=== PATIENT | female | born 1975 | race American Indian/Alaskan Native ===

== ENCOUNTER 2016-09-11 16:13 | Emergency (ER) | payer MEDICAID ==
[2016-09-11 16:51] VITALS: BP 115/88
[2016-09-11 17:46] LABS: Hematocrit 35.7 % (30.3-42.9); Hemoglobin 11.8 gm/dl (10.1-14.3); Mean Corpuscular HGB Conc 33 % (30-34); Mean Corpuscular Hemoglobin 33 pg (28-32); Mean Corpuscular Volume 100 fl (79-97); Platelet Count 115 K/mm3 (140-440); Red Blood Count 3.57 M/mm3 (3.65-5.03); Red Cell Distribution Width 14.9 % (13.2-15.2); White Blood Count 15.2 K/mm3 (4.5-11.0)
[2016-09-11 18:14] LABS: Basophils % (Manual) 0 % (0.0-1.8); Blastocytes % (Manual) 0 %; Eosinophils % (Manual) 0 % (0.0-4.3)
[2016-09-11 18:15] LABS: Platelet Estimate Appears Decreased
[2016-09-11 18:16] LABS: Anisocytosis 1+; Diff Status Complete
[2016-09-11 18:17] LABS: Anion Gap 17 mmol/L; Blood Urea Nitrogen 4 mg/dL (7-17); Calcium 8.7 mg/dL (8.4-10.2); Carbon Dioxide 27 mmol/L (22-30); Chloride 99.5 mmol/L (98-107); Glucose 130 mg/dL (65-100); Potassium 3.9 mmol/L (3.6-5.0); Sodium 140 mmol/L (137-145)
== END 2016-09-11 17:45 | disposition left against medical advice (07) ==
LOC: ED 16:13
DX: I10 Essential (primary) hypertension (principal); R00.2 Palpitations; Z53.21 Procedure and treatment not carried out due to patient leaving prior to being seen by health care provider
CPT/HCPCS: 36415; 80048; 84484; 85007; 85025; 93005; 93010

== ENCOUNTER 2016-09-11 23:47 | Emergency (ER) | payer MEDICAID ==
[2016-09-12 00:25] VITALS: BP 119/81
--- NOTE | 2016-09-12 02:23 | Emergency Department Report ---
ED General Adult HPI - General Chief complaint: Chest Pain Stated complaint: CHEST PAIN Time Seen by Provider: 09/12/16 01:48 Source: patient Mode of arrival: Ambulatory Limitations: No Limitations - History of Present Illness Initial comments: This is a pleasant 40-year-old who complains of palpitations on and off over the last couple of days. She states that she's taken her pulse at home and has had it as high as 103. She states this is never persistent. It will last up to 5-10 minutes and then resolved. She states that she does feel somewhat lightheaded when she has the fast heartbeat. She is currently under chemotherapy for lung cancer. She is currently on her sixth dose of carboplatin I believe. She denies any specific chest pain she just has a sensation of some fluttering in her chest from time to time. She denies any shortness of breath at this time no fever no trauma reported. States that she is frequently nauseous and is not a new condition she does report still taking oral intake. She denies any specific trauma. Onset/Timin -: days(s) Location: chest Radiation: non-radiation Severity scale (0 -10): 2 Quality: dull Consistency: intermittent Improves with: none Worsens with: none Associated Symptoms: weakness. denies: shortness of breath Treatments Prior to Arrival: none - Related Data Previous Rx's Medication Instructions Recorded Last Taken Type Ondansetron [Zofran ODT TAB] 4 mg PO Q6H #14 tab.rapdis 11/10/14 Unknown Rx HYDROcodone/APAP 5-325 [[place] 1 each PO Q6HR PRN #15 tablet 09/23/15 Unknown Rx 5-325 mg TAB] Ibuprofen [Motrin 600 MG tab] 600 mg PO Q8H PRN #15 tablet 09/23/15 Unknown Rx Sulfamethoxazole/Trimethoprim 1 each PO BID #14 tablet 09/23/15 Unknown Rx [Bactrim DS TAB] Ferrous Sulfate [Feosol 325 MG tab] 325 mg PO TID #90 tablet 01/01/16 Unknown Rx oxyCODONE /ACETAMINOPHEN [Percocet 1 tab PO Q8H PRN #35 tablet 01/01/16 Unknown Rx 5/325 mg] ALBUTEROL Inhaler [ProAir HFA 2 puff IH QID PRN #1 inhalation 04/23/16 Unknown Rx Inhaler] Albuterol Sulfate [Albuterol 0.63% 0.63 mg IH Q6H PRN #1 box 04/23/16 Unknown Rx NEBS] Pregabalin [Lyrica] 100 mg PO DAILY #30 capsule 04/23/16 Unknown Rx Amoxicillin/K Clav Tab [Augmentin 1 tab PO Q12HR #14 tab 06/01/16 Unknown Rx 875 mg] Famotidine [Pepcid] 20 mg PO BID #60 tablet 06/01/16 Unknown Rx guaiFENesin ER [Mucinex ER] 600 mg PO BID #30 tablet 06/01/16 Unknown Rx Fluconazole [Diflucan TAB] 200 mg PO BID #14 tablet 07/10/16 Unknown Rx Allergies Allergy/AdvReac Type Severity Reaction Status Date / Time ketorolac tromethamine Allergy Itching Verified 07/10/16 10:11 [From Toradol] latex Allergy Itching Verified 07/10/16 10:11 tramadol Allergy Itching Verified 07/10/16 10:11 ED Review of Systems ROS: Stated complaint: CHEST PAIN Other details as noted in HPI Constitutional: weakness. denies: chills, fever Eyes: denies: eye pain, eye discharge, vision change ENT: denies: ear pain, throat pain Respiratory: denies: cough, shortness of breath, wheezing Cardiovascular: palpitations. denies: chest pain Endocrine: no symptoms reported Gastrointestinal: denies: abdominal pain, nausea, diarrhea Genitourinary: denies: urgency, dysuria, discharge Musculoskeletal: denies: back pain, joint swelling, arthralgia Skin: denies: rash, lesions Neurological: denies: headache, weakness, paresthesias Psychiatric: denies: anxiety, depression Hematological/Lymphatic: denies: easy bleeding, easy bruising ED Past Medical Hx - Past Medical History Previous Medical History?: Yes Hx Hypertension: Yes Hx Congestive Heart Failure: No Hx Diabetes: No Hx of Cancer: Yes (LUNG) Hx Asthma: Yes Hx COPD: No Hx HIV: No Additional medical history: Lung ca - Surgical History Past Surgical History?: Yes Additional Surgical History: right ectopic with tube removed. port to left chest. lobectomy on right side - Social History Smoking Status: Current Every Day Smoker Substance Use Type: None - Medications Home Medications: Home Medications Medication Instructions Recorded Confirmed Last Taken Type Ondansetron [Zofran ODT TAB] 4 mg PO Q6H #14 tab.rapdis 11/10/14 Unknown Rx HYDROcodone/APAP 5-325 [[place] 1 each PO Q6HR PRN #15 tablet 09/23/15 Unknown Rx 5-325 mg TAB] Ibuprofen [Motrin 600 MG tab] 600 mg PO Q8H PRN #15 tablet 09/23/15 Unknown Rx Sulfamethoxazole/Trimethoprim 1 each PO BID #14 tablet 09/23/15 Unknown Rx [Bactrim DS TAB] Ferrous Sulfate [Feosol 325 MG tab] 325 mg PO TID #90 tablet 01/01/16 Unknown Rx oxyCODONE /ACETAMINOPHEN [Percocet 1 tab PO Q8H PRN #35 tablet 01/01/16 Unknown Rx 5/325 mg] ALBUTEROL Inhaler [ProAir HFA 2 puff IH QID PRN #1 inhalation 04/23/16 Unknown Rx Inhaler] Albuterol Sulfate [Albuterol 0.63% 0.63 mg IH Q6H PRN #1 box 04/23/16 Unknown Rx NEBS] Pregabalin [Lyrica] 100 mg PO DAILY #30 capsule 04/23/16 Unknown Rx Amoxicillin/K Clav Tab [Augmentin 1 tab PO Q12HR #14 tab 06/01/16 Unknown Rx 875 mg] Famotidine [Pepcid] 20 mg PO BID #60 tablet 06/01/16 Unknown Rx guaiFENesin ER [Mucinex ER] 600 mg PO BID #30 tablet 06/01/16 Unknown Rx Fluconazole [Diflucan TAB] 200 mg PO BID #14 tablet 07/10/16 Unknown Rx ED Physical Exam - General Limitations: No Limitations General appearance: alert, in no apparent distress - Head Head exam: Present: atraumatic, normocephalic - Eye Eye exam: Present: normal appearance, PERRL, EOMI. Absent: scleral icterus - ENT ENT exam: Present: normal orophraynx, mucous membranes moist - Neck Neck exam: Present: normal inspection - Respiratory Respiratory exam: Present: decreased breath sounds (L lung with rales. R nml). Absent: respiratory distress, wheezes, rhonchi - Cardiovascular Cardiovascular Exam: Present: regular rate, normal rhythm. Absent: systolic murmur, diastolic murmur, rubs, gallop - GI/Abdominal GI/Abdominal exam: Present: soft, normal bowel sounds - Extremities Exam Extremities exam: Present: normal inspection. Absent: tenderness, pedal edema, calf tenderness - Back Exam Back exam: Present: normal inspection - Neurological Exam Neurological exam: Present: alert, oriented X3 - Psychiatric Psychiatric exam: Present: normal affect, normal mood - Skin Skin exam: Present: warm, dry, intact, normal color. Absent: rash ED Course Vital Signs 09/12/16 09/12/16 00:19 02:31 Temperature 98.3 F Pulse Rate 87 Respiratory 20 18 Rate Blood Pressure 119/81 O2 Sat by Pulse 99 97 Oximetry - Reevaluation(s) Reevaluation #1: 09/12/16 05:17 Patient kept on telemetry for approximately 2 hours here. No arrhythmias or significant ectopy noted on the monitor. I did have a discussion with the patient regarding my findings and her condition. She subjectively reports having a couple of episodes where she felt some fluttering but no sustained palpitations. I did encourage her to follow up with her physician to be considered for Holter monitor or event monitor feels she is otherwise safe for home at this time. ED Medical Decision Making - Lab Data Labs done at 1700 on initial presentation demonstrated normal CBC CMP and troponin T - EKG Data -: EKG Interpreted by Me EKG shows normal: sinus rhythm, axis, intervals, QRS complexes, ST-T waves Rate: normal - EKG Data When compared to previous EKG there are: previous EKG unavailable Interpretation: normal EKG Critical care attestation.: If time is entered above; I have spent that time in minutes in the direct care of this critically ill patient, excluding procedure time. ED Disposition Clinical Impression: Heart palpitations Disposition: DISCHARGED TO HOME OR SELFCARE Is pt being admited?: No Does the pt Need Aspirin: No Condition: Stable Instructions: Palpitations (ED) Additional Instructions: Follow-up with your doctor for consideration for event monitor. Referrals: ESTELA WILSON DO [Primary Care Provider] - 3-5 Days Time of Disposition: 04:06
== END 2016-09-12 04:16 | disposition home or self-care (01) ==
LOC: ED 23:47
DX: R00.2 Palpitations (principal); R07.9 Chest pain, unspecified; R53.1 Weakness; I10 Essential (primary) hypertension; J45.909 Unspecified asthma, uncomplicated; F17.200 Nicotine dependence, unspecified, uncomplicated; Z85.118 Personal history of other malignant neoplasm of bronchus and lung; Z88.6 Allergy status to analgesic agent; Z91.040 Latex allergy status
CPT/HCPCS: 99283

== ENCOUNTER 2016-10-19 14:08 | Outpatient (CLI) | payer MEDICAID ==
--- NOTE | 2016-10-19 14:49 | XRay Report ---
CHEST 2 VIEWS INDICATION: Persistent cough. COMPARISON: 07/10/2016. FINDINGS: PA and lateral chest radiographs demonstrate normal cardiomediastinal silhouette. Clear lungs. Intact bones. Stable left chest port tip about the cavoatrial junction. CONCLUSION: No acute disease in the chest. Thank you for the opportunity to participate in this patient's care.
== END 2016-10-19 14:09 | disposition home or self-care (01) ==
LOC: XRAY 14:08
PROVIDERS: ATTEND Internal Medicine Hematology & Oncology
DX: R05 Cough (principal)
CPT/HCPCS: 71020

== ENCOUNTER 2016-11-18 08:15 | Day surgery (SDC) | payer MEDICAID ==
[~2016-11-18 08:15] MED LIST: ANCEF/STERILE WATER 2 GM/20 ML IV ONE
[2016-11-18] MEDS ORDERED: XYLOCAINE 1% 20 mL ONE ×2 (08:55→12:37)
--- NOTE | 2016-11-18 08:57 | Anesthesia Day of Surgery ---
Anesthesia Day of Surgery - Day of Surgery Patient Examined: Yes Patient H&P Reviewed: Yes Patient is NPO: Yes
--- NOTE | 2016-11-18 08:57 | Anesthesia Consultation ---
Anesthesia Consult and Med Hx Date of service: 11/18/16 - Airway Anesthetic Teeth Evaluation: Good ROM Head & Neck: Adequate Mental/Hyoid Distance: Adequate Mallampati Class: Class II Intubation Access Assessment: Probably Good - Pulmonary Exam CTA: Yes - Cardiac Exam Cardiac Exam: RRR - Pre-Operative Health Status ASA Pre-Surgery Classification: ASA3 Proposed Anesthetic Plan: MAC - Pulmonary Hx Smoking: Yes ( 3 PER DAY-3/4PPD X 24 YRS) Hx Asthma: Yes (INHALERS PRN) COPD: No Hx Pneumonia: Yes Hx Sleep Apnea: No (ZHANNA PRE SCREEN LOW RISK) - Cardiovascular System Hx Hypertension: Yes (X 5 MONTHS) - Central Nervous System Hx Psychiatric Problems: No - Hematic Hx Anemia: Yes - Other Systems Hx Cancer: Yes (lung CA)
[2016-11-18] MEDS ORDERED: PEPCID PO NR (09:00)
[2016-11-18] MEDS ORDERED: VERSED IV NR (09:00)
[2016-11-18] MEDS ORDERED: NACL 0.9% 1000 ML 1,000 ML IV SCH (09:00)
[2016-11-18] MEDS ORDERED: DIPRIVAN 10 MG/ML IV ONE (10:37)
[2016-11-18] MEDS ORDERED: DILAUDID ONE (10:38)
[2016-11-18] MEDS ORDERED: NACL BACTERIOSTATIC INFILTRATI ONE (11:08)
--- NOTE | 2016-11-18 11:57 | Mammography Report ---
Breast needle localization procedure. History: 2 groupings of indeterminate microcalcifications in the right breast. Procedure: The patient's skin surface was prepped and draped using sterile technique. Using mammographic guidance, a 5 cm Woodard needle was advanced into 2 separate areas of faint microcalcifications. Satisfactory placement of the needles was confirmed. The patient tolerated the procedure well and was sent to surgery in satisfactory condition.
[2016-11-18] MEDS ORDERED: ANCEF/STERILE WATER 2 GM/20 ML 2 GM/20 ML SYRINGE IV ONE (11:59)
[2016-11-18] MEDS ORDERED: ANCEF/STERILE WATER 2 GM/20 ML IV NR (12:00)
[2016-11-18] MEDS ORDERED: XYLOCAINE MPF 2% ONE (12:14)
[2016-11-18] MEDS ORDERED: ZOFRAN ONE (12:14)
[2016-11-18] MEDS ORDERED: MARCAINE 0.25% INFILTRATI ONE ×2 (12:36→12:41)
[2016-11-18] MEDS ORDERED: WATER FOR IRRIG STERILE IR ONE (12:41)
[2016-11-18] MEDS ORDERED: XYLOCAINE 1% 20 mL INFILTRATI ONE (12:41)
[2016-11-18] MEDS ORDERED: NEO SYNEPHRINE/NS Syringe(OR USE) IV ONE (12:54)
[2016-11-18] MEDS ORDERED: NACL 0.9% 1000 ML 1,000 ML ONE (13:36)
--- NOTE | 2016-11-18 13:57 | Mammography Report ---
Specimen radiograph. Findings: 3 specimen radiographs were submitted. The first specimen radiograph confirms the presence of microcalcifications with the hook wire. The second specimen containing a hookwire does not confirm microcalcifications. The third specimen radiograph without a hookwire confirms the presence of the microcalcifications which were localized.
--- NOTE | 2016-11-18 14:27 | Short Stay Summary ---
Short Stay Documentation Date of service: 11/18/16 - History H&P: obtained from office - Allergies and Medications Current Medications: Allergies ketorolac tromethamine [From Toradol] Allergy (Verified 07/10/16 10:11) Itching latex Allergy (Verified 07/10/16 10:11) Itching tramadol Allergy (Verified 07/10/16 10:11) Itching Home Medications Medication Instructions Recorded Confirmed Last Taken Type RX: Ondansetron [Zofran ODT TAB] 4 mg PO Q6H #14 tab.rapdis 11/10/14 11/18/16 1 Week Ago Rx RX: ALBUTEROL Inhaler [ProAir HFA 2 puff IH QID PRN #1 inhalation 04/23/1611/1811/16/16 Rx Inhaler] RX: Albuterol Sulfate [Albuterol 0.63 mg IH Q6H PRN #1 box 04/23/16 11/18/1604/25 Rx 0.63% NEBS] Dronabinol [Marinol] 5 mg PO BID 11/13/16 11/13/16 11/17/16 History Gabapentin [Neurontin] 600 mg PO TID 11/13/16 11/13/16 11/17/16 History Morphine ER [Ms Contin ER] 60 mg PO TID 11/13/16 11/13/16 11/17/16 History Morphine Sulfate [Morphine Sulfate 30 mg PO DAILY 11/13/16 11/13/16 11/17/16 History ER] Oxycodone HCl/Acetaminophen 1 each PO Q6HR PRN 11/13/16 11/18/16 1 Week Ago History [Percocet 10/325 mg] RX: Famotidine [Pepcid] 20 mg PO PRN PRN 11/13/16 11/18/16 2 Weeks Ago History RX: Ferrous Sulfate [Feosol 325 MG 325 mg PO DAILY 11/13/16 11/18/16 11/16/16 History tab] RX: predniSONE [Deltasone] 20 mg PO QDAY 11/13/16 11/13/16 11/17/16 History cloNIDine [Catapres] 0.1 mg PO DAILY 11/13/16 11/13/16 11/17/16 History HYDROcodone/APAP 5-325 [[place] 1 each PO Q6HR PRN #30 tablet 11/18/16 Unknown Rx 5/325] Active Medications Cefazolin Sodium (Ancef/Sterile Water 2 Gm/20 Ml) 2 gm IV PREOP NR Stop: 11/18/16 23:59 Famotidine (Pepcid) 20 mg PO PREOP NR Stop: 11/18/16 23:59 Last Admin: 11/18/16 11:30 Dose: 20 mg Hydrocortisone Sodium Succinate (Solu-Cortef) 100 mg IV ONCE NR Stop: 11/18/16 23:59 Last Admin: 11/18/16 11:45 Dose: 100 mg Sodium Chloride (Nacl 0.9% 1000 Ml) 1,000 mls @ 100 mls/hr IV DIRECT NATHALY Last Admin: 11/18/16 11:35 Dose: 100 mls/hr Midazolam HCl (Versed) 2 mg IV PREOP NR Stop: 11/18/16 23:59 Last Admin: 11/18/16 11:52 Dose: 2 mg - Brief post op/procedure progress note Date of procedure: 11/18/16 Pre-op diagnosis: Abnormal right mammogram with suspicious microcalcifications Post-op diagnosis: same Procedure: Right needle localization excisional biopsy of two groups of suspicious microcalcifications Anesthesia: GETA Findings: Radiograph specimen of both specimens with suspicious microcalcifications present Surgeon: ISATU JACKSON Estimated blood loss: minimal Pathology: list (Two breast specimens-excisional biopsy) Specimen disposition: to lab Condition: stable - Disposition Condition at discharge: Good Disposition: DISCHARGED TO HOME OR SELFCARE Short Stay Discharge Plan Activity: other (no heavy lifting) Diet: regular Wound: other (keep incision clean and dry; may shower in 24 hours; no baths, pools or lakes; do not rub or scrub incision) Follow up with: ESTELA WILSON DO [Primary Care Provider] - 7 Days ISATU JACKSON MD [Staff Physician] - 7 Days Prescriptions: HYDROcodone/APAP 5-325 [[place] 5/325] 1 each PO Q6HR PRN #30 tablet PRN Reason: Pain
--- NOTE | 2016-11-18 14:41 | Operative Report ---
Operative Report Operative Report: Operative note Date of procedure: 11/18/2016 Pre-operative diagnosis: Right breast suspicious microcalcifications of the lower outer and lower upper quadrants Post-operative diagnosis: Same Procedure name(s): Right complex needle localization excisional biopsy of suspicious microcalcifications Surgeon: Heaven Ybarra M.D. Anesthesia: Gen. Findings: Radiograph specimen of both suspicious microcalcifications present Complications: None Disposition: PACU in good condition Indications for operative procedure: This is a 41-year-old -[place] lady with recent abnormal bilateral screening and diagnostic mammogram. Left mammogram with probable benign microcalcifications and radiology recommendations for repeat 6 months mammogram and right mammogram with suspicious microcalcifications of the lower outer and lower upper quadrants with recommendation for excisional biopsy. Right stereotactic breast biopsy was initially attempted but unsuccessful given patient's breast size. Patient wished to proceed with the above procedure. Patient also recently completed chemotherapy treatment for right lung cancer. Procedure in detail: Radiology placed a wire to localize the area of suspicious microcalcifications-two groups. The patient was taken to the operating room. She was laid supine and general anesthesia was administered without any complications. Both needles were identified. A skin incision was made laterally with a 15 blade knife with dissection taken down to the subcutaneous tissues. The procedure first began with removal of the calcifications from the right upper outer quadrant,the wire was removed from the skin laterally and began with raising of flaps superiorly, medially, inferiorly and laterally and the area of concern was appropriately removed with the aid of the Bovie cautery. The wire was not encountered. The right lower outer microcalcifications were then removed in a similar like fashion with the wire removed from the skin laterally and flaps raised superiorly, medially, inferiorly and laterally with removal of the suspicious areas. Radiograph specimen with wire present with calcifications present from the upper outer quadrant specimen. Second specimen with wire present and micro-calcifications not present from the lower outer quadrant. Then proceeded with additional tissue more medial to obtain more tissue for the lower-outer suspicious calcifications and radiograph specimen with suspicious calcifications present. Hemostasis was obtained. The breast cavity was irrigated and suctioned. The subcutaneous tissues were then mobilized and approximated and closed using interrupted 3-0 Vicryl and skin brought together and closed using a running 4-0 Monocryl and skin affix. The patient tolerated surgery very well and she was awakened from anesthesia without any complications and transported to PACU in good condition.
--- NOTE | 2016-11-18 14:49 | Post Anesthesia Evaluation ---
- Post Anesthesia Evaluation Patient Participated: Yes Airway Patent: Yes Stable Respiratory Function: Yes Temp > 96.8F: Yes Pain Manageable: Yes Adequeate Hydration: Yes Anesthesia Complications: No Block Receding Appropriately: Not Applicable
[2016-11-18] MEDS ORDERED: NORCO 5/325 PO PRN (15:42)
[2016-11-18 18:05] VITALS: BP 112/77
== END 2016-11-18 16:00 | disposition home or self-care (01) ==
LOC: OR 08:15
PROVIDERS: ATTEND Surgery
DX: N60.11 Diffuse cystic mastopathy of right breast (principal); J45.909 Unspecified asthma, uncomplicated; D64.9 Anemia, unspecified; I10 Essential (primary) hypertension; Z85.118 Personal history of other malignant neoplasm of bronchus and lung; Z87.01 Personal history of pneumonia (recurrent); Z87.891 Personal history of nicotine dependence; Z80.3 Family history of malignant neoplasm of breast
CPT/HCPCS: 19125; 19281; 19282; 76098; 88307; J0690; J1170; J1720; J2250; J2370; J2405; J2704; J7030; 88305

== ENCOUNTER 2016-12-11 07:18 | Outpatient (CLI) | payer MEDICAID ==
--- NOTE | 2016-12-11 09:30 | Ultrasound Report ---
Pelvic ultrasound: Uterine fibroids. Endovaginal and transabdominal imaging demonstrates an anteverted uterus measuring 4 x 4 by 7.8 cm. 2 relatively isoechoic masses were identified in the uterine fundus measuring one and 1.3 cm. The larger mass contains a small calcification. The endometrium is unremarkable with the width of 2.9 mm. A small amount of free fluid noted. The right ovary measures 2.9 cm containing a 13 mm inhomogeneous solid mass. The right ovary measures 2.7 cm and contains a cyst as well as a solid mass measuring 11 mm. Impressions: 1. 2 uterine fibroids. 2. Benign-appearing uterine masses.
== END 2016-12-11 07:19 | disposition home or self-care (01) ==
LOC: US 07:18
PROVIDERS: ATTEND Internal Medicine Hematology & Oncology
DX: D25.9 Leiomyoma of uterus, unspecified (principal); N83.201 Unspecified ovarian cyst, right side; N85.8 Other specified noninflammatory disorders of uterus; N85.4 Malposition of uterus
CPT/HCPCS: 76830; 76856

== ENCOUNTER 2016-12-17 23:35 | Emergency (ER) | payer MEDICAID ==
[2016-12-18 01:12] LABS: Red Cell Distribution Width 15.3 % (13.2-15.2); White Blood Count 5.3 K/mm3 (4.5-11.0)
[2016-12-18 01:40] LABS: Basophils % (Auto) 1.1 % (0.0-1.8); Eosinophils % (Auto) 3.5 % (0.0-4.3); Hematocrit 38.6 % (30.3-42.9); Hemoglobin 12.8 gm/dl (10.1-14.3); Mean Corpuscular HGB Conc 33 % (30-34); Mean Corpuscular Hemoglobin 33 pg (28-32); Mean Corpuscular Volume 100 fl (79-97); Platelet Count 228 K/mm3 (140-440); Red Blood Count 3.87 M/mm3 (3.65-5.03)
[2016-12-18 01:57] LABS: Anion Gap 22 mmol/L; Blood Urea Nitrogen 8 mg/dL (7-17); Calcium 8.9 mg/dL (8.4-10.2); Carbon Dioxide 23 mmol/L (22-30); Glucose 91 mg/dL (65-100); Potassium 4.3 mmol/L (3.6-5.0); Sodium 147 mmol/L (137-145)
[2016-12-18 12:11] LABS: Urine Drugs of Abuse Note Disclamer
[2016-12-18 12:24] LABS: Bacteria,Urine 1+ /HPF (Negative); Bilirubin,Urine NEG (Negative); Blood,Urine SM (Negative); Ketones,Urine NEG (Negative); Leukocyte Esterase,Urine NEG (Negative); Mucus,Urine 3+ /HPF; Nitrite,Urine NEG (Negative); Urobilinogen,Urine < 2.0 mg/dL (<2.0)
--- NOTE | 2016-12-18 12:58 | Cat Scan Report ---
CT HEAD WITHOUT CONTRAST: HISTORY: Mental status changes, lung cancer. Serial contiguous axial images were obtained through the cranium. Intravenous contrast material was not administered. The ventricles are normal in size and appearance. There is no mass effect or midline shift. No areas of abnormally increased or decreased attenuation are seen. No mass lesion is seen. The mastoid air cells and visualized portions of the sinuses are normal. IMPRESSION: Cranial CT scan within normal limits.
--- NOTE | 2016-12-18 13:28 | Emergency Department Report ---
ED Psych HPI - General Chief Complaint: Psych Stated Complaint: MH EVAL/HOSTILE BEHAVIOR Time Seen by Provider: 12/18/16 11:38 Source: patient, RN notes reviewed Mode of arrival: Ambulatory Limitations: No Limitations - History of Present Illness Initial Comments: 41-year-old female presents to the emergency department complaining of depression. Patient states for the past 6 weeks she has been having increasing depression. She states she recently locked herself in her room and did not want to see anybody. She denies suicidal or homicidal ideations. She denies auditory or visual hallucinations. She has no other complaints. Review of the triage note shows that the family reportedly the patient was having some hostile behavior at home. Patient's primary nurse states that the patient told her that she was sent to the emergency department by her oncologist because she has not been sleeping. Patient denies either of these complaints to me. MD Complaint: feels depressed -: Gradual, week(s) (6) Associated Psychiatric Symptoms: depression History of same: Yes Quality: constant Improves With: none Worsens With: none Associated Symptoms: denies other symptoms Treatments Prior to Arrival: none - Related Data Home Medications Medication Instructions Recorded Confirmed Last Taken Dronabinol [Marinol] 5 mg PO BID 11/13/16 11/13/16 11/17/16 Famotidine [Pepcid] 20 mg PO PRN PRN 11/13/16 11/18/16 2 Weeks Ago Ferrous Sulfate [Feosol 325 MG tab] 325 mg PO DAILY 11/13/16 11/18/16 11/16/16 Gabapentin [Neurontin] 600 mg PO TID 11/13/16 11/13/16 11/17/16 Morphine ER [Ms Contin ER] 60 mg PO TID 11/13/16 11/13/16 11/17/16 Morphine Sulfate [Morphine Sulfate 30 mg PO DAILY 11/13/16 11/13/16 11/17/16 ER] Oxycodone HCl/Acetaminophen 1 each PO Q6HR PRN 11/13/16 11/18/16 1 Week Ago [Percocet 10/325 mg] cloNIDine [Catapres] 0.1 mg PO DAILY 11/13/16 11/13/16 11/17/16 predniSONE [Deltasone] 20 mg PO QDAY 11/13/16 11/13/16 11/17/16 Previous Rx's Medication Instructions Recorded Last Taken Type Ondansetron [Zofran ODT TAB] 4 mg PO Q6H #14 tab.rapdis 11/10/14 1 Week Ago Rx ALBUTEROL Inhaler [ProAir HFA 2 puff IH QID PRN #1 inhalation 04/23/16 11/16/16 Rx Inhaler] Albuterol Sulfate [Albuterol 0.63% 0.63 mg IH Q6H PRN #1 box 04/23/16 11/15/16 Rx NEBS] HYDROcodone/APAP 5-325 [[place] 1 each PO Q6HR PRN #30 tablet 11/18/16 Unknown Rx 5/325] Allergies Allergy/AdvReac Type Severity Reaction Status Date / Time dexamethasone [From Decadron] Allergy Itching Verified 12/18/16 00:49 dexamethasone sod phosphate Allergy Itching Verified 12/18/16 00:49 [From Decadron] ketorolac tromethamine Allergy Itching Verified 07/10/16 10:11 [From Toradol] latex Allergy Itching Verified 07/10/16 10:11 tramadol Allergy Itching Verified 07/10/16 10:11 ED Review of Systems ROS: Stated complaint: MH EVAL/HOSTEL BEHAVIOR Other details as noted in HPI Comment: All other systems reviewed and negative Psychiatric: depression. denies: homicidal thoughts, suicidal thoughts ED Past Medical Hx - Past Medical History Previous Medical History?: Yes Hx Hypertension: Yes (X 5 MONTHS) Hx Congestive Heart Failure: No Hx Diabetes: No Hx of Cancer: Yes (LUNG) Hx Asthma: Yes (INHALERS PRN) Hx COPD: No Hx Tuberculosis: No (POSITIVE SKIN TEST,NEGATIVE CXR) Hx HIV: No Additional medical history: Lung ca - Surgical History Past Surgical History?: Yes Additional Surgical History: right ectopic with tube removed. port to left chest. lobectomy on right side - Family History Family history: no significant - Social History Smoking Status: Current Every Day Smoker Substance Use Type: None - Medications Home Medications: Home Medications Medication Instructions Recorded Confirmed Last Taken Type Ondansetron [Zofran ODT TAB] 4 mg PO Q6H #14 tab.rapdis 11/10/14 11/18/16 1 Week Ago Rx ALBUTEROL Inhaler [ProAir HFA 2 puff IH QID PRN #1 inhalation 04/23/16 11/18/16 11/16/16 Rx Inhaler] Albuterol Sulfate [Albuterol 0.63% 0.63 mg IH Q6H PRN #1 box 04/23/16 11/18/16 11/15/16 Rx NEBS] Dronabinol [Marinol] 5 mg PO BID 11/13/16 11/13/16 11/17/16 History Famotidine [Pepcid] 20 mg PO PRN PRN 11/13/16 11/18/16 2 Weeks Ago History Ferrous Sulfate [Feosol 325 MG tab] 325 mg PO DAILY 11/13/16 11/18/16 11/16/16 History Gabapentin [Neurontin] 600 mg PO TID 11/13/16 11/13/16 11/17/16 History Morphine ER [Ms Contin ER] 60 mg PO TID 11/13/16 11/13/16 11/17/16 History Morphine Sulfate [Morphine Sulfate 30 mg PO DAILY 11/13/16 11/13/16 11/17/16 History ER] Oxycodone HCl/Acetaminophen 1 each PO Q6HR PRN 11/13/16 11/18/16 1 Week Ago History [Percocet 10/325 mg] cloNIDine [Catapres] 0.1 mg PO DAILY 11/13/16 11/13/16 11/17/16 History predniSONE [Deltasone] 20 mg PO QDAY 11/13/16 11/13/16 11/17/16 History HYDROcodone/APAP 5-325 [[place] 1 each PO Q6HR PRN #30 tablet 11/18/16 Unknown Rx 5/325] ED Physical Exam - General Limitations: No Limitations General appearance: alert, in no apparent distress - Head Head exam: Present: atraumatic, normocephalic - Eye Eye exam: Present: normal appearance, PERRL, EOMI - ENT ENT exam: Present: normal exam, normal orophraynx, mucous membranes moist - Neck Neck exam: Present: normal inspection, full ROM. Absent: tenderness - Respiratory Respiratory exam: Present: normal lung sounds bilaterally. Absent: respiratory distress - Cardiovascular Cardiovascular Exam: Present: regular rate, normal rhythm, normal heart sounds - GI/Abdominal GI/Abdominal exam: Present: soft, normal bowel sounds. Absent: distended, tenderness - Extremities Exam Extremities exam: Present: normal inspection, full ROM. Absent: tenderness - Back Exam Back exam: Present: normal inspection, full ROM. Absent: tenderness - Neurological Exam Neurological exam: Present: alert, oriented X3. Absent: motor sensory deficit - Skin Skin exam: Present: warm, dry, intact ED Course Vital Signs 12/18/16 12/18/16 12/18/16 00:49 06:08 10:09 Temperature 98.3 F Pulse Rate 97 H 82 Respiratory 20 14 Rate Blood Pressure 148/113 155/103 O2 Sat by Pulse 98 100 100 Oximetry 12/18/16 12/18/16 12/18/16 10:20 10:29 10:40 Temperature Pulse Rate Respiratory 16 Rate Blood Pressure 110/69 107/68 O2 Sat by Pulse 100 97 100 Oximetry 12/18/16 12/18/16 12/18/16 11:00 11:20 11:40 Temperature Pulse Rate Respiratory Rate Blood Pressure 109/66 119/74 116/73 O2 Sat by Pulse 100 100 100 Oximetry ED Medical Decision Making - Lab Data Result diagrams: 12/18/16 00:59 12/18/16 00:59 - Radiology Data Radiology results: report reviewed, image reviewed CT of the head shows no acute intracranial abnormality. - Medical Decision Making Lab and imaging results reviewed and discussed with the patient. At this time, patient does not meet involuntary commitment criteria. Patient is medically cleared and is awaiting evaluation by mental health. Patient has been evaluated by mental health and has agreed to voluntary inpatient admission. Patient has been accepted at [facility]. Patient is awaiting transport. - Differential Diagnosis depression Critical care attestation.: If time is entered above; I have spent that time in minutes in the direct care of this critically ill patient, excluding procedure time. ED Disposition Clinical Impression: Major depression Qualifiers: Major depression recurrence: recurrent Active/Remission status: currently active Major depression episode severity: moderate Qualified Code(s): F33.1 - Major depressive disorder, recurrent, moderate Disposition: DC/TX PSY HOSP/PSY UNIT Is pt being admited?: No Condition: Stable Referrals: ESTELA WILSON DO [Primary Care Provider] - 3-5 Days Time of Disposition: 15:25
[2016-12-18 18:28] VITALS: BP 129/90
== END 2016-12-18 21:00 ==
LOC: EEVIPCON 23:35 → ED 23:35
DX: F33.1 Major depressive disorder, recurrent, moderate (principal); I10 Essential (primary) hypertension; J45.909 Unspecified asthma, uncomplicated; F17.200 Nicotine dependence, unspecified, uncomplicated; Z88.8 Allergy status to other drugs, medicaments and biological substances; Z91.040 Latex allergy status; Z85.118 Personal history of other malignant neoplasm of bronchus and lung
CPT/HCPCS: 36415; 70450; 80048; 80307; 81001; 81025; 85025; 99285; G0480; 80320

== ENCOUNTER 2016-12-31 12:59 | Outpatient (CLI) | payer MEDICAID ==
[2016-12-31 15:47] LABS: Blood Urea Nitrogen 11 mg/dL (7-17)
--- NOTE | 2017-01-01 12:12 | Magnetic Resonance Report ---
MRI BRAIN WITH AND WITHOUT CONTRAST INDICATION: Invasive lung cancer. COMPARISON: 12/30/2015 MRI. FINDINGS: Multiplanar and multisequence MRI of the brain performed before and after 15 mL Multihance intravenously demonstrates normal ventricles and sulci without acute infarct, hemorrhage, mass effect or midline shift. No abnormal extra-axial masses or fluid collections. Normal major intracranial vascular flow voids. No suspicious abnormal enhancement. Normal posterior fossa structures with symmetric seventh and eighth nerve complexes. Symmetric, grossly unremarkable eye globes. Mild right maxillary sinus mucosal thickening noted. Rightward nasal septal deviation again seen with possible middle turbinate gail bullosa on the left. Left frontal sinus may also be hypoplastic/aplastic. Grossly clear remainder imaged paranasal sinuses and mastoid air cells. Normal midline structures without evidence of Chiari malformation. CONCLUSION: No acute intracranial MRI abnormality with few incidental findings, including mild right maxillary sinusitis and rightward nasal septal deviation, as described. Please correlate. Thank you for the opportunity to participate in this patient's care.
== END 2016-12-31 13:00 | disposition home or self-care (01) ==
LOC: OPU 12:59 → MRI 12:59 → EDSTATUS 13:15
PROVIDERS: ATTEND Internal Medicine Hematology & Oncology
DX: D02.21 Carcinoma in situ of right bronchus and lung (principal); C34.91 Malignant neoplasm of unspecified part of right bronchus or lung; I10 Essential (primary) hypertension; J32.0 Chronic maxillary sinusitis; J34.2 Deviated nasal septum; R04.2 Hemoptysis; R04.0 Epistaxis; R51 Headache; Z72.0 Tobacco use
CPT/HCPCS: 36415; 70553; 82565; 84520; A9577

== ENCOUNTER 2017-01-15 09:19 | Outpatient (CLI) | payer MEDICAID ==
[2017-01-15] MEDS ORDERED: NACL ONE (09:57)
--- NOTE | 2017-01-15 11:34 | Cat Scan Report ---
CT SCAN OF THE ABDOMEN WITH CONTRAST: HISTORY: Lung cancer. TECHNIQUE: Helical CT in 1.25mm intervals following IV contrast. Sagittal and coronal reconstructions. FINDINGS: The liver is normal in size and is without focal defect. No gallstones or biliary dilatation are noted. The spleen and pancreas demonstrate a normal size and attenuation with no evidence of abnormal mass. The kidneys are normal size and position. 2 cysts in the mid left kidney measure 2 cm. There is also 2 calyceal stones in the mid left kidney measuring up to 5 mm. The right kidney is unremarkable. The proximal ureters are within normal limits. Normal adrenal glands. The visualized bowel loops are unremarkable given no oral contrast was administered. No obstruction or inflammatory changes. The aorta is normal caliber. No evidence for ascites, adenopathy or bone lesion. The lung bases are clear. Normal heart size. IMPRESSION: Left renal cysts and nonobstructing left renal stones. Otherwise unremarkable exam of the abdomen. No evidence for metastatic disease.
== END 2017-01-15 09:20 | disposition home or self-care (01) ==
LOC: CT 09:19
PROVIDERS: ATTEND Internal Medicine Hematology & Oncology
DX: D02.21 Carcinoma in situ of right bronchus and lung (principal); N28.1 Cyst of kidney, acquired; N20.0 Calculus of kidney
CPT/HCPCS: 74160; Q9967

== ENCOUNTER 2017-02-15 13:21 | Inpatient (IN) | payer MEDICAID ==
[2017-02-15] MEDS ORDERED: TYLENOL PO ONE (15:22)
[2017-02-15] MEDS ORDERED: TYLENOL ONE (15:23)
[2017-02-15 15:38] LABS: Urine Drugs of Abuse Note Disclamer
[2017-02-15 15:50] LABS: Basophils % (Auto) 0.5 % (0.0-1.8); Eosinophils % (Auto) 0.2 % (0.0-4.3); Hematocrit 36.4 % (30.3-42.9); Hemoglobin 11.9 gm/dl (10.1-14.3); Mean Corpuscular HGB Conc 33 % (30-34); Mean Corpuscular Hemoglobin 32 pg (28-32); Mean Corpuscular Volume 96 fl (79-97); Platelet Count 158 K/mm3 (140-440); Red Blood Count 3.78 M/mm3 (3.65-5.03); Red Cell Distribution Width 14.5 % (13.2-15.2); White Blood Count 12.4 K/mm3 (4.5-11.0)
[2017-02-15 15:51] LABS: Bacteria,Urine 1+ /HPF (Negative); Bilirubin,Urine NEG (Negative); Blood,Urine NEG (Negative); Ketones,Urine NEG (Negative); Leukocyte Esterase,Urine NEG (Negative); Mucus,Urine FEW /HPF; Nitrite,Urine NEG (Negative); Protein,Urine <15 mg/dL mg/dL (Negative); Urobilinogen,Urine < 2.0 mg/dL (<2.0); WBC,Urine < 1.0 /HPF (0.0-6.0)
[2017-02-15 15:52] LABS: Alanine Aminotransferase 9 units/L (7-56); Albumin 3.9 g/dL (3.9-5); Albumin/Globulin Ratio 1.2 %; Alkaline Phosphatase 48 units/L (35-129); Anion Gap 17 mmol/L; BUN/Creatinine Ratio 8.33; Blood Urea Nitrogen 5 mg/dL (7-17); Calcium 8.6 mg/dL (8.4-10.2); Carbon Dioxide 26 mmol/L (22-30); Chloride 92.2 mmol/L (98-107); Glucose 143 mg/dL (65-100); Lipase 23 units/L (13-60); Potassium 4.4 mmol/L (3.6-5.0); Sodium 131 mmol/L (137-145); Total Protein 7.1 g/dL (6.3-8.2)
--- NOTE | 2017-02-15 16:08 | Emergency Department Report ---
Entered by DAVID PIMENTEL, acting as scribe for VINITA ARIAS PA. Chief Complaint: Abdominal Pain Stated Complaint: BACK PAIN/LUMP LOWER LF ABDOMEN Time Seen by Provider: 02/15/17 15:15 - HPI History of Present Illness: Patient states she has a lump on LLQ with associated pain that began a few days ago. PMHx of lung cancer and HTN Reports nausea and vomiting. Reports back pain. Reports cough. Reports fever. Reports constipation. Reports weakness to legs and edema to feet. Notes oncologist told her she have kidney stones 2 weeks ago. 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 - ROS Review of Systems: All systems are negative unless stated in the HPI above. - Exam Vital Signs: Vital Signs 02/15/17 15:04 Temperature 103.1 F H Pulse Rate 120 H Respiratory 18 Rate Blood Pressure 113/73 O2 Sat by Pulse 100 Oximetry Physical Exam: General: Awake and alert, oriented x 3 Eye: Bilateral pin point pupils not reactive to light Abdomen: Hardened mass to left of the umbilical area that is mildly tender Back: Left CVA tenderness present. No spinal tenderness present MSE screening note: Focused history and physical exam performed. Due to findings the following was ordered: ED Medical Decision Making - Lab Data Result diagrams: 02/15/17 15:23 02/15/17 15:23 - Medical Decision Making She received Tylenol 1 g in triage Patient screened by provider in triage area. Urinalysis, UDS, ordered Lab work and abdominal US was ordered and sent in for patient. Patient sent to be seen by MD on main ED side. ED Disposition for MSE Condition: Stable Instructions: Abdominal Pain (ED) This documentation as recorded by the scribe,DAVID PIMENTEL,accurately reflects the service I personally performed and the decisions made by JUANA stone OYINLOLA A, PA.
--- NOTE | 2017-02-15 17:43 | Ultrasound Report ---
FINAL REPORT EXAM: US ABDOMEN LIMITED HISTORY: abd pain/mass TECHNIQUE: Ultrasound of the abdomen soft tissue area palpable lesion abdominal PRIORS: None. FINDINGS: Ultrasound performed in area palpable lesion anterior abdominal. In the area of abnormality there some mixed echogenicity measuring 3.7 x 0.8 x 1.3 centimeters. There is some fluid seen centrally. Borders are slightly well-defined. No evidence for hyperemia. IMPRESSION: 3.7 centimeter focus in area palpable abnormality abdominal wall. Fluid density seen centrally may reflect abscess. A focal abdominal wall hernia with inflammatory change is a differential consideration.
--- NOTE | 2017-02-15 17:57 | Emergency Department Report ---
ED Abdominal Pain HPI - General Chief Complaint: Abdominal Pain Stated Complaint: BACK PAIN/LUMP LOWER LF ABDOMEN Time Seen by Provider: 02/15/17 17:11 Source: patient Mode of arrival: Ambulatory Limitations: No Limitations - History of Present Illness Initial Comments: 41-year-old female presents to the emergency department complaining of abdominal pain, back pain, and fever. She states that she noticed a lump on the left side of her abdomen that was painful 3 days ago. She describes a dull pain that has been intermittent. This pain does not radiate. Earlier today, she began having low back pain and fever. There has been no vomiting or diarrhea. Patient reports a history of lung cancer, but has completed her treatment. She spoke with her oncologist, Dr. Holden, and was told to come to the emergency department. There are no other complaints. MD Complaint: abdominal pain -: Gradual, days(s) (3) Location: LLQ Radiation: none Migration to: no migration Severity: severe Severity scale (0 -10): 8 Quality: dull Consistency: intermittent Improves With: nothing Worsens With: nothing Associated Symptoms: fever, other (back pain) - Related Data Home Medications Medication Instructions Recorded Confirmed Last Taken Dronabinol [Marinol] 5 mg PO BID 11/13/16 11/13/16 11/17/16 Famotidine [Pepcid] 20 mg PO PRN PRN 11/13/16 11/18/16 2 Weeks Ago Ferrous Sulfate [Feosol 325 MG tab] 325 mg PO DAILY 11/13/16 11/18/16 11/16/16 Gabapentin [Neurontin] 600 mg PO TID 11/13/16 11/13/16 11/17/16 Morphine ER [Ms Contin ER] 60 mg PO TID 11/13/16 11/13/16 11/17/16 Morphine Sulfate [Morphine Sulfate 30 mg PO DAILY 11/13/16 11/13/16 11/17/16 ER] Oxycodone HCl/Acetaminophen 1 each PO Q6HR PRN 11/13/16 11/18/16 1 Week Ago [Percocet 10/325 mg] cloNIDine [Catapres] 0.1 mg PO DAILY 11/13/16 11/13/16 11/17/16 predniSONE [Deltasone] 20 mg PO QDAY 11/13/16 11/13/1611/17/17 Previous Rx's Medication Instructions Recorded Last Taken Type Ondansetron [Zofran ODT TAB] 4 mg PO Q6H #14 tab.rapdis 11/10/14 1 Week Ago Rx ALBUTEROL Inhaler [ProAir HFA 2 puff IH QID PRN #1 inhalation 04/23/16 11/16/16 Rx Inhaler] Albuterol Sulfate [Albuterol 0.63% 0.63 mg IH Q6H PRN #1 box 04/23/16 11/15/16 Rx NEBS] HYDROcodone/APAP 5-325 [[place] 1 each PO Q6HR PRN #30 tablet 11/18/16 Unknown Rx 5/325] Allergies Allergy/AdvReac Type Severity Reaction Status Date / Time dexamethasone [From Decadron] Allergy Itching Verified 12/18/16 00:49 dexamethasone sod phosphate Allergy Itching Verified 12/18/16 00:49 [From Decadron] ketorolac tromethamine Allergy Itching Verified 07/10/16 10:11 [From Toradol] latex Allergy Itching Verified 07/10/16 10:11 tramadol Allergy Itching Verified 07/10/16 10:11 ED Review of Systems ROS: Stated complaint: BACK PAIN/LUMP LOWER LF ABDOMEN Other details as noted in HPI Comment: All other systems reviewed and negative Constitutional: fever Gastrointestinal: abdominal pain Musculoskeletal: back pain ED Past Medical Hx - Past Medical History Previous Medical History?: Yes Hx Hypertension: Yes (X 5 MONTHS) Hx Congestive Heart Failure: No Hx Diabetes: No Hx Asthma: Yes (INHALERS PRN) Hx COPD: No Hx Tuberculosis: No (POSITIVE SKIN TEST,NEGATIVE CXR) Hx HIV: No Additional medical history: Lung ca December 2015 - Surgical History Past Surgical History?: Yes Additional Surgical History: right ectopic with tube removed. port to left chest. lobectomy on right side - Family History Family history: no significant - Social History Smoking Status: Current Every Day Smoker Substance Use Type: Alcohol - Medications Home Medications: Home Medications Medication Instructions Recorded Confirmed Last Taken Type Ondansetron [Zofran ODT TAB] 4 mg PO Q6H #14 tab.rapdis 11/10/14 11/18/16 1 Week Ago Rx ALBUTEROL Inhaler [ProAir HFA 2 puff IH QID PRN #1 inhalation 04/23/16 11/18/16 11/16/16 Rx Inhaler] Albuterol Sulfate [Albuterol 0.63% 0.63 mg IH Q6H PRN #1 box 04/23/16 11/18/16 11/15/16 Rx NEBS] Dronabinol [Marinol] 5 mg PO BID 11/13/16 11/13/16 11/17/16 History Famotidine [Pepcid] 20 mg PO PRN PRN 11/13/16 11/18/16 2 Weeks Ago History Ferrous Sulfate [Feosol 325 MG tab] 325 mg PO DAILY 11/13/16 11/18/16 11/16/16 History Gabapentin [Neurontin] 600 mg PO TID 11/13/16 11/13/16 11/17/16 History Morphine ER [Ms Contin ER] 60 mg PO TID 11/13/16 11/13/16 11/17/16 History Morphine Sulfate [Morphine Sulfate 30 mg PO DAILY 11/13/16 11/13/16 11/17/16 History ER] Oxycodone HCl/Acetaminophen 1 each PO Q6HR PRN 11/13/16 11/18/16 1 Week Ago History [Percocet 10/325 mg] cloNIDine [Catapres] 0.1 mg PO DAILY 11/13/16 11/13/16 11/17/16 History predniSONE [Deltasone] 20 mg PO QDAY 11/13/16 11/13/16 11/17/16 History HYDROcodone/APAP 5-325 [[place] 1 each PO Q6HR PRN #30 tablet 11/18/16 Unknown Rx 5/325] ED Physical Exam - General Limitations: No Limitations General appearance: alert, in no apparent distress - Head Head exam: Present: atraumatic, normocephalic - Eye Eye exam: Present: normal appearance, PERRL, EOMI - ENT ENT exam: Present: normal exam, normal orophraynx, mucous membranes moist - Neck Neck exam: Present: normal inspection, full ROM. Absent: tenderness - Respiratory Respiratory exam: Present: normal lung sounds bilaterally. Absent: respiratory distress - Cardiovascular Cardiovascular Exam: Present: normal rhythm, tachycardia, normal heart sounds - GI/Abdominal GI/Abdominal exam: Present: soft, tenderness, normal bowel sounds, mass ( palpable mass noted to the left of the umbilicus. This area is tender to palpation. There is no overlying erythema.). Absent: distended, guarding, rebound, pulsatile mass - Extremities Exam Extremities exam: Present: normal inspection, full ROM. Absent: tenderness - Back Exam Back exam: Present: normal inspection, full ROM. Absent: tenderness - Neurological Exam Neurological exam: Present: alert, oriented X3. Absent: motor sensory deficit - Skin Skin exam: Present: warm, dry, intact ED Course Vital Signs 02/15/17 15:04 Temperature 103.1 F H Pulse Rate 120 H Respiratory 18 Rate Blood Pressure 113/73 O2 Sat by Pulse 100 Oximetry ED Medical Decision Making - Lab Data Result diagrams: 02/15/17 15:23 02/15/17 15:23 - Radiology Data Radiology results: report reviewed, image reviewed Abdominal ultrasound reveals a left-sided abdominal wall mass with central fluid. Possible diagnoses include abdominal abscess and hernia. - Medical Decision Making Lab and imaging results reviewed with the patient and family. Due to the abnormality on ultrasound, a CT of the abdomen and pelvis has been ordered. I have spoken with Dr. Holden, who is requesting hospitalist admission. - Differential Diagnosis abdominal wall mass, UTI, hernia Critical care attestation.: If time is entered above; I have spent that time in minutes in the direct care of this critically ill patient, excluding procedure time. ED Disposition Clinical Impression: Abdominal wall mass of left lower quadrant Fever Qualifiers: Fever type: unspecified Qualified Code(s): R50.9 - Fever, unspecified Disposition: 09 OP ADMIT IP TO THIS HOSP Is pt being admited?: Yes Condition: Stable Instructions: Abdominal Pain (ED) Time of Disposition: 17:58
[2017-02-15] MEDS ORDERED: NACL ONE (17:59)
--- NOTE | 2017-02-15 18:22 | Admit Criteria Form ---
Admission Criteria Documentation: ABDOMINAL PAIN Clinical Indications for Admission to Inpatient Care (Place 'X' for any and all applicable criteria): Admission is indicated for ANY ONE of the following(1)(2)(3)(4)(5): [X ]I. Inpatient admission required rather than observation care (Also use Abdominal Pain: Observation Care, as appropriate) because of ANY ONE of the following: [ ]a) Severe pain requiring acute inpatient management [X ]b) Identification of etiology/finding that requires inpatient care (eg, aortic dissection, free air) [ ]c) Absent bowel sounds with complete ileus(6) [ ]d) Suspected toxic megacolon [ ]e) Severe electrolyte abnormalities requiring inpatient care [ ]f) High fever or infection requiring inpatient admission as indicated by ANY ONE of following(7)(8): [ ] i) Appropriate outpatient or observational care antimicrobial treatment unavailable, not effective, or not feasible [ ] ii) Documented bacteremia [ ] iii) Temperature > 104.9 degrees F (oral) [ ] iv) T >103.1 F (oral) or < 96.8 F(rectal) that does not respond to all emergency treatment measures [ ]g) Signs of intestinal obstruction [B] [ ]h) Hemodynamic instability [ ]i) IV fluid to replace significant ongoing losses (greater than 3 L/m2 per day) (12)(13) [ ]j) Percutaneous or open drainage (eg, abscess, biliary tract ) procedures [ ]k) Parenteral nutrition regimen that must be implemented on inpatient basis [ ]l) Other condition,treatment or monitoring requiring inpatient admission. [ ]II. Peritoneal signs present [ ]III. Surgery needed that cannot be performed on an ambulatory basis. [ ]IV. Evaluation requires patient to not eat or drink for extended period ( eg, more than 24 hours). [ ]V. Contraindications and/or Inappropriate clinical situations for Observational Care in patients with abdominal pain, when ANY ONE of the following is required: [ ]a) Thorough evaluation is required to prevent catastrophic events due to delays in diagnosing (e.g.Mesenteric ischemia) 1,3 [ ]b) Patient with severe pathology or with chronic symptoms unlikely to improve in the ED stay (3) [ ]. General contraindications and/or Inappropriate clinical situations for Observational Care in patients with abdominal pain, when ANY ONE of the following is required: [ ]a) Prediction of prolongation of LOS based on ANY ONE of the following may be considered as a contraindication for observational care 2, 3, 4, 5, 6, 7, 8, 9, 10, 11 [ ]i) Age > 65 yrs. [ ]ii) Patient arriving by ambulance [ ]iii) Patient with high acuity [ ]iv) Patient requiring vital sign monitoring [ ]v) Patient on IV medication [ ]b) Systolic blood pressures 180mmHg 3,12 [ ]c) Patient with altered mental status including delirium and other alteration of consciousness, (3) [ ]d) Patient whose discharge disposition will be to a nursing home home or rehabilitation home should not be managed in Emergency Department Observation Unit. CMS rule requires 3 days hospital stay before such placement.3,13 [ ]e) Patient with failure to thrive due to broad array of etiologies 3,16,17 [ ]f) Inability to ambulate 3,14 Extended stay beyond goal length of stay may be needed for(2)(3): [ ]a) Persistent abdominal pain with suspected intra-abdominal process [ ]b) Diagnosed condition requiring continued stay (e.g., pancreatitis, complicated diverticulitis) [ ]c) Surgery (e.g., colectomy) The original [facility] content created by [employer] has been revised. The portions of the content which have been revised are identified through the use of italic text or in bold, and [facility] has neither reviewed nor approved the modified material.All other unmodified content is copyright [facility]. Please see references footnoted in the original [facility] edition 2016 Admission Criteria Met: Yes
--- NOTE | 2017-02-15 18:41 | History and Physical Report ---
History of Present Illness Chief complaint: I stomach hurts, and I feel sick History of present illness: 41 YO Female with HTN, Asthma, Lung Cancer, Nicotine Dependence presents to ED for evaluation. Pt states that she has been experiencing abdominal pain for the past 3 days with worsening symptoms over the past 12 hours. Pt acknowledges fever. Pt states that abdominal pain is 7/10, constant, nonradiating. Pt discussed her symptoms with her oncologist who instructed her to present to ED for evaluation. Past History Past Medical History: cancer, hypertension Past Surgical History: Other (Left Chest port, Right Lobectomy) Social history: , smoking. denies: alcohol abuse, prescription drug abuse Family history: hypertension Medications and Allergies Allergies Allergy/AdvReac Type Severity Reaction Status Date / Time dexamethasone [From Decadron] Allergy Itching Verified 12/18/16 00:49 dexamethasone sod phosphate Allergy Itching Verified 12/18/16 00:49 [From Decadron] ketorolac tromethamine Allergy Itching Verified 07/10/16 10:11 [From Toradol] latex Allergy Itching Verified 07/10/16 10:11 tramadol Allergy Itching Verified 07/10/16 10:11 Home Medications Medication Instructions Recorded Confirmed Last Taken Type Ondansetron [Zofran ODT TAB] 4 mg PO Q6H #14 tab.rapdis 11/10/14 02/15/17 1 Week Ago Rx ALBUTEROL Inhaler [ProAir HFA 2 puff IH QID PRN #1 inhalation 04/23/16 02/15/17 11/16/16 Rx Inhaler] Albuterol Sulfate [Albuterol 0.63% 0.63 mg IH Q6H PRN #1 box 04/23/16 02/15/17 11/15/16 Rx NEBS] Dronabinol [Marinol] 5 mg PO BID 11/13/16 02/15/17 11/17/16 History Famotidine [Pepcid] 20 mg PO PRN PRN 11/13/16 02/15/17 2 Weeks Ago History Ferrous Sulfate [Feosol 325 MG tab] 325 mg PO DAILY 11/13/16 02/15/17 11/16/16 History Gabapentin [Neurontin] 600 mg PO TID 11/13/16 02/15/17 11/17/16 History Morphine ER [Ms Contin ER] 60 mg PO TID 11/13/16 02/15/17 11/17/16 History Morphine Sulfate [Morphine Sulfate 30 mg PO DAILY 11/13/16 02/15/17 11/17/16 History ER] Oxycodone HCl/Acetaminophen 1 each PO Q6HR PRN 11/13/16 02/15/17 1 Week Ago History [Percocet 10/325 mg] cloNIDine [Catapres] 0.1 mg PO DAILY 11/13/16 02/15/17 11/17/16 History Ergocalciferol [Vitamin D2] 1 cap PO QWEEK 02/15/17 02/15/17 Unknown History Review of Systems All systems: negative Constitutional: fever, fatigue Exam - Constitutional Vitals: Temp Pulse Resp BP Pulse Ox 103.1 F H 120 H 18 113/73 100 02/15/17 15:04 02/15/17 15:04 02/15/17 15:04 02/15/17 15:04 02/15/17 15:04 General appearance: Present: mild distress - EENT Eyes: Present: PERRL ENT: hearing intact, clear oral mucosa - Respiratory Respiratory effort: labored Respiratory: bilateral: diminished - Cardiovascular Heart Sounds: Present: S1 & S2. Absent: rub, click - Extremities Extremities: pulses symmetrical, No edema Peripheral Pulses: within normal limits - Abdominal General gastrointestinal: Present: soft, non-tender, non-distended, normal bowel sounds Female genitourinary: Present: normal - Integumentary Integumentary: Present: clear, dry, clammy, pale, decreased turgor - Musculoskeletal Musculoskeletal: generalized weakness - Psychiatric Psychiatric: appropriate mood/affect, intact judgment & insight - Neurologic Neurologic: CNII-XII intact, moves all extremities, no gait normal Results - Labs CBC & Chem 7: 02/15/17 15:23 02/15/17 15:23 Labs: Abnormal lab results 02/15/17 02/15/17 Range/Units 15:23 15:23 WBC 12.4 H (4.5-11.0) K/mm3 Lymph % (Auto) 6.9 L (13.4-35.0) % Lymph # 0.8 L (1.2-5.4) K/mm3 Seg Neutrophils % 88.9 H (40.0-70.0) % Seg Neutrophils # 11.0 H (1.8-7.7) K/mm3 Sodium 131 L (137-145) mmol/L Chloride 92.2 L (98-107) mmol/L BUN 5 L (7-17) mg/dL Creatinine 0.6 L (0.7-1.2) mg/dL Glucose 143 H (65-100) mg/dL Assessment and Plan - Patient Problems (1) Sepsis Current Visit: Yes Status: Acute Qualifiers: Sepsis type: S Plan to address problem: Sepsis protocol: IVF, supportive care, IV abx, monitor uop q shift, blood cultures, serial lactic acid levels (2) Abdominal wall mass of left lower quadrant Current Visit: Yes Status: Acute Plan to address problem: CT scan abdomen/pelvis (3) Non-small cell lung cancer (NSCLC) Current Visit: No Status: Acute Qualifiers: Laterality: L Plan to address problem: Oncology consulted, supplemental oxygen, nebs, aspiration precautions. supportive care. (4) Hyponatremia syndrome Current Visit: Yes Status: Acute Plan to address problem: IVF, supportive care, (5) DVT prophylaxis Current Visit: Yes Status: Acute
[2017-02-15] MEDS ORDERED: NACL 0.9% 1000 ML IV ONE (18:46)
[2017-02-15] MEDS ORDERED: ZOFRAN IV PRN (18:46)
[2017-02-15] MEDS ORDERED: DULCOLAX PR PRN (18:46)
[2017-02-15] MEDS ORDERED: DUONEB *Not for PRN Use IH (18:46)
[2017-02-15] MEDS ORDERED: VANCOMYCIN VIAL IV ONE (18:46)
[2017-02-15] MEDS ORDERED: MILK OF MAGNESIA PO PRN (18:46)
[2017-02-15] MEDS ORDERED: VANCOMYCIN PHARMACY TO DOSE IV SCH (19:00)
[2017-02-15] MEDS ORDERED: VANCOMYCIN/NS 1 GM/250 ML 1 GM/250 ML BAG IV ONE (19:00)
[2017-02-15] MEDS ORDERED: PROVENTIL IH PRN (19:03)
--- NOTE | 2017-02-15 19:25 | Cat Scan Report ---
FINAL REPORT EXAM: CT ABDOMEN PELVIS W CON HISTORY: left sided abdominal wall mass TECHNIQUE: CT abdomen and pelvis with intravenous contrast PRIORS: None. FINDINGS: No acute abnormality identified in the lung bases. No focal abnormality identified within the liver parenchyma. The spleen demonstrates normal size and attenuation. No pancreatic abnormalities seen. The kidneys demonstrate symmetric contrast enhancement. No evidence of hydronephrosis. The adrenal glands are unremarkable Abdominal aorta is normal in caliber. No pathologically enlarged lymph nodes are identified. No signs of free fluid or free air No evidence of small bowel dilatation. There is an increased amount fecal material throughout the colon. The left anterior mid abdominal wall superior to the umbilicus there is mild subcutaneous inflammatory change without discrete mass or abscess collection. No abdominal wall hernia is identified. Urinary bladder is unremarkable. IMPRESSION: Subcutaneous strandy inflammatory appearing change left anterior abdominal wall without discrete abscess collection. No hernia identified Increased amount of stool throughout the colon
--- NOTE | 2017-02-15 21:17 | Consultation ---
History of Present Illness - Reason for Consult Consult date: 02/15/17 Abdomial like mass. Requesting physician: ROCÍO JOSE - History of Present Illness Thank you for this consult, Patient seen, in the ER, examined, record reviewed, case d/w patient and her mom at the bed side. kindly asked to see for the reasons above. patient is well known to me in the office.She presented with focused abd pain, and US suggested mass like lesion, ?hernia, ? abcess. Ct of the abd refutes that.Patient had fever Tm of 104, the down to 99+ in the ER after hydration. 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 Past History Past Medical History: cancer Social history: single, lives with family Family history: no significant family history Medications and Allergies Allergies Allergy/AdvReac Type Severity Reaction Status Date / Time dexamethasone [From Decadron] Allergy Itching Verified 12/18/16 00:49 dexamethasone sod phosphate Allergy Itching Verified 12/18/16 00:49 [From Decadron] ketorolac tromethamine Allergy Itching Verified 07/10/16 10:11 [From Toradol] latex Allergy Itching Verified 07/10/16 10:11 tramadol Allergy Itching Verified 07/10/16 10:11 Home Medications Medication Instructions Recorded Confirmed Last Taken Type Ondansetron [Zofran ODT TAB] 4 mg PO Q6H #14 tab.rapdis 11/10/14 02/15/17 1 Week Ago Rx ALBUTEROL Inhaler [ProAir HFA 2 puff IH QID PRN #1 inhalation 04/23/16 02/15/17 11/16/16 Rx Inhaler] Albuterol Sulfate [Albuterol 0.63% 0.63 mg IH Q6H PRN #1 box 04/23/16 02/15/17 11/15/16 Rx NEBS] Dronabinol [Marinol] 5 mg PO BID 11/13/16 02/15/17 11/17/16 History Famotidine [Pepcid] 20 mg PO PRN PRN 11/13/16 02/15/17 2 Weeks Ago History Ferrous Sulfate [Feosol 325 MG tab] 325 mg PO DAILY 11/13/16 02/15/17 11/16/16 History Gabapentin [Neurontin] 600 mg PO TID 11/13/16 02/15/17 11/17/16 History Morphine ER [Ms Contin ER] 60 mg PO TID 11/13/16 02/15/17 11/17/16 History Morphine Sulfate [Morphine Sulfate 30 mg PO DAILY 11/13/16 02/15/17 11/17/16 History ER] Oxycodone HCl/Acetaminophen 1 each PO Q6HR PRN 11/13/16 02/15/17 1 Week Ago History [Percocet 10/325 mg] cloNIDine [Catapres] 0.1 mg PO DAILY 11/13/16 02/15/17 11/17/16 History Ergocalciferol [Vitamin D2] 1 cap PO QWEEK 02/15/17 02/15/17 Unknown History Active Meds: Active Medications Acetaminophen (Tylenol) 650 mg PO Q4H PRN PRN Reason: Pain MILD(1-3)/Fever >100.5/TRIVEDI Albuterol (Proventil) 2.5 mg IH Q4HRT PRN PRN Reason: Shortness Of Breath Bisacodyl (Dulcolax) 10 mg OR QDAY PRN PRN Reason: Constipation unrelieved by MOM Piperacillin Sod/Tazobactam Sod (Zosyn/Ns 4.5gm/100ml) 4.5 gm in 100 mls @ 200 mls/hr IV Q8HR NATHALY PRN Reason: Protocol Vancomycin HCl 750 mg/ Sodium (Chloride) 265 mls @ 166.667 mls/hr IV Q12H NATHALY Magnesium Hydroxide (Milk Of Magnesia) 30 ml PO Q4H PRN PRN Reason: Constipation Ondansetron HCl (Zofran) 4 mg IV Q8H PRN PRN Reason: N/V unrelieved by Reglan Vancomycin HCl (Vancomycin Pharmacy To Dose) 1 each IV PKCONSULT NATHALY PRN Reason: Protocol Review of Systems Constitutional: weight loss, chronic pain Breasts: deferred Gastrointestinal: abdominal pain Musculoskeletal: low back pain Exam - Constitutional Vitals: Temp Pulse Resp BP Pulse Ox 99.1 F 100 H 10 L 97/63 98 02/15/17 19:08 02/15/17 19:08 02/15/17 19:08 02/15/17 19:08 02/15/17 19:08 General appearance: Present: mild distress, well-nourished - EENT Eyes: Present: PERRL ENT: hearing intact, clear oral mucosa - Neck Neck: Present: supple, normal ROM - Respiratory Respiratory effort: normal Respiratory: bilateral: CTA - Cardiovascular Heart Sounds: Present: S1 & S2. Absent: rub, click - Extremities Extremities: pulses symmetrical, No edema Peripheral Pulses: within normal limits - Abdominal General gastrointestinal: Present: soft, tender, non-distended, normal bowel sounds, mass Localized gastrointestinal: tender: RLQ Female genitourinary: Present: deferred - Rectal Rectal Exam: deferred - Integumentary Integumentary: Present: clear, warm, dry - Musculoskeletal Musculoskeletal: gait normal, strength equal bilaterally - Psychiatric Psychiatric: appropriate mood/affect, intact judgment & insight - Neurologic Neurologic: CNII-XII intact, moves all extremities Results - Labs CBC & Chem 7: 02/15/17 15:23 02/15/17 15:23 Assessment and Plan - Patient Problems (1) Abdominal wall mass of left lower quadrant Current Visit: Yes Status: Acute Plan to address problem: Will do MRI. (2) Fever Current Visit: Yes Status: Acute Qualifiers: Fever type: unspecified Encounter type: E Qualified Code(s): R50.9 - Fever, unspecified Plan to address problem: continue w/up, IV ABX. (3) Dehydration, severe Current Visit: No Status: Acute Plan to address problem: continue hydration.
[2017-02-16] MEDS: ZOSYN/NS 4.5GM/100ML 4.5 GM/100 ML VIAL IV SCH ×4 (01:46→21:21)
[2017-02-16] MEDS ORDERED: VANCOMYCIN 750 MG in NACL 0.9% 250ML 250 ML IV SCH (07:00)
[2017-02-16] MEDS ORDERED: VANCOMYCIN/NS 1 GM/250 ML 1 GM/250 ML BAG IV SCH (10:00)
--- NOTE | 2017-02-16 13:57 | Progress Note ---
Assessment and Plan Total Time Spent with Patient (Minutes): 32 - Patient Problems (1) Abdominal wall abscess Current Visit: Yes Status: Acute Plan to address problem: Patient with possible abdominal wall abscess. Patient is currently afebrile white blood cell count is 12 does not appear to be acutely ill cultures and progress now. Plan after evaluation by oncology was for patient to obtain an MRI of abdomen to evaluate abscess. (2) DVT prophylaxis Current Visit: Yes Status: Acute (3) Fever Current Visit: Yes Status: Acute Qualifiers: Fever type: unspecified Encounter type: E Qualified Code(s): R50.9 - Fever, unspecified Plan to address problem: She has fever curve is downtrending with current antibiotic coverage. (4) Hyponatremia syndrome Current Visit: Yes Status: Acute (5) Non-small cell lung cancer (NSCLC) Current Visit: No Status: Acute Qualifiers: Laterality: L Plan to address problem: [place] non-small cell CA has metastasis and pain pain secondary to malignancy will resume morphine sulfate old long-acting and short-acting. (6) Tobacco abuse Current Visit: No Status: Chronic Plan to address problem: Nicotine patch has already been initiated smoking cessation. History Interval history: She complains of pain today lower abdomen. Also bone pain. Consistent with her pain for malignancy. Non-small cell lung cancer. Hospitalist Physical - Constitutional Vitals: Temp Pulse Resp BP Pulse Ox 99.6 F 78 20 125/79 97 02/16/17 08:00 02/16/17 08:00 02/16/17 08:00 02/16/17 08:00 02/16/17 08:00 General appearance: Present: mild distress, other - EENT Eyes: Present: PERRL (moderate distress), EOM intact ENT: hearing intact, clear oral mucosa, dentition normal, other (mucosa is somewhat dry) - Neck Neck: Present: supple, normal ROM - Respiratory Respiratory effort: normal Respiratory: bilateral: diminished - Cardiovascular Rhythm: regular Heart Sounds: Present: S1 & S2 - Extremities Extremities: no ischemia, pulses intact, pulses symmetrical, No edema Extremity abnormal: other (family and deconditioned scaphoid) Peripheral Pulses: within normal limits - Abdominal General gastrointestinal: soft, tender, normal bowel sounds, other (tenderness to mid epigastric with deep palpation.) - Psychiatric Psychiatric: appropriate mood/affect, intact judgment & insight, cooperative, depressed - Neurologic Neurologic: CNII-XII intact Results - Labs CBC & Chem 7: 02/15/17 15:23 02/15/17 15: Labs: Laboratory Last Values WBC 12.4 K/mm3 (4.5-11.0) H 02/15/17 15: RBC 3.78 M/mm3 (3.65-5.03) 02/15/17 15: Hgb 11.9 gm/dl (10.1-14.3) 02/15/17 15: Hct 36.4 % (30.3-42.9) 02/15/17 15: MCV 96 fl (79-97) 02/15/17 15: MCH 32 pg (28-32) 02/15/17: MCHC 33 % (30-34) 02/15/17 15: RDW 14.5 % (13.2-15.2) 02/15/17 15: Plt Count 158 K/mm3 (140-440) 02/15/17 15: Lymph % (Auto) 6.9 % (13.4-35.0) L 02/15/17 15: [place] % (Auto) 3.5 % (0.0-7.3) 02/15/17: Eos % (Auto) 0.2 % (0.0-4.3) 02/15/17 15: Baso % (Auto) 0.5 % (0.0-1.8) 02/15/17 15: Lymph # 0.8 K/mm3 (1.2-5.4) L 02/15/17: [place] # 0.4 K/mm3 (0.0-0.8) 02/15/17: Eos # 0.0 K/mm3 (0.0-0.4) 02/15/17: Baso # 0.1 K/mm3 (0.0-0.1) 02/15/17: Seg Neutrophils % 88.9 % (40.0-70.0) H 02/15/17 15: Seg Neutrophils # 11.0 K/mm3 (1.8-7.7) H 02/15/17 15: Sodium 131 mmol/L (137-145) L 02/15/17 15:23 Potassium 4.4 mmol/L (3.6-5.0) 02/15/17 15:23 Chloride 92.2 mmol/L (98-107) L 02/15/17 15: Carbon Dioxide 26 mmol/L (22-30) 02/15/17 15:23 Anion Gap 17 mmol/L 02/15/17 15:23 BUN 5 mg/dL (7-17) L 02/15/17 15: Creatinine 0.6 mg/dL (0.7-1.2) L 02/15/17 15:23 Estimated GFR > 60 ml/min 02/15/17 15: BUN/Creatinine Ratio 8.33 % 02/15/17 15: Glucose 143 mg/dL (65-100) H 02/15/17 15: Calcium 8.6 mg/dL (8.4-10.2) 02/15/17: Total Bilirubin 0.30 mg/dL (0.1-1.2) 02/15/17 15: AST 21 units/L (5-40) 02/15/17 15: ALT 9 units/L (7-56) 02/15/17 15:23 Alkaline Phosphatase 48 units/L (35-129) 02/15/17 15:23 Total Protein 7.1 g/dL (6.3-8.2) 02/15/17 15: Albumin 3.9 g/dL (3.9-5) 02/15/17 15: Albumin/Globulin Ratio 1.2 % 02/15/17 15:23 Lipase 23 units/L (13-60) 02/15/17 15:23 HCG, Qual Negative (Negative) 02/15/17 15:23 Urine Color Yellow (Yellow) 02/15/17 15:00 Urine Turbidity Clear (Clear) 02/15/17 15:00 Urine pH 5.0 (5.0-7.0) 02/15/17 15:00 Ur Specific [place] 1.014 (1.003-1.030) 02/15/17 15:00 Urine Protein <15 mg/dl mg/dL (Negative) 02/15/17 15:00 Urine Glucose (UA) 50 mg/dL (Negative) 02/15/17 15:00 Urine Ketones Neg mg/dL (Negative) 02/15/17 15:00 Urine Blood Neg (Negative) 02/15/17 15:00 Urine Nitrite Neg (Negative) 02/15/17 15:00 Urine Bilirubin Neg (Negative) 02/15/17 15:00 Urine Urobilinogen < 2.0 mg/dL (<2.0) 02/15/17 15:00 Ur Leukocyte Esterase Neg (Negative) 02/15/17 15:00 Urine WBC (Auto) < 1.0 /HPF (0.0-6.0) 02/15/17 15:00 Urine RBC (Auto) 3.0 /HPF (0.0-6.0) 02/15/17 15:00 U Epithel Cells (Auto) 3.0 /HPF (0-13.0) 02/15/17 15:00 Urine Bacteria (Auto) 1+ /HPF (Negative) 02/15/17 15:00 Urine Mucus Few /HPF 02/15/17 15:00 Urine Opiates Screen Presumptive positive 02/15/17 15:00 Urine Methadone Screen Presumptive negative 02/15/17 15:00 Ur Barbiturates Screen Presumptive positive 02/15/17 15:00 Ur Phencyclidine Scrn Presumptive negative 02/15/17 15:00 Ur Amphetamines Screen Presumptive negative 02/15/17 15:00 U Benzodiazepines Scrn Presumptive negative 02/15/17 15:00 Urine Cocaine Screen Presumptive negative 02/15/17 15:00 U Marijuana (THC) Screen Presumptive negative 02/15/17 15:00 Drugs of Abuse Note Disclamer 02/15/17 15:00 Blood Type A POSITIVE 02/15/17 19:43 Antibody Screen TNR 02/15/17 19:43 QUYNH Antibody Screen Negative 02/15/17 19:43 - Imaging and Cardiology CT scan - abdomen: image reviewed US - abdomen: image reviewed
[2017-02-16] MEDS ORDERED: PROAIR IH PRN (13:58)
[2017-02-16] MEDS ORDERED: NON-FORMULARY (Oxycodone Hcl/Acetaminophen [Percocet 10/325 Mg] 1 EACH) PO PRN (13:58)
[2017-02-16] MEDS ORDERED: PEPCID PO PRN ×2 (13:58→14:33)
[2017-02-16] MEDS ORDERED: NON-FORMULARY (Gabapentin [Neurontin] 600 MG) PO SCH (14:00)
[2017-02-16] MEDS ORDERED: PERCOCET 5/325 PO PRN (14:27)
[2017-02-16] MEDS ORDERED: ROXICODONE PO PRN (14:28)
[2017-02-16] MEDS ORDERED: MORPHINE PO PRN (15:21)
[2017-02-16] MEDS: NEURONTIN PO SCH ×2 (15:46→21:19)
[2017-02-16] MEDS: MS CONTIN ER PO SCH ×2 (15:46→21:20)
[2017-02-16] MEDS: FEOSOL PO SCH (15:46)
[2017-02-16] MEDS: VANCOMYCIN/NS 1 GM/250 ML 1 GM/250 ML BAG IV SCH (18:04)
[2017-02-16] MEDS: ZOFRAN ODT PO SCH (21:19)
[2017-02-16 21:25] LABS: ISTAT Base Excess 0; ISTAT DEVICE 0; ISTAT HCO3 25.7; ISTAT PCO2 44.3 (35-45); ISTAT PH 7.372 (7.35-7.45); ISTAT PO2 54 (80-105); ISTAT SO2 87; ISTAT TCO2 27
--- NOTE | 2017-02-16 23:39 | Consultation ---
History of Present Illness - Reason for Consult Consult date: 02/16/17 - History of Present Illness Patient seen/examined, labs/records reviewed, and case d/w her and the family at the bed side. Of concern to me is the ABG indicates severe hypoxia Pa02 at 53 %, while H/H is stable, she is put on oxygen by the respiratory. will do w/up begging with cxy, and if nl, will proceed with lung scans to r/o PE, if cxr does not show PNA, will start on PE treatment until PE r/o. i have d/w patient all these.she is currently on prophylactic sq heparin.also her hyponaremia, may be either due to dehydration, or as a paraneoplastic syndrome. will do a w/up for this also. Past History Past Medical History: cancer, hypertension Past Surgical History: Other (Left Chest port, Right Lobectomy) Social history: , smoking. denies: alcohol abuse, prescription drug abuse Family history: hypertension Medications and Allergies Allergies Allergy/AdvReac Type Severity Reaction Status Date / Time dexamethasone [From Decadron] Allergy Itching Verified 12/18/16 00:49 dexamethasone sod phosphate Allergy Itching Verified 12/18/16 00:49 [From Decadron] ketorolac tromethamine Allergy Itching Verified 07/10/16 10:11 [From Toradol] latex Allergy Itching Verified 07/10/16 10:11 tramadol Allergy Itching Verified 07/10/16 10:11 Home Medications Medication Instructions Recorded Confirmed Last Taken Type Ondansetron [Zofran ODT TAB] 4 mg PO Q6H #14 tab.rapdis 11/10/14 02/15/17 1 Week Ago Rx ALBUTEROL Inhaler [ProAir HFA 2 puff IH QID PRN #1 inhalation 04/23/16 02/15/17 11/16/16 Rx Inhaler] Albuterol Sulfate [Albuterol 0.63% 0.63 mg IH Q6H PRN #1 box 04/23/16 02/15/17 11/15/16 Rx NEBS] Dronabinol [Marinol] 5 mg PO BID 11/13/16 02/15/17 11/17/16 History Famotidine [Pepcid] 20 mg PO PRN PRN 11/13/16 02/15/17 2 Weeks Ago History Ferrous Sulfate [Feosol 325 MG tab] 325 mg PO DAILY 11/13/16 02/15/17 11/16/16 History Gabapentin [Neurontin] 600 mg PO TID 11/13/16 02/15/17 11/17/16 History Morphine ER [Ms Contin ER] 60 mg PO TID 11/13/16 02/15/17 11/17/16 History Morphine Sulfate [Morphine Sulfate 30 mg PO DAILY 11/13/16 02/15/17 11/17/16 History ER] Oxycodone HCl/Acetaminophen 1 each PO Q6HR PRN 11/13/16 02/15/17 1 Week Ago History [Percocet 10/325 mg] cloNIDine [Catapres] 0.1 mg PO DAILY 11/13/16 02/15/17 11/17/16 History Ergocalciferol [Vitamin D2] 1 cap PO QWEEK 02/15/17 02/15/17 Unknown History Active Meds: Active Medications Acetaminophen (Tylenol) 650 mg PO Q4H PRN PRN Reason: Pain MILD(1-3)/Fever >100.5/TRIVEDI Albuterol (Proventil) 2.5 mg IH Q4HRT PRN PRN Reason: Shortness Of Breath Bisacodyl (Dulcolax) 10 mg UT QDAY PRN PRN Reason: Constipation unrelieved by MOM Famotidine (Pepcid) 20 mg PO BID PRN PRN Reason: Indigestion Ferrous Sulfate (Feosol) 325 mg PO DAILY [facility] Last Admin: 02/16/17 15:46 Dose: 325 mg Gabapentin (Neurontin) 600 mg PO Q8HR [facility] Last Admin: 02/16/17 21:19 Dose: 600 mg Piperacillin Sod/Tazobactam Sod (Zosyn/Ns 4.5gm/100ml) 4.5 gm in 100 mls @ 200 mls/hr IV Q8HR NATHALY PRN Reason: Protocol Last Admin: 02/16/17 21:21 Dose: 200 mls/hr Vancomycin HCl (Vancomycin/Ns 1 Gm/250 Ml) 1 gm in 250 mls @ 166.667 mls/hr IV Q12H [facility] Last Admin: 02/16/17 18:04 Dose: 167 mls/hr Dextrose/Sodium Chloride (D5ns 0.2%) 1,000 mls @ 75 mls/hr IV DIRECT NATHALY Magnesium Hydroxide (Milk Of Magnesia) 30 ml PO Q4H PRN PRN Reason: Constipation Morphine Sulfate (Ms Contin Er) 60 mg PO Q8HR [facility] Last Admin: 02/16/17 21:20 Dose: 60 mg Morphine Sulfate (Morphine) 30 mg PO Q4H PRN PRN Reason: Pain , Severe (7-10) Ondansetron HCl (Zofran) 4 mg IV Q8H PRN PRN Reason: N/V unrelieved by Reglan Ondansetron HCl (Zofran Odt) 4 mg PO Q6HR [facility] Last Admin: 02/16/17 21:19 Dose: 4 mg Oxycodone HCl (Roxicodone) 5 mg PO Q6H PRN PRN Reason: BREAKTHRU PAIN Oxycodone/Acetaminophen (Percocet 5/325) 1 tab PO Q6H PRN PRN Reason: BREAKTHRU PAIN Vancomycin HCl (Vancomycin Pharmacy To Dose) 1 each IV PKCONSULT [facility] PRN Reason: Protocol Review of Systems Constitutional: chills, fatigue, chronic pain Breasts: deferred Respiratory: cough Exam - Constitutional Vitals: Temp Pulse Resp BP Pulse Ox 99.6 F 78 18 125/79 100 02/16/17 08:00 02/16/17 08:00 02/16/17 09:30 02/16/17 08:00 02/16/17 21:33 General appearance: Present: mild distress, well-nourished - EENT Eyes: Present: PERRL ENT: hearing intact, clear oral mucosa - Neck Neck: Present: supple, normal ROM - Respiratory Respiratory: bilateral: rhonchi - Cardiovascular Heart Sounds: Present: S1 & S2. Absent: rub, click - Extremities Extremities: pulses symmetrical, No edema Peripheral Pulses: within normal limits - Abdominal General gastrointestinal: Present: soft, non-tender, non-distended, normal bowel sounds Female genitourinary: Present: deferred - Rectal Rectal Exam: deferred - Integumentary Integumentary: Present: clear, warm, dry - Musculoskeletal Musculoskeletal: gait normal, strength equal bilaterally - Psychiatric Psychiatric: appropriate mood/affect, intact judgment & insight - Neurologic Neurologic: CNII-XII intact, moves all extremities Results - Labs CBC & Chem 7: 02/15/17 15:23 02/15/17 15:23 Labs: Abnormal lab results 02/16/17 Range/Units 21:12 POC ABG pO2 54 L (80-105) Assessment and Plan - Patient Problems (1) Abdominal wall mass of left lower quadrant Current Visit: Yes Status: Acute Plan to address problem: Will do MRI. completed, awaiting results. (2) Fever Current Visit: Yes Status: Acute Qualifiers: Fever type: unspecified Encounter type: E Qualified Code(s): R50.9 - Fever, unspecified Plan to address problem: continue w/up, IV ABX. cultures result pending . (3) Dehydration, severe Current Visit: No Status: Acute Plan to address problem: continue hydration. restart fluids.
--- NOTE | 2017-02-17 00:09 | XRay Report ---
FINAL REPORT EXAM: XR CHEST 1V AP HISTORY: cough, hypoxia. TECHNIQUE: Single-view chest PRIORS: Correlated with prior chest CT of December 27, 2015 FINDINGS: There is patchy interstitial prominence within the right upper lobe.. Left chest port noted. Pulmonary vasculature is unremarkable. No pleural effusion seen. Cardiac and mediastinal contours are within normal limits. IMPRESSION: Right upper lobe infiltrate. There was mass reported previously in the right upper lobe not clearly identifiable on the chest radiograph. A followup chest CT is recommended for further evaluation
[2017-02-17] MEDS: ZOFRAN ODT PO SCH ×4 (00:56→17:42)
[2017-02-17] MEDS: D5NS 0.2% 1,000 ML IV SCH ×2 (02:53→22:16)
[2017-02-17] MEDS: ZOSYN/NS 4.5GM/100ML 4.5 GM/100 ML VIAL IV SCH ×3 (06:25→21:00)
[2017-02-17] MEDS: NEURONTIN PO SCH ×3 (06:26→21:02)
[2017-02-17] MEDS: MS CONTIN ER PO SCH ×3 (06:27→21:02)
--- NOTE | 2017-02-17 07:52 | Magnetic Resonance Report ---
MR ABDOMEN WITH AND WITHOUT CONTRAST HISTORY: Abdominal pain, left sided abdominal wall mass. TECHNIQUE: Multiple T1 and T2-weighted images with and without fat suppression. Post contrast dynamic imaging. FINDINGS: Correlation is made with the CT abdomen pelvis with contrast dated 02/15/[address] abdomen with contrast dated 01/15/17. Ultrasound dated 02/15/17 was also reviewed. There is a tiny subcentimeter focus of nonspecific inflammation in the left anterior abdominal wall just lateral and superior to the umbilicus. This was also noted on recent CT and ultrasound. This has the appearance of a vascular structure or nonspecific inflammation. It is decreased in size since the previous ultrasound. No suspicious enhancing mass is detected. The liver is normal size and signal. No advanced parenchymal disease or focal mass. The portal venous system and hepatic veins are patent. The biliary system, pancreas and spleen are within normal limits. Both kidneys are normal size and contour. A 2.2 cm lobulated cyst is noted in the mid left kidney. A 1 cm cyst is noted in the mid right kidney. No obstructive uropathy. The adrenal glands are normal size and contour. The aorta is normal caliber. No abdominal adenopathy is appreciated. Moderate constipation is suspected. Heart size is borderline. There is subtle patchy infiltration in the right lower lobe which may represent edema, radiation changes or infiltrate. Trace pleural effusions are also detected. The visualized bony structures are unremarkable. IMPRESSION: No suspicious abdominal wall mass is identified. This ill-defined area noted on previous ultrasound and CT has essentially resolved. There is no evidence for metastatic disease to the abdomen. Borderline heart size, trace pleural effusions and nonspecific infiltration in the right lower lobe. This probably represents focal edema or possibly radiation changes. Simple renal cysts. Constipation.
[2017-02-17] MEDS: VANCOMYCIN/NS 1 GM/250 ML 1 GM/250 ML BAG IV SCH (07:58)
--- NOTE | 2017-02-17 08:41 | Progress Note ---
Assessment and Plan Assessment and plan: 41 YO Female with HTN, Asthma, Lung Cancer, Nicotine Dependence presents to ED for evaluation. who presents with fever and abdominal pain Sepsis due to pneumonia * Continue antibiotics, clinically improving Abdominal wall mass of left lower quadrant was ruled out There was concern for mass on CT abdomen, but however MRI was performed shortly after which confirmed that there is no mass or abscess in the abdominal wall. Abdominal pain is most likely due to constipation/fecal impaction Non-small cell lung cancer (NSCLC) Oncology consulted, supplemental oxygen, nebs, aspiration precautions. supportive care. * oncology ordered a VQ scan which was low probability for PE Hyponatremia syndrome IVF, supportive care, likely due to chronic lung condition with lung cancer and pneumonia No further workup is indicated Fecal impaction Abdominal pain is most likely due to fecal impaction, will order stool softeners and enema for heart, if it does not resolve. Ordered therapeutic enema through the radiology department. DVT prophylaxis Current Visit: Yes Status: Acute History Interval history: She denies sputum production, has dry cough, still having abdominal pain and constipation, yet have a bowel movement. Hospitalist Physical - Physical exam Narrative exam: General: Patient appears well in no distress HEENT: MMM, EOMI cardiac: S1-S2 heard lungs: clear to auscultation, abdomen: soft, nontender, nondistended bowel sounds positive extremities: no edema clubbing or cyanosis Skin: no rash or lesion Neuro: no focal deficit Psych: appropriate behavior and mood, cognition intact - Constitutional Vitals: Temp Pulse Resp BP Pulse Ox 97.9 F 113 H 20 124/80 97 02/16/17 23:45 02/16/17 23:45 02/16/17 23:45 02/16/17 23:45 02/16/17 23:45 General appearance: Present: mild distress, well-nourished Results - Labs CBC & Chem 7: 02/17/17 09:28 02/17/17 09:28 Labs: Laboratory Last Values WBC 12.4 K/mm3 (4.5-11.0) H 02/15/17 15:23 RBC 3.78 M/mm3 (3.65-5.03) 02/15/17 15:23 Hgb 11.9 gm/dl (10.1-14.3) 02/15/17 15:23 Hct 36.4 % (30.3-42.9) 02/15/17 15:23 MCV 96 fl (79-97) 02/15/17 15: MCH 32 pg (28-32) 02/15/17 15: MCHC 33 % (30-34) 02/15/17 15:23 RDW 14.5 % (13.2-15.2) 02/15/17 15: Plt Count 158 K/mm3 (140-440) 02/15/17 15: Lymph % (Auto) 6.9 % (13.4-35.0) L 02/15/17 15:23 [place] % (Auto) 3.5 % (0.0-7.3) 02/15/17 15: Eos % (Auto) 0.2 % (0.0-4.3) 02/15/17 15: Baso % (Auto) 0.5 % (0.0-1.8) 02/15/17 15: Lymph # 0.8 K/mm3 (1.2-5.4) L 02/15/17 15: [place]ford # 0.4 K/mm3 (0.0-0.8) 02/15/17 15: Eos # 0.0 K/mm3 (0.0-0.4) 02/15/17 15: Baso # 0.1 K/mm3 (0.0-0.1) 02/15/17 15: Seg Neutrophils % 88.9 % (40.0-70.0) H 02/15/17 15: Seg Neutrophils # 11.0 K/mm3 (1.8-7.7) H 02/15/17 15:23 POC ABG pH 7.372 (7.35-7.45) 02/16/17 21:12 POC ABG pCO2 44.3 (35-45) 02/16/17 21:12 POC ABG pO2 54 (80-105) L 02/16/17 21:12 POC ABG HCO3 25.7 02/16/17 21:12 POC ABG Total CO2 27 02/16/17 21:12 POC ABG O2 Sat 87 02/16/17 21:12 POC ABG Base Excess 0 02/16/17 21: FiO2 21 % 02/16/17 21:12 Sodium 131 mmol/L (137-145) L 02/15/17 15:23 Potassium 4.4 mmol/L (3.6-5.0) 02/15/17 15: Chloride 92.2 mmol/L (98-107) L 02/15/17 15: Carbon Dioxide 26 mmol/L (22-30) 02/15/17 15: Anion Gap 17 mmol/L 02/15/17 15: BUN 5 mg/dL (7-17) L 02/15/17 15: Creatinine 0.6 mg/dL (0.7-1.2) L 02/15/17 15: Estimated GFR > 60 ml/min 02/15/17: BUN/Creatinine Ratio 8.33 % 02/15/17: Glucose 143 mg/dL (65-100) H 02/15/17 15: Osmolality 281 Mosm/kg 02/17/17 00:46 Uric Acid 1.6 mg/dL (3.5-7.6) L 02/17/17 00:46 Calcium 8.6 mg/dL (8.4-10.2) 02/15/17: Total Bilirubin 0.30 mg/dL (0.1-1.2) 02/15/17 15: AST 21 units/L (5-40) 02/15/17: ALT 9 units/L (7-56) 02/15/17 15: Alkaline Phosphatase 48 units/L (35-129) 02/15/17 15: Total Protein 7.1 g/dL (6.3-8.2) 02/15/17: Albumin 3.9 g/dL (3.9-5) 02/15/17 15: Albumin/Globulin Ratio 1.2 % 02/15/17 15: Lipase 23 units/L (13-60) 02/15/17 15: HCG, Qual Negative (Negative) 02/15/17: Urine Color Yellow (Yellow) 02/15/17 15:00 Urine Turbidity Clear (Clear) 02/15/17 15: Urine pH 5.0 (5.0-7.0) 02/15/17 15:00 Ur Specific Minetto 1.014 (1.003-1.030) 02/15/17 15:00 Urine Protein <15 mg/dl mg/dL (Negative) 02/15/17 15:00 Urine Glucose (UA) 50 mg/dL (Negative) 02/15/17 15:00 Urine Ketones Neg mg/dL (Negative) 02/15/17 15:00 Urine Blood Neg (Negative) 02/15/17 15:00 Urine Nitrite Neg (Negative) 02/15/17 15:00 Urine Bilirubin Neg (Negative) 02/15/17 15:00 Urine Urobilinogen < 2.0 mg/dL (<2.0) 02/15/17 15:00 Ur Leukocyte Esterase Neg (Negative) 02/15/17 15:00 Urine WBC (Auto) < 1.0 /HPF (0.0-6.0) 02/15/17 15:00 Urine RBC (Auto) 3.0 /HPF (0.0-6.0) 02/15/17 15:00 U Epithel Cells (Auto) 3.0 /HPF (0-13.0) 02/15/17 15:00 Urine Bacteria (Auto) 1+ /HPF (Negative) 02/15/17 15:00 Urine Mucus Few /HPF 02/15/17 15:00 Urine Opiates Screen Presumptive positive 02/15/17 15:00 Urine Methadone Screen Presumptive negative 02/15/17 15:00 Ur Barbiturates Screen Presumptive positive 02/15/17 15:00 Ur Phencyclidine Scrn Presumptive negative 02/15/17 15:00 Ur Amphetamines Screen Presumptive negative 02/15/17 15:00 U Benzodiazepines Scrn Presumptive negative 02/15/17 15:00 Urine Cocaine Screen Presumptive negative 02/15/17 15:00 U Marijuana (THC) Screen Presumptive negative 02/15/17 15:00 Drugs of Abuse Note Disclamer 02/15/17 15:00 Blood Type A POSITIVE 02/15/17 19:43 Antibody Screen TNR 02/15/17 19:43 QUYNH Antibody Screen Negative 02/15/17 19:43
[2017-02-17] MEDS: FEOSOL PO SCH (09:51)
[2017-02-17] MEDS: CEPHULAC PO SCH ×2 (09:51→21:02)
[2017-02-17 09:54] LABS: Hematocrit 32.2 % (30.3-42.9); Hemoglobin 10.7 gm/dl (10.1-14.3); Mean Corpuscular HGB Conc 33 % (30-34); Mean Corpuscular Hemoglobin 31 pg (28-32); Mean Corpuscular Volume 94 fl (79-97); Platelet Count 175 K/mm3 (140-440); Red Blood Count 3.41 M/mm3 (3.65-5.03); Red Cell Distribution Width 14.3 % (13.2-15.2); White Blood Count 9.8 K/mm3 (4.5-11.0)
[2017-02-17] MEDS ORDERED: NON-FORMULARY (Morphine Sulfate [Morphine Sulfate Er] 30 MG) PO SCH (10:00)
[2017-02-17] MEDS ORDERED: FLEET PR ONE (10:00)
[2017-02-17 10:11] LABS: Blood Urea Nitrogen 4 mg/dL (7-17); Calcium 8.3 mg/dL (8.4-10.2); Carbon Dioxide 25 mmol/L (22-30); Glucose 136 mg/dL (65-100)
[2017-02-17 10:12] LABS: Anion Gap 16 mmol/L; Chloride 96.5 mmol/L (98-107); Potassium 3.9 mmol/L (3.6-5.0); Sodium 134 mmol/L (137-145)
--- NOTE | 2017-02-17 13:40 | Nuclear Medicine Report ---
Or medicine ventilation/perfusion lung scan. History: Hypoxia, chest pain. Findings: The ventilation study is normal. The perfusion scan demonstrates a subtle area of diminished activity in the anterior right upper lobe best seen on the anterior and right lateral projections. No additional perfusion abnormalities are seen. Impression: Vague nonsegmental area of decreased perfusion activity in the right upper lobe without ventilation match. This is consistent with a low probability of embolic disease.
[2017-02-17] MEDS: TYLENOL PO PRN (17:40)
[2017-02-17 21:25] LABS: ISTAT Base Excess -2; ISTAT DEVICE 0; ISTAT HCO3 23.6; ISTAT PH 7.368 (7.35-7.45); ISTAT PO2 29 (80-105); ISTAT SO2 52; ISTAT TCO2 25
--- NOTE | 2017-02-17 22:13 | Consultation ---
History of Present Illness - Reason for Consult Consult date: 02/17/17 - History of Present Illness patient seen/examined, scans/labs reviewed, case d/w patient/family.ABG again abn, V/Q low probability.. pulm consulted, patient placed on high flow oxygen. Ct of the chest ordered. Past History Past Medical History: cancer, hypertension Past Surgical History: Other (Left Chest port, Right Lobectomy) Social history: , smoking. denies: alcohol abuse, prescription drug abuse Family history: hypertension Medications and Allergies Allergies Allergy/AdvReac Type Severity Reaction Status Date / Time dexamethasone [From Decadron] Allergy Itching Verified 12/18/16 00:49 dexamethasone sod phosphate Allergy Itching Verified 12/18/16 00:49 [From Decadron] ketorolac tromethamine Allergy Itching Verified 07/10/16 10:11 [From Toradol] latex Allergy Itching Verified 07/10/16 10:11 tramadol Allergy Itching Verified 07/10/16 10:11 Home Medications Medication Instructions Recorded Confirmed Last Taken Type Ondansetron [Zofran ODT TAB] 4 mg PO Q6H #14 tab.rapdis 11/10/14 02/15/17 1 Week Ago Rx ALBUTEROL Inhaler [ProAir HFA 2 puff IH QID PRN #1 inhalation 04/23/16 02/15/17 11/16/16 Rx Inhaler] Albuterol Sulfate [Albuterol 0.63% 0.63 mg IH Q6H PRN #1 box 04/23/16 02/15/17 11/15/16 Rx NEBS] Dronabinol [Marinol] 5 mg PO BID 11/13/16 02/15/17 11/17/16 History Famotidine [Pepcid] 20 mg PO PRN PRN 11/13/16 02/15/17 2 Weeks Ago History Ferrous Sulfate [Feosol 325 MG tab] 325 mg PO DAILY 11/13/16 02/15/17 11/16/16 History Gabapentin [Neurontin] 600 mg PO TID 11/13/16 02/15/17 11/17/16 History Morphine ER [Ms Contin ER] 60 mg PO TID 11/13/16 02/15/17 11/17/16 History Morphine Sulfate [Morphine Sulfate 30 mg PO DAILY 11/13/16 02/15/17 11/17/16 History ER] Oxycodone HCl/Acetaminophen 1 each PO Q6HR PRN 11/13/16 02/15/17 1 Week Ago History [Percocet 10/325 mg] cloNIDine [Catapres] 0.1 mg PO DAILY 11/13/16 02/15/17 11/17/16 History Ergocalciferol [Vitamin D2] 1 cap PO QWEEK 02/15/17 02/15/17 Unknown History Active Meds: Active Medications Acetaminophen (Tylenol) 650 mg PO Q4H PRN PRN Reason: Pain MILD(1-3)/Fever >100.5/TRIVEDI Last Admin: 02/17/17 17:40 Dose: 650 mg Albuterol (Proventil) 2.5 mg IH Q4HRT PRN PRN Reason: Shortness Of Breath Bisacodyl (Dulcolax) 10 mg [place] QDAY PRN PRN Reason: Constipation unrelieved by MOM Famotidine (Pepcid) 20 mg PO BID PRN PRN Reason: Indigestion Ferrous Sulfate (Feosol) 325 mg PO DAILY [facility] Last Admin: 02/17/17 09:51 Dose: 325 mg Gabapentin (Neurontin) 600 mg PO Q8HR NATHALY Last Admin: 02/17/17 21:02 Dose: 600 mg Piperacillin Sod/Tazobactam Sod (Zosyn/Ns 4.5gm/100ml) 4.5 gm in 100 mls @ 200 mls/hr IV Q8HR NATHALY PRN Reason: Protocol Last Admin: 02/17/17 21:00 Dose: 200 mls/hr Dextrose/Sodium Chloride (D5ns 0.2%) 1,000 mls @ 75 mls/hr IV DIRECT NATHALY Last Admin: 02/17/17 02:53 Dose: 75 mls/hr Lactulose (Cephulac) 20 gm PO Q12HR NTAHALY Last Admin: 02/17/17 21:02 Dose: 20 gm Magnesium Hydroxide (Milk Of Magnesia) 30 ml PO Q4H PRN PRN Reason: Constipation Miscellaneous Medication (Paliperidone Er) 3 mg PO QAM NATHALY Morphine Sulfate (Ms Contin Er) 60 mg PO Q8HR NATHALY Last Admin: 02/17/17 21:02 Dose: 60 mg Morphine Sulfate (Morphine) 30 mg PO Q4H PRN PRN Reason: Pain , Severe (7-10) Ondansetron HCl (Zofran) 4 mg IV Q8H PRN PRN Reason: N/V unrelieved by Regbelkis Ondansetron HCl (Zofran Odt) 4 mg PO Q6HR NATHALY Last Admin: 02/17/17 17:42 Dose: 4 mg Oxycodone HCl (Roxicodone) 5 mg PO Q6H PRN PRN Reason: BREAKTHRU PAIN Oxycodone/Acetaminophen (Percocet 5/325) 1 tab PO Q6H PRN PRN Reason: BREAKTHRU PAIN Review of Systems Constitutional: chronic pain Breasts: deferred Respiratory: cough, shortness of breath Exam - Constitutional Vitals: Temp Pulse Resp BP Pulse Ox 102.7 F H 124 H 20 131/71 97 02/17/17 17:00 02/17/17 17:00 02/17/17 17:00 02/17/17 17:00 02/17/17 10:00 General appearance: Present: mild distress, well-nourished - EENT Eyes: Present: PERRL ENT: hearing intact, clear oral mucosa - Neck Neck: Present: supple, normal ROM - Respiratory Respiratory: bilateral: diminished, rhonchi - Cardiovascular Heart Sounds: Present: S1 & S2. Absent: rub, click - Extremities Extremities: pulses symmetrical, No edema Peripheral Pulses: within normal limits - Abdominal General gastrointestinal: Present: soft, non-tender, non-distended, normal bowel sounds Female genitourinary: Present: deferred - Rectal Rectal Exam: deferred - Integumentary Integumentary: Present: clear, warm, dry - Musculoskeletal Musculoskeletal: gait normal, strength equal bilaterally - Psychiatric Psychiatric: appropriate mood/affect, intact judgment & insight - Neurologic Neurologic: CNII-XII intact, moves all extremities Results - Labs CBC & Chem 7: 02/17/17 09:28 02/17/17 09:28 Labs: Abnormal lab results 02/17/17 02/17/17 02/17/17 Range/Units 00:46 09:28 09:28 RBC 3.41 L (3.65-5.03) M/mm3 POC ABG pO2 (80-105) Sodium 134 L (137-145) mmol/L Chloride 96.5 L (98-107) mmol/L BUN 4 L (7-17) mg/dL Creatinine 0.5 L (0.7-1.2) mg/dL Glucose 136 H (65-100) mg/dL Uric Acid 1.6 L (3.5-7.6) mg/dL Calcium 8.3 L (8.4-10.2) mg/dL 02/17/17 Range/Units 21:08 RBC (3.65-5.03) M/mm3 POC ABG pO2 29 L (80-105) Sodium (137-145) mmol/L Chloride (98-107) mmol/L BUN (7-17) mg/dL Creatinine (0.7-1.2) mg/dL Glucose (65-100) mg/dL Uric Acid (3.5-7.6) mg/dL Calcium (8.4-10.2) mg/dL Assessment and Plan - Patient Problems (1) Abdominal wall mass of left lower quadrant Current Visit: Yes Status: Acute Plan to address problem: Will do MRI. completed, awaiting results. reviewed, and ok. (2) Fever Current Visit: Yes Status: Acute Qualifiers: Fever type: unspecified Encounter type: E Qualified Code(s): R50.9 - Fever, unspecified Plan to address problem: continue w/up, IV ABX. cultures result pending . (3) Dehydration, severe Current Visit: No Status: Acute Plan to address problem: continue hydration. restart fluids.
[2017-02-18] MEDS: ZOFRAN ODT PO SCH ×5 (00:23→23:25)
[2017-02-18 00:30] LABS: ISTAT Base Excess 2; ISTAT HCO3 26.9; ISTAT PCO2 44.1 (35-45); ISTAT PH 7.393 (7.35-7.45); ISTAT PO2 184 (80-105); ISTAT SO2 100; ISTAT TCO2 28
[2017-02-18] MEDS: NEURONTIN PO SCH ×3 (06:35→23:24)
[2017-02-18] MEDS: ZOSYN/NS 4.5GM/100ML 4.5 GM/100 ML VIAL IV SCH ×3 (06:36→23:26)
[2017-02-18] MEDS: MS CONTIN ER PO SCH ×3 (06:38→22:15)
[2017-02-18] MEDS ORDERED: NACL ONE (07:45)
--- NOTE | 2017-02-18 08:30 | Discharge Summary ---
Providers - Providers Date of Admission: 02/15/17 18:46 Attending physician: NORMA HAMILTON MD 02/15/17 20:54 Consult to Physician [CONS] Routine Consulting Provider: ESTELA WILSON Reason For Exam: LUNG CANCER Place consult to:: DR. WILSON Notified:: YES 02/17/17 21:59 Consult to Physician [CONS] Routine Consulting Provider: MANUEL BROCK Reason For Exam: hypoxia/pneumonia. Place consult to:: pulm service. Primary care physician: ESTELA WILSON Hospitalization Condition: Stable Hospital course: 41 YO Female with HTN, Asthma, Lung Cancer, Nicotine Dependence presents to ED for evaluation. who presents with fever and abdominal pain Sepsis due to pneumonia * Continue antibiotics, clinically improving Abdominal wall mass of left lower quadrant was ruled out There was concern for mass on CT abdomen, but however MRI was performed shortly after which confirmed that there is no mass or abscess in the abdominal wall. Abdominal pain is most likely due to constipation/fecal impaction Non-small cell lung cancer (NSCLC) Oncology consulted, supplemental oxygen, nebs, aspiration precautions. supportive care. * oncology ordered a VQ scan which was low probability for PE Hyponatremia syndrome IVF, supportive care, likely due to chronic lung condition with lung cancer and pneumonia No further workup is indicated Fecal impaction Abdominal pain is most likely due to fecal impaction, will order stool softeners and enema for heart, if it does not resolve. Ordered therapeutic enema through the radiology department. DVT prophylaxis Current Visit: Yes Status: Acute Disposition: DC- TO HOME OR SELFCARE Time spent for discharge: 33 minutes Core Measure Documentation - Palliative Care Palliative Care/ Comfort Measures: Not Applicable - Core Measures Any of the following diagnoses?: none Exam - Physical Exam Narrative exam: General: Patient appears well in no distress HEENT: MMM, EOMI cardiac: S1-S2 heard lungs: clear to auscultation, abdomen: soft, nontender, nondistended bowel sounds positive extremities: no edema clubbing or cyanosis Skin: no rash or lesion Neuro: no focal deficit Psych: appropriate behavior and mood, cognition intact - Constitutional Vitals: Temp Pulse Resp BP Pulse Ox 98.7 F 150 H 20 96/50 85 02/17/17 23:50 02/17/17 23:50 02/17/17 23:50 02/17/17 23:50 02/17/17 23:50 Plan Follow up with: PRIMARY CARE, [Referring] - 7 Days Prescriptions: Morphine [Morphine TAB] 30 mg PO Q4H PRN #14 tablet PRN Reason: Pain , Severe (7-10) Morphine ER [Ms Contin ER] 60 mg PO TID #20 tablet Paliperidone Er 3 mg PO QAM #30
--- NOTE | 2017-02-18 09:52 | XRay Report ---
Chest 2 views: History: Shortness of breath and hypoxia. Findings: Normal cardiomediastinal silhouette. Trachea is midline. Diffuse airspace opacities bilaterally in the perihilar area and lower lobes. Normal CP angles. Stable Port-A-Cath. Impression: Probable bilateral pneumonia. Less likely pulmonary edema.
[2017-02-18] MEDS: FEOSOL PO SCH (10:22)
[2017-02-18] MEDS: PALIPERIDONE 3 MG PO SCH (10:22)
[2017-02-18] MEDS: CEPHULAC PO SCH ×2 (10:23→23:25)
--- NOTE | 2017-02-18 10:26 | Cat Scan Report ---
CT CHEST WITH AND WITHOUT CONTRAST History: Followup lung cancer, lung mass. Technique: Helical CT before and after IV contrast. Sagittal and coronal reformatted images. Findings: Compared to 12/27/15. The 4.7 cm rounded mass in the right upper lobe has resolved since the previous exam. There are groundglass interstitial infiltrates throughout both lungs which may represent post therapy changes. No recurrent lung mass. No pleural effusion or pneumothorax. 2 or 3 right hilar lymph nodes are identified which measure up to 1.7 cm. These appear stable since the comparison exam. No new thoracic mass or adenopathy. The thyroid gland, tracheobronchial tree, esophagus, heart mediastinal vessels are unremarkable. No bony lesion. Impression: Right upper lobe mass has resolved or has been resected since the previous exam. No recurrent lung mass is appreciated. Mildly enlarged right hilar lymph nodes are again identified and unchanged. No new mass or adenopathy in the chest. Bilateral ground glass interstitial infiltrates which probably represent post therapy changes. Edema could also be considered.
[2017-02-18] MEDS ORDERED: LASIX IV ONE (10:30)
--- NOTE | 2017-02-18 10:38 | Consultation ---
History of Present Illness Consult date: 02/18/17 Requesting physician: ESTELA WILSON Reason for consult: pneumonia History of present illness: PULMONARY/CCM CONSULT NOTE (Full dictation # [id number]) Please see dictated notes for full details Past History Past Medical History: cancer, hypertension Past Surgical History: Other (Left Chest port, Right Lobectomy) Social history: , smoking. denies: alcohol abuse, prescription drug abuse Family history: hypertension Medications and Allergies Allergies Allergy/AdvReac Type Severity Reaction Status Date / Time dexamethasone [From Decadron] Allergy Itching Verified 12/18/16 00:49 dexamethasone sod phosphate Allergy Itching Verified 12/18/16 00:49 [From Decadron] ketorolac tromethamine Allergy Itching Verified 07/10/16 10:11 [From Toradol] latex Allergy Itching Verified 07/10/16 10:11 tramadol Allergy Itching Verified 07/10/16 10:11 Home Medications Medication Instructions Recorded Confirmed Last Taken Type Ondansetron [Zofran ODT TAB] 4 mg PO Q6H #14 tab.rapdis 11/10/14 02/15/17 1 Week Ago Rx ALBUTEROL Inhaler [ProAir HFA 2 puff IH QID PRN #1 inhalation 04/23/16 02/15/17 11/16/16 Rx Inhaler] Albuterol Sulfate [Albuterol 0.63% 0.63 mg IH Q6H PRN #1 box 04/23/16 02/15/17 11/15/16 Rx NEBS] Dronabinol [Marinol] 5 mg PO BID 11/13/16 02/15/17 11/17/16 History Famotidine [Pepcid] 20 mg PO PRN PRN 11/13/16 02/15/17 2 Weeks Ago History Ferrous Sulfate [Feosol 325 MG tab] 325 mg PO DAILY 11/13/16 02/15/17 11/16/16 History Gabapentin [Neurontin] 600 mg PO TID 11/13/16 02/15/17 11/17/16 History cloNIDine [Catapres] 0.1 mg PO DAILY 11/13/16 02/15/17 11/17/16 History Ergocalciferol [Vitamin D2] 1 cap PO QWEEK 02/15/17 02/15/17 Unknown History Amoxicillin/K Clav Tab [Augmentin 1 tab PO Q12HR #28 tab 02/18/17 Unknown Rx 875 mg] Levofloxacin [Levaquin] 750 mg PO QDAY #7 tablet 02/18/17 Unknown Rx Morphine ER [Ms Contin ER] 60 mg PO TID #20 tablet 02/18/17 Unknown Rx Morphine [Morphine TAB] 30 mg PO Q4H PRN #14 tablet 02/18/17 Unknown Rx Paliperidone Er 3 mg PO QAM #30 02/18/17 Unknown Rx Active Meds: Active Medications Acetaminophen (Tylenol) 650 mg PO Q4H PRN PRN Reason: Pain MILD(1-3)/Fever >100.5/TRIVEDI Last Admin: 02/17/17 17:40 Dose: 650 mg Albuterol (Proventil) 2.5 mg IH Q4HRT PRN PRN Reason: Shortness Of Breath Bisacodyl (Dulcolax) 10 mg [place] QDAY PRN PRN Reason: Constipation unrelieved by MOM Famotidine (Pepcid) 20 mg PO BID PRN PRN Reason: Indigestion Ferrous Sulfate (Feosol) 325 mg PO DAILY [facility] Last Admin: 02/18/17 10:22 Dose: 325 mg Furosemide (Lasix) 40 mg IV Q12H NATHALY Gabapentin (Neurontin) 600 mg PO Q8HR [facility] Last Admin: 02/18/17 06:35 Dose: 600 mg Piperacillin Sod/Tazobactam Sod (Zosyn/Ns 4.5gm/100ml) 4.5 gm in 100 mls @ 200 mls/hr IV Q8HR NATHALY PRN Reason: Protocol Last Admin: 02/18/17 06:36 Dose: 200 mls/hr Dextrose/Sodium Chloride (D5ns 0.2%) 1,000 mls @ 75 mls/hr IV DIRECT [facility] Last Admin: 02/17/17 22:16 Dose: 75 mls/hr Lactulose (Cephulac) 20 gm PO Q12HR [facility] Last Admin: 02/18/17 10:23 Dose: 20 gm Magnesium Hydroxide (Milk Of Magnesia) 30 ml PO Q4H PRN PRN Reason: Constipation Miscellaneous Medication (Paliperidone Er) 3 mg PO QAM [facility] Last Admin: 02/18/17 10:22 Dose: 3 mg Morphine Sulfate (Ms Contin Er) 60 mg PO Q8HR [facility] Last Admin: 02/18/17 06:38 Dose: 60 mg Morphine Sulfate (Morphine) 30 mg PO Q4H PRN PRN Reason: Pain , Severe (7-10) Ondansetron HCl (Zofran) 4 mg IV Q8H PRN PRN Reason: N/V unrelieved by Reglan Ondansetron HCl (Zofran Odt) 4 mg PO Q6HR [facility] Last Admin: 02/18/17 06:38 Dose: 4 mg Oxycodone HCl (Roxicodone) 5 mg PO Q6H PRN PRN Reason: BREAKTHRU PAIN Oxycodone/Acetaminophen (Percocet 5/325) 1 tab PO Q6H PRN PRN Reason: BREAKTHRU PAIN Physical Examination Vital signs: Vital Signs Temp Pulse Resp BP Pulse Ox 103.1 F H 120 H 18 113/73 100 02/15/17 15:04 02/15/17 15:04 02/15/17 15:04 02/15/17 15:04 02/15/17 15:04 Results - Laboratory Findings CBC and BMP: 02/17/17 09:28 02/17/17 09:28 ABG POC ABG pH 7.393 (7.35-7.45) 02/18/17 00:22 POC ABG pCO2 44.1 (35-45) 02/18/17 00:22 POC ABG pO2 184 (80-105) H 02/18/17 00:22 POC ABG HCO3 26.9 02/18/17 00:22 POC ABG Total CO2 28 02/18/17 00:22 POC ABG O2 Sat 100 02/18/17 00:22 Abnormal lab findings: Abnormal Labs 02/16/17 02/17/17 02/17/17 21:12 00:46 09:28 RBC 3.41 L POC ABG pO2 54 L Sodium Chloride BUN Creatinine Glucose Uric Acid 1.6 L Calcium 02/17/17 02/17/17 02/18/17 09:28 21:08 00:22 RBC POC ABG pO2 29 L 184 H Sodium 134 L Chloride 96.5 L BUN 4 L Creatinine 0.5 L Glucose 136 H Uric Acid Calcium 8.3 L
--- NOTE | 2017-02-18 14:09 | Progress Note ---
Assessment and Plan Assessment and plan: 41 YO Female with HTN, Asthma, Lung Cancer, Nicotine Dependence presents to ED for evaluation. who presents with fever and abdominal pain Sepsis due to pneumonia * Continue antibiotics, clinically improving Suspected CHF/ pulmonary venous congestion * Start IV Lasix, obtain echo, obtain cardiology consult Acute hypoxic respiratory failure Patient is non-flow oxygen by nasal cannula, VQ scan was negative for PE, CT chest only shows ground ground opacities consistent with pulmonary venous congestion rx PNA and suspected CHF Obtain pulmonology consult Abdominal wall mass of left lower quadrant was ruled out There was concern for mass on CT abdomen, but however MRI was performed shortly after which confirmed that there is no mass or abscess in the abdominal wall. Abdominal pain is most likely due to constipation/fecal impaction Non-small cell lung cancer (NSCLC) Oncology consulted, supplemental oxygen, nebs, aspiration precautions. supportive care. * oncology ordered a VQ scan which was low probability for PE Hyponatremia syndrome IVF, supportive care, likely due to chronic lung condition with lung cancer and pneumonia Stable Fecal impaction Abdominal pain is most likely due to fecal impaction, will order stool softeners and enema for heart, if it does not resolve. We'll recheck a KUB today, she is not sure when her last BM was. Ordered therapeutic enema through the radiology department. DVT prophylaxis Current Visit: Yes Status: Acute History Interval history: She had increased shortness of breath overnight, and increased oxygen demand. Hospitalist Physical - Physical exam Narrative exam: General: Patient appears well in no distress HEENT: MMM, EOMI cardiac: S1-S2 heard lungs: Decreased air entry in the bases abdomen: soft, nontender, nondistended bowel sounds positive extremities: no edema clubbing or cyanosis Skin: no rash or lesion Neuro: no focal deficit Psych: appropriate behavior and mood, cognition intact - Constitutional Vitals: Temp Pulse Resp BP Pulse Ox 99.1 F 112 H 18 100/58 100 02/18/17 08:00 02/18/17 08:00 02/18/17 08:00 02/18/17 08:00 02/18/17 10:00 General appearance: Present: mild distress, well-nourished Results - Labs CBC & Chem 7: 02/17/17 09:28 02/17/17 09:28 Labs: Laboratory Last Values WBC 9.8 K/mm3 (4.5-11.0) 02/17/17 09:28 RBC 3.41 M/mm3 (3.65-5.03) L 02/17/17 09:28 Hgb 10.7 gm/dl (10.1-14.3) 02/17/17 09:28 Hct 32.2 % (30.3-42.9) 02/17/17 09:28 MCV 94 fl (79-97) 02/17/17 09: MCH 31 pg (28-32) 02/17/17 09:28 MCHC 33 % (30-34) 02/17/17 09:28 RDW 14.3 % (13.2-15.2) 02/17/17 09:28 Plt Count 175 K/mm3 (140-440) 02/17/17 09:28 Lymph % (Auto) 6.9 % (13.4-35.0) L 02/15/17 15:23 [place] % (Auto) 3.5 % (0.0-7.3) 02/15/17 15:23 Eos % (Auto) 0.2 % (0.0-4.3) 02/15/17 15:23 Baso % (Auto) 0.5 % (0.0-1.8) 02/15/17 15:23 Lymph # 0.8 K/mm3 (1.2-5.4) L 02/15/17 15:23 [place] # 0.4 K/mm3 (0.0-0.8) 02/15/17 15:23 Eos # 0.0 K/mm3 (0.0-0.4) 02/15/17 15:23 Baso # 0.1 K/mm3 (0.0-0.1) 02/15/17 15:23 Seg Neutrophils % 88.9 % (40.0-70.0) H 02/15/17 15: Seg Neutrophils # 11.0 K/mm3 (1.8-7.7) H 02/15/17 15:23 POC ABG pH 7.393 (7.35-7.45) 02/18/17 00:22 POC ABG pCO2 44.1 (35-45) 02/18/17 00:22 POC ABG pO2 184 (80-105) H 02/18/17 00:22 POC ABG HCO3 26.9 02/18/17 00:22 POC ABG Total CO2 28 02/18/17 00:22 POC ABG O2 Sat 100 02/18/17 00:22 POC ABG Base Excess 2 02/18/17 00:22 FiO2 100 % 02/18/17 00:22 Sodium 134 mmol/L (137-145) L 02/17/17 09:28 Potassium 3.9 mmol/L (3.6-5.0) 02/17/17 09:28 Chloride 96.5 mmol/L (98-107) L 02/17/17 09:28 Carbon Dioxide 25 mmol/L (22-30) 02/17/17 09:28 Anion Gap 16 mmol/L 02/17/17 09:28 BUN 4 mg/dL (7-17) L 02/17/17 09:28 Creatinine 0.5 mg/dL (0.7-1.2) L 02/17/17 09:28 Estimated GFR > 60 ml/min 02/17/17 09:28 BUN/Creatinine Ratio 8.00 % 02/17/17 09:28 Glucose 136 mg/dL (65-100) H 02/17/17 09:28 Osmolality 281 Mosm/kg 02/17/17 00:46 Uric Acid 1.6 mg/dL (3.5-7.6) L 02/17/17 00:46 Calcium 8.3 mg/dL (8.4-10.2) L 02/17/17 09:28 Total Bilirubin 0.30 mg/dL (0.1-1.2) 02/15/17 15:23 AST 21 units/L (5-40) 02/15/17 15:23 ALT 9 units/L (7-56) 02/15/17 15:23 Alkaline Phosphatase 48 units/L (35-129) 02/15/17 15:23 Total Protein 7.1 g/dL (6.3-8.2) 02/15/17 15:23 Albumin 3.9 g/dL (3.9-5) 02/15/17 15:23 Albumin/Globulin Ratio 1.2 % 02/15/17 15:23 Lipase 23 units/L (13-60) 02/15/17 15:23 HCG, Qual Negative (Negative) 02/15/17 15:23 Urine Color Yellow (Yellow) 02/15/17 15:00 Urine Turbidity Clear (Clear) 02/15/17 15:00 Urine pH 5.0 (5.0-7.0) 02/15/17 15:00 Ur Specific [place] 1.014 (1.003-1.030) 02/15/17 15:00 Urine Protein <15 mg/dl mg/dL (Negative) 02/15/17 15:00 Urine Glucose (UA) 50 mg/dL (Negative) 02/15/17 15:00 Urine Ketones Neg mg/dL (Negative) 02/15/17 15:00 Urine Blood Neg (Negative) 02/15/17 15:00 Urine Nitrite Neg (Negative) 02/15/17 15:00 Urine Bilirubin Neg (Negative) 02/15/17 15:00 Urine Urobilinogen < 2.0 mg/dL (<2.0) 02/15/17 15:00 Ur Leukocyte Esterase Neg (Negative) 02/15/17 15:00 Urine WBC (Auto) < 1.0 /HPF (0.0-6.0) 02/15/17 15:00 Urine RBC (Auto) 3.0 /HPF (0.0-6.0) 02/15/17 15:00 U Epithel Cells (Auto) 3.0 /HPF (0-13.0) 02/15/17 15:00 Urine Bacteria (Auto) 1+ /HPF (Negative) 02/15/17 15:00 Urine Mucus Few /HPF 02/15/17 15:00 Urine Osmolality 442 Mosm/kg 02/17/17 17:35 Urine Opiates Screen Presumptive positive 02/15/17 15:00 Urine Methadone Screen Presumptive negative 02/15/17 15:00 Ur Barbiturates Screen Presumptive positive 02/15/17 15:00 Ur Phencyclidine Scrn Presumptive negative 02/15/17 15:00 Ur Amphetamines Screen Presumptive negative 02/15/17 15:00 U Benzodiazepines Scrn Presumptive negative 02/15/17 15:00 Urine Cocaine Screen Presumptive negative 02/15/17 15:00 U Marijuana (THC) Screen Presumptive negative 02/15/17 15:00 Drugs of Abuse Note Disclamer 02/15/17 15:00 Blood Type A POSITIVE 02/15/17 19:43 Antibody Screen TNR 02/15/17 19:43 QUYNH Antibody Screen Negative 02/15/17 19:43
--- NOTE | 2017-02-18 15:37 | XRay Report ---
Single view abdomen: History abdominal pain. Findings: Moderate amount of small bowel. Moderate amount of air in large bowel. No wall thickening. There is 2.4 cm radiopaque density overlying the left kidney probably containing contrast from previous CT study - renal cyst or a calyceal cyst since contrast is also noted in the bladder. Impression: Findings as detailed above. If clinically indicated CT scan recommended.
[2017-02-18] MEDS: PEPCID PO SCH (17:34)
[2017-02-18] MEDS: LEVAQUIN PO SCH (17:34)
--- NOTE | 2017-02-18 17:58 | Consultation ---
History of Present Illness - Reason for Consult Consult date: 02/18/17 - History of Present Illness Patient seen/examined, labs/scans reviewed, case d/w both parents, patient asleep.Ct of the chest ,previous mass resected or resolved, stable 1.7 cm hilar LNs, and b/a PNA, even on cxr.Patient continues to smoke despite all dialogue / warnings. Past History Past Medical History: cancer, hypertension Past Surgical History: Other (Left Chest port, Right Lobectomy) Social history: , smoking. denies: alcohol abuse, prescription drug abuse Family history: hypertension Medications and Allergies Allergies Allergy/AdvReac Type Severity Reaction Status Date / Time dexamethasone [From Decadron] Allergy Itching Verified 12/18/16 00:49 dexamethasone sod phosphate Allergy Itching Verified 12/18/16 00:49 [From Decadron] ketorolac tromethamine Allergy Itching Verified 07/10/16 10:11 [From Toradol] latex Allergy Itching Verified 07/10/16 10:11 tramadol Allergy Itching Verified 07/10/16 10:11 Home Medications Medication Instructions Recorded Confirmed Last Taken Type Ondansetron [Zofran ODT TAB] 4 mg PO Q6H #14 tab.rapdis 11/10/14 02/15/17 1 Week Ago Rx ALBUTEROL Inhaler [ProAir HFA 2 puff IH QID PRN #1 inhalation 04/23/16 02/15/17 11/16/16 Rx Inhaler] Albuterol Sulfate [Albuterol 0.63% 0.63 mg IH Q6H PRN #1 box 04/23/16 02/15/17 11/15/16 Rx NEBS] Dronabinol [Marinol] 5 mg PO BID 11/13/16 02/15/17 11/17/16 History Famotidine [Pepcid] 20 mg PO PRN PRN 11/13/16 02/15/17 2 Weeks Ago History Ferrous Sulfate [Feosol 325 MG tab] 325 mg PO DAILY 11/13/16 02/15/17 11/16/16 History Gabapentin [Neurontin] 600 mg PO TID 11/13/16 02/15/17 11/17/16 History cloNIDine [Catapres] 0.1 mg PO DAILY 11/13/16 02/15/17 11/17/16 History Ergocalciferol [Vitamin D2] 1 cap PO QWEEK 02/15/17 02/15/17 Unknown History Amoxicillin/K Clav Tab [Augmentin 1 tab PO Q12HR #28 tab 02/18/17 Unknown Rx 875 mg] Levofloxacin [Levaquin] 750 mg PO QDAY #7 tablet 02/18/17 Unknown Rx Morphine ER [Ms Contin ER] 60 mg PO TID #20 tablet 02/18/17 Unknown Rx Morphine [Morphine TAB] 30 mg PO Q4H PRN #14 tablet 02/18/17 Unknown Rx Paliperidone Er 3 mg PO QAM #30 02/18/17 Unknown Rx Active Meds: Active Medications Acetaminophen (Tylenol) 650 mg PO Q4H PRN PRN Reason: Pain MILD(1-3)/Fever >100.5/TRIVEDI Last Admin: 02/17/17 17:40 Dose: 650 mg Albuterol (Proventil) 2.5 mg IH Q4HRT PRN PRN Reason: Shortness Of Breath Bisacodyl (Dulcolax) 10 mg [place] QDAY PRN PRN Reason: Constipation unrelieved by MOM Enoxaparin Sodium (Lovenox) 40 mg SUB-Q QDAY@2200 NATHALY Famotidine (Pepcid) 20 mg PO DAILY [facility] Last Admin: 02/18/17 17:34 Dose: 20 mg Ferrous Sulfate (Feosol) 325 mg PO DAILY [facility] Last Admin: 02/18/17 10:22 Dose: 325 mg Furosemide (Lasix) 40 mg IV Q12H NATHALY Gabapentin (Neurontin) 600 mg PO Q8HR NATHAL[facility] Last Admin: 02/18/17 14:49 Dose: 600 mg Piperacillin Sod/Tazobactam Sod (Zosyn/Ns 4.5gm/100ml) 4.5 gm in 100 mls @ 200 mls/hr IV Q8HR NATHALY PRN Reason: Protocol Last Admin: 02/18/17 14:49 Dose: 200 mls/hr Dextrose/Sodium Chloride (D5ns 0.2%) 1,000 mls @ 75 mls/hr IV DIRECT NATHALY Last Admin: 02/17/17 22:16 Dose: 75 mls/hr Lactulose (Cephulac) 20 gm PO Q12HR NATHALY Last Admin: 02/18/17 10:23 Dose: 20 gm Levofloxacin (Levaquin) 750 mg PO Q24HR [facility] Stop: 02/22/17 10:01 Last Admin: 02/18/17 17:34 Dose: 750 mg Magnesium Hydroxide (Milk Of Magnesia) 30 ml PO Q4H PRN PRN Reason: Constipation Miscellaneous Medication (Paliperidone Er) [facility] [place] Last Admin: 02/18/17 10:22 Dose: 3 mg Morphine Sulfate (Ms Contin Er) 60 mg PO Q8HR [facility] Last Admin: 02/18/17 14:50 Dose: Not Given Morphine Sulfate (Morphine) 30 mg PO Q4H PRN PRN Reason: Pain , Severe (7-10) Ondansetron HCl (Zofran) 4 mg IV Q8H PRN PRN Reason: N/V unrelieved by Regbelkis Ondansetron HCl (Zofran Odt) 4 mg PO Q6HR [facility] Last Admin: 02/18/17 14:36 Dose: 4 mg Oxycodone HCl (Roxicodone) 5 mg PO Q6H PRN PRN Reason: BREAKTHRU PAIN Oxycodone/Acetaminophen (Percocet 5/325) 1 tab PO Q6H PRN PRN Reason: BREAKTHRU PAIN Review of Systems Constitutional: fatigue, no weight gain Breasts: deferred Exam - Constitutional Vitals: Temp Pulse Resp BP Pulse Ox 99.4 F 116 H 14 106/66 98 02/18/17 16:26 02/18/17 16:26 02/18/17 16:26 02/18/17 16:26 02/18/17 16:26 General appearance: Present: mild distress - EENT Eyes: Present: PERRL ENT: hearing intact, clear oral mucosa - Neck Neck: Present: supple, normal ROM - Respiratory Respiratory: bilateral: diminished, rhonchi - Cardiovascular Heart Sounds: Present: S1 & S2. Absent: rub, click - Extremities Extremities: pulses symmetrical, No edema Peripheral Pulses: within normal limits - Abdominal General gastrointestinal: Present: soft, non-tender, non-distended, normal bowel sounds Female genitourinary: Present: deferred - Rectal Rectal Exam: deferred - Integumentary Integumentary: Present: clear, warm, dry - Musculoskeletal Musculoskeletal: gait normal, strength equal bilaterally - Psychiatric Psychiatric: appropriate mood/affect, intact judgment & insight - Neurologic Neurologic: CNII-XII intact, moves all extremities Results - Labs CBC & Chem 7: 02/17/17 09:28 02/17/17 09:28 Labs: Abnormal lab results 02/17/17 02/18/17 Range/Units 21:08 00:22 POC ABG pO2 29 L 184 H (80-105) Assessment and Plan - Patient Problems (1) Abdominal wall mass of left lower quadrant Current Visit: Yes Status: Acute Plan to address problem: Will do MRI. completed, awaiting results. reviewed, and ok. (2) Fever Current Visit: Yes Status: Acute Qualifiers: Fever type: unspecified Encounter type: E Qualified Code(s): R50.9 - Fever, unspecified Plan to address problem: continue w/up, IV ABX. cultures result pending . (3) Dehydration, severe Current Visit: No Status: Acute Plan to address problem: continue hydration. restart fluids. (4) Pneumonia Current Visit: Yes Status: Acute Qualifiers: Pneumonia type: P Aspiration pneumonia type: A Laterality: L Lung location: L Plan to address problem: Continue with IV ABX, high flow oxygen, follow pulm service. Continue discursion with patient /family.
[2017-02-18] MEDS: D5NS 0.2% 1,000 ML IV SCH (19:17)
[2017-02-18] MEDS: TYLENOL PO PRN (20:54)
[2017-02-18] MEDS: LASIX IV SCH (21:05)
[2017-02-18] MEDS: LOVENOX SUB-Q SCH (23:27)
[2017-02-19] MEDS: NEURONTIN PO SCH ×3 (06:48→22:13)
[2017-02-19] MEDS: ZOSYN/NS 4.5GM/100ML 4.5 GM/100 ML VIAL IV SCH ×3 (06:51→22:11)
[2017-02-19] MEDS: ZOFRAN ODT PO SCH ×3 (06:51→19:33)
[2017-02-19] MEDS: MS CONTIN ER PO SCH ×3 (06:52→22:13)
[2017-02-19] MEDS: PALIPERIDONE 3 MG PO SCH (10:26)
[2017-02-19] MEDS: PEPCID PO SCH (10:27)
[2017-02-19] MEDS: CEPHULAC PO SCH ×2 (10:27→22:12)
[2017-02-19] MEDS: LEVAQUIN PO SCH (10:27)
[2017-02-19] MEDS: FEOSOL PO SCH (10:27)
--- NOTE | 2017-02-19 11:10 | Progress Note ---
Assessment and Plan - Patient Problems (1) Acute hypoxemic respiratory failure Current Visit: Yes Status: Acute Plan to address problem: - CRP level suggests infectious agent contribution - differential diagnosis includes drug induced pneumonitis, atypical pneumonia, Hypersensitivity reaction - will begin systemic steroids - continue broad spectrum AB's - wean oxygen for sats >/= 94% acutely - i will argus against diuresis re: possible pulmonary edema - send sputum C&S - bronchoscopy if no clinical improvement in short term to r/o other infectious etiology re: DAH, lymphangitic spread, eosinophillic pneumonia etc (2) Pneumonia Current Visit: Yes Status: Acute Qualifiers: Pneumonia type: P Aspiration pneumonia type: A Laterality: L Lung location: L Plan to address problem: - on zosyn and levaquin empirically - as above otherwise - consider qhs BIPAP (3) Abdominal wall abscess Current Visit: Yes Status: Acute Plan to address problem: - resolved clinically and radiographically (4) Hyponatremia syndrome Current Visit: Yes Status: Acute Plan to address problem: - trend - could be related to SIADH re: pneumonia (5) Non-small cell lung cancer (NSCLC) Current Visit: No Status: Acute Qualifiers: Laterality: L Plan to address problem: - s/p chemotherapy - per oncology (6) Discharge planning issues Current Visit: Yes Status: Acute Plan to address problem: - continue inpatient treatment as at risk for acute deterioration ..care plan discussed with patient an parents at bedside Subjective Date of service: 02/19/17 Principal diagnosis: Acute Hypoxemic Respiratory Failure Interval history: Seen and examined at bedside; 24 hour events reviewed; nursing and respiratory care staff consulted; no adverse overnight events reported to me; resting in bed ; parents in room; states that hypoxemia is acute this admission; denies any significant adverse reactions with chemotherapy and stopped in august; no acute chest pain and slowly weaning on FiO2 Objective Vital Signs - 12hr 02/19/17 02/19/17 08:00 09:15 Temperature 99 F Pulse Rate [ 102 H Radial] Respiratory 16 Rate Blood Pressure 110/62 [Left Arm] O2 Sat by Pulse 98 93 Oximetry Constitutional: lethargic Eyes: non-icteric ENT: oropharynx moist Neck: supple Effort: mildly labored Ascultation: Bilateral: diminished breath sounds, rhonchi Cardiovascular: regular rate and rhythm Gastrointestinal: normoactive bowel sounds, soft, non-tender, non-distended Integumentary: normal Extremities: no cyanosis, no edema, pulses normal, no ischemia or petechiae Neurologic: non-focal exam (grossly), pupils equal and round, motor strength normal and, unable to assess Psychiatric: other (unable to assess) CBC and BMP: 02/17/17 09:28 02/17/17 09:28 ABG, PT/INR, D-dimer: ABG POC ABG pH 7.393 (7.35-7.45) 02/18/17 00:22 POC ABG pCO2 44.1 (35-45) 02/18/17 00:22 POC ABG pO2 184 (80-105) H 02/18/17 00:22 POC ABG HCO3 26.9 02/18/17 00:22 POC ABG Total CO2 28 02/18/17 00:22 POC ABG O2 Sat 100 02/18/17 00:22 Abnormal lab findings: Abnormal Labs 02/16/17 02/17/17 02/17/17 21:12 00:46 09:28 RBC 3.41 L POC ABG pO2 54 L Sodium Chloride BUN Creatinine Glucose Uric Acid 1.6 L Calcium C-Reactive Protein 02/17/17 02/17/17 02/18/17 09:28 21:08 00:22 RBC POC ABG pO2 29 L 184 H Sodium 134 L Chloride 96.5 L BUN 4 L Creatinine 0.5 L Glucose 136 H Uric Acid Calcium 8.3 L C-Reactive Protein 02/18/17 20:07 RBC POC ABG pO2 Sodium Chloride BUN Creatinine Glucose Uric Acid Calcium C-Reactive Protein 33.[address] scan - chest: image reviewed
--- NOTE | 2017-02-19 12:12 | Consultation ---
History of Present Illness Consult date: 02/19/17 Requesting physician: NORMA HAMILTON Consult reason: congestive heart failure (suspected) History of present illness: The pt is a 41 YO female with a past medical history significant for HTN, asthma , non small-cell lung CA, tobacco use. She is previously unknown to our practice. She presented on 02/15/2017 with c/o fever and abdominal pain x 3 days [employer] with worsening symptoms over the past 12 hours [employer]. There was originally concern abdominal mass visualized on abdomen/pelvis CT, but MRI performed shortly after showed no mass or abscess in the abdominal wall. Pt was found to have fecal impaction and abdominal pain is believed to be due to constipation/ fecal impaction. Pt also developed acute hypoxic respiratory failure and is currently being treated for possible PNA and sepsis. Cardiology has been consulted to r/o HF. On evaluation, she is sleeping and groggy. She denies any complaints. She is lying flat comfortably. Past History Past Medical History: cancer, hypertension Past Surgical History: Other (Left Chest port, Right Lobectomy) Social history: , smoking. denies: alcohol abuse, prescription drug abuse Family history: hypertension Medications and Allergies Allergies Allergy/AdvReac Type Severity Reaction Status Date / Time dexamethasone [From Decadron] Allergy Itching Verified 12/18/16 00:49 dexamethasone sod phosphate Allergy Itching Verified 12/18/16 00:49 [From Decadron] ketorolac tromethamine Allergy Itching Verified 07/10/16 10:11 [From Toradol] latex Allergy Itching Verified 07/10/16 10:11 tramadol Allergy Itching Verified 07/10/16 10:11 Home Medications Medication Instructions Recorded Confirmed Last Taken Type Ondansetron [Zofran ODT TAB] 4 mg PO Q6H #14 tab.rapdis 11/10/14 02/15/17 1 Week Ago Rx ALBUTEROL Inhaler [ProAir HFA 2 puff IH QID PRN #1 inhalation 04/23/16 02/15/17 11/16/16 Rx Inhaler] Albuterol Sulfate [Albuterol 0.63% 0.63 mg IH Q6H PRN #1 box 04/23/16 02/15/17 11/15/16 Rx NEBS] Dronabinol [Marinol] 5 mg PO BID 11/13/16 02/15/17 11/17/16 History Famotidine [Pepcid] 20 mg PO PRN PRN 11/13/16 02/15/17 2 Weeks Ago History Ferrous Sulfate [Feosol 325 MG tab] 325 mg PO DAILY 11/13/16 02/15/17 11/16/16 History Gabapentin [Neurontin] 600 mg PO TID 11/13/16 02/15/17 11/17/16 History cloNIDine [Catapres] 0.1 mg PO DAILY 11/13/16 02/15/17 11/17/16 History Ergocalciferol [Vitamin D2] 1 cap PO QWEEK 02/15/17 02/15/17 Unknown History Amoxicillin/K Clav Tab [Augmentin 1 tab PO Q12HR #28 tab 02/18/17 Unknown Rx 875 mg] Levofloxacin [Levaquin] 750 mg PO QDAY #7 tablet 02/18/17 Unknown Rx Morphine ER [Ms Contin ER] 60 mg PO TID #20 tablet 02/18/17 Unknown Rx Morphine [Morphine TAB] 30 mg PO Q4H PRN #14 tablet 02/18/17 Unknown Rx Paliperidone Er 3 mg PO QAM #30 02/18/17 Unknown Rx Active Meds: Active Medications Acetaminophen (Tylenol) 650 mg PO Q4H PRN PRN Reason: Pain MILD(1-3)/Fever >100.5/TRIVEDI Last Admin: 02/18/17 20:54 Dose: 650 mg Albuterol (Proventil) 2.5 mg IH Q4HRT PRN PRN Reason: Shortness Of Breath Bisacodyl (Dulcolax) 10 mg [place] QDAY PRN PRN Reason: Constipation unrelieved by MOM Enoxaparin Sodium (Lovenox) 40 mg SUB-Q QDAY@2200 [facility] Last Admin: 02/18/17 23:27 Dose: 40 mg Famotidine (Pepcid) 20 mg PO DAILY [facility] Last Admin: 02/19/17 10:27 Dose: 20 mg Ferrous Sulfate (Feosol) 325 mg PO DAILY [facility] Last Admin: 02/19/17 10:27 Dose: 325 mg Furosemide (Lasix) 40 mg IV Q12H [facility] Last Admin: 02/18/17 21:05 Dose: 40 mg Gabapentin (Neurontin) 600 mg PO Q8HR [facility] Last Admin: 02/19/17 06:48 Dose: 600 mg Piperacillin Sod/Tazobactam Sod (Zosyn/Ns 4.5gm/100ml) 4.5 gm in 100 mls @ 200 mls/hr IV Q8HR [facility] PRN Reason: Protocol Last Admin: 02/19/17 06:51 Dose: 200 mls/hr Dextrose/Sodium Chloride (D5ns 0.2%) 1,000 mls @ 75 mls/hr IV DIRECT [facility] Last Admin: 02/18/17 19:17 Dose: 75 mls/hr Lactulose (Cephulac) 20 gm PO Q12HR [facility] Last Admin: 02/19/17 10:27 Dose: 20 gm Levofloxacin (Levaquin) 750 mg PO Q24HR [facility] Stop: 02/22/17 10:01 Last Admin: 02/19/17 10:27 Dose: 750 mg Magnesium Hydroxide (Milk Of Magnesia) 30 ml PO Q4H PRN PRN Reason: Constipation Miscellaneous Medication (Paliperidone Er) [facility] [place] Last Admin: 02/19/17 10:26 Dose: 3 mg Morphine Sulfate (Ms Contin Er) 60 mg PO Q8HR [facility] Last Admin: 02/19/17 06:52 Dose: Not Given Morphine Sulfate (Morphine) 30 mg PO Q4H PRN PRN Reason: Pain , Severe (7-10) Ondansetron HCl (Zofran) 4 mg IV Q8H PRN PRN Reason: N/V unrelieved by Reglan Ondansetron HCl (Zofran Odt) 4 mg PO Q6HR [facility] Last Admin: 02/19/17 06:51 Dose: 4 mg Oxycodone HCl (Roxicodone) 5 mg PO Q6H PRN PRN Reason: BREAKTHRU PAIN Oxycodone/Acetaminophen (Percocet 5/325) 1 tab PO Q6H PRN PRN Reason: BREAKTHRU PAIN Review of Systems All systems: negative (denies any complaints) Physical Examination Vital Signs Temp Pulse Resp BP Pulse Ox 103.1 F H 120 H 18 113/73 100 02/15/17 15:04 02/15/17 15:04 02/15/17 15:04 02/15/17 15:04 02/15/17 15:04 General appearance: no acute distress HEENT: Positive: PERRL, Normocephaly, Mucus Membranes Moist Neck: Positive: neck supple, trachea midline Cardiac: Positive: Reg Rate and Rhythm, S1/S2 Lungs: Positive: clear to auscultation Neuro: Positive: Grossly Intact, Cranial Nerve 2-12 Intact Abdomen: Positive: Unremarkable, Soft, Active Bowel Sounds Skin: Positive: Clear. Negative: Rash Musculoskeletal: No Fluid Collection, No Pain, Normal Range of Motion Extremities: Absent: edema Results 02/17/17 09:28 02/17/17 09:28 - Imaging and Cardiology Echo: report reviewed EKG: report reviewed, image reviewed EKG interpretations - Telemetry EKG Rhythm: Sinus Rhythm - EKG Sinus rhythms and dysrhythmias: sinus rhythm Assessment and Plan Assessment: ? PNA / ? sepsis Acute hypoxic respiratory failure Sinus tachycardia Lung CA HTN Asthma Tobacco use Plan: Echo reviewed - EF 50 - 55%, abnormal diastolic function, RV slightly dilated, RA mildly dilated, trace TR. No current clinical evidence of acute heart failure. D/c diuretics. No indication for any further cardiac testing or evaluation at this time. Will see PRN. The patient has been seen in conjunction with Dr. Foote who agrees with the assessment and plan of care.
[2017-02-19] MEDS: TYLENOL PO PRN (13:49)
--- NOTE | 2017-02-19 14:44 | Progress Note ---
Assessment and Plan Assessment and plan: 41 YO Female with HTN, Asthma, Lung Cancer, Nicotine Dependence presents to ED for evaluation. who presents with fever and abdominal pain, last chemo was 8 months and lung tumor and hilar LAD had shrunk Sepsis due to pneumonia * Continue antibiotics * Fevers have now resolved CHF systolic dysfunction was ruled out * echo showed preserved EF, mild diastolic dysfunction. No evidence of CHF, Lasix was discontinued * Cardiology input appreciated Acute hypoxic respiratory failure Acute on chronic Bronchitis -Patient is high-flow oxygen by nasal cannula, VQ scan was negative for PE, CT chest only shows ground ground opacities consistent with pulmonary venous congestion -rx PNA and suspected CHF -pulmonary consult appreciated, -etiology includes Atypical pneumonia, pulmonary edema, diffuse parenchymal lungs disease, post chemotherapy pneumonitis -We'll start some IV steroids, continue nebulizer treatments, continue antibiotics, if patient does not improve she may benefit from bronchoscopy Abdominal wall mass of left lower quadrant was ruled out There was concern for mass on CT abdomen, but however MRI was performed shortly after which confirmed that there is no mass or abscess in the abdominal wall. Abdominal pain is most likely due to constipation/fecal impaction, which is now resolved Non-small cell lung cancer (NSCLC) * Oncology consult appreciated, supplemental oxygen, nebs, aspiration precautions. supportive care. * oncology ordered a VQ scan which was low probability for PE Hyponatremia syndrome IVF, supportive care, likely due to chronic lung condition with lung cancer and pneumonia Stable Fecal impaction resolved with stool softeners and enema DVT prophylaxis Current Visit: Yes Status: Acute Case discussed with the patient, her mother and Dr Holden (her oncologist) History Interval history: She had increased shortness of breath overnight, and increased oxygen demand., she is c/o cough, non productive, no fever overnight Hospitalist Physical - Physical exam Narrative exam: General: appears ill HEENT: MMM, EOMI cardiac: S1-S2 heard lungs: Decreased air entry in the bases, rhonchous breath sounds, no wheeze abdomen: soft, nontender, nondistended bowel sounds positive extremities: 1 plus bipedal edema, RUE edema (IV had infiltrated earlier today) Skin: no rash or lesion Neuro: no focal deficit Psych: appropriate behavior and mood, cognition intact - Constitutional Vitals: Temp Pulse Resp BP Pulse Ox 99 F 102 H 16 110/62 93 02/19/17 08:00 02/19/17 08:00 02/19/17 08:00 02/19/17 08:00 02/19/17 09:15 General appearance: Present: no acute distress Results - Labs CBC & Chem 7: 02/17/17 09:28 02/17/17 09:28 Labs: Laboratory Last Values WBC 9.8 K/mm3 (4.5-11.0) 02/17/17 09:28 RBC 3.41 M/mm3 (3.65-5.03) L 02/17/17 09:28 Hgb 10.7 gm/dl (10.1-14.3) 02/17/17 09:28 Hct 32.2 % (30.3-42.9) 02/17/17 09:28 MCV 94 fl (79-97) 02/17/17 09:28 MCH 31 pg (28-32) 02/17/17 09:28 MCHC 33 % (30-34) 02/17/17 09:28 RDW 14.3 % (13.2-15.2) 02/17/17 09:28 Plt Count 175 K/mm3 (140-440) 02/17/17 09:28 Lymph % (Auto) 6.9 % (13.4-35.0) L 02/15/17 15:23 [place] % (Auto) 3.5 % (0.0-7.3) 02/15/17 15:23 Eos % (Auto) 0.2 % (0.0-4.3) 02/15/17 15:23 Baso % (Auto) 0.5 % (0.0-1.8) 02/15/17 15:23 Lymph # 0.8 K/mm3 (1.2-5.4) L 02/15/17 15:23 [place] # 0.4 K/mm3 (0.0-0.8) 02/15/17 15:23 Eos # 0.0 K/mm3 (0.0-0.4) 02/15/17 15:23 Baso # 0.1 K/mm3 (0.0-0.1) 02/15/17 15:23 Seg Neutrophils % 88.9 % (40.0-70.0) H 02/15/17 15:23 Seg Neutrophils # 11.0 K/mm3 (1.8-7.7) H 02/15/17 15:23 POC ABG pH 7.393 (7.35-7.45) 02/18/17 00:22 POC ABG pCO2 44.1 (35-45) 02/18/17 00:22 POC ABG pO2 184 (80-105) H 02/18/17 00:22 POC ABG HCO3 26.9 02/18/17 00:22 POC ABG Total CO2 28 02/18/17 00:22 POC ABG O2 Sat 100 02/18/17 00:22 POC ABG Base Excess 2 02/18/17 00:22 FiO2 100 % 02/18/17 00:22 Sodium 134 mmol/L (137-145) L 02/17/17 09:28 Potassium 3.9 mmol/L (3.6-5.0) 02/17/17 09:28 Chloride 96.5 mmol/L (98-107) L 02/17/17 09:28 Carbon Dioxide 25 mmol/L (22-30) 02/17/17 09:28 Anion Gap 16 mmol/L 02/17/17 09:28 BUN 4 mg/dL (7-17) L 02/17/17 09:28 Creatinine 0.5 mg/dL (0.7-1.2) L 02/17/17 09:28 Estimated GFR > 60 ml/min 02/17/17 09:28 BUN/Creatinine Ratio 8.00 % 02/17/17 09:28 Glucose 136 mg/dL (65-100) H 02/17/17 09:28 Osmolality 281 Mosm/kg 02/17/17 00:46 Lactic Acid 1.30 mmol/L (0.7-2.0) 02/18/17 20:07 Uric Acid 1.6 mg/dL (3.5-7.6) L 02/17/17 00:46 Calcium 8.3 mg/dL (8.4-10.2) L 02/17/17 09:28 Total Bilirubin 0.30 mg/dL (0.1-1.2) 02/15/17 15:23 AST 21 units/L (5-40) 02/15/17 15:23 ALT 9 units/L (7-56) 02/15/17 15:23 Alkaline Phosphatase 48 units/L (35-129) 02/15/17 15:23 Troponin T < 0.010 ng/mL (0.00-0.029) 02/19/17 11:31 C-Reactive Protein 33.90 mg/dL (0.00-1.30) H 02/18/17 20:07 Total Protein 7.1 g/dL (6.3-8.2) 02/15/17 15: Albumin 3.9 g/dL (3.9-5) 02/15/17 15: Albumin/Globulin Ratio 1.2 % 02/15/17 15: Lipase 23 units/L (13-60) 02/15/17 15: HCG, Qual Negative (Negative) 02/15/17: Total Cortisol 12.3 mcg/dL () 02/17/17 00:46 Urine Color Yellow (Yellow) 02/15/17 15:00 Urine Turbidity Clear (Clear) 02/15/17 15: Urine pH 5.0 (5.0-7.0) 02/15/17 15:00 Ur Specific [place] 1.014 (1.003-1.030) 02/15/17 15:00 Urine Protein <15 mg/dl mg/dL (Negative) 02/15/17 15:00 Urine Glucose (UA) 50 mg/dL (Negative) 02/15/17 15:00 Urine Ketones Neg mg/dL (Negative) 02/15/17 15:00 Urine Blood Neg (Negative) 02/15/17 15:00 Urine Nitrite Neg (Negative) 02/15/17 15:00 Urine Bilirubin Neg (Negative) 02/15/17 15:00 Urine Urobilinogen < 2.0 mg/dL (<2.0) 02/15/17 15:00 Ur Leukocyte Esterase Neg (Negative) 02/15/17 15:00 Urine WBC (Auto) < 1.0 /HPF (0.0-6.0) 02/15/17 15:00 Urine RBC (Auto) 3.0 /HPF (0.0-6.0) 02/15/17 15:00 U Epithel Cells (Auto) 3.0 /HPF (0-13.0) 02/15/17 15:00 Urine Bacteria (Auto) 1+ /HPF (Negative) 02/15/17 15:00 Urine Mucus Few /HPF 02/15/17 15:00 Urine Osmolality 442 Mosm/kg 02/17/17 17:35 Urine Opiates Screen Presumptive positive 02/15/17 15:00 Urine Methadone Screen Presumptive negative 02/15/17 15:00 Ur Barbiturates Screen Presumptive positive 02/15/17 15:00 Ur Phencyclidine Scrn Presumptive negative 02/15/17 15:00 Ur Amphetamines Screen Presumptive negative 02/15/17 15:00 U Benzodiazepines Scrn Presumptive negative 02/15/17 15:00 Urine Cocaine Screen Presumptive negative 02/15/17 15:00 U Marijuana (THC) Screen Presumptive negative 02/15/17 15:00 Drugs of Abuse Note Disclamer 02/15/17 15:00 Blood Type A POSITIVE 02/15/17 19:43 Antibody Screen TNR 02/15/17 19:43 QUYNH Antibody Screen Negative 02/15/17 19:43 - Imaging and Cardiology EKG: image reviewed (NSR at 98BPM)
[2017-02-19] MEDS: LASIX IV SCH (15:45)
[2017-02-19] MEDS: DUONEB *Not for PRN Use IH SCH ×3 (17:30→22:56)
[2017-02-19] MEDS: D5NS 0.2% 1,000 ML IV SCH (17:35)
[2017-02-19] MEDS ORDERED: DILAUDID IV PRN (19:58)
[2017-02-19] MEDS ORDERED: WATER FOR INJ (PF) 10 ML ONE (21:20)
[2017-02-19] MEDS: LOVENOX SUB-Q SCH (22:12)
--- NOTE | 2017-02-19 23:21 | Consultation ---
History of Present Illness - Reason for Consult Consult date: 02/19/17 - History of Present Illness Patient seen/examined, labs resolved, case d/w patient, and with the primary team earlier. may need bronch. Chemo was a while ago. If patient had XRT, it would have made sense that this is Radiation pneumonitis as i explained to the primary team. this is most likely Atypical PNA.will continue to follow you. Once all resolved, disposition will be as per you. Past History Past Medical History: cancer, hypertension Past Surgical History: Other (Left Chest port, Right Lobectomy) Social history: , smoking. denies: alcohol abuse, prescription drug abuse Family history: hypertension Medications and Allergies Allergies Allergy/AdvReac Type Severity Reaction Status Date / Time dexamethasone [From Decadron] Allergy Itching Verified 12/18/16 00:49 dexamethasone sod phosphate Allergy Itching Verified 12/18/16 00:49 [From Decadron] ketorolac tromethamine Allergy Itching Verified 07/10/16 10:11 [From Toradol] latex Allergy Itching Verified 07/10/16 10:11 tramadol Allergy Itching Verified 07/10/16 10:11 Home Medications Medication Instructions Recorded Confirmed Last Taken Type Ondansetron [Zofran ODT TAB] 4 mg PO Q6H #14 tab.rapdis 11/10/14 02/15/17 1 Week Ago Rx ALBUTEROL Inhaler [ProAir HFA 2 puff IH QID PRN #1 inhalation 04/23/16 02/15/17 11/16/16 Rx Inhaler] Albuterol Sulfate [Albuterol 0.63% 0.63 mg IH Q6H PRN #1 box 04/23/16 02/15/17 11/15/16 Rx NEBS] Dronabinol [Marinol] 5 mg PO BID 11/13/16 02/15/17 11/17/16 History Famotidine [Pepcid] 20 mg PO PRN PRN 11/13/16 02/15/17 2 Weeks Ago History Ferrous Sulfate [Feosol 325 MG tab] 325 mg PO DAILY 11/13/16 02/15/17 11/16/16 History Gabapentin [Neurontin] 600 mg PO TID 11/13/16 02/15/17 11/17/16 History cloNIDine [Catapres] 0.1 mg PO DAILY 11/13/16 02/15/17 11/17/16 History Ergocalciferol [Vitamin D2] 1 cap PO QWEEK 02/15/17 02/15/17 Unknown History Amoxicillin/K Clav Tab [Augmentin 1 tab PO Q12HR #28 tab 02/18/17 Unknown Rx 875 mg] Levofloxacin [Levaquin] 750 mg PO QDAY #7 tablet 02/18/17 Unknown Rx Morphine ER [Ms Contin ER] 60 mg PO TID #20 tablet 02/18/17 Unknown Rx Morphine [Morphine TAB] 30 mg PO Q4H PRN #14 tablet 02/18/17 Unknown Rx Paliperidone Er 3 mg PO QAM #30 02/18/17 Unknown Rx Active Meds: Active Medications Acetaminophen (Tylenol) 650 mg PO Q4H PRN PRN Reason: Pain MILD(1-3)/Fever >100.5/TRIVEDI Last Admin: 02/19/17 13:49 Dose: 650 mg Albuterol (Proventil) 2.5 mg IH Q4HRT PRN PRN Reason: Shortness Of Breath Albuterol/Ipratropium (Duoneb *Not For Prn Use*) 1 ampul IH QIDRT [facility] Last Admin: 02/19/17 22:56 Dose: 1 ampul Bisacodyl (Dulcolax) 10 mg VT QDAY PRN PRN Reason: Constipation unrelieved by MOM Enoxaparin Sodium (Lovenox) 40 mg SUB-Q QDAY@2200 [facility] Last Admin: 02/19/17 22:12 Dose: 40 mg Famotidine (Pepcid) 20 mg PO DAILY [facility] Last Admin: 02/19/17 10:27 Dose: 20 mg Ferrous Sulfate (Feosol) 325 mg PO DAILY [facility] Last Admin: 02/19/17 10:27 Dose: 325 mg Gabapentin (Neurontin) 600 mg PO Q8HR [facility] Last Admin: 02/19/17 22:13 Dose: 600 mg Hydromorphone HCl (Dilaudid) 1 mg IV Q4H PRN PRN Reason: Pain , Severe (7-10) Piperacillin Sod/Tazobactam Sod (Zosyn/Ns 4.5gm/100ml) 4.5 gm in 100 mls @ 200 mls/hr IV Q8HR [facility] PRN Reason: Protocol Last Admin: 02/19/17 22:11 Dose: 200 mls/hr Dextrose/Sodium Chloride (D5ns 0.2%) 1,000 mls @ 75 mls/hr IV DIRECT [facility] Last Admin: 02/19/17 17:35 Dose: 75 mls/hr Lactulose (Cephulac) 20 gm PO Q12HR [facility] Last Admin: 02/19/17 22:12 Dose: 20 gm Levofloxacin (Levaquin) 750 mg PO Q24HR [facility] Stop: 02/22/17 10:01 Last Admin: 02/19/17 10:27 Dose: 750 mg Magnesium Hydroxide (Milk Of Magnesia) 30 ml PO Q4H PRN PRN Reason: Constipation Methylprednisolone Sodium Succinate (Solu-Medrol) 60 mg IV Q8HR [facility] Last Admin: 02/19/17 22:14 Dose: 60 mg Miscellaneous Medication (Paliperidone Er) 3 mg PO QAM [facility] Last Admin: 02/19/17 10:26 Dose: 3 mg Morphine Sulfate (Ms Contin Er) 60 mg PO Q8HR [facility] Last Admin: 02/19/17 22:13 Dose: 60 mg Morphine Sulfate (Morphine) 30 mg PO Q4H PRN PRN Reason: Pain , Severe (7-10) Ondansetron HCl (Zofran) 4 mg IV Q8H PRN PRN Reason: N/V unrelieved by Reglan Ondansetron HCl (Zofran Odt) 4 mg PO Q6HR [facility] Last Admin: 02/19/17 19:33 Dose: Not Given Oxycodone/Acetaminophen (Percocet 5/325) 1 tab PO Q6H PRN PRN Reason: BREAKTHRU PAIN Review of Systems Constitutional: fatigue, weakness, chronic pain Breasts: deferred Respiratory: cough, shortness of breath Exam - Constitutional Vitals: Temp Pulse Resp BP Pulse Ox 98.3 F 84 18 108/60 98 02/19/17 16:00 02/19/17 22:56 02/19/17 22:56 02/19/17 16:00 02/19/17 19:30 General appearance: Present: mild distress - EENT Eyes: Present: PERRL ENT: hearing intact, clear oral mucosa - Neck Neck: Present: supple, normal ROM - Respiratory Respiratory: bilateral: rhonchi - Cardiovascular Heart Sounds: Present: S1 & S2. Absent: rub, click - Extremities Extremities: pulses symmetrical, No edema Peripheral Pulses: within normal limits - Abdominal General gastrointestinal: Present: soft, non-tender, non-distended, normal bowel sounds Female genitourinary: Present: deferred - Rectal Rectal Exam: deferred - Integumentary Integumentary: Present: clear, warm, dry - Musculoskeletal Musculoskeletal: gait normal, strength equal bilaterally - Psychiatric Psychiatric: appropriate mood/affect, intact judgment & insight - Neurologic Neurologic: CNII-XII intact, moves all extremities Results - Labs CBC & Chem 7: 02/17/17 09:28 02/17/17 09:28 Assessment and Plan - Patient Problems (1) Abdominal wall mass of left lower quadrant Current Visit: Yes Status: Acute Plan to address problem: Will do MRI. completed, awaiting results. reviewed, and ok. (2) Fever Current Visit: Yes Status: Acute Qualifiers: Fever type: unspecified Encounter type: E Qualified Code(s): R50.9 - Fever, unspecified Plan to address problem: continue w/up, IV ABX. cultures result pending . resolving. (3) Dehydration, severe Current Visit: No Status: Acute Plan to address problem: continue hydration. restart fluids. continue. (4) Pneumonia Current Visit: Yes Status: Acute Qualifiers: Pneumonia type: P Aspiration pneumonia type: A Laterality: L Lung location: L Plan to address problem: Continue with IV ABX, high flow oxygen, follow pulm service. Continue discursion with patient /family. See notes.
[2017-02-20] MEDS: ZOFRAN ODT PO SCH ×4 (01:51→18:16)
[2017-02-20] MEDS: ZOSYN/NS 4.5GM/100ML 4.5 GM/100 ML VIAL IV SCH ×3 (05:32→22:26)
[2017-02-20] MEDS: NEURONTIN PO SCH ×3 (05:33→22:27)
[2017-02-20] MEDS: MS CONTIN ER PO SCH (05:34)
[2017-02-20] MEDS: DUONEB *Not for PRN Use IH SCH ×4 (07:29→19:38)
[2017-02-20] MEDS: LEVAQUIN PO SCH (09:11)
[2017-02-20] MEDS: FEOSOL PO SCH (09:12)
[2017-02-20] MEDS: PEPCID PO SCH (09:12)
[2017-02-20] MEDS: CEPHULAC PO SCH ×2 (09:12→22:27)
[2017-02-20] MEDS: PALIPERIDONE 3 MG PO SCH (09:13)
[2017-02-20] MEDS: D5NS 0.2% 1,000 ML IV SCH ×2 (09:26→22:29)
--- NOTE | 2017-02-20 10:37 | Progress Note ---
Subjective Date of service: 02/20/17 Principal diagnosis: Acute Hypoxemic Respiratory Failure Interval history: Assessment and plan: 41 YO Female with HTN, Asthma, Lung Cancer, Nicotine Dependence presents to ED for evaluation. who presents with fever and abdominal pain, last chemo was 8 months and lung tumor and hilar LAD had shrunk Sepsis due to pneumonia * Continue antibiotics * Fevers have now resolved CHF systolic dysfunction was ruled out * echo showed preserved EF, mild diastolic dysfunction. No evidence of CHF, off lasix Acute on chronic Bronchitis/ hypoxia -Patient is high-flow oxygen by nasal cannula, VQ scan was negative for PE, CT chest only shows ground ground opacities consistent with pulmonary venous congestion - likely PNA -pulmonary consult note reviewed -wean off steroids . change to PO steroids continue nebulizer treatments, continue antibiotics, if patient does not improve she may benefit from bronchoscopy Non-small cell lung cancer (NSCLC) * Oncology consult note reviewed, supplemental oxygen, nebs, aspiration precautions. supportive care. Hyponatremia: improved . recheck labs in AM DVT prophylaxis Subjective: Patient is awake alert and oriented. Complains of dry cough and decreased appetite. Complaints of shortness of breath on mild exertion. Denies exertional chest pain palpitations or syncope Objective - Constitutional Vitals: Vital Signs - 12hr 02/19/17 02/19/17 02/20/17 22:56 23:00 01:48 Temperature 99.1 F Pulse Rate [ 84 Anterior Bilateral Throughout] Pulse Rate [ 91 H Radial] Respiratory 20 Rate Respiratory 18 Rate [Anterior Bilateral Throughout] Blood Pressure 110/59 [Left Arm] Blood Pressure [Right Arm] O2 Sat by Pulse 92 97 Oximetry 02/20/17 02/20/17 02/20/17 07:29 07:40 09:00 Temperature 98.6 F Pulse Rate [ 82 Anterior Bilateral Throughout] Pulse Rate [ 89 Radial] Respiratory 24 Rate Respiratory 20 Rate [Anterior Bilateral Throughout] Blood Pressure 0/0 [Left Arm] Blood Pressure 106/76 [Right Arm] O2 Sat by Pulse 97 97 97 Oximetry General appearance: Present: no acute distress - EENT Eyes: PERRL, EOM intact ENT: hearing intact, clear oral mucosa, no thrush - Neck Neck: supple, normal ROM, no masses or JVD - Respiratory Respiratory effort: normal Respiratory: bilateral: CTA, negative: rales, rhonchi - Cardiovascular Rhythm: regular Heart Sounds: Present: S1 & S2 Extremities: No edema - Gastrointestinal General gastrointestinal: Present: soft, non-tender. Absent: hepatomegaly, splenomegaly Rectal Exam: deferred - Genitourinary Female genitourinary: deferred - Integumentary Integumentary: clear - Musculoskeletal Musculoskeletal: strength equal bilaterally - Neurologic Neurologic: no focal deficits - Labs CBC & Chem 7: 02/17/17 09:28 02/17/17 09:28
--- NOTE | 2017-02-20 15:34 | Progress Note ---
Subjective Date of service: 02/20/17 Principal diagnosis: Acute Hypoxemic Respiratory Failure Interval history: Seen and examined at bedside; 24 hour events reviewed; nursing and respiratory care staff consulted; no adverse overnight events reported to me; Objective Vital Signs - 12hr 02/20/17 02/20/17 02/20/17 07:04 07:15 07:29 Temperature Pulse Rate [ 74 73 Anterior Bilateral Throughout] Pulse Rate [ Radial] Respiratory Rate Respiratory 20 20 Rate [Anterior Bilateral Throughout] Blood Pressure [Left Arm] Blood Pressure [Right Arm] O2 Sat by Pulse 97 Oximetry 02/20/17 02/20/17 02/20/17 07:40 09:00 10:00 Temperature 98.6 F Pulse Rate [ Anterior Bilateral Throughout] Pulse Rate [ 89 Radial] Respiratory 24 Rate Respiratory Rate [Anterior Bilateral Throughout] Blood Pressure 0/0 [Left Arm] Blood Pressure 106/76 [Right Arm] O2 Sat by Pulse 97 97 97 Oximetry 02/20/17 02/20/17 02/20/17 11:45 11:55 15:08 Temperature Pulse Rate [ 85 115 H 96 H Anterior Bilateral Throughout] Pulse Rate [ Radial] Respiratory Rate Respiratory 18 18 20 Rate [Anterior Bilateral Throughout] Blood Pressure [Left Arm] Blood Pressure [Right Arm] O2 Sat by Pulse Oximetry CBC and BMP: 02/17/17 09:28 02/17/17 09:28 ABG, PT/INR, D-dimer: ABG POC ABG pH 7.393 (7.35-7.45) 02/18/17 00:22 POC ABG pCO2 44.1 (35-45) 02/18/17 00:22 POC ABG pO2 184 (80-105) H 02/18/17 00:22 POC ABG HCO3 26.9 02/18/17 00:22 POC ABG Total CO2 28 02/18/17 00:22 POC ABG O2 Sat 100 02/18/17 00:22 Abnormal lab findings: Abnormal Labs 02/16/17 02/17/17 02/17/17 21:12 00:46 09:28 RBC 3.41 L POC ABG pO2 54 L Sodium Chloride BUN Creatinine Glucose Uric Acid 1.6 L Calcium C-Reactive Protein 02/17/17 02/17/17 02/18/17 09:28 21:08 00:22 RBC POC ABG pO2 29 L 184 H Sodium 134 L Chloride 96.5 L BUN 4 L Creatinine 0.5 L Glucose 136 H Uric Acid Calcium 8.3 L C-Reactive Protein 02/18/17 20:07 RBC POC ABG pO2 Sodium Chloride BUN Creatinine Glucose Uric Acid Calcium C-Reactive Protein 33.90 H
--- NOTE | 2017-02-20 15:47 | Progress Note ---
Assessment and Plan - Patient Problems (1) Acute hypoxemic respiratory failure Current Visit: Yes Status: Acute Plan to address problem: - CRP level suggests infectious agent contribution - differential diagnosis includes drug induced pneumonitis, atypical pneumonia, Hypersensitivity reaction - continue systemic steroids - continue broad spectrum AB's - continue to wean oxygen for sats >/= 94% acutely - i will argue against diuresis re: possible pulmonary edema (also clinically improving) - follow sputum C&S - bronchoscopy if no clinical improvement in short term to r/o other infectious etiology re: DAH, lymphangitic spread, eosinophillic pneumonia etc (2) Pneumonia Current Visit: Yes Status: Acute Qualifiers: Pneumonia type: P Aspiration pneumonia type: A Laterality: L Lung location: L Plan to address problem: - on zosyn and levaquin empirically - as above otherwise - consider qhs BIPAP (3) Abdominal wall abscess Current Visit: Yes Status: Acute Plan to address problem: - resolved clinically and radiographically (4) Hyponatremia syndrome Current Visit: Yes Status: Acute Plan to address problem: - continue to trend - could be related to SIADH re: pneumonia (5) Non-small cell lung cancer (NSCLC) Current Visit: No Status: Acute Qualifiers: Laterality: L Plan to address problem: - s/p chemotherapy - per oncology (6) Discharge planning issues Current Visit: Yes Status: Acute Plan to address problem: - continue inpatient treatment as at risk for acute deterioration ..care plan discussed with patient an parents at bedside Subjective Date of service: 02/20/17 Principal diagnosis: Acute Hypoxemic Respiratory Failure Interval history: Seen and examined at bedside; 24 hour events reviewed; nursing and respiratory care staff consulted; no adverse overnight events reported to me; resting peacefully in bed; feels better; still on supplemental oxygen but improved; has not sent sputum for studies ordered yet; No N/V/F/C Objective Vital Signs - 12hr 02/20/17 02/20/17 02/20/17 07:04 07:15 07:29 Temperature Pulse Rate [ 74 73 Anterior Bilateral Throughout] Pulse Rate [ Radial] Respiratory Rate Respiratory 20 20 Rate [Anterior Bilateral Throughout] Blood Pressure [Left Arm] Blood Pressure [Right Arm] O2 Sat by Pulse 97 Oximetry 02/20/17 02/20/17 02/20/17 07:40 09:00 10:00 Temperature 98.6 F Pulse Rate [ Anterior Bilateral Throughout] Pulse Rate [ 89 Radial] Respiratory 24 Rate Respiratory Rate [Anterior Bilateral Throughout] Blood Pressure 0/0 [Left Arm] Blood Pressure 106/76 [Right Arm] O2 Sat by Pulse 97 97 97 Oximetry 02/20/17 02/20/17 02/20/17 11:45 11:55 15:00 Temperature Pulse Rate [ 85 115 H Anterior Bilateral Throughout] Pulse Rate [ Radial] Respiratory Rate Respiratory 18 18 Rate [Anterior Bilateral Throughout] Blood Pressure [Left Arm] Blood Pressure [Right Arm] O2 Sat by Pulse 95 Oximetry 02/20/17 02/20/17 15:08 15:18 Temperature Pulse Rate [ 96 H 118 H Anterior Bilateral Throughout] Pulse Rate [ Radial] Respiratory Rate Respiratory 20 20 Rate [Anterior Bilateral Throughout] Blood Pressure [Left Arm] Blood Pressure [Right Arm] O2 Sat by Pulse Oximetry Constitutional: no acute distress, appears uncomfortable Eyes: non-icteric ENT: oropharynx moist Neck: supple Effort: mildly labored Ascultation: Bilateral: clear, diminished breath sounds Cardiovascular: regular rate and rhythm Gastrointestinal: normoactive bowel sounds, soft, non-tender, non-distended Integumentary: normal Extremities: no cyanosis, no edema, pulses normal, no ischemia or petechiae Neurologic: non-focal exam, pupils equal and round, motor strength normal and Psychiatric: depressed CBC and BMP: 02/17/17 09:28 02/17/17 09:28 ABG, PT/INR, D-dimer: ABG POC ABG pH 7.393 (7.35-7.45) 02/18/17 00:22 POC ABG pCO2 44.1 (35-45) 02/18/17 00:22 POC ABG pO2 184 (80-105) H 02/18/17 00:22 POC ABG HCO3 26.9 02/18/17 00:22 POC ABG Total CO2 28 02/18/17 00:22 POC ABG O2 Sat 100 02/18/17 00:22 Abnormal lab findings: Abnormal Labs 02/16/17 02/17/17 02/17/17 21:12 00:46 09:28 RBC 3.41 L POC ABG pO2 54 L Sodium Chloride BUN Creatinine Glucose Uric Acid 1.6 L Calcium C-Reactive Protein 02/17/17 02/17/17 02/18/17 09:28 21:08 00:22 RBC POC ABG pO2 29 L 184 H Sodium 134 L Chloride 96.5 L BUN 4 L Creatinine 0.5 L Glucose 136 H Uric Acid Calcium 8.3 L C-Reactive Protein 02/18/17 20:07 RBC POC ABG pO2 Sodium Chloride BUN Creatinine Glucose Uric Acid Calcium C-Reactive Protein 33.90 H
--- NOTE | 2017-02-20 19:01 | Consultation ---
History of Present Illness - Reason for Consult Consult date: 02/20/17 - History of Present Illness Patient seen/examined, labs reviewed, case d/w patient.C/o feeling better/ stronger today, less coughing.REC remains the same. Past History Past Medical History: cancer, hypertension Past Surgical History: Other (Left Chest port, Right Lobectomy) Social history: , smoking. denies: alcohol abuse, prescription drug abuse Family history: hypertension Medications and Allergies Allergies Allergy/AdvReac Type Severity Reaction Status Date / Time dexamethasone [From Decadron] Allergy Itching Verified 12/18/16 00:49 dexamethasone sod phosphate Allergy Itching Verified 12/18/16 00:49 [From Decadron] ketorolac tromethamine Allergy Itching Verified 07/10/16 10:11 [From Toradol] latex Allergy Itching Verified 07/10/16 10:11 tramadol Allergy Itching Verified 07/10/16 10:11 Home Medications Medication Instructions Recorded Confirmed Last Taken Type Ondansetron [Zofran ODT TAB] 4 mg PO Q6H #14 tab.rapdis 11/10/14 02/15/17 1 Week Ago Rx ALBUTEROL Inhaler [ProAir HFA 2 puff IH QID PRN #1 inhalation 04/23/16 02/15/17 11/16/16 Rx Inhaler] Albuterol Sulfate [Albuterol 0.63% 0.63 mg IH Q6H PRN #1 box 04/23/16 02/15/17 11/15/16 Rx NEBS] Dronabinol [Marinol] 5 mg PO BID 11/13/16 02/15/17 11/17/16 History Famotidine [Pepcid] 20 mg PO PRN PRN 11/13/16 02/15/17 2 Weeks Ago History Ferrous Sulfate [Feosol 325 MG tab] 325 mg PO DAILY 11/13/16 02/15/17 11/16/16 History Gabapentin [Neurontin] 600 mg PO TID 11/13/16 02/15/17 11/17/16 History cloNIDine [Catapres] 0.1 mg PO DAILY 11/13/16 02/15/17 11/17/16 History Ergocalciferol [Vitamin D2] 1 cap PO QWEEK 02/15/17 02/15/17 Unknown History Amoxicillin/K Clav Tab [Augmentin 1 tab PO Q12HR #28 tab 02/18/17 Unknown Rx 875 mg] Levofloxacin [Levaquin] 750 mg PO QDAY #7 tablet 02/18/17 Unknown Rx Morphine ER [Ms Contin ER] 60 mg PO TID #20 tablet 02/18/17 Unknown Rx Morphine [Morphine TAB] 30 mg PO Q4H PRN #14 tablet 02/18/17 Unknown Rx Paliperidone Er 3 mg PO QAM #30 02/18/17 Unknown Rx Active Meds: Active Medications Acetaminophen (Tylenol) 650 mg PO Q4H PRN PRN Reason: Pain MILD(1-3)/Fever >100.5/TRIVEDI Last Admin: 02/19/17 13:49 Dose: 650 mg Albuterol (Proventil) 2.5 mg IH Q4HRT PRN PRN Reason: Shortness Of Breath Albuterol/Ipratropium (Duoneb *Not For Prn Use*) 1 ampul IH QIDRT [facility] Last Admin: 02/20/17 15:08 Dose: 1 ampul Bisacodyl (Dulcolax) 10 mg UT QDAY PRN PRN Reason: Constipation unrelieved by MOM Enoxaparin Sodium (Lovenox) 40 mg SUB-Q QDAY@2200 [facility] Last Admin: 02/19/17 22:12 Dose: 40 mg Famotidine (Pepcid) 20 mg PO DAILY [facility] Last Admin: 02/20/17 09:12 Dose: 20 mg Ferrous Sulfate (Feosol) 325 mg PO DAILY [facility] Last Admin: 02/20/17 09:12 Dose: 325 mg Gabapentin (Neurontin) 600 mg PO Q8HR [facility] Last Admin: 02/20/17 14:15 Dose: 600 mg Hydromorphone HCl (Dilaudid) 1 mg IV Q4H PRN PRN Reason: Pain , Severe (7-10) Piperacillin Sod/Tazobactam Sod (Zosyn/Ns 4.5gm/100ml) 4.5 gm in 100 mls @ 200 mls/hr IV Q8HR [facility] PRN Reason: Protocol Last Admin: 02/20/17 14:16 Dose: 200 mls/hr Dextrose/Sodium Chloride (D5ns 0.2%) 1,000 mls @ 75 mls/hr IV DIRECT [facility] Last Admin: 02/20/17 09:26 Dose: 75 mls/hr Lactulose (Cephulac) 20 gm PO Q12HR [facility] Last Admin: 02/20/17 09:12 Dose: 20 gm Levofloxacin (Levaquin) 750 mg PO Q24HR [facility] Stop: 02/22/17 10:01 Last Admin: 02/20/17 09:11 Dose: 750 mg Magnesium Hydroxide (Milk Of Magnesia) 30 ml PO Q4H PRN PRN Reason: Constipation Methylprednisolone Sodium Succinate (Solu-Medrol) 60 mg IV Q8HR [facility] Stop: 02/20/17 23:59 Last Admin: 02/20/17 14:15 Dose: 60 mg Miscellaneous Medication (Paliperidone Er) 3 mg PO QAM [facility] Last Admin: 02/20/17 09:13 Dose: 3 mg Morphine Sulfate (Morphine) 30 mg PO Q4H PRN PRN Reason: Pain , Severe (7-10) Ondansetron HCl (Zofran) 4 mg IV Q8H PRN PRN Reason: N/V unrelieved by Zahida Ondansetron HCl (Zofran Odt) 4 mg PO Q6HR [facility] Last Admin: 02/20/17 18:16 Dose: 4 mg Oxycodone/Acetaminophen (Percocet 5/325) 1 tab PO Q6H PRN PRN Reason: BREAKTHRU PAIN Prednisone (Deltasone) 30 mg PO QDAY [facility] Review of Systems Constitutional: chronic pain Cardiovascular: chest pain Respiratory: cough Exam - Constitutional Vitals: Temp Pulse Resp BP Pulse Ox 98.6 F 118 H 20 0/0 96 02/20/17 14:35 02/20/17 15:18 02/20/17 15:18 02/20/17 14:35 02/20/17 18:00 General appearance: Present: mild distress, well-nourished - EENT Eyes: Present: PERRL ENT: hearing intact, clear oral mucosa - Neck Neck: Present: supple, normal ROM - Respiratory Respiratory: bilateral: rhonchi - Cardiovascular Heart Sounds: Present: S1 & S2. Absent: rub, click - Extremities Extremities: pulses symmetrical, No edema Peripheral Pulses: within normal limits - Abdominal General gastrointestinal: Present: soft, non-tender, non-distended, normal bowel sounds Female genitourinary: Present: deferred - Rectal Rectal Exam: deferred - Integumentary Integumentary: Present: clear, warm, dry - Musculoskeletal Musculoskeletal: gait normal, strength equal bilaterally - Psychiatric Psychiatric: appropriate mood/affect, intact judgment & insight - Neurologic Neurologic: CNII-XII intact, moves all extremities Results - Labs CBC & Chem 7: 02/17/17 09:28 07 09:28 Assessment and Plan - Patient Problems (1) Abdominal wall mass of left lower quadrant Current Visit: Yes Status: Acute Plan to address problem: Will do MRI. completed, awaiting results. reviewed, and ok. cystic. (2) Fever Current Visit: Yes Status: Acute Qualifiers: Fever type: unspecified Encounter type: E Qualified Code(s): R50.9 - Fever, unspecified Plan to address problem: continue w/up, IV ABX. cultures result pending . resolving. (3) Dehydration, severe Current Visit: No Status: Acute Plan to address problem: continue hydration. restart fluids. continue. (4) Pneumonia Current Visit: Yes Status: Acute Qualifiers: Pneumonia type: P Aspiration pneumonia type: A Laterality: L Lung location: L Plan to address problem: Continue with IV ABX, high flow oxygen, follow pulm service. Continue discursion with patient /family. See notes. perhaps improving.
[2017-02-20] MEDS: LOVENOX SUB-Q SCH (22:25)
[2017-02-21] MEDS: ZOFRAN ODT PO SCH ×4 (00:03→17:56)
[2017-02-21] MEDS: ZOSYN/NS 4.5GM/100ML 4.5 GM/100 ML VIAL IV SCH ×3 (05:58→22:57)
[2017-02-21] MEDS: NEURONTIN PO SCH ×3 (05:58→22:56)
[2017-02-21] MEDS: DUONEB *Not for PRN Use IH SCH ×4 (08:18→19:40)
[2017-02-21] MEDS: CEPHULAC PO SCH ×2 (09:29→22:55)
[2017-02-21] MEDS: PEPCID PO SCH (09:29)
[2017-02-21] MEDS: FEOSOL PO SCH (09:29)
[2017-02-21] MEDS: DELTASONE PO SCH (09:29)
[2017-02-21] MEDS: LEVAQUIN PO SCH (09:29)
[2017-02-21] MEDS: PALIPERIDONE 3 MG PO SCH (09:31)
[2017-02-21] MEDS ORDERED: FLEET PR ONE (09:59)
--- NOTE | 2017-02-21 10:39 | Progress Note ---
Assessment and Plan Assessment and plan: Sepsis due to pneumonia Continue antibiotics Fevers have now resolved CHF systolic dysfunction was ruled out Echo showed preserved EF, mild diastolic dysfunction. No evidence of CHF, off lasix Acute hypoxic respiratory failure. Patient is high-flow oxygen by nasal cannula, VQ scan was negative for PE, CT chest only shows ground ground opacities consistent with pulmonary venous congestion Etiology likely PNA pulmonary follow Continue to wean off steroids. Patient changed to PO steroids Continue nebulizer treatments, continue antibiotics, if patient does not improve she may benefit from bronchoscopy Bilateral pneumonia. Continue IV antibiotics and treatment as noted above. Non-small cell lung cancer (NSCLC) Oncology consult note reviewed, supplemental oxygen, nebs, aspiration precautions. supportive care. Hyponatremia: improved . Recheck labs in am DVT prophylaxis History Interval history: No issues overnight. Hospitalist Physical - Constitutional Vitals: Temp Pulse Resp BP Pulse Ox 98.4 F 84 16 143/77 100 02/20/17 23:55 02/21/17 08:27 02/21/17 08:27 02/20/17 23:55 02/21/17 08:25 General appearance: Present: no acute distress, well-nourished - EENT Eyes: Present: PERRL, EOM intact ENT: hearing intact, clear oral mucosa, dentition normal - Neck Neck: Present: supple, normal ROM - Respiratory Respiratory effort: normal Respiratory: bilateral: diminished, rhonchi - Cardiovascular Rhythm: regular Heart Sounds: Present: S1 & S2. Absent: gallop, rub - Extremities Extremities: no ischemia, No edema, Full ROM - Abdominal General gastrointestinal: soft, non-tender, non-distended, normal bowel sounds - Integumentary Integumentary: Present: clear, warm, dry - Neurologic Neurologic: CNII-XII intact, moves all extremities Results - Labs CBC & Chem 7: 02/17/17 09:28 02/17/17 09:28 Labs: Laboratory Last Values WBC 9.8 K/mm3 (4.5-11.0) 02/17/17 09:28 RBC 3.41 M/mm3 (3.65-5.03) L 02/17/17 09:28 Hgb 10.7 gm/dl (10.1-14.3) 02/17/17 09:28 Hct 32.2 % (30.3-42.9) 02/17/17 09:28 MCV 94 fl (79-97) 02/17/17 09:28 MCH 31 pg (28-32) 02/17/17 09:28 MCHC 33 % (30-34) 02/17/17 09:28 RDW 14.3 % (13.2-15.2) 02/17/17 09:28 Plt Count 175 K/mm3 (140-440) 02/17/17 09:28 Lymph % (Auto) 6.9 % (13.4-35.0) L 02/15/17 15:23 Amelia % (Auto) 3.5 % (0.0-7.3) 02/15/17 15:23 Eos % (Auto) 0.2 % (0.0-4.3) 02/15/17 15: Baso % (Auto) 0.5 % (0.0-1.8) 02/15/17 15:23 Lymph # 0.8 K/mm3 (1.2-5.4) L 02/15/17 15:23 Amelia # 0.4 K/mm3 (0.0-0.8) 02/15/17 15:23 Eos # 0.0 K/mm3 (0.0-0.4) 02/15/17 15:23 Baso # 0.1 K/mm3 (0.0-0.1) 02/15/17 15:23 Seg Neutrophils % 88.9 % (40.0-70.0) H 02/15/17 15:23 Seg Neutrophils # 11.0 K/mm3 (1.8-7.7) H 02/15/17 15:23 POC ABG pH 7.393 (7.35-7.45) 02/18/17 00:22 POC ABG pCO2 44.1 (35-45) 02/18/17 00:22 POC ABG pO2 184 (80-105) H 02/18/17 00:22 POC ABG HCO3 26.9 02/18/17 00:22 POC ABG Total CO2 28 02/18/17 00:22 POC ABG O2 Sat 100 02/18/17 00:22 POC ABG Base Excess 2 02/18/17 00:22 FiO2 100 % 02/18/17 00:22 Sodium 134 mmol/L (137-145) L 02/17/17 09:28 Potassium 3.9 mmol/L (3.6-5.0) 02/17/17 09:28 Chloride 96.5 mmol/L (98-107) L 02/17/17 09:28 Carbon Dioxide 25 mmol/L (22-30) 02/17/17 09:28 Anion Gap 16 mmol/L 02/17/17 09:28 BUN 4 mg/dL (7-17) L 02/17/17 09:28 Creatinine 0.5 mg/dL (0.7-1.2) L 02/17/17 09:28 Estimated GFR > 60 ml/min 02/17/17 09:28 BUN/Creatinine Ratio 8.00 % 02/17/17 09:28 Glucose 136 mg/dL (65-100) H 02/17/17 09:28 Osmolality 281 Mosm/kg 02/17/17 00:46 Lactic Acid 1.30 mmol/L (0.7-2.0) 02/18/17 20:07 Uric Acid 1.6 mg/dL (3.5-7.6) L 02/17/17 00:46 Calcium 8.3 mg/dL (8.4-10.2) L 02/17/17 09:28 Total Bilirubin 0.30 mg/dL (0.1-1.2) 02/15/17 15:23 AST 21 units/L (5-40) 02/15/17 15:23 ALT 9 units/L (7-56) 02/15/17 15:23 Alkaline Phosphatase 48 units/L (35-129) 02/15/17 15:23 Troponin T < 0.010 ng/mL (0.00-0.029) 02/19/17 11:31 C-Reactive Protein 33.90 mg/dL (0.00-1.30) H 02/18/17 20:07 Total Protein 7.1 g/dL (6.3-8.2) 02/15/17 15:23 Albumin 3.9 g/dL (3.9-5) 02/15/17 15:23 Albumin/Globulin Ratio 1.2 % 02/15/17 15:23 Lipase 23 units/L (13-60) 02/15/17 15:23 HCG, Qual Negative (Negative) 02/15/17 15:23 Total Cortisol 12.3 mcg/dL () 02/17/17 00:46 Urine Color Yellow (Yellow) 02/15/17 15:00 Urine Turbidity Clear (Clear) 02/15/17 15:00 Urine pH 5.0 (5.0-7.0) 02/15/17 15:00 Ur Specific [place] 1.014 (1.003-1.030) 02/15/17 15:00 Urine Protein <15 mg/dl mg/dL (Negative) 02/15/17 15:00 Urine Glucose (UA) 50 mg/dL (Negative) 02/15/17 15:00 Urine Ketones Neg mg/dL (Negative) 02/15/17 15:00 Urine Blood Neg (Negative) 02/15/17 15:00 Urine Nitrite Neg (Negative) 02/15/17 15:00 Urine Bilirubin Neg (Negative) 02/15/17 15:00 Urine Urobilinogen < 2.0 mg/dL (<2.0) 02/15/17 15:00 Ur Leukocyte Esterase Neg (Negative) 02/15/17 15:00 Urine WBC (Auto) < 1.0 /HPF (0.0-6.0) 02/15/17 15:00 Urine RBC (Auto) 3.0 /HPF (0.0-6.0) 02/15/17 15:00 U Epithel Cells (Auto) 3.0 /HPF (0-13.0) 02/15/17 15:00 Urine Bacteria (Auto) 1+ /HPF (Negative) 02/15/17 15:00 Urine Mucus Few /HPF 02/15/17 15:00 Urine Osmolality 442 Mosm/kg 02/17/17 17:35 Urine Opiates Screen Presumptive positive 02/15/17 15:00 Urine Methadone Screen Presumptive negative 02/15/17 15:00 Ur Barbiturates Screen Presumptive positive 02/15/17 15:00 Ur Phencyclidine Scrn Presumptive negative 02/15/17 15:00 Ur Amphetamines Screen Presumptive negative 02/15/17 15:00 U Benzodiazepines Scrn Presumptive negative 02/15/17 15:00 Urine Cocaine Screen Presumptive negative 02/15/17 15:00 U Marijuana (THC) Screen Presumptive negative 02/15/17 15:00 Drugs of Abuse Note Disclamer 02/15/17 15:00 Blood Type A POSITIVE 02/15/17 19:43 Antibody Screen TNR 02/15/17 19:43 QUYNH Antibody Screen Negative 02/15/17 19:43
[2017-02-21] MEDS: D5NS 0.2% 1,000 ML IV SCH (13:30)
--- NOTE | 2017-02-21 15:16 | Progress Note ---
Assessment and Plan - Patient Problems (1) Acute hypoxemic respiratory failure Current Visit: Yes Status: Acute (2) Pneumonia Current Visit: Yes Status: Acute Qualifiers: Pneumonia type: P Aspiration pneumonia type: A Laterality: L Lung location: L (3) Abdominal wall abscess Current Visit: Yes Status: Acute (4) Hyponatremia syndrome Current Visit: Yes Status: Acute (5) Non-small cell lung cancer (NSCLC) Current Visit: No Status: Acute Qualifiers: Laterality: L (6) Discharge planning issues Current Visit: Yes Status: Acute Subjective Date of service: 02/21/17 Principal diagnosis: Acute Hypoxemic Respiratory Failure Interval history: Seen and examined at bedside; 24 hour events reviewed; nursing and respiratory care staff consulted; no adverse overnight events reported to me; Objective Vital Signs - 12hr 02/21/17 02/21/17 02/21/17 06:30 07:05 07:14 Temperature 98.3 F Pulse Rate [ Anterior Bilateral Throughout] Pulse Rate [ 97 H Radial] Respiratory 18 15 18 Rate Respiratory Rate [Anterior Bilateral Throughout] Blood Pressure 139/88 [Right Arm] O2 Sat by Pulse 95 Oximetry 02/21/17 02/21/17 02/21/17 08:14 08:25 08:27 Temperature Pulse Rate [ 86 84 Anterior Bilateral Throughout] Pulse Rate [ Radial] Respiratory Rate Respiratory 18 16 Rate [Anterior Bilateral Throughout] Blood Pressure [Right Arm] O2 Sat by Pulse 100 Oximetry 02/21/17 02/21/17 11:55 12:09 Temperature Pulse Rate [ 112 H 107 H Anterior Bilateral Throughout] Pulse Rate [ Radial] Respiratory Rate Respiratory 16 20 Rate [Anterior Bilateral Throughout] Blood Pressure [Right Arm] O2 Sat by Pulse Oximetry Constitutional: lethargic Eyes: non-icteric ENT: oropharynx moist Neck: supple Effort: mildly labored Ascultation: Bilateral: diminished breath sounds, rhonchi Cardiovascular: regular rate and rhythm Gastrointestinal: normoactive bowel sounds, soft, non-tender, non-distended Integumentary: normal Extremities: no cyanosis, no edema, pulses normal, no ischemia or petechiae Neurologic: non-focal exam (grossly), pupils equal and round, motor strength normal and, unable to assess Psychiatric: other (unable to assess) CBC and BMP: 02/17/17 09:28 02/17/17 09:28 ABG, PT/INR, D-dimer: ABG POC ABG pH 7.393 (7.35-7.45) 02/18/17 00:22 POC ABG pCO2 44.1 (35-45) 02/18/17 00:22 POC ABG pO2 184 (80-105) H 02/18/17 00:22 POC ABG HCO3 26.9 02/18/17 00:22 POC ABG Total CO2 28 02/18/17 00:22 POC ABG O2 Sat 100 02/18/17 00:22 Abnormal lab findings: Abnormal Labs 02/16/17 02/17/17 02/17/17 21:12 00:46 09:28 RBC 3.41 L POC ABG pO2 54 L Sodium Chloride BUN Creatinine Glucose Uric Acid 1.6 L Calcium C-Reactive Protein 02/17/17 02/17/17 02/18/17 09:28 21:08 00:22 RBC POC ABG pO2 29 L 184 H Sodium 134 L Chloride 96.5 L BUN 4 L Creatinine 0.5 L Glucose 136 H Uric Acid Calcium 8.3 L C-Reactive Protein 02/18/17 20:07 RBC POC ABG pO2 Sodium Chloride BUN Creatinine Glucose Uric Acid Calcium C-Reactive Protein 33.90 H
--- NOTE | 2017-02-21 17:03 | Consultation ---
History of Present Illness - Reason for Consult Consult date: 02/21/17 - History of Present Illness Patient seen/examined, record reviewed, case d/w the patient. As per her conversation with pulm, steroid to be tried. Past History Past Medical History: cancer, hypertension Past Surgical History: Other (Left Chest port, Right Lobectomy) Social history: , smoking. denies: alcohol abuse, prescription drug abuse Family history: hypertension Medications and Allergies Allergies Allergy/AdvReac Type Severity Reaction Status Date / Time dexamethasone [From Decadron] Allergy Itching Verified 12/18/16 00:49 dexamethasone sod phosphate Allergy Itching Verified 12/18/16 00:49 [From Decadron] ketorolac tromethamine Allergy Itching Verified 07/10/16 10:11 [From Toradol] latex Allergy Itching Verified 07/10/16 10:11 tramadol Allergy Itching Verified 07/10/16 10:11 Home Medications Medication Instructions Recorded Confirmed Last Taken Type Ondansetron [Zofran ODT TAB] 4 mg PO Q6H #14 tab.rapdis 11/10/14 02/15/17 1 Week Ago Rx ALBUTEROL Inhaler [ProAir HFA 2 puff IH QID PRN #1 inhalation 04/23/16 02/15/17 11/16/16 Rx Inhaler] Albuterol Sulfate [Albuterol 0.63% 0.63 mg IH Q6H PRN #1 box 04/23/16 02/15/17 11/15/16 Rx NEBS] Dronabinol [Marinol] 5 mg PO BID 11/13/16 02/15/17 11/17/16 History Famotidine [Pepcid] 20 mg PO PRN PRN 11/13/16 02/15/17 2 Weeks Ago History Ferrous Sulfate [Feosol 325 MG tab] 325 mg PO DAILY 11/13/16 02/15/17 11/16/16 History Gabapentin [Neurontin] 600 mg PO TID 11/13/16 02/15/17 11/17/16 History cloNIDine [Catapres] 0.1 mg PO DAILY 11/13/16 02/15/17 11/17/16 History Ergocalciferol [Vitamin D2] 1 cap PO QWEEK 02/15/17 02/15/17 Unknown History Amoxicillin/K Clav Tab [Augmentin 1 tab PO Q12HR #28 tab 02/18/17 Unknown Rx 875 mg] Levofloxacin [Levaquin] 750 mg PO QDAY #7 tablet 02/18/17 Unknown Rx Morphine ER [Ms Contin ER] 60 mg PO TID #20 tablet 02/18/17 Unknown Rx Morphine [Morphine TAB] 30 mg PO Q4H PRN #14 tablet 02/18/17 Unknown Rx Paliperidone Er 3 mg PO QAM #30 02/18/17 Unknown Rx Active Meds: Active Medications Acetaminophen (Tylenol) 650 mg PO Q4H PRN PRN Reason: Pain MILD(1-3)/Fever >100.5/TRIVEDI Last Admin: 02/19/17 13:49 Dose: 650 mg Albuterol (Proventil) 2.5 mg IH Q4HRT PRN PRN Reason: Shortness Of Breath Albuterol/Ipratropium (Duoneb *Not For Prn Use*) 1 ampul IH QIDRT [facility] Last Admin: 02/21/17 16:41 Dose: 1 ampul Bisacodyl (Dulcolax) 10 mg LA QDAY PRN PRN Reason: Constipation unrelieved by MOM Enoxaparin Sodium (Lovenox) 40 mg SUB-Q QDAY@2200 [facility] Last Admin: 02/20/17 22:25 Dose: 40 mg Famotidine (Pepcid) 20 mg PO DAILY [facility] Last Admin: 02/21/17 09:29 Dose: 20 mg Ferrous Sulfate (Feosol) 325 mg PO DAILY [facility] Last Admin: 02/21/17 09:29 Dose: 325 mg Gabapentin (Neurontin) 600 mg PO Q8HR [facility] Last Admin: 02/21/17 15:55 Dose: 600 mg Hydromorphone HCl (Dilaudid) 1 mg IV Q4H PRN PRN Reason: Pain , Severe (7-10) Piperacillin Sod/Tazobactam Sod (Zosyn/Ns 4.5gm/100ml) 4.5 gm in 100 mls @ 200 mls/hr IV Q8HR [facility] PRN Reason: Protocol Last Admin: 02/21/17 13:28 Dose: 200 mls/hr Dextrose/Sodium Chloride (D5ns 0.2%) 1,000 mls @ 75 mls/hr IV DIRECT [facility] Last Admin: 02/21/17 13:30 Dose: 75 mls/hr Lactulose (Cephulac) 20 gm PO Q12HR [facility] Last Admin: 02/21/17 09:29 Dose: 20 gm Levofloxacin (Levaquin) 750 mg PO Q24HR [facility] Stop: 02/22/17 10:01 Last Admin: 02/21/17 09:29 Dose: 750 mg Magnesium Hydroxide (Milk Of Magnesia) 30 ml PO Q4H PRN PRN Reason: Constipation Miscellaneous Medication (Paliperidone Er) 3 mg PO QAM [facility] Last Admin: 02/21/17 09:31 Dose: 3 mg Morphine Sulfate (Morphine) 30 mg PO Q4H PRN PRN Reason: Pain , Severe (7-10) Last Admin: 02/21/17 06:30 Dose: 30 mg Ondansetron HCl (Zofran) 4 mg IV Q8H PRN PRN Reason: N/V unrelieved by Reglan Ondansetron HCl (Zofran Odt) 4 mg PO Q6HR [facility] Last Admin: 02/21/17 13:28 Dose: 4 mg Oxycodone/Acetaminophen (Percocet 5/325) 1 tab PO Q6H PRN PRN Reason: BREAKTHRU PAIN Prednisone (Deltasone) 30 mg PO QDAY [facility] Last Admin: 02/21/17 09:29 Dose: 30 mg Review of Systems Constitutional: fatigue Breasts: deferred Respiratory: cough Exam - Constitutional Vitals: Temp Pulse Resp BP Pulse Ox 98.3 F 78 18 139/88 100 02/21/17 07:05 02/21/17 16:53 02/21/17 16:53 02/21/17 07:05 02/21/17 08:25 General appearance: Present: mild distress, well-nourished - EENT Eyes: Present: PERRL ENT: hearing intact, clear oral mucosa - Neck Neck: Present: supple, normal ROM - Respiratory Respiratory: bilateral: rhonchi - Cardiovascular Heart Sounds: Present: S1 & S2. Absent: rub, click - Extremities Extremities: pulses symmetrical, No edema Peripheral Pulses: within normal limits - Abdominal General gastrointestinal: Present: soft, non-tender, non-distended, normal bowel sounds Female genitourinary: Present: deferred - Rectal Rectal Exam: deferred - Integumentary Integumentary: Present: clear, warm, dry - Musculoskeletal Musculoskeletal: gait normal, strength equal bilaterally - Psychiatric Psychiatric: appropriate mood/affect, intact judgment & insight - Neurologic Neurologic: CNII-XII intact, moves all extremities Results - Labs CBC & Chem 7: 02/17/17 09:28 07 09:28 Assessment and Plan - Patient Problems (1) Abdominal wall mass of left lower quadrant Current Visit: Yes Status: Acute Plan to address problem: Will do MRI. completed, awaiting results. reviewed, and ok. cystic. (2) Fever Current Visit: Yes Status: Acute Qualifiers: Fever type: unspecified Encounter type: E Qualified Code(s): R50.9 - Fever, unspecified Plan to address problem: continue w/up, IV ABX. cultures result pending . resolving. (3) Dehydration, severe Current Visit: No Status: Acute Plan to address problem: continue hydration. restart fluids. continue. (4) Pneumonia Current Visit: Yes Status: Acute Qualifiers: Pneumonia type: P Aspiration pneumonia type: A Laterality: L Lung location: L Plan to address problem: Continue with IV ABX, high flow oxygen, follow pulm service. Continue discursion with patient /family. See notes. perhaps improving.
[2017-02-21] MEDS: LOVENOX SUB-Q SCH (22:56)
[2017-02-22] MEDS: ZOFRAN ODT PO SCH ×5 (00:44→23:00)
[2017-02-22] MEDS: ZOSYN/NS 4.5GM/100ML 4.5 GM/100 ML VIAL IV SCH ×3 (05:53→22:37)
[2017-02-22] MEDS: NEURONTIN PO SCH ×3 (05:54→22:38)
[2017-02-22] MEDS: D5NS 0.2% 1,000 ML IV SCH (05:56)
[2017-02-22 08:21] LABS: Basophils % (Auto) 0.4 % (0.0-1.8); Eosinophils % (Auto) 0.1 % (0.0-4.3); Hematocrit 28.4 % (30.3-42.9); Hemoglobin 9.7 gm/dl (10.1-14.3); Mean Corpuscular HGB Conc 34 % (30-34); Mean Corpuscular Hemoglobin 32 pg (28-32); Mean Corpuscular Volume 94 fl (79-97); Platelet Count 243 K/mm3 (140-440); Red Blood Count 3.02 M/mm3 (3.65-5.03); Red Cell Distribution Width 14.5 % (13.2-15.2); White Blood Count 7.5 K/mm3 (4.5-11.0)
[2017-02-22 08:33] LABS: Anion Gap 14 mmol/L; Blood Urea Nitrogen 4 mg/dL (7-17); Calcium 7.9 mg/dL (8.4-10.2); Carbon Dioxide 30 mmol/L (22-30); Chloride 101.6 mmol/L (98-107); Glucose 95 mg/dL (65-100); Potassium 3.1 mmol/L (3.6-5.0); Sodium 142 mmol/L (137-145)
--- NOTE | 2017-02-22 09:34 | Progress Note ---
Assessment and Plan Assessment and plan: Sepsis due to pneumonia Continue antibiotics Fevers have now resolved CHF systolic dysfunction was ruled out Echo showed preserved EF, mild diastolic dysfunction. No evidence of CHF, off lasix Acute hypoxic respiratory failure. VQ scan was negative for PE, CT chest only shows ground ground opacities consistent with pulmonary venous congestion Etiology most likely PNA pulmonary following Continue to wean off steroids. Patient changed to PO steroids Continue nebulizer treatments, continue antibiotics, if patient does not improve she may benefit from bronchoscopy. However patient appears to be improving. Bilateral pneumonia. Continue IV antibiotics and treatment as noted above. Non-small cell lung cancer (NSCLC) Oncology consult note reviewed, supplemental oxygen, nebs, aspiration precautions. supportive care. Hyponatremia. Improved. Recheck labs in am Hypokalemia Replete potassium. DVT prophylaxis Continue Lovenox. Disposition. Anticipate discharge in a.m. History Interval history: No issues overnight. Hospitalist Physical - Constitutional Vitals: Temp Pulse Resp BP Pulse Ox 97.7 F 84 20 133/78 100 02/21/17 23:00 02/21/17 23:00 02/21/17 23:00 02/21/17 23:00 02/21/17 19:40 General appearance: Present: no acute distress, well-nourished - EENT Eyes: Present: PERRL, EOM intact ENT: hearing intact, clear oral mucosa, dentition normal - Neck Neck: Present: supple, normal ROM - Respiratory Respiratory effort: normal Respiratory: bilateral: diminished, rhonchi - Cardiovascular Rhythm: regular Heart Sounds: Present: S1 & S2. Absent: gallop, rub - Extremities Extremities: no ischemia, No edema, Full ROM - Abdominal General gastrointestinal: soft, non-tender, non-distended, normal bowel sounds - Integumentary Integumentary: Present: clear, warm, dry - Neurologic Neurologic: CNII-XII intact, moves all extremities Results - Labs CBC & Chem 7: 02/22/17 07:55 02/22/17 07:55 Labs: Laboratory Last Values WBC 7.5 K/mm3 (4.5-11.0) 02/22/17 07:55 RBC 3.02 M/mm3 (3.65-5.03) L 02/22/17 07:55 Hgb 9.7 gm/dl (10.1-14.3) L 02/22/17 07:55 Hct 28.4 % (30.3-42.9) L 02/22/17 07:55 MCV 94 fl (79-97) 02/22/17 07:55 MCH 32 pg (28-32) 02/22/17 07:55 MCHC 34 % (30-34) 02/22/17 07:55 RDW 14.5 % (13.2-15.2) 02/22/17 07:55 Plt Count 243 K/mm3 (140-440) 02/22/17 07:55 Lymph % (Auto) 18.4 % (13.4-35.0) 02/22/17 07:55 [place] % (Auto) 9.6 % (0.0-7.3) H 02/22/17 07:55 Eos % (Auto) 0.1 % (0.0-4.3) 02/22/17 07:55 Baso % (Auto) 0.4 % (0.0-1.8) 02/22/17 07:55 Lymph # 1.4 K/mm3 (1.2-5.4) 02/22/17 07:55 [place] # 0.7 K/mm3 (0.0-0.8) 02/22/17 07:55 Eos # 0.0 K/mm3 (0.0-0.4) 02/22/17 07:55 Baso # 0.0 K/mm3 (0.0-0.1) 02/22/17 07:55 Seg Neutrophils % 71.5 % (40.0-70.0) H 02/22/17 07:55 Seg Neutrophils # 5.4 K/mm3 (1.8-7.7) 02/22/17 07:55 POC ABG pH 7.393 (7.35-7.45) 02/18/17 00:22 POC ABG pCO2 44.1 (35-45) 02/18/17 00:22 POC ABG pO2 184 (80-105) H 02/18/17 00:22 POC ABG HCO3 26.9 02/18/17 00:22 POC ABG Total CO2 28 02/18/17 00:22 POC ABG O2 Sat 100 02/18/17 00:22 POC ABG Base Excess 2 02/18/17 00:22 FiO2 100 % 02/18/17 00:22 Sodium 142 mmol/L (137-145) D 02/22/17 07:55 Potassium 3.1 mmol/L (3.6-5.0) L D 02/22/17 07:55 Chloride 101.6 mmol/L (98-107) 02/22/17 07:55 Carbon Dioxide 30 mmol/L (22-30) 02/22/17 07:55 Anion Gap 14 mmol/L 02/22/17 07:55 BUN 4 mg/dL (7-17) L 02/22/17 07:55 Creatinine 0.5 mg/dL (0.7-1.2) L 02/22/17 07:55 Estimated GFR > 60 ml/min 02/22/17 07:55 BUN/Creatinine Ratio 8.00 % 02/22/17 07:55 Glucose 95 mg/dL (65-100) 02/22/17 07:55 Osmolality 281 Mosm/kg 02/17/17 00:46 Lactic Acid 1.30 mmol/L (0.7-2.0) 02/18/17 20:07 Uric Acid 1.6 mg/dL (3.5-7.6) L 02/17/17 00:46 Calcium 7.9 mg/dL (8.4-10.2) L 02/22/17 07:55 Total Bilirubin 0.30 mg/dL (0.1-1.2) 02/15/17 15:23 AST 21 units/L (5-40) 02/15/17 15:23 ALT 9 units/L (7-56) 02/15/17 15:23 Alkaline Phosphatase 48 units/L (35-129) 02/15/17 15:23 Troponin T < 0.010 ng/mL (0.00-0.029) 02/19/17 11:31 C-Reactive Protein 33.90 mg/dL (0.00-1.30) H 02/18/17 20:07 Total Protein 7.1 g/dL (6.3-8.2) 02/15/17 15:23 Albumin 3.9 g/dL (3.9-5) 02/15/17 15:23 Albumin/Globulin Ratio 1.2 % 02/15/17 15:23 Lipase 23 units/L (13-60) 02/15/17 15:23 HCG, Qual Negative (Negative) 02/15/17 15:23 Total Cortisol 12.3 mcg/dL () 02/17/17 00:46 Urine Color Yellow (Yellow) 02/15/17 15:00 Urine Turbidity Clear (Clear) 02/15/17 15:00 Urine pH 5.0 (5.0-7.0) 02/15/17 15:00 Ur Specific [place] 1.014 (1.003-1.030) 02/15/17 15:00 Urine Protein <15 mg/dl mg/dL (Negative) 02/15/17 15:00 Urine Glucose (UA) 50 mg/dL (Negative) 02/15/17 15:00 Urine Ketones Neg mg/dL (Negative) 02/15/17 15:00 Urine Blood Neg (Negative) 02/15/17 15:00 Urine Nitrite Neg (Negative) 02/15/17 15:00 Urine Bilirubin Neg (Negative) 02/15/17 15:00 Urine Urobilinogen < 2.0 mg/dL (<2.0) 02/15/17 15:00 Ur Leukocyte Esterase Neg (Negative) 02/15/17 15:00 Urine WBC (Auto) < 1.0 /HPF (0.0-6.0) 02/15/17 15:00 Urine RBC (Auto) 3.0 /HPF (0.0-6.0) 02/15/17 15:00 U Epithel Cells (Auto) 3.0 /HPF (0-13.0) 02/15/17 15:00 Urine Bacteria (Auto) 1+ /HPF (Negative) 02/15/17 15:00 Urine Mucus Few /HPF 02/15/17 15:00 Urine Osmolality 442 Mosm/kg 02/17/17 17:35 Urine Opiates Screen Presumptive positive 02/15/17 15:00 Urine Methadone Screen Presumptive negative 02/15/17 15:00 Ur Barbiturates Screen Presumptive positive 02/15/17 15:00 Ur Phencyclidine Scrn Presumptive negative 02/15/17 15:00 Ur Amphetamines Screen Presumptive negative 02/15/17 15:00 U Benzodiazepines Scrn Presumptive negative 02/15/17 15:00 Urine Cocaine Screen Presumptive negative 02/15/17 15:00 U Marijuana (THC) Screen Presumptive negative 02/15/17 15:00 Drugs of Abuse Note Disclamer 07/10/17 15:00 Blood Type A POSITIVE 02/15/17 19:43 Antibody Screen TNR 02/15/17 19:43 QUYNH Antibody Screen Negative 02/15/17 19:43
[2017-02-22] MEDS: DUONEB *Not for PRN Use IH SCH ×3 (09:42→19:47)
[2017-02-22] MEDS ORDERED: PROVENTIL IH PRN (09:48)
[2017-02-22] MEDS: DELTASONE PO SCH (11:23)
[2017-02-22] MEDS: FEOSOL PO SCH (11:23)
[2017-02-22] MEDS: PEPCID PO SCH (11:23)
[2017-02-22] MEDS: LEVAQUIN PO SCH (11:23)
[2017-02-22] MEDS: CEPHULAC PO SCH ×2 (11:24→22:47)
[2017-02-22] MEDS: PALIPERIDONE 3 MG PO SCH (11:26)
--- NOTE | 2017-02-22 21:36 | Progress Note ---
Assessment and Plan Patient alert, awake. Resting on room air. No acute respiratory distress.O2 saturation 98%. - Patient Problems (1) Pneumonia Current Visit: Yes Status: Acute Qualifiers: Pneumonia type: P Aspiration pneumonia type: A Laterality: L Lung location: L Plan to address problem: Patient is on Zosyn. (2) Non-small cell lung cancer (NSCLC) Current Visit: No Status: Acute Qualifiers: Laterality: L Plan to address problem: S/P resection and chemotherapy. (3) Tobacco abuse Current Visit: No Status: Chronic Plan to address problem: Counselled to stop smoking. Patient may have COPD Albuterol/Atrovent aerosol treatments q 6 hours. Continue S/C Lovenox. Subjective Date of service: 02/22/17 Principal diagnosis: Acute Hypoxemic Respiratory Failure Interval history: Patient alert, awake. Resting on room air. No acute respiratory distress.O2 saturation 98%. Objective Vital Signs - 12hr 02/22/17 02/22/17 02/22/17 09:41 09:42 09:45 Temperature Pulse Rate [ 71 Anterior Bilateral Throughout] Pulse Rate [ Radial] Respiratory Rate Respiratory 16 Rate [Anterior Bilateral Throughout] Blood Pressure [Right Arm] O2 Sat by Pulse 98 98 Oximetry 02/22/17 02/22/17 02/22/17 09:57 16:00 16:13 Temperature 99.2 F Pulse Rate [ 68 93 H Anterior Bilateral Throughout] Pulse Rate [ 107 H Radial] Respiratory 19 Rate Respiratory 16 16 Rate [Anterior Bilateral Throughout] Blood Pressure 123/73 [Right Arm] O2 Sat by Pulse Oximetry 02/22/17 16:21 Temperature Pulse Rate [ 97 H Anterior Bilateral Throughout] Pulse Rate [ Radial] Respiratory Rate Respiratory 16 Rate [Anterior Bilateral Throughout] Blood Pressure [Right Arm] O2 Sat by Pulse Oximetry Constitutional: no acute distress, appears uncomfortable Eyes: non-icteric ENT: oropharynx moist Neck: supple Effort: mildly labored Ascultation: Bilateral: diminished breath sounds, rhonchi Cardiovascular: regular rate and rhythm Gastrointestinal: normoactive bowel sounds, soft, non-tender, non-distended Integumentary: normal Extremities: no cyanosis, no edema, pulses normal, no ischemia or petechiae Neurologic: non-focal exam, pupils equal and round, motor strength normal and Psychiatric: depressed CBC and BMP: 02/22/17 07:55 02/22/17 07:55 ABG, PT/INR, D-dimer: ABG POC ABG pH 7.393 (7.35-7.45) 02/18/17 00:22 POC ABG pCO2 44.1 (35-45) 02/18/17 00:22 POC ABG pO2 184 (80-105) H 02/18/17 00:22 POC ABG HCO3 26.9 02/18/17 00:22 POC ABG Total CO2 28 02/18/17 00:22 POC ABG O2 Sat 100 02/18/17 00:22 Abnormal lab findings: Abnormal Labs 02/16/17 02/17/17 02/17/17 21:12 00:46 09:28 RBC 3.41 L Hgb Hct [place] % (Auto) Seg Neutrophils % POC ABG pO2 54 L Sodium Potassium Chloride BUN Creatinine Glucose Uric Acid 1.6 L Calcium C-Reactive Protein 02/17/17 02/17/17 02/18/17 09:28 21:08 00:22 RBC Hgb Hct [place] % (Auto) Seg Neutrophils % POC ABG pO2 29 L 184 H Sodium 134 L Potassium Chloride 96.5 L BUN 4 L Creatinine 0.5 L Glucose 136 H Uric Acid Calcium 8.3 L C-Reactive Protein 02/18/17 02/22/17 02/22/17 20:07 07:55 07:55 RBC 3.02 L Hgb 9.7 L Hct 28.4 L [place] % (Auto) 9.6 H Seg Neutrophils % 71.5 H POC ABG pO2 Sodium Potassium 3.1 L D Chloride BUN 4 L Creatinine 0.5 L Glucose Uric Acid Calcium 7.9 L C-Reactive Protein 33.90 H
[2017-02-22] MEDS: LOVENOX SUB-Q SCH (22:37)
--- NOTE | 2017-02-22 23:18 | Consultation ---
History of Present Illness - Reason for Consult Consult date: 02/22/17 - History of Present Illness Patient seen/examined, labs reviewed, also reviewed notes. Resting oxygenation, ok, but quite SOB with activity, still coughing, low grade temps. I think that she will benefit from bronch.K+ low at 3.1 no record of replacement. Past History Past Medical History: cancer, hypertension Past Surgical History: Other (Left Chest port, Right Lobectomy) Social history: , smoking. denies: alcohol abuse, prescription drug abuse Family history: hypertension Medications and Allergies Allergies Allergy/AdvReac Type Severity Reaction Status Date / Time dexamethasone [From Decadron] Allergy Itching Verified 12/18/16 00:49 dexamethasone sod phosphate Allergy Itching Verified 12/18/16 00:49 [From Decadron] ketorolac tromethamine Allergy Itching Verified 07/10/16 10:11 [From Toradol] latex Allergy Itching Verified 07/10/16 10:11 tramadol Allergy Itching Verified 07/10/16 10:11 Home Medications Medication Instructions Recorded Confirmed Last Taken Type Ondansetron [Zofran ODT TAB] 4 mg PO Q6H #14 tab.rapdis 11/10/14 02/15/17 1 Week Ago Rx ALBUTEROL Inhaler [ProAir HFA 2 puff IH QID PRN #1 inhalation 04/23/16 02/15/17 11/16/16 Rx Inhaler] Albuterol Sulfate [Albuterol 0.63% 0.63 mg IH Q6H PRN #1 box 04/23/16 02/15/17 11/15/16 Rx NEBS] Dronabinol [Marinol] 5 mg PO BID 11/13/16 02/15/17 11/17/16 History Famotidine [Pepcid] 20 mg PO PRN PRN 11/13/16 02/15/17 2 Weeks Ago History Ferrous Sulfate [Feosol 325 MG tab] 325 mg PO DAILY 11/13/16 02/15/17 11/16/16 History Gabapentin [Neurontin] 600 mg PO TID 11/13/16 02/15/17 11/17/16 History cloNIDine [Catapres] 0.1 mg PO DAILY 11/13/16 02/15/17 11/17/16 History Ergocalciferol [Vitamin D2] 1 cap PO QWEEK 02/15/17 02/15/17 Unknown History Amoxicillin/K Clav Tab [Augmentin 1 tab PO Q12HR #28 tab 02/18/17 Unknown Rx 875 mg] Levofloxacin [Levaquin] 750 mg PO QDAY #7 tablet 02/18/17 Unknown Rx Morphine ER [Ms Contin ER] 60 mg PO TID #20 tablet 02/18/17 Unknown Rx Morphine [Morphine TAB] 30 mg PO Q4H PRN #14 tablet 02/18/17 Unknown Rx Paliperidone Er 3 mg PO QAM #30 02/18/17 Unknown Rx Active Meds: Active Medications Acetaminophen (Tylenol) 650 mg PO Q4H PRN PRN Reason: Pain MILD(1-3)/Fever >100.5/TRIVEDI Last Admin: 02/19/17 13:49 Dose: 650 mg Albuterol (Proventil) 2.5 mg IH Q4HRT PRN PRN Reason: Shortness Of Breath Albuterol/Ipratropium (Duoneb *Not For Prn Use*) 1 ampul IH TIDRT [facility] Last Admin: 02/22/17 19:47 Dose: 1 ampul Bisacodyl (Dulcolax) 10 mg ND QDAY PRN PRN Reason: Constipation unrelieved by MOM Enoxaparin Sodium (Lovenox) 40 mg SUB-Q QDAY@2200 [facility] Last Admin: 02/22/17 22:37 Dose: 40 mg Famotidine (Pepcid) 20 mg PO DAILY [facility] Last Admin: 02/22/17 11:23 Dose: 20 mg Ferrous Sulfate (Feosol) 325 mg PO DAILY [facility] Last Admin: 02/22/17 11:23 Dose: 325 mg Gabapentin (Neurontin) 600 mg PO Q8HR [facility] Last Admin: 02/22/17 22:38 Dose: 600 mg Hydromorphone HCl (Dilaudid) 1 mg IV Q4H PRN PRN Reason: Pain , Severe (7-10) Last Admin: 02/22/17 22:45 Dose: 1 mg Piperacillin Sod/Tazobactam Sod (Zosyn/Ns 4.5gm/100ml) 4.5 gm in 100 mls @ 200 mls/hr IV Q8HR [facility] PRN Reason: Protocol Last Admin: 02/22/17 22:37 Dose: 200 mls/hr Dextrose/Sodium Chloride (D5ns 0.2%) 1,000 mls @ 75 mls/hr IV DIRECT [facility] Last Admin: 02/22/17 05:56 Dose: 75 mls/hr Lactulose (Cephulac) 20 gm PO Q12HR [facility] Last Admin: 02/22/17 22:47 Dose: 20 gm Magnesium Hydroxide (Milk Of Magnesia) 30 ml PO Q4H PRN PRN Reason: Constipation Miscellaneous Medication (Paliperidone Er) 3 mg PO QAM [facility] Last Admin: 02/22/17 11:26 Dose: 3 mg Morphine Sulfate (Morphine) 30 mg PO Q4H PRN PRN Reason: Pain , Severe (7-10) Last Admin: 02/21/17 06:30 Dose: 30 mg Ondansetron HCl (Zofran) 4 mg IV Q8H PRN PRN Reason: N/V unrelieved by Reglan Ondansetron HCl (Zofran Odt) 4 mg PO Q6HR [facility] Last Admin: 02/22/17 23:00 Dose: 4 mg Oxycodone/Acetaminophen (Percocet 5/325) 1 tab PO Q6H PRN PRN Reason: BREAKTHRU PAIN Prednisone (Deltasone) 30 mg PO QDAY [facility] Last Admin: 02/22/17 11:23 Dose: 30 mg Review of Systems Constitutional: fever, chronic pain Breasts: deferred Respiratory: cough Musculoskeletal: low back pain Exam - Constitutional Vitals: Temp Pulse Resp BP Pulse Ox 99.2 F 97 H 20 123/73 98 02/22/17 16:00 02/22/17 16:21 02/22/17 22:45 02/22/17 16:00 02/22/17 09:45 General appearance: Present: mild distress, well-nourished - EENT Eyes: Present: PERRL ENT: hearing intact, clear oral mucosa - Neck Neck: Present: supple, normal ROM - Respiratory Respiratory: bilateral: rhonchi - Cardiovascular Heart Sounds: Present: S1 & S2. Absent: rub, click - Extremities Extremities: pulses symmetrical, No edema Peripheral Pulses: within normal limits - Abdominal General gastrointestinal: Present: soft, non-tender, non-distended, normal bowel sounds Female genitourinary: Present: deferred - Rectal Rectal Exam: deferred - Integumentary Integumentary: Present: clear, warm, dry - Musculoskeletal Musculoskeletal: gait normal, strength equal bilaterally - Psychiatric Psychiatric: appropriate mood/affect, intact judgment & insight - Neurologic Neurologic: CNII-XII intact, moves all extremities Results - Labs CBC & Chem 7: 02/22/17 07:55 02/22/17 07:55 Labs: Abnormal lab results 02/22/17 02/22/17 Range/Units 07:55 07:55 RBC 3.02 L (3.65-5.03) M/mm3 Hgb 9.7 L (10.1-14.3) gm/dl Hct 28.4 L (30.3-42.9) % [place] % (Auto) 9.6 H (0.0-7.3) % Seg Neutrophils % 71.5 H (40.0-70.0) % Potassium 3.1 L D (3.6-5.0) mmol/L BUN 4 L (7-17) mg/dL Creatinine 0.5 L (0.7-1.2) mg/dL Calcium 7.9 L (8.4-10.2) mg/dL Assessment and Plan - Patient Problems (1) Abdominal wall mass of left lower quadrant Current Visit: Yes Status: Acute Plan to address problem: Will do MRI. completed, awaiting results. reviewed, and ok. cystic. (2) Fever Current Visit: Yes Status: Acute Qualifiers: Fever type: unspecified Encounter type: E Qualified Code(s): R50.9 - Fever, unspecified Plan to address problem: continue w/up, IV ABX. cultures result pending . resolving. Now low grade. (3) Dehydration, severe Current Visit: No Status: Acute Plan to address problem: continue hydration. restart fluids. continue. IVF d/c. (4) Pneumonia Current Visit: Yes Status: Acute Qualifiers: Pneumonia type: P Aspiration pneumonia type: A Laterality: L Lung location: L Plan to address problem: Continue with IV ABX, high flow oxygen, follow pulm service. Continue discursion with patient /family. See notes. perhaps improving. Rec Bronch.
[2017-02-23] MEDS: K-DUR PO SCH ×2 (01:26→03:44)
[2017-02-23] MEDS: NEURONTIN PO SCH ×2 (07:20→16:27)
[2017-02-23] MEDS: ZOFRAN ODT PO SCH ×2 (07:21→12:35)
[2017-02-23] MEDS: ZOSYN/NS 4.5GM/100ML 4.5 GM/100 ML VIAL IV SCH (07:58)
[2017-02-23] MEDS ORDERED: K-DUR PO ONE (08:00)
[2017-02-23] MEDS: DUONEB *Not for PRN Use IH SCH ×2 (08:00→16:32)
[2017-02-23 08:11] LABS: Anion Gap 15 mmol/L; Blood Urea Nitrogen 4 mg/dL (7-17); Calcium 8.6 mg/dL (8.4-10.2); Carbon Dioxide 30 mmol/L (22-30); Chloride 100.3 mmol/L (98-107); Glucose 96 mg/dL (65-100); Potassium 3.3 mmol/L (3.6-5.0); Sodium 142 mmol/L (137-145)
[2017-02-23 08:13] LABS: Basophils % (Auto) 0.1 % (0.0-1.8); Eosinophils % (Auto) 0.6 % (0.0-4.3); Hematocrit 30.8 % (30.3-42.9); Hemoglobin 10.2 gm/dl (10.1-14.3); Mean Corpuscular HGB Conc 33 % (30-34); Mean Corpuscular Hemoglobin 32 pg (28-32); Mean Corpuscular Volume 95 fl (79-97); Platelet Count 270 K/mm3 (140-440); Red Blood Count 3.24 M/mm3 (3.65-5.03); Red Cell Distribution Width 14.6 % (13.2-15.2); White Blood Count 9.4 K/mm3 (4.5-11.0)
[2017-02-23] MEDS: FEOSOL PO SCH (09:14)
[2017-02-23] MEDS: PALIPERIDONE 3 MG PO SCH (09:14)
[2017-02-23] MEDS: DELTASONE PO SCH (09:15)
[2017-02-23] MEDS: PEPCID PO SCH (09:15)
[2017-02-23] MEDS: CEPHULAC PO SCH (09:20)
[2017-02-23 11:10] VITALS: BP 164/90
--- NOTE | 2017-02-23 12:05 | Discharge Summary ---
Providers - Providers Date of Admission: 02/15/17 18:46 Attending physician: LUIS F AHN 02/15/17 20:54 Consult to Physician [CONS] Routine Consulting Provider: ESTELA WILSON Reason For Exam: LUNG CANCER Place consult to:: DR. WILSON Notified:: YES 02/17/17 21:59 Consult to Physician [CONS] Routine Consulting Provider: MANUEL BROCK Reason For Exam: hypoxia/pneumonia. Place consult to:: pulm service. Notified:: office Phone number called:: [phone] Was contact made?: Yes Time called:: 10:10 Primary care physician: ESTELA WILSON Hospitalization Condition: Stable Hospital course: Patient is a 41-year-old woman with a history of schizophrenia on Paliperidone 3mg qam per Dr. Rober Mcintyre, left NSCLC, hypertension, asthma and tobacco dependency who presents with abdominal pains. CT abdomen and pelvis with contrast reported as subcutaneous strandy inflammatory appearing changes left anterior abdominal wall without discrete abscess collection, no hernia identified, increased amount of stool throughout the colon. Chest x-ray shows right upper lobe infiltrate, there was mass reported previously in the right upper lobe not clearly identified on the chest radiograph. 02/18/2017 2 D echo read by Dr. Burton reported as study quality is fair, left ventricular chamber size normal, global left ventricle systolic function is lower limits of normal, estimated EF 50-55%, abnormal left ventricular diastolic function is observed, right ventricular global systolic function is normal, right atrium is mildly dilated, trace TR. 02/18/2017 CT chest with and without contrast reported as right upper lobe mass has resolved or has been resected since previous exam compared to 12/27/2015, no recurrent lung masses appreciated. Mildly enlarged right hilar lymph nodes are again identified and unchanged. No new mass or adenopathy in the chest. A lateral groundglass interstitial infiltrate which probably represent post therapy changes, edema and could also be considered. -Bilateral aspiration pneumonitis, present on admission -Acute hypoxic respiratory failure, present on admission -Chronic diastolic heart failure, chronic and stable -Non-small cell lung cancer left lung -Hypokalemia -Hyponatremia -Sepsis due to pneumonia present on admission, patient been afebrile since 02/17 Disposition: DC-01 TO HOME OR SELFCARE Time spent for discharge: 35 minutes Core Measure Documentation - Palliative Care Palliative Care/ Comfort Measures: Not Applicable - Core Measures Any of the following diagnoses?: none - VTE Discharge Requirements Deep Vein Thrombosis/Pulmonary Embolism Present on Admission: No Has pt received <5 days of overlap therapy or INR<2.0: No Anticoagulant overlap therapy prescribed at discharge: No Contraindication No Overlap Therapy order at DC: Not Indicated Exam - Physical Exam Narrative exam: GEN: WDWN, NAD, AWAKE, ALERT, ORIENTATED x 3 CVS: RRR, NORMAL S1S2 LUNGS/CHEST: CTA B, NORMAL CHEST EXPANSION B, GOOD AIR ENTRY B ABD: SOFT, NTND, GBS, NO REBOUND OR GUARDING EXT/SKIN: NO SIGNIFICANT EDEMA OR RASH MSK: FROM X 4 EXTREMITIES NEURO: CN 2-12 GROSSLY INTACT, NO FOCAL DEFICITS PSY: CALM - Constitutional Vitals: Temp Pulse Resp BP Pulse Ox 99.2 F 96 H 20 164/90 100 02/23/17 07:00 02/23/17 07:00 02/23/17 07:00 02/23/17 07:00 02/23/17 07:00 Plan Activity: other (no strenous activites until cleared by PCP. ) Diet: low salt Follow up with: PRIMARY CARE, [Referring] - 7 Days Prescriptions: Amoxicillin/K Clav Tab [Augmentin 875 mg] 1 tab PO Q12HR #28 tab Levofloxacin [Levaquin] 750 mg PO QDAY #7 tablet Morphine [Morphine TAB] 30 mg PO Q4H PRN #14 tablet PRN Reason: Pain , Severe (7-10) Morphine ER [Ms Contin ER] 60 mg PO TID #20 tablet Paliperidone Er 3 mg PO QAM #30
[2017-02-23] MEDS ORDERED: TRIPLE ANTIBIOTIC TP ONE (15:58)
[2017-02-23] MEDS ORDERED: FLUSH HEPARIN IV ONE (16:34)
--- NOTE | 2017-02-23 18:06 | Consultation ---
History of Present Illness - Reason for Consult Consult date: 02/23/17 - History of Present Illness Patient seen/examined earlier, already prepared for d/c. i have d/w her about f/ u in the office. She has enough pain meds at home , and did not need any more upon d/c.Over all, she looks, and feels better than at the beginning. Past History Past Medical History: cancer, hypertension Past Surgical History: Other (Left Chest port, Right Lobectomy) Social history: , smoking. denies: alcohol abuse, prescription drug abuse Family history: hypertension Medications and Allergies Allergies Allergy/AdvReac Type Severity Reaction Status Date / Time dexamethasone [From Decadron] Allergy Itching Verified 12/18/16 00:49 dexamethasone sod phosphate Allergy Itching Verified 12/18/16 00:49 [From Decadron] ketorolac tromethamine Allergy Itching Verified 07/10/16 10:11 [From Toradol] latex Allergy Itching Verified 07/10/16 10:11 tramadol Allergy Itching Verified 07/10/16 10:11 Home Medications Medication Instructions Recorded Confirmed Last Taken Type Ondansetron [Zofran ODT TAB] 4 mg PO Q6H #14 tab.rapdis 11/10/14 02/15/17 1 Week Ago Rx ALBUTEROL Inhaler [ProAir HFA 2 puff IH QID PRN #1 inhalation 04/23/16 02/15/17 11/16/16 Rx Inhaler] Albuterol Sulfate [Albuterol 0.63% 0.63 mg IH Q6H PRN #1 box 04/23/16 02/15/17 11/15/16 Rx NEBS] Dronabinol [Marinol] 5 mg PO BID 11/13/16 02/15/17 11/17/16 History Famotidine [Pepcid] 20 mg PO PRN PRN 11/13/16 02/15/17 2 Weeks Ago History Ferrous Sulfate [Feosol 325 MG tab] 325 mg PO DAILY 11/13/16 02/15/17 11/16/16 History Gabapentin [Neurontin] 600 mg PO TID 11/13/16 02/15/17 11/17/16 History cloNIDine [Catapres] 0.1 mg PO DAILY 11/13/16 02/15/17 11/17/16 History Ergocalciferol [Vitamin D2] 1 cap PO QWEEK 02/15/17 02/15/17 Unknown History Amoxicillin/K Clav Tab [Augmentin 1 tab PO Q12HR #28 tab 02/18/17 Unknown Rx 875 mg] Levofloxacin [Levaquin] 750 mg PO QDAY #7 tablet 02/18/17 Unknown Rx Morphine ER [Ms Contin ER] 60 mg PO TID #20 tablet 02/18/17 Unknown Rx Morphine [Morphine TAB] 30 mg PO Q4H PRN #14 tablet 02/18/17 Unknown Rx Paliperidone Er 3 mg PO QAM #30 02/18/17 Unknown Rx Active Meds: Active Medications Acetaminophen (Tylenol) 650 mg PO Q4H PRN PRN Reason: Pain MILD(1-3)/Fever >100.5/TRIVEDI Last Admin: 02/19/17 13:49 Dose: 650 mg Albuterol (Proventil) 2.5 mg IH Q4HRT PRN PRN Reason: Shortness Of Breath Albuterol/Ipratropium (Duoneb *Not For Prn Use*) 1 ampul IH TIDRT [facility] Last Admin: 02/23/17 16:32 Dose: Not Given Bisacodyl (Dulcolax) 10 mg HI QDAY PRN PRN Reason: Constipation unrelieved by MOM Enoxaparin Sodium (Lovenox) 40 mg SUB-Q QDAY@2200 [facility] Last Admin: 02/22/17 22:37 Dose: 40 mg Famotidine (Pepcid) 20 mg PO DAILY [facility] Last Admin: 02/23/17 09:15 Dose: 20 mg Ferrous Sulfate (Feosol) 325 mg PO DAILY [facility] Last Admin: 02/23/17 09:14 Dose: 325 mg Gabapentin (Neurontin) 600 mg PO Q8HR [facility] Last Admin: 02/23/17 16:27 Dose: 600 mg Hydromorphone HCl (Dilaudid) 1 mg IV Q4H PRN PRN Reason: Pain , Severe (7-10) Last Admin: 02/22/17 22:45 Dose: 1 mg Piperacillin Sod/Tazobactam Sod (Zosyn/Ns 4.5gm/100ml) 4.5 gm in 100 mls @ 200 mls/hr IV Q8HR [facility] PRN Reason: Protocol Last Admin: 02/23/17 07:58 Dose: 200 mls/hr Lactulose (Cephulac) 20 gm PO Q12HR [facility] Last Admin: 02/23/17 09:20 Dose: 20 gm Magnesium Hydroxide (Milk Of Magnesia) 30 ml PO Q4H PRN PRN Reason: Constipation Miscellaneous Medication (Paliperidone Er) 3 mg PO QAM [facility] Last Admin: 02/23/17 09:14 Dose: 3 mg Morphine Sulfate (Morphine) 30 mg PO Q4H PRN PRN Reason: Pain , Severe (7-10) Last Admin: 02/21/17 06:30 Dose: 30 mg Ondansetron HCl (Zofran) 4 mg IV Q8H PRN PRN Reason: N/V unrelieved by Reglan Ondansetron HCl (Zofran Odt) 4 mg PO Q6HR [facility] Last Admin: 02/23/17 12:35 Dose: 4 mg Oxycodone/Acetaminophen (Percocet 5/325) 1 tab PO Q6H PRN PRN Reason: BREAKTHRU PAIN Prednisone (Deltasone) 30 mg PO QDAY [facility] Last Admin: 02/23/17 09:15 Dose: 30 mg Review of Systems Breasts: deferred Exam - Constitutional Vitals: Temp Pulse Resp BP Pulse Ox 99.2 F 96 H 20 164/90 100 02/23/17 07:00 02/23/17 07:00 02/23/17 07:00 02/23/17 07:00 02/23/17 07:00 General appearance: Present: mild distress, well-nourished - EENT Eyes: Present: PERRL ENT: hearing intact, clear oral mucosa - Neck Neck: Present: supple, normal ROM - Respiratory Respiratory: bilateral: rhonchi (better than at the beggining.) - Cardiovascular Heart Sounds: Present: S1 & S2. Absent: rub, click - Extremities Extremities: pulses symmetrical, No edema Peripheral Pulses: within normal limits - Abdominal General gastrointestinal: Present: soft, non-tender, non-distended, normal bowel sounds Female genitourinary: Present: normal - Integumentary Integumentary: Present: clear, warm, dry - Musculoskeletal Musculoskeletal: gait normal, strength equal bilaterally - Psychiatric Psychiatric: appropriate mood/affect, intact judgment & insight - Neurologic Neurologic: CNII-XII intact, moves all extremities Results - Labs CBC & Chem 7: 02/23/17 07:33 02/23/17 07:33 Labs: Abnormal lab results 02/23/17 02/23/17 Range/Units 07:33 07:33 RBC 3.24 L (3.65-5.03) M/mm3 [place] % (Auto) 9.0 H (0.0-7.3) % [place] # 0.9 H (0.0-0.8) K/mm3 Potassium 3.3 L (3.6-5.0) mmol/L BUN 4 L (7-17) mg/dL Creatinine 0.5 L (0.7-1.2) mg/dL Assessment and Plan - Patient Problems (1) Abdominal wall mass of left lower quadrant Current Visit: Yes Status: Acute Plan to address problem: Will do MRI. completed, awaiting results. reviewed, and ok. cystic. (2) Fever Current Visit: Yes Status: Acute Qualifiers: Fever type: unspecified Encounter type: E Qualified Code(s): R50.9 - Fever, unspecified Plan to address problem: continue w/up, IV ABX. cultures result pending . resolving. Now low grade. (3) Dehydration, severe Current Visit: No Status: Acute Plan to address problem: continue hydration. restart fluids. continue. IVF d/c. (4) Pneumonia Current Visit: Yes Status: Acute Qualifiers: Pneumonia type: P Aspiration pneumonia type: A Laterality: L Lung location: L Plan to address problem: Continue with IV ABX, high flow oxygen, follow pulm service. Continue discursion with patient /family. See notes. perhaps improving. Rec Bronch. improved
== END 2017-02-23 16:30 | disposition home or self-care (01) | DRG 871 ==
LOC: ED 13:21 → 3A 18:46
PROVIDERS: ADMIT Internal Medicine; ATTEND Internal Medicine
PROC: 4A033R1 Measurement of Arterial Saturation, Peripheral, Percutaneous Approach (ICD-10-PCS; principal; 2017-02-15)
DX: A41.9 Sepsis, unspecified organism (principal); J96.01 Acute respiratory failure with hypoxia; J69.0 Pneumonitis due to inhalation of food and vomit; J20.9 Acute bronchitis, unspecified; J42 Unspecified chronic bronchitis; K56.41 Fecal impaction; F17.210 Nicotine dependence, cigarettes, uncomplicated; E87.1 Hypo-osmolality and hyponatremia; E86.0 Dehydration; L02.211 Cutaneous abscess of abdominal wall; I11.0 Hypertensive heart disease with heart failure; I50.9 Heart failure, unspecified; E87.6 Hypokalemia; Z88.8 Allergy status to other drugs, medicaments and biological substances; Z85.118 Personal history of other malignant neoplasm of bronchus and lung; Z82.49 Family history of ischemic heart disease and other diseases of the circulatory system; Z91.040 Latex allergy status
CPT/HCPCS: 36415; 36600; 71010; 71020; 71270; 74000; 74177; 74183; 76705; 78582; 80048; 80053; 80307; 81001; 82140; 82164; 82533; 82803; 83690; 83930; 83935; 84484; 84550; 84703; 85025; 85027; 85652; 86038; 86140; 86618; 86850; 86900; 86901; 87040; 93005; 93010; 93306; 94640; 94760; 99285; A6250; A9540; A9558; A9577; J1170; J1642; J1650; J1940; J2405; J2543; J2930; J3370; J7030; J7050; J7512; Q0162; Q9967

== ENCOUNTER 2017-09-02 15:13 | Emergency (ER) | payer MEDICAID, OTHER ==
[2017-09-02] MEDS ORDERED: PROVENTIL IH ONE (23:17)
[2017-09-02 23:48] LABS: Basophils % (Auto) 0.9 % (0.0-1.8); Eosinophils % (Auto) 0.1 % (0.0-4.3); Hematocrit 45.6 % (30.3-42.9); Hemoglobin 15.3 gm/dl (10.1-14.3); Lymphocytes # (Auto) 1.8 K/mm3 (1.2-5.4); Lymphocytes % (Auto) 43.5 % (13.4-35.0); Mean Corpuscular HGB Conc 34 % (30-34); Mean Corpuscular Hemoglobin 31 pg (28-32); Mean Corpuscular Volume 93 fl (79-97); Monocytes # (Auto) 0.6 K/mm3 (0.0-0.8); Monocytes % (Auto) 14.3 % (0.0-7.3); Platelet Count 164 K/mm3 (140-440); Red Blood Count 4.93 M/mm3 (3.65-5.03); Red Cell Distribution Width 14.7 % (13.2-15.2)
--- NOTE | 2017-09-03 00:21 | Emergency Department Report ---
Chief Complaint: Upper Respiratory Infection Stated Complaint: MARIN Time Seen by Provider: 09/02/17 23:16 - HPI History of Present Illness: This is a 41-year-old female that presents with shortness of breathe, chest pain , difficulty breathing, rhinorrhea, nasal congestion and productive cough x2 weeks. Patient stated she was just seen by her pigeon fancier and was diagnosed with URI has been taking antibiotics with no relief and stated his symptoms are shortness of breath and chest pain is worsening. She denies any fever, chills, nausea, vomiting, headache or stiff neck. Patient states past medical history of lung cancer and lobectomy last year. - Exam Vital Signs: Vital Signs 09/02/17 09/02/17 09/02/17 15:41 23:20 23:39 Temperature 98.2 F Pulse Rate 108 H Pulse Rate [ 90 94 H Anterior Bilateral Throughout] Respiratory 98 H Rate Respiratory 22 22 Rate [Anterior Bilateral Throughout] Blood Pressure 108/55 O2 Sat by Pulse 98 Oximetry Physical Exam: GENERAL: The patient is a well-developed, well-nourished in no apparent distress. Patient is alert and acting appropriately for age. Alert and oriented 3, no apparent distress, normal gait, atraumatic. HEENT: Head is normocephalic and atraumatic. PERRL, Extraocular muscles are intact. Pupils are equal, round, and reactive to light and accommodation. Nares appeared normal. Mouth is well hydrated and without lesions. Mucous membranes are moist. Posterior pharynx clear of any exudate or lesions. Mouth is well hydrated and without lesions. Tonsils not erythematous or swollen. Uvula midline. Tongue elevated. Mucous members are moist. Posterior pharynx clear, no exudate or lesions. Patent airways. LUNGS: Clear to auscultation. Non labor breathing. No intercostal retractions. Symmetrical with respiration, no wheezing, no rales, or crackles. HEART: Regular rate and rhythm without murmur, rubs or gallops. No reproducible. S1, S2 present, regular rate and rhythm without murmur, no rubs, no gallops. MSE screening note: Focused history and physical exam performed. Due to findings the following was ordered: 1- This initial assessment/diagnostic orders/clinical plan/ treatment(s) is/are subject to change based on pt's health status, clinical progression and re- assessment by fellow clinical providers in the ED. Further treatment and workup at subsequent clinical provers discretion. Patient/guardians urged not to elope from ED as their condition may be serious if not clinically assessed and managed. 2-CBC, CMP, UA, test, influenza swab, d-dimer 3-chest x-ray, CTA 4-EKG Patient discussed with doctor:: ESTRELLA COELHO ED Medical Decision Making - Lab Data Result diagrams: 09/02/17 23:32 ED Disposition for MSE Condition: Stable Referrals: ESTELA WILSON DO [Primary Care Provider] - 3-5 Days
[2017-09-03 00:26] LABS: Creatine Kinase MB < 1.0 ng/mL (0.0-4.0)
[2017-09-03 00:27] LABS: Alanine Aminotransferase 39 units/L (7-56); Albumin 3.9 g/dL (3.9-5); BUN/Creatinine Ratio 22; Blood Urea Nitrogen 11 mg/dL (7-17); Calcium 8.4 mg/dL (8.4-10.2); Hemolysis Index 9
[2017-09-03 01:34] LABS: Bilirubin,Urine NEG (Negative); Blood,Urine NEG (Negative); Color,Urine Yellow (Yellow); Mucus,Urine FEW /HPF; Nitrite,Urine NEG (Negative); Protein,Urine <15 mg/dL mg/dL (Negative); Urobilinogen,Urine < 2.0 mg/dL (<2.0)
[2017-09-03] MEDS ORDERED: NACL 0.9% 1000 ML 1,000 ML IV ONE (02:58)
--- NOTE | 2017-09-03 03:43 | Cat Scan Report ---
FINAL REPORT PROCEDURE: CT ANGIO CHEST TECHNIQUE: Computerized tomographic angiography of the chest was performed after the IV injection of iodinated nonionic contrast including image processing. The image data was postprocessed using 2-dimensional multiplanar reformatted (MPR) and 3-dimensional (MIP and/or volume rendered) techniques. HISTORY: cp elevated d-dimer hx lung ca. COMPARISON: No prior studies are available for comparison. FINDINGS: Heart and pericardium: Normal. Thoracic aorta: Thoracic aorta is normal in caliber. There is no aneurysm or dissection.. Pulmonary vasculature: Normal. Lymph nodes: There are borderline prominent mediastinal and hilar lymph nodes which are nonspecific.. Lungs: The lungs are well-expanded. There is a thin-walled cyst in the right upper lung measuring 8 millimeters. There are no infiltrates per. Pleural space: No effusion, thickening, or pneumothorax. Musculoskeletal structures: No significant abnormality. Upper abdominal structures: No significant abnormality. IMPRESSION: There is no pulmonary embolism. There is no thoracic aortic aneurysm or dissection. There is no acute lung disease.
--- NOTE | 2017-09-03 04:02 | XRay Report ---
FINAL REPORT EXAM: XR CHEST ROUTINE 2V HISTORY: cp TECHNIQUE: Frontal and lateral chest x-ray. PRIORS: 16 February 2017. FINDINGS: Left-sided cristi-catheter again noted. Cardiac and mediastinal silhouette within normal limits. Lungs are normally expanded, without significant vascular congestion. No focal consolidation, pleural effusion or apparent pneumothorax. Bony thorax grossly unremarkable. IMPRESSION: 1. No acute findings.
[2017-09-03] MEDS ORDERED: K-DUR PO ONE (04:56)
--- NOTE | 2017-09-03 04:57 | Emergency Department Report ---
- General Chief Complaint: Upper Respiratory Infection Stated Complaint: MARIN Time Seen by Provider: 09/02/17 23:16 Source: patient Mode of arrival: Ambulatory Limitations: No Limitations - History of Present Illness Initial Comments: This is a 41-year-old female nontoxic, well nourished in appearance, no acute signs of distress presents to the ED with c/o of shortness of breathe, chest pain, rhinorrhea, nasal congestion and productive cough x2 weeks. Patient stated she was just seen by her oncologist and was diagnosed with URI has been taking amoxicillin with no relief and stated his symptoms is worsening. Patient denies radiation of chest pain. Patient described pain as aching in the midsternum region. PAtient stated chest pain and shortness of breathe is aggravated by cough. Patient describes productive cough as yellow mucus production. Patient denies any sick contact. Patient denies any recent travels , long car rides, or recent hospital stays. Patient denies calf pain or calf tenderness. Patient denies drooling or hoarseness. Denies any hemoptysis. Patient denies fever, chills, nausea, vomiting, headache, stiff neck, numbness, tingling. Patient states past medical history of lung cancer and lobectomy last year. Allergies include Decadron, Toradol, and tramadol. Patient stated prednisone has no allergies. MD Complaint: cough, rhinorrhea, nasal congestion, other (chest pain, shortness of breathe) -: days(s) (2) Severity: mild Severity scale (0 -10): 8 Quality: aching Consistency: constant Improves With: nothing Worsens With: nothing Associated Symptoms: rhinorrhea, nasal congestion, cough, chest pain, shortness of breath. denies: fever, chills, myalgias, diaphoresis, headache, sore throat , stiff neck, abdominal pain, nausea, vomiting, diarrhea, dysuria, rash, confusion, right sweats, weight loss, epistaxis, hoarseness, ear pain - Related Data Home Medications Medication Instructions Recorded Confirmed Last Taken Dronabinol [Marinol] 5 mg PO BID 11/13/16 02/15/17 11/17/16 Famotidine [Pepcid] 20 mg PO PRN PRN 11/13/16 02/15/17 2 Weeks Ago ~11/04/16 Ferrous Sulfate [Feosol 325 MG tab] 325 mg PO DAILY 11/13/16 02/15/17 11/16/16 Gabapentin [Neurontin] 600 mg PO TID 11/13/16 02/15/17 11/17/16 cloNIDine [Catapres] 0.1 mg PO DAILY 11/13/16 02/15/17 11/17/16 Ergocalciferol [Vitamin D2] 1 cap PO QWEEK 02/15/17 02/15/17 Unknown Previous Rx's Medication Instructions Recorded Last Taken Type Ondansetron [Zofran ODT TAB] 4 mg PO Q6H #14 tab.rapdis 11/10/14 1 Week Ago Rx ~11/11/16 ALBUTEROL Inhaler [ProAir HFA 2 puff IH QID PRN #1 inhalation 04/23/16 11/16/16 Rx Inhaler] Albuterol Sulfate [Albuterol 0.63% 0.63 mg IH Q6H PRN #1 box 04/23/16 11/15/16 Rx NEBS] Amoxicillin/K Clav Tab [Augmentin 1 tab PO Q12HR #28 tab 02/18/17 Unknown Rx 875 mg] Levofloxacin [Levaquin] 750 mg PO QDAY #7 tablet 02/18/17 Unknown Rx Morphine ER [Ms Contin ER] 60 mg PO TID #20 tablet 02/18/17 Unknown Rx Morphine [Morphine TAB] 30 mg PO Q4H PRN #14 tablet 02/18/17 Unknown Rx Paliperidone Er 3 mg PO QAM #30 02/18/17 Unknown Rx Azithromycin [Zithromax Z-MARTHA] 250 mg PO DAILY #6 tablet 09/03/17 Unknown Rx Benzonatate [Tessalon Perle] 100 mg PO Q6H PRN #20 capsule 09/03/17 Unknown Rx predniSONE [Deltasone] 40 mg PO QDAY #5 tab 09/03/17 Unknown Rx Allergies Allergy/AdvReac Type Severity Reaction Status Date / Time dexamethasone [From Decadron] Allergy Itching Verified 12/18/16 00:49 dexamethasone sod phosphate Allergy Itching Verified 12/18/16 00:49 [From Decadron] ketorolac tromethamine Allergy Itching Verified 07/10/16 10:11 [From Toradol] latex Allergy Itching Verified 07/10/16 10:11 tramadol Allergy Itching Verified 07/10/16 10:11 ED Review of Systems ROS: Stated complaint: MARIN Other details as noted in HPI Constitutional: denies: chills, fever Eyes: denies: eye pain, eye discharge, vision change ENT: denies: ear pain, throat pain Respiratory: cough, shortness of breath. denies: wheezing Cardiovascular: chest pain. denies: palpitations Endocrine: no symptoms reported Gastrointestinal: denies: abdominal pain, nausea, diarrhea Genitourinary: denies: urgency, dysuria, discharge Musculoskeletal: denies: back pain, joint swelling, arthralgia Skin: denies: rash, lesions Neurological: denies: headache, weakness, paresthesias Psychiatric: denies: anxiety, depression Hematological/Lymphatic: denies: easy bleeding, easy bruising ED Past Medical Hx - Past Medical History Previous Medical History?: Yes Hx Hypertension: Yes Hx Congestive Heart Failure: No Hx Diabetes: No Hx of Cancer: Yes (lung) Hx Asthma: Yes Hx COPD: No Hx Tuberculosis: No (POSITIVE SKIN TEST,NEGATIVE CXR) Hx HIV: No (unknown) Additional medical history: Lung ca December 2015 - Surgical History Past Surgical History?: Yes Additional Surgical History: right ectopic with tube removed. port to left chest. lobectomy on right side - Social History Smoking Status: Former Smoker Substance Use Type: Prescribed - Medications Home Medications: Home Medications Medication Instructions Recorded Confirmed Last Taken Type Ondansetron [Zofran ODT TAB] 4 mg PO Q6H #14 tab.rapdis 11/10/14 02/15/17 1 Week Ago Rx ~11/11/16 ALBUTEROL Inhaler [ProAir HFA 2 puff IH QID PRN #1 inhalation 04/23/16 02/15/17 11/16/16 Rx Inhaler] Albuterol Sulfate [Albuterol 0.63% 0.63 mg IH Q6H PRN #1 box 04/23/16 02/15/17 11/15/16 Rx NEBS] Dronabinol [Marinol] 5 mg PO BID 11/13/16 02/15/17 11/17/16 History Famotidine [Pepcid] 20 mg PO PRN PRN 11/13/16 02/15/17 2 Weeks Ago History ~11/04/16 Ferrous Sulfate [Feosol 325 MG tab] 325 mg PO DAILY 11/13/16 02/15/17 11/16/16 History Gabapentin [Neurontin] 600 mg PO TID 11/13/16 02/15/17 11/17/16 History cloNIDine [Catapres] 0.1 mg PO DAILY 11/13/16 02/15/17 11/17/16 History Ergocalciferol [Vitamin D2] 1 cap PO QWEEK 02/15/17 02/15/17 Unknown History Amoxicillin/K Clav Tab [Augmentin 1 tab PO Q12HR #28 tab 02/18/17 Unknown Rx 875 mg] Levofloxacin [Levaquin] 750 mg PO QDAY #7 tablet 02/18/17 Unknown Rx Morphine ER [Ms Contin ER] 60 mg PO TID #20 tablet 02/18/17 Unknown Rx Morphine [Morphine TAB] 30 mg PO Q4H PRN #14 tablet 02/18/17 Unknown Rx Paliperidone Er 3 mg PO QAM #30 02/18/17 Unknown Rx Azithromycin [Zithromax Z-MARTHA] 250 mg PO DAILY #6 tablet 09/03/17 Unknown Rx Benzonatate [Tessalon Perle] 100 mg PO Q6H PRN #20 capsule 09/03/17 Unknown Rx predniSONE [Deltasone] 40 mg PO QDAY #5 tab 09/03/17 Unknown Rx ED Physical Exam - General Limitations: No Limitations General appearance: alert, in no apparent distress - Head Head exam: Present: atraumatic, normocephalic, normal inspection - Eye Eye exam: Present: normal appearance, PERRL, EOMI. Absent: scleral icterus, conjunctival injection, nystagmus, periorbital swelling, periorbital tenderness Pupils: Present: normal accommodation - ENT ENT exam: Present: normal exam, normal orophraynx, mucous membranes moist, TM's normal bilaterally, normal external ear exam - Neck Neck exam: Present: normal inspection, full ROM. Absent: tenderness, meningismus, lymphadenopathy, thyromegaly - Respiratory Respiratory exam: Present: normal lung sounds bilaterally, chest wall tenderness (midsternum). Absent: respiratory distress, wheezes, rales, rhonchi , stridor, accessory muscle use, decreased breath sounds, prolonged expiratory - Cardiovascular Cardiovascular Exam: Present: regular rate, normal rhythm, normal heart sounds. Absent: irregular rhythm, systolic murmur, diastolic murmur, rubs, gallop - GI/Abdominal GI/Abdominal exam: Present: soft, normal bowel sounds. Absent: distended, tenderness, guarding, rebound, rigid, diminished bowel sounds - Rectal Rectal exam: Present: deferred - Extremities Exam Extremities exam: Present: normal inspection, full ROM, normal capillary refill. Absent: tenderness, pedal edema, joint swelling, calf tenderness - Back Exam Back exam: Present: normal inspection, full ROM. Absent: tenderness, CVA tenderness (R), CVA tenderness (L), muscle spasm, paraspinal tenderness, vertebral tenderness, rash noted - Neurological Exam Neurological exam: Present: alert, oriented X3, CN II-XII intact, normal gait, reflexes normal - Psychiatric Psychiatric exam: Present: normal affect, normal mood - Skin Skin exam: Present: warm, dry, intact, normal color. Absent: rash ED Course Vital Signs 09/02/17 09/02/17 09/02/17 15:41 23:20 23:39 Temperature 98.2 F Pulse Rate 108 H Pulse Rate [ 90 94 H Anterior Bilateral Throughout] Respiratory 98 H Rate Respiratory 22 22 Rate [Anterior Bilateral Throughout] Blood Pressure 108/55 O2 Sat by Pulse 98 Oximetry 09/03/17 09/03/17 01:22 02:05 Temperature Pulse Rate 91 H Pulse Rate [ Anterior Bilateral Throughout] Respiratory 18 18 Rate Respiratory Rate [Anterior Bilateral Throughout] Blood Pressure 100/69 O2 Sat by Pulse 98 99 Oximetry - Reevaluation(s) Reevaluation #1: 09/03/17 05:08 Patient is speaking in full sentences with no signs of distress noted. Reevaluation #2: 09/03/17 05:10 Patient stated after DuoNeb and 1 L normal saline patient's symptoms of shortness of breath and chest pain has resolved and improved. Patient curretnly denies any chest pain or shortness of breathe. Patient does not seem toxic or ill in appearance. - Consultations Consultation #1: 09/03/17 05:09 Dr. Garcia has been consulted about patient history, physical exam, and labs/ imaging findings and examined patient and agrees to the plan of care in the ED and discharge plan of care. ED Medical Decision Making - Lab Data Result diagrams: 09/02/17 23:32 09/02/17 23:32 - Medical Decision Making This is a 41-year-old female that presents with upper respiratory infection and costochondritis. Patient is stable and was examined by me and Dr. Garcia. Chest xray and CTA has been obtained and dictated by radiologist with normal exam. Patient notified of x-ray and CTA results with no question or by the patient. Negative influenza swab. Labs obtained. Patient stated feels much better after medical treatment in the ED. Wells criteria for DVT 0 point. 2 negative tropnins. EKG normal sinus rhythm with no ST abnormality. Vital signs stable prior to discharge. Patient is afebrile. Normal heart rate. I'll treat patient empirically with zpak due to symptoms at discharge. Patient was instructed to stop amoxicillin. Patient was orally rehydrated in the ER and patient tolerated well with no signs of nasuea or vomiting. Patient was instructed Follow-up with a primary care doctor in 3-5 days or if symptoms worsen and continue return to emergency room as soon as possible. At time time of discharge, the patient does not seem toxic or ill in appearance. No acute signs of distress noted. Patient agrees to discharge treatment plan of care. No further questions noted by the patient. This chart is dictated with using [employer] Critical care attestation.: If time is entered above; I have spent that time in minutes in the direct care of this critically ill patient, excluding procedure time. ED Disposition Clinical Impression: Costochondritis Upper respiratory infection Qualifiers: URI type: unspecified URI Qualified Code(s): J06.9 - Acute upper respiratory infection, unspecified Disposition: DC- TO HOME OR SELFCARE Is pt being admited?: No Does the pt Need Aspirin: No Condition: Stable Instructions: Costochondritis (ED), Upper Respiratory Infection (ED), Azithromycin (By mouth), Prednisone (By mouth) Additional Instructions: Follow-up with a primary care doctor in 3-5 days or if symptoms worsen and continue return to emergency room as soon as possible. Stop taking amoxicillin and take azithromycin as prescribed. Prescriptions: Azithromycin [Zithromax Z-MARTHA] 250 mg PO DAILY #6 tablet Benzonatate [Tessalon Perle] 100 mg PO Q6H PRN #20 capsule PRN Reason: Cough predniSONE [Deltasone] 40 mg PO QDAY #5 tab Referrals: ESTELA WILSON DO [Primary Care Provider] - 3-5 Days PRIMARY CAREMD [Referring] - 3-5 Days MATTHEW EVERETT MD [Staff Physician] - 3-5 Days [facility] [Outside] - 3-5 Days [facility] [Outside] - 3-5 Days Forms: Work/School Release Form(ED)
[2017-09-03 08:29] VITALS: BP 108/79
== END 2017-09-03 08:30 | disposition home or self-care (01) ==
LOC: ED 15:13
DX: M94.0 Chondrocostal junction syndrome [Tietze] (principal); J06.9 Acute upper respiratory infection, unspecified; Z91.040 Latex allergy status; Z88.5 Allergy status to narcotic agent; I10 Essential (primary) hypertension; J45.909 Unspecified asthma, uncomplicated; Z87.891 Personal history of nicotine dependence
CPT/HCPCS: 36415; 71046; 71275; 80053; 81001; 82550; 82553; 84484; 84703; 85025; 85379; 87400; 93005; 93010; 94640; 96360; 99285; J7030; Q9967

== ENCOUNTER 2017-09-20 14:17 | Outpatient (CLI) | payer OTHER ==
[2017-09-20] MEDS ORDERED: PROVENTIL IH ONE (15:17)
== END 2017-09-20 14:18 | disposition home or self-care (01) ==
LOC: PF 14:17
PROVIDERS: ATTEND Internal Medicine
DX: C34.91 Malignant neoplasm of unspecified part of right bronchus or lung (principal); I10 Essential (primary) hypertension; J45.909 Unspecified asthma, uncomplicated; F17.210 Nicotine dependence, cigarettes, uncomplicated
CPT/HCPCS: 94060; 94640; 94729

== ENCOUNTER 2017-09-28 16:50 | Outpatient (CLI) | payer MEDICAID ==
--- NOTE | 2017-09-28 19:53 | XRay Report ---
FINAL REPORT PROCEDURE: Bilateral three view wrist series TECHNIQUE: Right and left wrist radiographs, including AP, lateral, and oblique views. CPT 83913 right, CPT 35755 left HISTORY: joint pain COMPARISON: No prior studies are available for comparison. FINDINGS: Fracture (s) and/or Dislocation(s): None . Alignment: Normal . Joint space(s): Normal . Soft tissues: Normal . Bone mineralization: Normal . Foreign bodies: None . IMPRESSION: Negative bilateral wrist exam
--- NOTE | 2017-09-28 19:57 | XRay Report ---
FINAL REPORT PROCEDURE: XR ELBOW BILAT 3+V TECHNIQUE: BILATERAL elbow radiographs, including AP, lateral, and oblique views. HISTORY: Joint pain COMPARISON: No prior studies are available for comparison. FINDINGS: Fracture (s) and/or Dislocation(s): None. Alignment: Normal. Joint space (s): Normal Soft tissues:Normal. Bone mineralization:Normal. Foreign bodies: None. IMPRESSION: Negative bilateral elbow series.
--- NOTE | 2017-09-28 20:08 | XRay Report ---
FINAL REPORT PROCEDURE: XR HAND BILAT 3+V TECHNIQUE: Bilateral hand radiographs, AP, lateral, and oblique views. CPT 08395-NP, CPT 06157-tsvc HISTORY: joint pain COMPARISON: No prior studies are available for comparison. FINDINGS: Fracture (s) and/or Dislocation(s): None . Alignment: Normal . Joint space(s): Normal . Soft tissues: Normal . Bone mineralization: Normal . Foreign bodies: None . IMPRESSION: Negative examination.
--- NOTE | 2017-09-28 20:09 | XRay Report ---
FINAL REPORT PROCEDURE: XR KNEE BILAT 3V TECHNIQUE: Bilateral knee radiographs, AP, lateral and oblique views. CPT 30201-irloc, CPT 42665-tytc HISTORY: joint pain COMPARISON: No prior studies are available for comparison. FINDINGS: Fracture (s) and/or Dislocation(s): None . Alignment: Normal . Joint space(s): Normal . Soft tissues: Normal . Bone mineralization: Normal . Foreign bodies: None . There is nonspecific partial ossification of the quadriceps insertion on the patella bilaterally. IMPRESSION: Negative examination.
== END 2017-09-28 16:51 | disposition home or self-care (01) ==
LOC: CARD 16:50
PROVIDERS: ATTEND Internal Medicine Hematology & Oncology
DX: M25.562 Pain in left knee (principal); M25.561 Pain in right knee; M79.641 Pain in right hand; M79.642 Pain in left hand; M25.531 Pain in right wrist; M25.532 Pain in left wrist; M25.521 Pain in right elbow; M25.522 Pain in left elbow; R07.89 Other chest pain; I10 Essential (primary) hypertension; D64.9 Anemia, unspecified; F41.9 Anxiety disorder, unspecified; Z87.891 Personal history of nicotine dependence
CPT/HCPCS: 93005; 93010

== ENCOUNTER 2018-01-04 13:28 | Outpatient (CLI) | payer MEDICAID ==
--- NOTE | 2018-01-05 12:51 | XRay Report ---
Chest 2 views: History: Cough. Findings: Normal cardiomediastinal silhouette. Trachea is midline. No consolidation, pneumothorax or pleural effusion. Tip of left venous catheter in MID superior vena cava. Impression: No acute cardiopulmonary findings.
== END 2018-01-04 13:29 | disposition home or self-care (01) ==
LOC: XRAY 13:28
PROVIDERS: ATTEND Internal Medicine Hematology & Oncology
DX: R05 Cough (principal); I10 Essential (primary) hypertension; J45.909 Unspecified asthma, uncomplicated; G47.30 Sleep apnea, unspecified; Z87.891 Personal history of nicotine dependence
CPT/HCPCS: 71046

== ENCOUNTER 2018-01-09 17:43 | Emergency (ER) | payer MEDICAID ==
[2018-01-09 18:47] LABS: Basophils # (Auto) 0.1 K/mm3 (0.0-0.1); Basophils % (Auto) 0.9 % (0.0-1.8); Eosinophils # (Auto) 0.1 K/mm3 (0.0-0.4); Eosinophils % (Auto) 1.2 % (0.0-4.3); Hematocrit 41.9 % (30.3-42.9); Hemoglobin 13.8 gm/dl (10.1-14.3); Lymphocytes # (Auto) 2.5 K/mm3 (1.2-5.4); Lymphocytes % (Auto) 36.2 % (13.4-35.0); Mean Corpuscular HGB Conc 33 % (30-34); Mean Corpuscular Hemoglobin 31 pg (28-32); Mean Corpuscular Volume 94 fl (79-97); Monocytes # (Auto) 0.5 K/mm3 (0.0-0.8); Monocytes % (Auto) 7.1 % (0.0-7.3); Platelet Count 195 K/mm3 (140-440); Red Blood Count 4.45 M/mm3 (3.65-5.03); Red Cell Distribution Width 14.3 % (13.2-15.2)
[2018-01-09 18:56] LABS: INR 0.9 (0.87-1.13)
[2018-01-09 19:07] LABS: Alanine Aminotransferase 18 units/L (7-56); Albumin 4.1 g/dL (3.9-5); BUN/Creatinine Ratio 36; Blood Urea Nitrogen 18 mg/dL (7-17); Hemolysis Index 5; Lipase 29 units/L (13-60)
[2018-01-09] MEDS ORDERED: NACL 0.9% 1000 ML 1,000 ML IV ONE (19:42)
[2018-01-09] MEDS ORDERED: MORPHINE IV ONE (19:42)
[2018-01-09] MEDS ORDERED: ZOFRAN IV ONE (19:42)
--- NOTE | 2018-01-09 22:05 | Emergency Department Report ---
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 Pain is intermittent, sharp, worse with deep inspiration and movement. Pain is moderate to severe in intensity. No alleviating factors reported. She also had associated shortness of breath. Positive nausea with 3 episodes of vomiting yesterday. No diarrhea, fever, dysuria, or hematuria. Patient outpatient chest x-ray performed by PMD on January 04 ordered by PMD to rule out pneumonia. Chest x-ray was negative. Patient brings a cough productive of yellow sputum but no complaints of fever. No posterior calf tenderness or leg edema. Severity scale (0 -10): 8 - Related Data Home Medications Medication Instructions Recorded Confirmed Last Taken Dronabinol [Marinol] 5 mg PO BID 11/13/16 02/15/17 11/17/16 Famotidine [Pepcid] 20 mg PO PRN PRN 11/13/16 02/15/17 2 Weeks Ago ~11/04/16 Ferrous Sulfate [Feosol 325 MG tab] 325 mg PO DAILY 11/13/16 02/15/17 11/16/16 Gabapentin [Neurontin] 600 mg PO TID 11/13/16 02/15/17 11/17/16 cloNIDine [Catapres] 0.1 mg PO DAILY 11/13/16 02/15/17 11/17/16 Ergocalciferol [Vitamin D2] 1 cap PO QWEEK 02/15/17 02/15/17 Unknown Previous Rx's Medication Instructions Recorded Last Taken Type Ondansetron [Zofran ODT TAB] 4 mg PO Q6H #14 tab.rapdis 11/10/14 1 Week Ago Rx ~11/11/16 ALBUTEROL Inhaler [ProAir HFA 2 puff IH QID PRN #1 inhalation 04/23/16 11/16/16 Rx Inhaler] Albuterol Sulfate [Albuterol 0.63% 0.63 mg IH Q6H PRN #1 box 04/23/16 11/15/16 Rx NEBS] Amoxicillin/K Clav Tab [Augmentin 1 tab PO Q12HR #28 tab 02/18/17 Unknown Rx 875 mg] Levofloxacin [Levaquin] 750 mg PO QDAY #7 tablet 02/18/17 Unknown Rx Morphine ER [Ms Contin ER] 60 mg PO TID #20 tablet 02/18/17 Unknown Rx Morphine [Morphine TAB] 30 mg PO Q4H PRN #14 tablet 02/18/17 Unknown Rx Paliperidone Er 3 mg PO QAM #30 02/18/17 Unknown Rx Azithromycin [Zithromax Z-MARTHA] 250 mg PO DAILY #6 tablet 09/03/17 Unknown Rx Benzonatate [Tessalon Perle] 100 mg PO Q6H PRN #20 capsule 09/03/17 Unknown Rx predniSONE [Deltasone] 40 mg PO QDAY #5 tab 09/03/17 Unknown Rx Docusate Sodium [Colace] 100 mg PO BID PRN #20 capsule 01/09/18 Unknown Rx HYDROcodone/APAP 5-325 [[place] 1 each PO Q6HR PRN #10 tablet 01/09/18 Unknown Rx 5/325] Ondansetron [Zofran Odt] 4 mg PO Q8HR #20 tab.rapdis 01/09/18 Unknown Rx Allergies Allergy/AdvReac Type Severity Reaction Status Date / Time dexamethasone [From Decadron] Allergy Itching Verified 01/09/18 17:57 dexamethasone sod phosphate Allergy Itching Verified 01/09/18 17:57 [From Decadron] ketorolac tromethamine Allergy Itching Verified 01/09/18 17:57 [From Toradol] latex Allergy Itching Verified 01/09/18 17:57 tramadol Allergy Itching Verified 01/09/18 17:57 Heart Score - HEART Score History: Slightly suspicious EKG: Normal Age: < 45 Risk factors: 1-2 risk factors Troponin: < normal limit (not sent, right sided pain) HEART Score: 1 ED Review of Systems ROS: Stated complaint: SHORTNESS OF BREATH Other details as noted in HPI Comment: All other systems reviewed and negative ED Past Medical Hx - Past Medical History Hx Hypertension: Yes Hx Congestive Heart Failure: No Hx Diabetes: No Hx Psychiatric Treatment: Yes (schizophrenia) Hx Asthma: Yes Hx COPD: No Hx Tuberculosis: No (POSITIVE SKIN TEST,NEGATIVE CXR) Hx HIV: No (unknown) Additional medical history: Lung ca December 2015 - Surgical History Additional Surgical History: right ectopic with tube removed. port to left chest. lobectomy on right side - Social History Smoking Status: Current Every Day Smoker Substance Use Type: None - Medications Home Medications: Home Medications Medication Instructions Recorded Confirmed Last Taken Type Ondansetron [Zofran ODT TAB] 4 mg PO Q6H #14 tab.rapdis 11/10/14 02/15/17 1 Week Ago Rx ~11/11/16 ALBUTEROL Inhaler [ProAir HFA 2 puff IH QID PRN #1 inhalation 04/23/16 02/15/17 11/16/16 Rx Inhaler] Albuterol Sulfate [Albuterol 0.63% 0.63 mg IH Q6H PRN #1 box 04/23/16 02/15/17 11/15/16 Rx NEBS] Dronabinol [Marinol] 5 mg PO BID 11/13/16 02/15/17 11/17/16 History Famotidine [Pepcid] 20 mg PO PRN PRN 11/13/16 02/15/17 2 Weeks Ago History ~11/04/16 Ferrous Sulfate [Feosol 325 MG tab] 325 mg PO DAILY 11/13/16 02/15/17 11/16/16 History Gabapentin [Neurontin] 600 mg PO TID 11/13/16 02/15/17 11/17/16 History cloNIDine [Catapres] 0.1 mg PO DAILY 11/13/16 02/15/17 11/17/16 History Ergocalciferol [Vitamin D2] 1 cap PO QWEEK 02/15/17 02/15/17 Unknown History Amoxicillin/K Clav Tab [Augmentin 1 tab PO Q12HR #28 tab 02/18/17 Unknown Rx 875 mg] Levofloxacin [Levaquin] 750 mg PO QDAY #7 tablet 02/18/17 Unknown Rx Morphine ER [Ms Contin ER] 60 mg PO TID #20 tablet 02/18/17 Unknown Rx Morphine [Morphine TAB] 30 mg PO Q4H PRN #14 tablet 02/18/17 Unknown Rx Paliperidone Er 3 mg PO QAM #30 02/18/17 Unknown Rx Azithromycin [Zithromax Z-MARTHA] 250 mg PO DAILY #6 tablet 09/03/17 Unknown Rx Benzonatate [Tessalon Perle] 100 mg PO Q6H PRN #20 capsule 09/03/17 Unknown Rx predniSONE [Deltasone] 40 mg PO QDAY #5 tab 09/03/17 Unknown Rx Docusate Sodium [Colace] 100 mg PO BID PRN #20 capsule 01/09/18 Unknown Rx HYDROcodone/APAP 5-325 [[place] 1 each PO Q6HR PRN #10 tablet 01/09/18 Unknown Rx 5/325] Ondansetron [Zofran Odt] 4 mg PO Q8HR #20 tab.rapdis 01/09/18 Unknown Rx ED Physical Exam - General Limitations: No Limitations - Other Other exam information: General: No limitations, patient is alert in no acute distress Head exam: Atraumatic, normocephalic Eyes exam: Normal appearance, nonicteric sclera ENT: Moist mucous membrane, normal oropharynx Neck exam: Normal inspection, full range of motion, no meningismus nontender Respiratory exam: Clear to auscultation bilateral, no wheezes, rales, crackles Cardiovascular: Normal rate and rhythm, normal heart sounds. Rib/chest wall nontender on exam reproducible with palpation and movement Abdomen: Soft, nondistended, and nontender including nontender right upper quadrant to palpation, with normal bowel sounds, no rebound, or guarding Extremity: Full range of motion normal inspection no deformity Back: Normal Inspection, full range of motion, no CVA tenderness Neurologic: Alert, oriented x3, cranial nerves intact, no motor or sensory deficit Psychiatric: normal affect, normal mood Skin: Warm, dry, intact ED Course Vital Signs 01/09/18 01/09/18 01/09/18 17:57 18:23 23:40 Temperature 98.4 F 98.3 F Pulse Rate 76 63 Respiratory 18 17 17 Rate Blood Pressure 156/111 Blood Pressure 135/96 [Left] O2 Sat by Pulse 100 100 Oximetry ROMAN score - Roman Score Age > 65: (0) No Aspirin use within the Past 7 Days: (0) No 3 or more CAD Risk Factors: (0) No 2 or more Angina events in past 24 hrs: (0) No Known CAD with more than 50% Stenosis: (0) No Elevated Cardiac Markers: (0) No (not sent) ST Deviation Greater than 0.5mm: (0) No ROMAN Score: 0 ED Medical Decision Making - Lab Data Result diagrams: 01/09/18 18:32 01/09/18 18:32 Lab Results 01/09/18 01/09/18 01/09/18 Range/Units 18:32 18:32 18:32 WBC 6.8 (4.5-11.0) K/mm3 RBC 4.45 (3.65-5.03) M/mm3 Hgb 13.8 (10.1-14.3) gm/dl Hct 41.9 (30.3-42.9) % MCV 94 (79-97) fl MCH 31 (28-32) pg MCHC 33 (30-34) % RDW 14.3 (13.2-15.2) % Plt Count 195 (140-440) K/mm3 Lymph % (Auto) 36.2 H (13.4-35.0) % Dickinson % (Auto) 7.1 (0.0-7.3) % Eos % (Auto) 1.2 (0.0-4.3) % Baso % (Auto) 0.9 (0.0-1.8) % Lymph # 2.5 (1.2-5.4) K/mm3 Dickinson # 0.5 (0.0-0.8) K/mm3 Eos # 0.1 (0.0-0.4) K/mm3 Baso # 0.1 (0.0-0.1) K/mm3 Seg Neutrophils % 54.6 (40.0-70.0) % Seg Neutrophils # 3.7 (1.8-7.7) K/mm3 PT 12.6 (12.2-14.9) Sec. INR 0.90 (0.87-1.13) Sodium 139 (137-145) mmol/L Potassium 3.8 (3.6-5.0) mmol/L Chloride 100.9 (98-107) mmol/L Carbon Dioxide 27 (22-30) mmol/L Anion Gap 15 mmol/L BUN 18 H (7-17) mg/dL Creatinine 0.5 L (0.7-1.2) mg/dL Estimated GFR > 60 ml/min BUN/Creatinine Ratio 36 % Glucose 87 (65-100) mg/dL Calcium 9.0 (8.4-10.2) mg/dL Total Bilirubin 0.30 (0.1-1.2) mg/dL AST 28 (5-40) units/L ALT 18 (7-56) units/L Alkaline Phosphatase 78 (35-129) units/L Total Protein 7.2 (6.3-8.2) g/dL Albumin 4.1 (3.9-5) g/dL Albumin/Globulin Ratio 1.3 % Lipase 29 (13-60) units/L HCG, Qual (Negative) Urine Color (Yellow) Urine Turbidity (Clear) Urine pH (5.0-7.0) Ur Specific [place] (1.003-1.030) Urine Protein (Negative) mg/dL Urine Glucose (UA) (Negative) mg/dL Urine Ketones (Negative) mg/dL Urine Blood (Negative) Urine Nitrite (Negative) Urine Bilirubin (Negative) Urine Urobilinogen (<2.0) mg/dL Ur Leukocyte Esterase (Negative) Urine WBC (Auto) (0.0-6.0) /HPF Urine RBC (Auto) (0.0-6.0) /HPF U Epithel Cells (Auto) (0-13.0) /HPF Urine Mucus /HPF 01/09/18 01/09/18 Range/Units 18:32 22:00 WBC (4.5-11.0) K/mm3 RBC (3.65-5.03) M/mm3 Hgb (10.1-14.3) gm/dl Hct (30.3-42.9) % MCV (79-97) fl MCH (28-32) pg MCHC (30-34) % RDW (13.2-15.2) % Plt Count (140-440) K/mm3 Lymph % (Auto) (13.4-35.0) % Dickinson % (Auto) (0.0-7.3) % Eos % (Auto) (0.0-4.3) % Baso % (Auto) (0.0-1.8) % Lymph # (1.2-5.4) K/mm3 Dickinson # (0.0-0.8) K/mm3 Eos # (0.0-0.4) K/mm3 Baso # (0.0-0.1) K/mm3 Seg Neutrophils % (40.0-70.0) % Seg Neutrophils # (1.8-7.7) K/mm3 PT (12.2-14.9) Sec. INR (0.87-1.13) Sodium (137-145) mmol/L Potassium (3.6-5.0) mmol/L Chloride (98-107) mmol/L Carbon Dioxide (22-30) mmol/L Anion Gap mmol/L BUN (7-17) mg/dL Creatinine (0.7-1.2) mg/dL Estimated GFR ml/min BUN/Creatinine Ratio % Glucose (65-100) mg/dL Calcium (8.4-10.2) mg/dL Total Bilirubin (0.1-1.2) mg/dL AST (5-40) units/L ALT (7-56) units/L Alkaline Phosphatase (35-129) units/L Total Protein (6.3-8.2) g/dL Albumin (3.9-5) g/dL Albumin/Globulin Ratio % Lipase (13-60) units/L HCG, Qual Negative (Negative) Urine Color Yellow (Yellow) Urine Turbidity Clear (Clear) Urine pH 7.0 (5.0-7.0) Ur Specific [place] 1.039 H (1.003-1.030) Urine Protein <15 mg/dl (Negative) mg/dL Urine Glucose (UA) Neg (Negative) mg/dL Urine Ketones Neg (Negative) mg/dL Urine Blood Neg (Negative) Urine Nitrite Neg (Negative) Urine Bilirubin Neg (Negative) Urine Urobilinogen < 2.0 (<2.0) mg/dL Ur Leukocyte Esterase Tr (Negative) Urine WBC (Auto) 4.0 (0.0-6.0) /HPF Urine RBC (Auto) 5.0 (0.0-6.0) /HPF U Epithel Cells (Auto) 34.0 H (0-13.0) /HPF Urine Mucus Few /HPF - EKG Data -: EKG Interpreted by [facility] EKG shows normal: sinus rhythm, axis (qrs -10), QRS complexes (qrsd 95), ST-T waves (no stemi/t inv) Rate: normal - EKG Data When compared to previous EKG there are: no significant change (09/28/17) - Radiology Data Radiology results: report reviewed CT came chest: No pulmonary tablets. No acute infiltrates or effusions. Stable borderline to mild cardiac enlargement CT abdomen and pelvis noncontrast: No focal extremity changes of the abdomen and pelvis. Single nonobstructive left renal calculus. No hydronephrosis bilaterally. Moderate large amount of stool within the colon. No focal fremitus changes in the bowel. Appendix is normal caliber. No calcified gallstones and liver unremarkable. - Medical Decision Making Patient received morphine and Zofran while in the ED for pain. Had a recent outpatient chest x-ray was unremarkable. Imaging today including CT abdomen and pelvis and CT angiogram chest did not show any acute abnormality or source of right-sided pain. Laboratory findings, UA, and vital signs are unremarkable. Patient will be discharged home with pain medication, stool softener for moderate stool load on CT and encouraged to continue follow-up with her primary care doctor for further treatment and evaluation. - Differential Diagnosis PE, hepatitis, biliary colic, renal colic, pneumothorax, pneumonia, msk vidal Critical Care Time: No Critical care attestation.: If time is entered above; I have spent that time in minutes in the direct care of this critically ill patient, excluding procedure time. ED Disposition Clinical Impression: RUQ pain, Cough Disposition: DC-01 TO HOME OR SELFCARE Is pt being admited?: No Does the pt Need Aspirin: No Condition: Stable Instructions: Abdominal Pain (ED), Thoracic Pain (ED) Additional Instructions: Take the medication as prescribed. Follow-up with your doctor for further evaluation. Prescriptions: Docusate Sodium [Colace] 100 mg PO BID PRN #20 capsule PRN Reason: Constipation HYDROcodone/APAP 5-325 [[place] 5/325] 1 each PO Q6HR PRN #10 tablet PRN Reason: Pain Ondansetron [Zofran Odt] 4 mg PO Q8HR #20 tab.rapdis Referrals: ESTELA WILSON DO [Primary Care Provider] - 3-5 Days Time of Disposition: 23:47
[2018-01-09 22:45] LABS: Bilirubin,Urine NEG (Negative); Blood,Urine NEG (Negative); Color,Urine Yellow (Yellow); Mucus,Urine FEW /HPF; Protein,Urine <15 mg/dL mg/dL (Negative); Urobilinogen,Urine < 2.0 mg/dL (<2.0)
[2018-01-09 23:41] VITALS: BP 135/96
--- NOTE | 2018-01-10 14:31 | Cat Scan Report ---
FINAL REPORT EXAM: CT ANGIO CHEST HISTORY: ruq/r lower thorac pleuritic pain COMPARISON: CT chest from August 2017. TECHNIQUE: Contiguous axial images were obtained. Additional sagittal and coronal reformatted images were obtained. Administration of IV contrast given per institution protocol. Images submitted for interpretation. 100 cc Omnipaque [id number]. Max intensity projection images. FINDINGS: Heart borderline to mildly enlarged stable from prior study. Ascending thoracic aorta measures 3.2 centimeters in diameter. No acute dissection or rupture of the thoracic aorta. No pulmonary embolus. No pathologically enlarged intrathoracic or axillary lymph nodes. Tracheobronchial tree is patent. There are few scattered pulmonary cysts. Mild linear and subsegmental atelectasis at the lung bases. No dense airspace consolidation or pleural effusion. Visualized upper abdomen is unremarkable. Bony thorax is grossly intact. Stable compression deformity versus Schmorl's node deformity at the superior T4 endplate. IMPRESSION: No pulmonary embolus. No acute infiltrates or effusions. Stable borderline to mild cardiac enlargement.
--- NOTE | 2018-01-10 14:31 | Cat Scan Report ---
FINAL REPORT EXAM: CT ABDOMEN PELVIS WO CON HISTORY: ruq/r lower thorac pleuritic pain COMPARISON: CT abdomen pelvis February 2017. TECHNIQUE: Contiguous axial images were obtained. Additional sagittal and coronal reformatted images were obtained. FINDINGS: Subsegmental atelectasis at the lung bases. Visualized heart is at least borderline enlarged. No calcified gallstones. Liver, spleen, pancreas and adrenal glands are grossly unremarkable. Nonobstructive left renal calculus measuring 10 x 4 millimeters. No hydronephrosis or perinephric fat stranding. Probable mid left renal cyst measuring 2.4 x 2.1 centimeters. Aorta and IVC normal in caliber. Moderate calcified plaque along the aorta. No distal ureteral urinary bladder calculi. Uterus is surgically absent. Ovaries are not visualized and may also be surgically absent. There are few pelvic phleboliths. No free fluid or lymphadenopathy in the pelvic cavity. The appendix is gas-filled and normal in caliber. Moderate large amount of stool within the colon. The stomach is mildly distended which may relate to recent ingestion of food stuff. No focal inflammatory changes the bowel. Mild degenerative changes of the lumbar spine. Bony pelvis is grossly intact. IMPRESSION: No gross focal inflammatory changes of the abdomen and pelvis. Single nonobstructive left renal calculus. No hydronephrosis bilaterally. Moderate large amount of stool within the colon. No focal inflammatory changes the bowel. The appendix is normal in caliber.
== END 2018-01-10 02:16 | disposition home or self-care (01) ==
LOC: ED 17:43
DX: R10.11 Right upper quadrant pain (principal); R05 Cough; R07.89 Other chest pain; F20.9 Schizophrenia, unspecified; I10 Essential (primary) hypertension; Z91.040 Latex allergy status; Z88.8 Allergy status to other drugs, medicaments and biological substances; F17.200 Nicotine dependence, unspecified, uncomplicated
CPT/HCPCS: 36415; 71275; 74176; 80053; 81001; 83690; 84703; 85025; 85610; 93005; 93010; 96361; 96374; 96375; 99284; J2270; J2405; J7030; Q9967

== ENCOUNTER 2018-04-01 10:33 | Emergency (ER) | payer MEDICAID ==
[2018-04-01 10:48] VITALS: BP 154/114
[2018-04-01] MEDS ORDERED: BACTRIM DS PO ONE (13:22)
--- NOTE | 2018-04-01 13:27 | Emergency Department Report ---
ED Extremity Problem HPI - General Chief complaint: Extremity Injury, Lower Stated complaint: SWOLLEN/BLACK TOE WITH PAIN Time Seen by Provider: 04/01/18 13:06 Source: patient Mode of arrival: Ambulatory Limitations: No Limitations - History of Present Illness Initial comments: 42-year-old female with a past medical history of multiple medical problems including hypertension, diabetes, and diabetic neuropathy presents to the hospital with complaints of worsening of chronic bilateral burning sensation time one month and pain and swelling to medial nailbed of the left third toe. Patient takes Neurontin for peripheral neuropathy but pain has worsened recently. She noticed swelling to her left third toe and stuck a pin in it 2 days ago in attempt to express pus. Patient did not get any purulent drainage after sticking a needle in it. She denies fever or known trauma. PMD: Dr. Quiros - Related Data Home Medications Medication Instructions Recorded Confirmed Last Taken Dronabinol [Marinol] 5 mg PO BID 11/13/16 02/15/17 11/17/16 Famotidine [Pepcid] 20 mg PO PRN PRN 11/13/16 02/15/17 2 Weeks Ago ~11/04/16 Ferrous Sulfate [Feosol 325 MG tab] 325 mg PO DAILY 11/13/16 02/15/17 11/16/16 Gabapentin [Neurontin] 600 mg PO TID 11/13/16 02/15/17 11/17/16 cloNIDine [Catapres] 0.1 mg PO DAILY 11/13/16 02/15/17 11/17/16 Ergocalciferol [Vitamin D2] 1 cap PO QWEEK 02/15/17 02/15/17 Unknown Previous Rx's Medication Instructions Recorded Last Taken Type Ondansetron [Zofran ODT TAB] 4 mg PO Q6H #14 tab.rapdis 11/10/14 1 Week Ago Rx ~11/11/16 ALBUTEROL Inhaler [ProAir HFA 2 puff IH QID PRN #1 inhalation 04/23/16 11/16/16 Rx Inhaler] Albuterol Sulfate [Albuterol 0.63% 0.63 mg IH Q6H PRN #1 box 04/23/16 11/15/16 Rx NEBS] Amoxicillin/K Clav Tab [Augmentin 1 tab PO Q12HR #28 tab 02/18/17 Unknown Rx 875 mg] Morphine ER [Ms Contin ER] 60 mg PO TID #20 tablet 02/18/17 Unknown Rx Morphine [Morphine TAB] 30 mg PO Q4H PRN #14 tablet 02/18/17 Unknown Rx Paliperidone Er 3 mg PO QAM #30 02/18/17 Unknown Rx levoFLOXacin [Levaquin] 750 mg PO QDAY #7 tablet 02/18/17 Unknown Rx Azithromycin [Zithromax Z-MARTHA] 250 mg PO DAILY #6 tablet 09/03/17 Unknown Rx Benzonatate [Tessalon Perle] 100 mg PO Q6H PRN #20 capsule 09/03/17 Unknown Rx predniSONE [Deltasone] 40 mg PO QDAY #5 tab 09/03/17 Unknown Rx Docusate Sodium [Colace] 100 mg PO BID PRN #20 capsule 01/09/18 Unknown Rx HYDROcodone/APAP 5-325 [[place] 1 each PO Q6HR PRN #10 tablet 01/09/18 Unknown Rx 5/325] Ondansetron [Zofran Odt] 4 mg PO Q8HR #20 tab.rapdis 01/09/18 Unknown Rx Sulfamethoxazole/Trimethoprim 1 each PO BID #20 tablet 04/01/18 Unknown Rx [Bactrim DS TAB] Allergies Allergy/AdvReac Type Severity Reaction Status Date / Time dexamethasone [From Decadron] Allergy Itching Verified 04/01/18 10:49 dexamethasone sod phosphate Allergy Itching Verified 04/01/18 10:49 [From Decadron] ketorolac tromethamine Allergy Itching Verified 04/01/18 10:49 [From Toradol] latex Allergy Itching Verified 04/01/18 10:49 tramadol Allergy Itching Verified 04/01/18 10:49 ED Review of Systems ROS: Stated complaint: SWOLLEN/BLACK TOE WITH PAIN Other details as noted in HPI Comment: All other systems reviewed and negative ED Past Medical Hx - Past Medical History Previous Medical History?: Yes Hx Hypertension: Yes Hx Congestive Heart Failure: No Hx Diabetes: Yes Hx of Cancer: Yes (lung CA--remission 10/2016) Hx Psychiatric Treatment: Yes (bipolar, depression) Hx Asthma: Yes Hx COPD: No Hx Tuberculosis: No (POSITIVE SKIN TEST,NEGATIVE CXR) Hx HIV: No (unknown) Additional medical history: Lung ca December 2015 - Surgical History Past Surgical History?: Yes Additional Surgical History: right ectopic with tube removed, hysterectomy. port to left chest. lobectomy on right side - Social History Smoking Status: Current Every Day Smoker Substance Use Type: Alcohol - Medications Home Medications: Home Medications Medication Instructions Recorded Confirmed Last Taken Type Ondansetron [Zofran ODT TAB] 4 mg PO Q6H #14 tab.rapdis 11/10/14 02/15/17 1 Week Ago Rx ~11/11/16 ALBUTEROL Inhaler [ProAir HFA 2 puff IH QID PRN #1 inhalation 04/23/16 02/15/17 11/16/16 Rx Inhaler] Albuterol Sulfate [Albuterol 0.63% 0.63 mg IH Q6H PRN #1 box 04/23/16 02/15/17 11/15/16 Rx NEBS] Dronabinol [Marinol] 5 mg PO BID 11/13/16 02/15/17 11/17/16 History Famotidine [Pepcid] 20 mg PO PRN PRN 11/13/16 02/15/17 2 Weeks Ago History ~11/04/16 Ferrous Sulfate [Feosol 325 MG tab] 325 mg PO DAILY 11/13/16 02/15/17 11/16/16 History Gabapentin [Neurontin] 600 mg PO TID 11/13/16 02/15/17 11/17/16 History cloNIDine [Catapres] 0.1 mg PO DAILY 11/13/16 02/15/17 11/17/16 History Ergocalciferol [Vitamin D2] 1 cap PO QWEEK 02/15/17 02/15/17 Unknown History Amoxicillin/K Clav Tab [Augmentin 1 tab PO Q12HR #28 tab 02/18/17 Unknown Rx 875 mg] Morphine ER [Ms Contin ER] 60 mg PO TID #20 tablet 02/18/17 Unknown Rx Morphine [Morphine TAB] 30 mg PO Q4H PRN #14 tablet 02/18/17 Unknown Rx Paliperidone Er 3 mg PO QAM #30 02/18/17 Unknown Rx levoFLOXacin [Levaquin] 750 mg PO QDAY #7 tablet 02/18/17 Unknown Rx Azithromycin [Zithromax Z-MARTHA] 250 mg PO DAILY #6 tablet 09/03/17 Unknown Rx Benzonatate [Tessalon Perle] 100 mg PO Q6H PRN #20 capsule 09/03/17 Unknown Rx predniSONE [Deltasone] 40 mg PO QDAY #5 tab 09/03/17 Unknown Rx Docusate Sodium [Colace] 100 mg PO BID PRN #20 capsule 01/09/18 Unknown Rx HYDROcodone/APAP 5-325 [[place] 1 each PO Q6HR PRN #10 tablet 01/09/18 Unknown Rx 5/325] Ondansetron [Zofran Odt] 4 mg PO Q8HR #20 tab.rapdis 01/09/18 Unknown Rx Sulfamethoxazole/Trimethoprim 1 each PO BID #20 tablet 04/01/18 Unknown Rx [Bactrim DS TAB] ED Physical Exam - General Limitations: No Limitations - Other Other exam information: General: No limitations, patient is alert in no acute distress Head exam: Atraumatic, normocephalic Eyes exam: Normal appearance ENT: Moist mucous membrane, normal oropharynx Neck exam: Normal inspection, full range of motion, no meningismus nontender Respiratory exam: Clear to auscultation bilateral, no wheezes, rales, crackles Cardiovascular: Normal rate and rhythm, normal heart sounds Abdomen: Soft, nondistended, and nontender, with normal bowel sounds, no rebound, or guarding Extremity: 2+ DP pulses equal and bilateral feet. Patient has some swelling and dark discoloration to the medial side of the nailbed with a healed puncture wound of the left foot. No purulent drainage, redness, or warmth. Positive tenderness at this area. Full range of motion. Back: Normal Inspection, full range of motion, no tenderness Neurologic: Alert, oriented x3, cranial nerves intact, no motor or sensory deficit Psychiatric: normal affect, normal mood Skin: Warm, dry, intact ED Course Vital Signs 04/01/18 10:44 Temperature 98.6 F Pulse Rate 95 H Respiratory 16 Rate Blood Pressure 154/114 O2 Sat by Pulse 97 Oximetry ED Medical Decision Making - Medical Decision Making Toe nailbed swelling and pain Given that she is a diabetic and punctured her own toe fracture will be provided Podiatry and PMD follow-up requested Diabetic neuropathy Chronic and progressively worsening Follow-up with PMD recommended Hypertension Chronic in asymptomatic Patient is overdue for her afternoon blood pressure medication dose Patient instructed to take her BP medication - Differential Diagnosis cellulitis, paronychia,, neuropathy, abscess Critical Care Time: No Critical care attestation.: If time is entered above; I have spent that time in minutes in the direct care of this critically ill patient, excluding procedure time. ED Disposition Clinical Impression: Toe infection, HTN (hypertension), Diabetic neuropathy Disposition: TO HOME OR SELFCARE Is pt being admited?: No Does the pt Need Aspirin: No Condition: Stable Instructions: Hypertension (ED), Diabetes Mellitus Type 2 in Adults (ED), Paronychia (ED) Additional Instructions: Take the medication as prescribed. Follow up with your doctor and a graphite disk assembler. Return if symptoms worsen as indicated by your discharge instructions Prescriptions: Sulfamethoxazole/Trimethoprim [Bactrim DS TAB] 1 each PO BID #20 tablet Referrals: ESTELA WILSON DO [Staff Physician] - 3-5 Days (Primary care doctor) COLE GIL DPM [Staff Physician] - 3-5 Days (Podiatry) JASON UGALDE MD [Referring] - 3-5 Days (Podiatry) Time of Disposition: 13:30
== END 2018-04-01 13:35 | disposition home or self-care (01) ==
LOC: ED 10:33
DX: L08.9 Local infection of the skin and subcutaneous tissue, unspecified (principal); I10 Essential (primary) hypertension; E11.40 Type 2 diabetes mellitus with diabetic neuropathy, unspecified; Z85.118 Personal history of other malignant neoplasm of bronchus and lung; F31.9 Bipolar disorder, unspecified; J45.909 Unspecified asthma, uncomplicated; F17.200 Nicotine dependence, unspecified, uncomplicated; Z88.8 Allergy status to other drugs, medicaments and biological substances; Z88.6 Allergy status to analgesic agent; Z91.040 Latex allergy status
CPT/HCPCS: 99282

== ENCOUNTER 2018-05-12 11:45 | Outpatient (CLI) | payer MEDICAID ==
--- NOTE | 2018-05-12 12:10 | XRay Report ---
ROUTINE CHEST, TWO VIEWS: HISTORY: Cough. The left Aphdly-a-Cins has been removed since 01/04/18. The trachea, heart, mediastinal contour, lung ozuna and bony thorax are unremarkable. IMPRESSION: Unremarkable chest x-ray.
== END 2018-05-12 11:46 | disposition home or self-care (01) ==
LOC: XRAY 11:45
PROVIDERS: ATTEND Internal Medicine Hematology & Oncology
DX: R05 Cough (principal); I10 Essential (primary) hypertension; J45.909 Unspecified asthma, uncomplicated; Z90.710 Acquired absence of both cervix and uterus; Z87.891 Personal history of nicotine dependence
CPT/HCPCS: 71046

== ENCOUNTER 2018-09-12 19:53 | Emergency (ER) | payer MEDICAID ==
[2018-09-12 22:04] LABS: Hematocrit 38.9 % (30.3-42.9); Mean Corpuscular HGB Conc 33 % (30-34); Mean Corpuscular Volume 94 fl (79-97); Platelet Count 199 K/mm3 (140-440); Red Blood Count 4.13 M/mm3 (3.65-5.03); Red Cell Distribution Width 14.2 % (13.2-15.2)
[2018-09-12 22:20] LABS: INR 1.01 (0.87-1.13)
[2018-09-12 22:21] LABS: Partial Thromboplastin Time 24.5 Sec. (24.2-36.6)
[2018-09-12 22:37] LABS: Basophils % (Manual) 0 % (0.0-1.8); Total Cells Counted 100
[2018-09-12 22:38] LABS: Platelet Estimate Consistent w Auto; Poikilocytosis Few
--- NOTE | 2018-09-12 23:08 | XRay Report ---
FINAL REPORT PROCEDURE: Chest. TECHNIQUE: PA and lateral views. HISTORY: shortness of breath with hx of lung ca COMPARISON: Chest 06/16/2018. FINDINGS: The heart and mediastinum appear normal. The lungs are clear and well expanded. There are no pleural effusions. The soft tissues and regional skeleton are unremarkable. IMPRESSION: Normal study.
[2018-09-12 23:11] LABS: BUN/Creatinine Ratio TNR; Blood Urea Nitrogen TNR mg/dL (7-17)
[2018-09-12 23:12] LABS: Alanine Aminotransferase TNR units/L (7-56); Albumin TNR g/dL (3.9-5); Calcium TNR mg/dL (8.4-10.2)
[2018-09-12 23:13] LABS: Hemolysis Index TNR
[2018-09-13 00:36] LABS: Alanine Aminotransferase 23 units/L (7-56); Blood Urea Nitrogen 14 mg/dL (7-17)
[2018-09-13] MEDS ORDERED: BENADRYL IV ONE (00:40)
[2018-09-13] MEDS ORDERED: REGLAN IV ONE (00:40)
[2018-09-13] MEDS ORDERED: DILAUDID IV ONE (00:40)
--- NOTE | 2018-09-13 00:44 | Emergency Department Report ---
ED Headache HPI - General Chief Complaint: Headache Stated Complaint: SOB/HEADACHE/COUGH/CHEST PAIN Time Seen by Provider: 09/13/18 00:27 Source: patient Exam Limitations: no limitations - History of Present Illness Initial Comments: 42-year-old female with a past medical history of diabetic neuropathy, lung cancer currently in remission, asthma, diabetes, alcohol disorder, and previous hysterectomy presents to the Hospital complaining of intermittent headache for the last 3-4 days. Headache is in the front and back of head, described as throbbing, and 7/10 in severity. Patient complains of nausea without vomiting. Positive light sensitivity and blurred vision. No focal weakness, fever, focal numbness, or neck pain/stiffness reported. Patient has had intermittent h eadaches since June. Her last CT head was in the May. Patient takes morphine 60 mg extended release twice a day and Percocet 10 mg when necessary for chronic neuropathy pain and this does not help her headache. He denies being seen by a neurologist for her headaches since onset in June. PMD: Dr. Quiros Allergies/Adverse Reactions: Allergies amoxicillin [From Amoxil] Allergy (Verified 09/12/18 21:22) Unknown dexamethasone [From Decadron] Allergy (Verified 04/01/18 10:49) Itching dexamethasone sod phosphate [From Decadron] Allergy (Verified 04/01/18 10:49) Itching ketorolac tromethamine [From Toradol] Allergy (Verified 04/01/18 10:49) Itching latex Allergy (Verified 04/01/18 10:49) Itching tramadol Allergy (Verified 04/01/18 10:49) Itching Home Medications: Ambulatory Orders Gabapentin [Neurontin] 600 mg PO BID 11/13/16 cloNIDine [Catapres] 0.1 mg PO DAILY 11/13/16 Lisinopril/Hydrochlorothiazide [Zestoretic 20-25 mg] 1 each PO DAILY 06/16/18 Metformin HCl [Glucophage] 500 mg PO TID 06/16/18 Metoprolol Succinate [Toprol Xl] 25 mg PO BID 06/16/18 Morphine ER [Ms Contin ER] 60 mg PO BID 06/16/18 Morphine [Morphine TAB] 30 mg PO QID PRN 06/16/18 amLODIPine [Norvasc] 10 mg PO DAILY 06/16/18 ED Review of Systems ROS: Stated complaint: SOB/HEADACHE/COUGH/CHEST PAIN Other details as noted in HPI Comment: All other systems reviewed and negative ED Past Medical Hx - Past Medical History Previous Medical History?: Yes Hx Hypertension: Yes Hx Congestive Heart Failure: No Hx Diabetes: Yes Hx of Cancer: Yes (Lung ca last chemo was in October.) Hx Psychiatric Treatment: Yes (bipolar, depression) Hx Asthma: Yes Hx COPD: No Hx Tuberculosis: No (POSITIVE SKIN TEST,NEGATIVE CXR) Hx HIV: (unknown) Additional medical history: Lung ca December 2015 - Surgical History Past Surgical History?: Yes Additional Surgical History: right ectopic with tube removed. hysterectomy. port to left chest placed and removed. lobectomy on right side - Social History Smoking Status: Current Every Day Smoker Substance Use Type: Alcohol - Medications Home Medications: Home Medications Medication Instructions Recorded Confirmed Last Taken Type Gabapentin [Neurontin] 600 mg PO BID 11/13/16 06/16/18 11/17/16 History cloNIDine [Catapres] 0.1 mg PO DAILY 11/13/16 06/16/18 11/17/16 History Lisinopril/Hydrochlorothiazide 1 each PO DAILY 06/16/18 06/16/18 Unknown History [Zestoretic 20-25 mg] Metformin HCl [Glucophage] 500 mg PO TID 06/16/18 06/16/18 Unknown History Metoprolol Succinate [Toprol Xl] 25 mg PO BID 06/16/18 06/16/18 Unknown History Morphine ER [Ms Contin ER] 60 mg PO BID 06/16/18 06/16/18 Unknown History Morphine [Morphine TAB] 30 mg PO QID PRN 06/16/18 06/16/18 Unknown History amLODIPine [Norvasc] 10 mg PO DAILY 06/16/18 06/16/18 Unknown History ED Physical Exam - General Limitations: No Limitations - Other Other exam information: General: No limitations, patient is alert in no acute distress Head exam: Atraumatic, normocephalic Eyes exam: Normal appearance, pupils equal reactive to light, extraocular movements intact ENT: Moist mucous membrane Neck exam: Normal inspection, full range of motion, no meningismus nontender Respiratory exam: Clear to auscultation bilateral, no wheezes, rales, crackles Cardiovascular: Normal rate and rhythm, normal heart sounds Abdomen: Soft, nondistended, and nontender, with normal bowel sounds, no rebound, or guarding Extremity: Full range of motion normal inspection no deformity Back: Normal Inspection, full range of motion, no tenderness Neurologic: Alert, oriented x3, cranial nerves intact, no motor or sensory deficit Psychiatric: normal affect, normal mood Skin: Warm, dry, intact ED Course Vital Signs 09/12/18 09/13/18 09/13/18 19:57 00:37 00:55 Temperature 98.3 F 98.8 F Pulse Rate 104 H 89 Respiratory 18 16 16 Rate Blood Pressure 138/93 Blood Pressure 120/81 [Right] O2 Sat by Pulse 99 97 Oximetry 09/13/18 02:58 Temperature 98.5 F Pulse Rate 95 H Respiratory 15 Rate Blood Pressure Blood Pressure 127/80 [Right] O2 Sat by Pulse 96 Oximetry ED Medical Decision Making - Lab Data Result diagrams: 09/12/18 21:52 09/12/18 23:28 Lab Results 09/12/18 09/12/18 09/12/18 Range/Units 21:52 21:52 21:52 WBC 6.3 (4.5-11.0) K/mm3 RBC 4.13 (3.65-5.03) M/mm3 Hgb 13.0 (10.1-14.3) gm/dl Hct 38.9 (30.3-42.9) % MCV 94 (79-97) fl MCH 32 (28-32) pg MCHC 33 (30-34) % RDW 14.2 (13.2-15.2) % Plt Count 199 (140-440) K/mm3 Lymph % (Auto) Asphalt Engineer Add Manual Diff Complete Total Counted 100 Seg Neutrophils % Asphalt Engineer Seg Neuts % (Manual) 33.0 L (40.0-70.0) % Band Neutrophils % 0 % Lymphocytes % (Manual) 60.0 H (13.4-35.0) % Reactive Lymphs % (Man) 0 % Monocytes % (Manual) 6.0 (0.0-7.3) % Eosinophils % (Manual) 1.0 (0.0-4.3) % Basophils % (Manual) 0 (0.0-1.8) % Metamyelocytes % 0 % Myelocytes % 0 % Promyelocytes % 0 % Blast Cells % 0 % Nucleated RBC % Not Reportable Seg Neutrophils # Man 2.1 (1.8-7.7) K/mm3 Band Neutrophils # 0.0 K/mm3 Lymphocytes # (Manual) 3.8 (1.2-5.4) K/mm3 Abs React Lymphs (Man) 0.0 K/mm3 Monocytes # (Manual) 0.4 (0.0-0.8) K/mm3 Eosinophils # (Manual) 0.1 (0.0-0.4) K/mm3 Basophils # (Manual) 0.0 (0.0-0.1) K/mm3 Metamyelocytes # 0.0 K/mm3 Myelocytes # 0.0 K/mm3 Promyelocytes # 0.0 K/mm3 Blast Cells # 0.0 K/mm3 WBC Morphology Not Reportable Hypersegmented Neuts Not Reportable Hyposegmented Neuts Not Reportable Hypogranular Neuts Not Reportable Smudge Cells Not Reportable Toxic Granulation Not Reportable Toxic Vacuolation Not Reportable Dohle Bodies Not Reportable Pelger-Huet Anomaly Not Reportable Walker Rods Not Reportable Platelet Estimate Consistent w auto Clumped Platelets Not Reportable Plt Clumps, EDTA Not Reportable Large Platelets Not Reportable Giant Platelets Not Reportable Platelet Satelliting Not Reportable Plt Morphology Comment Not Reportable RBC Morphology Not Reportable Dimorphic RBCs Not Reportable Polychromasia Not Reportable Hypochromasia Not Reportable Poikilocytosis Few Anisocytosis Not Reportable Microcytosis Not Reportable Macrocytosis Not Reportable Spherocytes Not Reportable Pappenheimer Bodies Not Reportable Sickle Cells Not Reportable Target Cells Not Reportable Tear Drop Cells Not Reportable Ovalocytes Not Reportable Helmet Cells Not Reportable Zavaleta-Mcpherson Bodies Not Reportable [place] Rings Not Reportable [place] Cells Not Reportable Bite Cells Not Reportable Crenated Cell Not Reportable Elliptocytes Not Reportable Acanthocytes (Spur) Not Reportable Rouleaux Not Reportable Hemoglobin C Crystals Not Reportable Schistocytes Not Reportable Malaria parasites Not Reportable Mike Bodies Not Reportable Hem Pathologist Commnt No PT 13.7 (12.2-14.9) Sec. INR 1.01 (0.87-1.13) APTT 24.5 (24.2-36.6) Sec. Sodium TNR Potassium TNR Chloride TNR Carbon Dioxide TNR Anion Gap TNR BUN TNR Creatinine TNR Estimated GFR TNR BUN/Creatinine Ratio TNR Glucose TNR Calcium TNR Total Bilirubin TNR AST TNR ALT TNR Alkaline Phosphatase TNR Total Protein TNR Albumin TNR Albumin/Globulin Ratio TNR Urine Color (Yellow) Urine Turbidity (Clear) Urine pH (5.0-7.0) Ur Specific [place] (1.003-1.030) Urine Protein (Negative) mg/dL Urine Glucose (UA) (Negative) mg/dL Urine Ketones (Negative) mg/dL Urine Blood (Negative) Urine Nitrite (Negative) Urine Bilirubin (Negative) Urine Urobilinogen (<2.0) mg/dL Ur Leukocyte Esterase (Negative) Urine WBC (Auto) (0.0-6.0) /HPF Urine RBC (Auto) (0.0-6.0) /HPF U Epithel Cells (Auto) (0-13.0) /HPF Urine Mucus /HPF 09/12/18 09/13/18 Range/Units 23:28 00:20 WBC (4.5-11.0) K/mm3 RBC (3.65-5.03) M/mm3 Hgb (10.1-14.3) gm/dl Hct (30.3-42.9) % MCV (79-97) fl MCH (28-32) pg MCHC (30-34) % RDW (13.2-15.2) % Plt Count (140-440) K/mm3 Lymph % (Auto) Add Manual Diff Total Counted Seg Neutrophils % Seg Neuts % (Manual) (40.0-70.0) % Band Neutrophils % % Lymphocytes % (Manual) (13.4-35.0) % Reactive Lymphs % (Man) % Monocytes % (Manual) (0.0-7.3) % Eosinophils % (Manual) (0.0-4.3) % Basophils % (Manual) (0.0-1.8) % Metamyelocytes % % Myelocytes % % Promyelocytes % % Blast Cells % % Nucleated RBC % Seg Neutrophils # Man (1.8-7.7) K/mm3 Band Neutrophils # K/mm3 Lymphocytes # (Manual) (1.2-5.4) K/mm3 Abs React Lymphs (Man) K/mm3 Monocytes # (Manual) (0.0-0.8) K/mm3 Eosinophils # (Manual) (0.0-0.4) K/mm3 Basophils # (Manual) (0.0-0.1) K/mm3 Metamyelocytes # K/mm3 Myelocytes # K/mm3 Promyelocytes # K/mm3 Blast Cells # K/mm3 WBC Morphology Hypersegmented Neuts Hyposegmented Neuts Hypogranular Neuts Smudge Cells Toxic Granulation Toxic Vacuolation Dohle Bodies Pelger-Huet Anomaly Walker Rods Platelet Estimate Clumped Platelets Plt Clumps, EDTA Large Platelets Giant Platelets Platelet Satelliting Plt Morphology Comment RBC Morphology Dimorphic RBCs Polychromasia Hypochromasia Poikilocytosis Anisocytosis Microcytosis Macrocytosis Spherocytes Pappenheimer Bodies Sickle Cells Target Cells Tear Drop Cells Ovalocytes Helmet Cells Zavaleta-Mcpherson Bodies [place] Rings Chong Cells Bite Cells Crenated Cell Elliptocytes Acanthocytes (Spur) Rouleaux Hemoglobin C Crystals Schistocytes Malaria parasites Mike Bodies Hem Pathologist Commnt PT (12.2-14.9) Sec. INR (0.87-1.13) APTT (24.2-36.6) Sec. Sodium 139 Potassium 4.3 Chloride 103.8 Carbon Dioxide 25 Anion Gap 15 BUN 14 Creatinine 0.8 Estimated GFR > 60 BUN/Creatinine Ratio 18 Glucose 88 Calcium 8.6 Total Bilirubin 0.20 AST 30 ALT 23 Alkaline Phosphatase 67 Total Protein 6.1 L Albumin 3.8 L Albumin/Globulin Ratio 1.7 Urine Color Yellow (Yellow) Urine Turbidity Clear (Clear) Urine pH 5.0 (5.0-7.0) Ur Specific [place] 1.019 (1.003-1.030) Urine Protein <15 mg/dl (Negative) mg/dL Urine Glucose (UA) Neg (Negative) mg/dL Urine Ketones Neg (Negative) mg/dL Urine Blood Neg (Negative) Urine Nitrite Neg (Negative) Urine Bilirubin Neg (Negative) Urine Urobilinogen < 2.0 (<2.0) mg/dL Ur Leukocyte Esterase Neg (Negative) Urine WBC (Auto) < 1.0 (0.0-6.0) /HPF Urine RBC (Auto) 2.0 (0.0-6.0) /HPF U Epithel Cells (Auto) < 1.0 (0-13.0) /HPF Urine Mucus Few /HPF - Radiology Data Radiology results: report reviewed FINAL REPORT EXAM: CT HEAD/BRAIN WO CON HISTORY: headache, hx of lung ca (remission) COMPARISON: CT of the head from June 2018 and MRI the brain from June 2018. TECHNIQUE: Axial images obtained skull base through vertex. FINDINGS: No acute intracranial hemorrhage, midline shift or pathologic extra axial fluid collection. There is stable symmetric hypodense lesions within the anterior limbs of the internal capsules compatible with benign perivascular spaces as seen on prior MRI. Ventricles and cisterns are normal in size and configuration for the patient's age. Savage-white differentiation preserved. Calvarium grossly intact. Visualized ocular globes are grossly unremarkable. Visualized para-nasal sinuses and mastoid air cells are clear. IMPRESSION: No grossly acute intracranial abnormality. FINAL REPORT PROCEDURE: Chest. TECHNIQUE: PA and lateral views. HISTORY: shortness of breath with hx of lung ca COMPARISON: Chest 06/16/2018. FINDINGS: The heart and mediastinum appear normal. The lungs are clear and well expanded. There are no pleural effusions. The soft tissues and regional skeleton are unremarkable. IMPRESSION: Normal study. - Medical Decision Making Patient had improvement in headache with ED treatment. She was instructed to continue her current pain medications and follow-up with neurology. - Differential Diagnosis migraine, tension, cluster, ICH, headache and nos Critical Care Time: No Critical care attestation.: If time is entered above; I have spent that time in minutes in the direct care of this critically ill patient, excluding procedure time. ED Disposition Clinical Impression: Headache Disposition: [id number] TO HOME OR SELFCARE Is pt being admited?: No Does the pt Need Aspirin: No Condition: Stable Instructions: Acute Headache (ED) Additional Instructions: Continue your current pain medication. Take the medication as prescribed. Follow up with your doctor and a neurologist. Return if symptoms worsen as indicated by your discharge instructions Referrals: PREM BELLO MD [Staff Physician] - 3-5 Days (neurology) CAMI SPENCER MD [Staff Physician] - 3-5 Days (neurolgy ) ESTELA WILSON DO [Staff Physician] - 3-5 Days Time of Disposition: 05:08
[2018-09-13 00:55] LABS: Albumin 3.8 g/dL (3.9-5); BUN/Creatinine Ratio 18; Calcium 8.6 mg/dL (8.4-10.2); Hemolysis Index 7
[2018-09-13 01:11] LABS: Bilirubin,Urine NEG (Negative); Blood,Urine NEG (Negative); Color,Urine Yellow (Yellow); Mucus,Urine FEW /HPF; Protein,Urine <15 mg/dL mg/dL (Negative); Urobilinogen,Urine < 2.0 mg/dL (<2.0); WBC,Urine < 1.0 /HPF (0.0-6.0)
--- NOTE | 2018-09-13 02:55 | Cat Scan Report ---
FINAL REPORT EXAM: CT HEAD/BRAIN WO CON HISTORY: headache, hx of lung ca (remission) COMPARISON: CT of the head from June 2018 and MRI the brain from June 2018. TECHNIQUE: Axial images obtained skull base through vertex. FINDINGS: No acute intracranial hemorrhage, midline shift or pathologic extra axial fluid collection. There is stable symmetric hypodense lesions within the anterior limbs of the internal capsules compatible with benign perivascular spaces as seen on prior MRI. Ventricles and cisterns are normal in size and conf iguration for the patient's age. Savage-white differentiation preserved. Calvarium grossly intact. Visu alized ocular globes are grossly unremarkable. Visualized para-nasal sinuses and mastoid air cells ar e clear. IMPRESSION: No grossly acute intracranial abnormality.
[2018-09-13 02:58] VITALS: BP 127/80
== END 2018-09-13 05:22 | disposition home or self-care (01) ==
LOC: ED 19:53
DX: R51 Headache (principal); R11.0 Nausea; I10 Essential (primary) hypertension; E11.9 Type 2 diabetes mellitus without complications; Z85.118 Personal history of other malignant neoplasm of bronchus and lung; F31.9 Bipolar disorder, unspecified; F20.9 Schizophrenia, unspecified; J45.909 Unspecified asthma, uncomplicated; F17.200 Nicotine dependence, unspecified, uncomplicated
CPT/HCPCS: 36415; 70450; 71046; 80053; 81001; 85007; 85025; 85610; 85730; 96374; 96375; 99284; J1170; J1200; J2765

== ENCOUNTER 2018-09-26 12:47 | Inpatient (IN) | payer MEDICAID ==
--- NOTE | 2018-09-26 13:04 | Emergency Department Report ---
Blank Doc - Documentation Documentation: This is a 43-year-old female that presents with cough, sob, and coughing up bl ood. Stated started yesterday. PMH: lung CA, HTN, DM This initial assessment diagnostic orders/clinical plan/treatment(s) is/are subject to change based on patient's health status, clinical progression and re- assessment by fellow clinical providers in the ED. Further treatment and workup at subsequent clinical providers discretion. Patient/guardians urged not to elope from ED s their condition may be serious if not clinically assessed and managed. Initial orders include: 1-Patient sent to MAIN ED for further evaluation and treatment 2- Labs 3- CXR 4- EKG
[2018-09-26 13:47] LABS: Basophils # (Auto) 0.1 K/mm3 (0.0-0.1); Basophils % (Auto) 0.5 % (0.0-1.8); Eosinophils % (Auto) 0.1 % (0.0-4.3); Hematocrit 40.9 % (30.3-42.9); Hemoglobin 13.9 gm/dl (10.1-14.3); Lymphocytes # (Auto) 1.8 K/mm3 (1.2-5.4); Lymphocytes % (Auto) 14.7 % (13.4-35.0); Mean Corpuscular HGB Conc 34 % (30-34); Mean Corpuscular Volume 92 fl (79-97); Monocytes # (Auto) 0.6 K/mm3 (0.0-0.8); Platelet Count 179 K/mm3 (140-440); Red Blood Count 4.42 M/mm3 (3.65-5.03); Red Cell Distribution Width 14.3 % (13.2-15.2)
[2018-09-26 13:59] LABS: INR 1.03 (0.87-1.13); Partial Thromboplastin Time 20.7 Sec. (24.2-36.6)
[2018-09-26 14:13] LABS: Alanine Aminotransferase 16 units/L (7-56); Albumin 3.6 g/dL (3.9-5); BUN/Creatinine Ratio 18; Blood Urea Nitrogen 11 mg/dL (7-17); Hemolysis Index 10
--- NOTE | 2018-09-26 15:15 | XRay Report ---
ROUTINE CHEST, TWO VIEWS: HISTORY: Chest pain. The trachea, heart, mediastinal contour, lung ozuna and bony thorax are unremarkable. IMPRESSION: Unremarkable chest x-ray.
[2018-09-26] MEDS ORDERED: NACL 0.9% 1000 ML IV ONE (15:17)
[2018-09-26] MEDS ORDERED: NACL 0.9% 1000 ML 1,000 ML ONE (15:20)
--- NOTE | 2018-09-26 16:23 | Emergency Department Report ---
- General Chief Complaint: Upper Respiratory Infection Stated Complaint: COUGHING BLOOD Time Seen by Provider: 09/26/18 13:02 Source: patient Mode of arrival: Ambulatory Limitations: No Limitations - History of Present Illness Initial Comments: 43-year-old female with a past medical history of asthma, diabetes, hypertension, bipolar, depression, and lobectomy for previous lung cancer presents to the hospital complaints of coughing up blood times one day. Patient has had a cough for the past 5 days but it became more severe with dank blood today. Patient one episode of bloody sputum and subsequent episodes today were blood-streaked with phlegm. This complaining of body aches and fevers. Chest pain with coughing episodes. She has a history of a positive PPD but no jelani gnosis of tuberculosis and she has never been treated with tuberculosis medications she did receive a flu shot this year. Patient called her PMD office prior to arrival was advised to come to the ER for evaluation. PMD: Dr. Quiros - Related Data Home Medications Medication Instructions Recorded Confirmed Last Taken Gabapentin [Neurontin] 600 mg PO BID 11/13/16 06/16/18 11/17/16 cloNIDine [Catapres] 0.1 mg PO DAILY 11/13/16 06/16/18 11/17/16 Lisinopril/Hydrochlorothiazide 1 each PO DAILY 06/16/18 06/16/18 Unknown [Zestoretic 20-25 mg] Metformin HCl [Glucophage] 500 mg PO TID 06/16/18 06/16/18 Unknown Metoprolol Succinate [Toprol Xl] 25 mg PO BID 06/16/18 06/16/18 Unknown Morphine ER [Ms Contin ER] 60 mg PO BID 06/16/18 06/16/18 Unknown Morphine [Morphine TAB] 30 mg PO QID PRN 06/16/18 06/16/18 Unknown amLODIPine [Norvasc] 10 mg PO DAILY 06/16/18 06/16/18 Unknown Allergies Allergy/AdvReac Type Severity Reaction Status Date / Time amoxicillin [From Amoxil] Allergy Unknown Verified 09/26/18 15:29 dexamethasone [From Decadron] Allergy Itching Verified 09/26/18 15:29 dexamethasone sod phosphate Allergy Itching Verified 09/26/18 15:29 [From Decadron] ketorolac tromethamine Allergy Itching Verified 09/26/18 15:29 [From Toradol] latex Allergy Itching Verified 09/26/18 15:29 tramadol Allergy Itching Verified 09/26/18 15:29 ED Review of Systems ROS: Stated complaint: COUGHING BLOOD Other details as noted in HPI Comment: All other systems reviewed and negative ED Past Medical Hx - Past Medical History Hx Hypertension: Yes Hx Congestive Heart Failure: No Hx Diabetes: Yes Hx Psychiatric Treatment: Yes (bipolar, depression) Hx Asthma: Yes Hx COPD: No Hx Tuberculosis: No (POSITIVE SKIN TEST,NEGATIVE CXR) Hx HIV: (unknown) Additional medical history: Lung ca December 2015 - Surgical History Additional Surgical History: right ectopic with tube removed. hysterectomy. port to left chest placed and removed. lobectomy on right side - Social History Smoking Status: Unknown if ever smoked Substance Use Type: None - Medications Home Medications: Home Medications Medication Instructions Recorded Confirmed Last Taken Type Gabapentin [Neurontin] 600 mg PO BID 11/13/16 06/16/18 11/17/16 History cloNIDine [Catapres] 0.1 mg PO DAILY 11/13/16 06/16/18 11/17/16 History Lisinopril/Hydrochlorothiazide 1 each PO DAILY 06/16/18 06/16/18 Unknown History [Zestoretic 20-25 mg] Metformin HCl [Glucophage] 500 mg PO TID 06/16/18 06/16/18 Unknown History Metoprolol Succinate [Toprol Xl] 25 mg PO BID 06/16/18 06/16/18 Unknown History Morphine ER [Ms Contin ER] 60 mg PO BID 06/16/18 06/16/18 Unknown History Morphine [Morphine TAB] 30 mg PO QID PRN 06/16/18 06/16/18 Unknown History amLODIPine [Norvasc] 10 mg PO DAILY 06/16/18 06/16/18 Unknown History ED Physical Exam - General Limitations: No Limitations - Other Other exam information: General: No limitations, patient is alert in no acute distress Head exam: Atraumatic, normocephalic Eyes exam: Normal appearance ENT: Moist mucous membrane Neck exam: Normal inspection, full range of motion, no meningismus nontender Respiratory exam: Clear to auscultation bilateral, no wheezes, rales, crackles Cardiovascular: Normal rate and rhythm, normal heart sounds Abdomen: Soft, nondistended, and nontender, with normal bowel sounds, no rebound, or guarding Extremity: Full range of motion normal inspection no deformity, tenderness or edema Back: Normal Inspection, full range of motion, no tenderness Neurologic: Alert, oriented x3, cranial nerves intact, no motor or sensory deficit Psychiatric: normal affect, normal mood Skin: Warm, dry, intact ED Course Vital Signs 09/26/18 09/26/18 09/26/18 13:04 15:05 15:15 Temperature 98.1 F 98.5 F Pulse Rate 116 H 106 H 95 H Respiratory 18 18 16 Rate Blood Pressure 100/66 89/60 Blood Pressure 82/57 [Right] O2 Sat by Pulse 98 88 97 Oximetry - Reevaluation(s) Reevaluation #1: 09/26/18 16:36 Systolic blood pressure greater than 100 after IV fluids - Consultations Consultation #1: 09/26/18 16:[address] Quiros. He will admit to his service. Requests bridge orders ED Medical Decision Making - Lab Data Result diagrams: 09/26/18 13:33 09/26/18 13:33 Lab Results 09/26/18 09/26/18 09/26/18 Range/Units 13:33 13:33 13:33 WBC 12.2 H (4.5-11.0) K/mm3 RBC 4.42 (3.65-5.03) M/mm3 Hgb 13.9 (10.1-14.3) gm/dl Hct 40.9 (30.3-42.9) % MCV 92 (79-97) fl MCH 31 (28-32) pg MCHC 34 (30-34) % RDW 14.3 (13.2-15.2) % Plt Count 179 (140-440) K/mm3 Lymph % (Auto) 14.7 (13.4-35.0) % Bledsoe % (Auto) 5.0 (0.0-7.3) % Eos % (Auto) 0.1 (0.0-4.3) % Baso % (Auto) 0.5 (0.0-1.8) % Lymph # 1.8 (1.2-5.4) K/mm3 Bledsoe # 0.6 (0.0-0.8) K/mm3 Eos # 0.0 (0.0-0.4) K/mm3 Baso # 0.1 (0.0-0.1) K/mm3 Seg Neutrophils % 79.7 H (40.0-70.0) % Seg Neutrophils # 9.7 H (1.8-7.7) K/mm3 PT 14.1 (12.2-14.9) Sec. INR 1.03 (0.87-1.13) APTT 20.7 L (24.2-36.6) Sec. D-Dimer 156.87 (0-234) ng/mlDDU Sodium 137 (137-145) mmol/L Potassium 3.4 L (3.6-5.0) mmol/L Chloride 96.1 L (98-107) mmol/L Carbon Dioxide 27 (22-30) mmol/L Anion Gap 17 mmol/L BUN 11 (7-17) mg/dL Creatinine 0.6 L (0.7-1.2) mg/dL Estimated GFR > 60 ml/min BUN/Creatinine Ratio 18 % Glucose 97 (65-100) mg/dL Calcium 9.0 (8.4-10.2) mg/dL Total Bilirubin 0.40 (0.1-1.2) mg/dL AST 40 (5-40) units/L ALT 16 (7-56) units/L Alkaline Phosphatase 57 (35-129) units/L Troponin T < 0.010 (0.00-0.029) ng/mL Total Protein 6.4 (6.3-8.2) g/dL Albumin 3.6 L (3.9-5) g/dL Albumin/Globulin Ratio 1.3 % HCG, Qual (Negative) Urine Color (Yellow) Urine Turbidity (Clear) Urine pH (5.0-7.0) Ur Specific Stanton (1.003-1.030) Urine Protein (Negative) mg/dL Urine Glucose (UA) (Negative) mg/dL Urine Ketones (Negative) mg/dL Urine Blood (Negative) Urine Nitrite (Negative) Urine Bilirubin (Negative) Urine Urobilinogen (<2.0) mg/dL Ur Leukocyte Esterase (Negative) Urine WBC (Auto) (0.0-6.0) /HPF Urine RBC (Auto) (0.0-6.0) /HPF U Epithel Cells (Auto) (0-13.0) /HPF Urine Bacteria (Auto) (Negative) /HPF Urine Mucus /HPF 09/26/18 09/26/18 Range/Units 13:33 Unknown WBC (4.5-11.0) K/mm3 RBC (3.65-5.03) M/mm3 Hgb (10.1-14.3) gm/dl Hct (30.3-42.9) % MCV (79-97) fl MCH (28-32) pg MCHC (30-34) % RDW (13.2-15.2) % Plt Count (140-440) K/mm3 Lymph % (Auto) (13.4-35.0) % Bledsoe % (Auto) (0.0-7.3) % Eos % (Auto) (0.0-4.3) % Baso % (Auto) (0.0-1.8) % Lymph # (1.2-5.4) K/mm3 Bledsoe # (0.0-0.8) K/mm3 Eos # (0.0-0.4) K/mm3 Baso # (0.0-0.1) K/mm3 Seg Neutrophils % (40.0-70.0) % Seg Neutrophils # (1.8-7.7) K/mm3 PT (12.2-14.9) Sec. INR (0.87-1.13) APTT (24.2-36.6) Sec. D-Dimer (0-234) ng/mlDDU Sodium (137-145) mmol/L Potassium (3.6-5.0) mmol/L Chloride (98-107) mmol/L Carbon Dioxide (22-30) mmol/L Anion Gap mmol/L BUN (7-17) mg/dL Creatinine (0.7-1.2) mg/dL Estimated GFR ml/min BUN/Creatinine Ratio % Glucose (65-100) mg/dL Calcium (8.4-10.2) mg/dL Total Bilirubin (0.1-1.2) mg/dL AST (5-40) units/L ALT (7-56) units/L Alkaline Phosphatase (35-129) units/L Troponin T (0.00-0.029) ng/mL Total Protein (6.3-8.2) g/dL Albumin (3.9-5) g/dL Albumin/Globulin Ratio % HCG, Qual Negative (Negative) Urine Color Yellow (Yellow) Urine Turbidity Clear (Clear) Urine pH 5.0 (5.0-7.0) Ur Specific Stanton 1.014 (1.003-1.030) Urine Protein <15 mg/dl (Negative) mg/dL Urine Glucose (UA) Neg (Negative) mg/dL Urine Ketones Tr (Negative) mg/dL Urine Blood Neg (Negative) Urine Nitrite Neg (Negative) Urine Bilirubin Neg (Negative) Urine Urobilinogen < 2.0 (<2.0) mg/dL Ur Leukocyte Esterase Neg (Negative) Urine WBC (Auto) 1.0 (0.0-6.0) /HPF Urine RBC (Auto) < 1.0 (0.0-6.0) /HPF U Epithel Cells (Auto) 3.0 (0-13.0) /HPF Urine Bacteria (Auto) 1+ (Negative) /HPF Urine Mucus Few /HPF - EKG Data -: EKG Interpreted by Tn EKG shows normal: sinus rhythm, axis (qrs 56), QRS complexes (qrsd 91), ST-T waves (no stemi) Rate: normal - Radiology Data Radiology results: report reviewed ROUTINE CHEST, TWO VIEWS: HISTORY: Chest pain. The trachea, heart, mediastinal contour, lung ozuna and bony thorax are unremarkable. IMPRESSION: Unremarkable chest x-ray. - Medical Decision Making No signs of pneumonia, anemia, or dank hemoptysis in the ED. Systolic blood pressure decreased to the 80s but improved after normal saline. Initial troponin negative with repeat pending due to complaints of chest pain. D-dimer negative. Patient empirically treated with azithromycin for bronchitis/atypical pneumonia. Dr. Quiros to Will admit patient for further treatment. By mouth potassium ordered for mild hypokalemia - Differential Diagnosis pneumonia, bronchitis, anemia, coagulopathy, PE Critical Care Time: No Critical care attestation.: If time is entered above; I have spent that time in minutes in the direct care of this critically ill patient, excluding procedure time. ED Disposition Clinical Impression: Hemoptysis, History of lung cancer, Transient hypotension, Hypokalemia Disposition: OP ADMIT IP TO THIS HOSP Is pt being admited?: Yes Condition: Stable Time of Disposition: 16:41 (Dr. Quiros)
[2018-09-26 16:25] LABS: Bacteria,Urine 1+ /HPF (Negative); Bilirubin,Urine NEG (Negative); Blood,Urine NEG (Negative); Color,Urine Yellow (Yellow); Mucus,Urine FEW /HPF; Protein,Urine <15 mg/dL mg/dL (Negative); RBC,Urine < 1.0 /HPF (0.0-6.0); Urobilinogen,Urine < 2.0 mg/dL (<2.0)
[2018-09-26] MEDS ORDERED: K-DUR PO ONE ×2 (16:41→23:06)
[2018-09-26] MEDS ORDERED: ZITHROMAX 500 MG in NACL 0.9% 250ML 250 ML IV ONE (16:48)
[2018-09-26] MEDS ORDERED: MORPHINE IV PRN (20:58)
[2018-09-26] MEDS ORDERED: HABITROL TD SCH (22:00)
--- NOTE | 2018-09-26 23:01 | History and Physical Report ---
History of Present Illness Date of examination: 09/26/18 Date of admission: 09/26/18 16:42 Chief complaint: Cough/with blood streak. History of present illness: Patient presented to the ER with CC as above. Work up in the ED was not diagnostic of any thing.patient with remote hx of sacoma type lung cancer reated with several round of chemotherapy.CTA ,was negative for PE as per ED DOCTOR.CXY NL.Body warmer to touch, lots of body aches. remote hx of positve PPD, ?hx of TB treated in the past, as per patient. She had Flu shot ,this season.Will treat cough with suppressant,and consult Pulm. Past History Past Medical History: cancer, COPD, diabetes, hypertension, migraines Past Surgical History: hysterectomy Social history: no significant social history, single, smoking Family history: no significant family history Medications and Allergies Allergies Allergy/AdvReac Type Severity Reaction Status Date / Time amoxicillin [From Amoxil] Allergy Unknown Verified 09/26/18 15:29 dexamethasone [From Decadron] Allergy Itching Verified 09/26/18 15:29 dexamethasone sod phosphate Allergy Itching Verified 09/26/18 15:29 [From Decadron] ketorolac tromethamine Allergy Itching Verified 09/26/18 15:29 [From Toradol] latex Allergy Itching Verified 09/26/18 15:29 tramadol Allergy Itching Verified 09/26/18 15:29 Home Medications Medication Instructions Recorded Confirmed Last Taken Type Gabapentin [Neurontin] 600 mg PO TID 11/13/16 09/26/18 11/17/16 History cloNIDine [Catapres] 0.1 mg PO DAILY 11/13/16 09/26/18 11/17/16 History Lisinopril/Hydrochlorothiazide 1 each PO DAILY 06/16/18 09/26/18 Unknown History [Zestoretic 20-25 mg] Metoprolol Succinate [Toprol Xl] 25 mg PO BID 06/16/18 09/26/18 Unknown History Morphine ER [Ms Contin ER] 60 mg PO TID 06/16/18 09/26/18 Unknown History Morphine [Morphine TAB] 30 mg PO QID PRN 06/16/18 09/26/18 Unknown History amLODIPine [Norvasc] 10 mg PO DAILY 06/16/18 09/26/18 Unknown History Active Meds: Active Medications Morphine Sulfate (Morphine) 3 mg IV Q6HR PRN PRN Reason: Pain , Severe (7-10) Nicotine (Habitrol) 21 mg TD QDAY NATHALY Last Admin: 09/26/18 22:30 Dose: Not Given Documented by: Review of Systems Constitutional: night sweats, anorexia, fatigue, weakness, chronic pain Exam - Constitutional Vitals: Temp Pulse Resp BP Pulse Ox 98.5 F 87 20 105/65 94 09/26/18 15:05 09/26/18 16:30 09/26/18 18:26 09/26/18 16:30 09/26/18 16:15 General appearance: Present: mild distress - EENT Eyes: Present: PERRL ENT: hearing intact, clear oral mucosa - Neck Neck: Present: supple, normal ROM - Respiratory Respiratory effort: normal Respiratory: bilateral: CTA - Cardiovascular Heart Sounds: Present: S1 & S2. Absent: rub, click - Extremities Extremities: pulses symmetrical, No edema Peripheral Pulses: within normal limits - Abdominal General gastrointestinal: Present: soft, non-tender, non-distended, normal bowel sounds Female genitourinary: Present: deferred - Rectal Rectal Exam: deferred - Integumentary Integumentary: Present: clear, warm, dry - Musculoskeletal Musculoskeletal: gait normal, strength equal bilaterally - Psychiatric Psychiatric: appropriate mood/affect, intact judgment & insight - Neurologic Neurologic: CNII-XII intact, moves all extremities Results - Labs CBC & Chem 7: 09/26/18 13:33 09/26/18 13:33 Labs: Abnormal lab results 09/26/18 09/26/18 09/26/18 Range/Units 13:33 13:33 13:33 WBC 12.2 H (4.5-11.0) K/mm3 Seg Neutrophils % 79.7 H (40.0-70.0) % Seg Neutrophils # 9.7 H (1.8-7.7) K/mm3 APTT 20.7 L (24.2-36.6) Sec. Potassium 3.4 L (3.6-5.0) mmol/L Chloride 96.1 L (98-107) mmol/L Creatinine 0.6 L (0.7-1.2) mg/dL Albumin 3.6 L (3.9-5) g/dL Assessment and Plan - Patient Problems (1) Hemoptysis Current Visit: Yes Status: Acute Plan to address problem: cough suppressant, consult pulm, culture. (2) History of lung cancer Current Visit: Yes Status: Acute Plan to address problem: continue to watch closely for any sign of recurrence. (3) Transient hypotension Current Visit: Yes Status: Acute Plan to address problem: Hydration. (4) Hypokalemia Current Visit: Yes Status: Acute Plan to address problem: monitor labs, and replace when needed.
[2018-09-27] MEDS: NACL 0.9% 1000 ML 1,000 ML IV SCH (00:16)
[2018-09-27] MEDS: TYLENOL PO PRN ×2 (00:20→22:42)
[2018-09-27] MEDS: NEURONTIN PO SCH ×3 (07:59→19:34)
[2018-09-27] MEDS ORDERED: NON-FORMULARY (Gabapentin [Neurontin] 600 MG) PO SCH (08:00)
[2018-09-27] MEDS: ROBITUSSIN AC PO PRN ×3 (09:12→22:45)
[2018-09-27] MEDS: HABITROL TD SCH (10:03)
[2018-09-27] MEDS: ZITHROMAX 500 MG in NACL 0.9% 250ML 250 ML IV SCH (10:46)
[2018-09-27] MEDS: DILAUDID IV PRN ×2 (13:15→18:36)
--- NOTE | 2018-09-27 22:44 | Progress Note ---
Assessment and Plan - Patient Problems (1) Hemoptysis Current Visit: Yes Status: Acute Plan to address problem: cough suppressant, consult pulm, culture. (2) History of lung cancer Current Visit: Yes Status: Acute Plan to address problem: continue to watch closely for any sign of recurrence. (3) Transient hypotension Current Visit: Yes Status: Acute Plan to address problem: Hydration. (4) Hypokalemia Current Visit: Yes Status: Acute Plan to address problem: monitor labs, and replace when needed. Subjective Date of service: 09/27/18 Interval history: Patient seen/examined, resting in bed, Tmax 102,tylenol given., will add Vanco to the abx.Still awating cultures results.Will also get sputum culture. Objective - Constitutional Vitals: Vital Signs - 12hr 09/27/18 09/27/18 09/27/18 12:01 17:34 21:46 Temperature 97.3 F L 100.7 F H 102.7 F H Pulse Rate 108 H 128 H Respiratory 20 19 16 Rate Blood Pressure 120/80 129/88 123/76 O2 Sat by Pulse 93 94 Oximetry General appearance: Present: mild distress, cachectic - EENT Eyes: PERRL, EOM intact ENT: hearing intact, clear oral mucosa Ears: bilateral: normal - Neck Neck: supple, normal ROM - Respiratory Respiratory: bilateral: diminished - Breasts Breasts: deferred - Cardiovascular Rhythm: regular Heart Sounds: Present: S1 & S2. Absent: gallop, rub Extremities: pulses intact, No edema, normal color, Full ROM - Gastrointestinal General gastrointestinal: Present: soft, non-tender, non-distended, normal bowel sounds Rectal Exam: deferred - Genitourinary Female genitourinary: deferred - Integumentary Integumentary: clear, warm, dry - Musculoskeletal Musculoskeletal: 1, strength equal bilaterally - Neurologic Neurologic: moves all extremities - Psychiatric Psychiatric: memory intact, appropriate mood/affect, intact judgment & insight - Labs CBC & Chem 7: 09/26/18 13:33 09/26/18 13:33 Medications & Allergies - Medications Allergies/Adverse Reactions: Allergies amoxicillin [From Amoxil] Allergy (Verified 09/26/18 15:29) Unknown dexamethasone [From Decadron] Allergy (Verified 09/26/18 15:29) Itching dexamethasone sod phosphate [From Decadron] Allergy (Verified 09/26/18 15:29) Itching ketorolac tromethamine [From Toradol] Allergy (Verified 09/26/18 15:29) Itching latex Allergy (Verified 09/26/18 15:29) Itching tramadol Allergy (Verified 09/26/18 15:29) Itching Home Medications: Home Medications Medication Instructions Recorded Confirmed Last Taken Type Gabapentin [Neurontin] 600 mg PO TID 11/13/16 09/26/18 11/17/16 History cloNIDine [Catapres] 0.1 mg PO DAILY 11/13/16 09/26/18 11/17/16 History Lisinopril/Hydrochlorothiazide 1 each PO DAILY 06/16/18 09/26/18 Unknown History [Zestoretic 20-25 mg] Metoprolol Succinate [Toprol Xl] 25 mg PO BID 06/16/18 09/26/18 Unknown History Morphine ER [Ms Contin ER] 60 mg PO TID 06/16/18 09/26/18 Unknown History Morphine [Morphine TAB] 30 mg PO QID PRN 06/16/18 09/26/18 Unknown History amLODIPine [Norvasc] 10 mg PO DAILY 06/16/18 09/26/18 Unknown History Active Medications: Generic Name Dose Route Start Last Admin Trade Name Freq PRN Reason Stop Dose Admin Acetaminophen 650 mg 09/27/18 00:01 09/27/18 00:20 Tylenol PO 650 mg Q6H PRN Administration Pain, Mild (1-3) Gabapentin 600 mg 09/27/18 08:00 09/27/18 19:34 Neurontin PO 600 mg TID NATHALY Administration Hydromorphone HCl 2 mg 09/27/18 11:20 09/27/18 18:36 Dilaudid IV 2 mg Q3H PRN Administration Pain , Severe (7-10) Sodium Chloride 1,000 mls @ 125 mls/hr 09/26/18 23:45 09/27/18 00:16 Nacl 0.9% 1000 Ml IV 125 mls/hr DIRECT NATHALY Administration Azithromycin 500 mg/ Sodium 250 mls @ 250 mls/hr 09/27/18 10:00 09/27/18 10:46 Chloride IV 250 mls/hr Q24HR NATHALY Administration Nicotine 14 mg 09/27/18 10:00 02/19/19 10:03 Habitrol TD Not Given QDAY NATHALY Pseudoephedrine/Acetam/Chlorphenir 10 ml 09/26/18 23:08 09/27/18 18:37 Robitussin Ac PO 10 ml Q4H PRN Administration Cough
[2018-09-28] MEDS: VANCOMYCIN/NS 1 GM/250 ML 1 GM/250 ML BAG IV SCH ×2 (00:52→14:10)
[2018-09-28] MEDS: ROBITUSSIN AC PO PRN ×2 (07:08→14:12)
[2018-09-28] MEDS: NEURONTIN PO SCH ×3 (08:43→20:28)
[2018-09-28] MEDS: DILAUDID IV PRN (08:47)
[2018-09-28] MEDS: HABITROL TD SCH (10:00)
[2018-09-28] MEDS ORDERED: FLEET PR ONE (13:00)
[2018-09-28] MEDS: ZITHROMAX 500 MG in NACL 0.9% 250ML 250 ML IV SCH (14:11)
[2018-09-28] MEDS: TYLENOL PO PRN (17:58)
[2018-09-28] MEDS: NACL 0.9% 1000 ML 1,000 ML IV SCH (22:46)
--- NOTE | 2018-09-28 22:46 | Progress Note ---
Assessment and Plan - Patient Problems (1) Hemoptysis Current Visit: Yes Status: Acute Plan to address problem: cough suppressant, consult pulm, culture. (2) History of lung cancer Current Visit: Yes Status: Acute Plan to address problem: continue to watch closely for any sign of recurrence. (3) Transient hypotension Current Visit: Yes Status: Acute Plan to address problem: Hydration. (4) Hypokalemia Current Visit: Yes Status: Acute Plan to address problem: monitor labs, and replace when needed. Subjective Date of service: 09/28/18 Interval history: Patient seen/examined, resting in bed, Tmax 102,tylenol given., will add Vanco to the abx.Still awating cultures results.Will also get sputum culture. Patient seen/examined, resting in bed. Culture of sputum, consistent with rare GM = cocci in clusters, patient already started on vanco..BC no growth so far. Objective - Constitutional Vitals: Vital Signs - 12hr 09/28/18 09/28/18 09/28/18 12:12 17:50 20:59 Temperature 97.7 F 102.2 F H Pulse Rate 98 H 120 H Respiratory 18 16 Rate Blood Pressure 148/107 136/89 O2 Sat by Pulse 99 95 99 Oximetry General appearance: Present: mild distress - EENT Eyes: PERRL, EOM intact ENT: hearing intact, clear oral mucosa Ears: bilateral: normal - Neck Neck: supple, normal ROM - Respiratory Respiratory effort: normal Respiratory: bilateral: CTA - Breasts Breasts: deferred - Cardiovascular Rhythm: regular Heart Sounds: Present: S1 & S2. Absent: gallop, rub Extremities: pulses intact, No edema, normal color, Full ROM - Gastrointestinal General gastrointestinal: Present: soft, non-tender, non-distended, normal bowel sounds Rectal Exam: deferred - Genitourinary Female genitourinary: deferred - Integumentary Integumentary: clear, warm, dry - Musculoskeletal Musculoskeletal: 1, strength equal bilaterally - Neurologic Neurologic: moves all extremities - Psychiatric Psychiatric: memory intact, appropriate mood/affect, intact judgment & insight - Labs CBC & Chem 7: 09/26/18 13:33 09/26/18 13:33 Medications & Allergies - Medications Allergies/Adverse Reactions: Allergies amoxicillin [From Amoxil] Allergy (Verified 09/26/18 15:29) Unknown dexamethasone [From Decadron] Allergy (Verified 09/26/18 15:29) Itching dexamethasone sod phosphate [From Decadron] Allergy (Verified 09/26/18 15:29) Itching ketorolac tromethamine [From Toradol] Allergy (Verified 09/26/18 15:29) Itching latex Allergy (Verified 09/26/18 15:29) Itching tramadol Allergy (Verified 09/26/18 15:29) Itching Home Medications: Home Medications Medication Instructions Recorded Confirmed Last Taken Type Gabapentin [Neurontin] 600 mg PO TID 11/13/16 09/26/18 11/17/16 History cloNIDine [Catapres] 0.1 mg PO DAILY 11/13/16 09/26/18 11/17/16 History Lisinopril/Hydrochlorothiazide 1 each PO DAILY 06/16/18 09/26/18 Unknown History [Zestoretic 20-25 mg] Metoprolol Succinate [Toprol Xl] 25 mg PO BID 06/16/18 09/26/18 Unknown History Morphine ER [Ms Contin ER] 60 mg PO TID 06/16/18 09/26/18 Unknown History Morphine [Morphine TAB] 30 mg PO QID PRN 06/16/18 09/26/18 Unknown History amLODIPine [Norvasc] 10 mg PO DAILY 06/16/18 09/26/18 Unknown History Active Medications: Generic Name Dose Route Start Last Admin Trade Name Freq PRN Reason Stop Dose Admin Acetaminophen 650 mg 09/27/18 00:01 09/28/18 17:58 Tylenol PO 650 mg Q6H PRN Administration Pain, Mild (1-3) Gabapentin 600 mg 09/27/18 08:00 09/28/18 20:28 Neurontin PO 600 mg TID NATHALY Administration Hydromorphone HCl 2 mg 09/27/18 11:20 09/28/18 08:47 Dilaudid IV 2 mg Q3H PRN Administration Pain , Severe (7-10) Sodium Chloride 1,000 mls @ 125 mls/hr 09/26/18 23:45 09/27/18 00:16 Nacl 0.9% 1000 Ml IV 125 mls/hr DIRECT NATHALY Administration Azithromycin 500 mg/ Sodium 250 mls @ 250 mls/hr 09/27/18 10:00 09/28/18 14:11 Chloride IV 250 mls/hr Q24HR NATHALY Administration Vancomycin HCl 1 gm in 250 mls @ 166.667 mls/hr 09/27/18 23:00 09/28/18 14:10 Vancomycin/Ns 1 Gm/250 Ml IV 166.667 mls/hr Q12H NATHALY Administration Protocol Nicotine 14 mg 09/27/18 10:00 09/28/18 10:00 Habitrol TD Not Given QDAY NATHALY Pseudoephedrine/Acetam/Chlorphenir 10 ml 09/26/18 23:08 09/28/18 14:12 Robitussin Ac PO 10 ml Q4H PRN Administration Cough
[2018-09-29] MEDS: VANCOMYCIN/NS 1 GM/250 ML 1 GM/250 ML BAG IV SCH ×3 (00:03→23:35)
[2018-09-29] MEDS: ROBITUSSIN AC PO PRN ×2 (09:03→14:00)
[2018-09-29] MEDS: ZITHROMAX 500 MG in NACL 0.9% 250ML 250 ML IV SCH ×2 (09:04→23:31)
[2018-09-29] MEDS: NEURONTIN PO SCH ×3 (09:04→20:28)
[2018-09-29] MEDS: DILAUDID IV PRN ×2 (09:15→20:39)
[2018-09-29] MEDS: HABITROL TD SCH (09:19)
[2018-09-29] MEDS ORDERED: APRESOLINE PO ONE (14:10)
--- NOTE | 2018-09-29 14:50 | XRay Report ---
AP CHEST: HISTORY: PICC placement Compared to 09/26/18. A left arm PICC has been inserted which terminates in the superior right atrium. Consider retraction by 2-3 cm to the cavoatrial junction. Subtle infiltration has developed in the lateral right lung since the previous exam. This is concerning for an early pneumonia. The left lung is clear. No pleural effusion or pneumothorax. Normal heart size and pulmonary vessels. IMPRESSION: Left arm PICC as described. Subtle infiltrate is suspected in the right lung on today's exam.
--- NOTE | 2018-09-29 17:20 | XRay Report ---
FINAL REPORT EXAM: XR CHEST 1V AP HISTORY: left upper arm picc. picc pulled 3 cm TECHNIQUE: Frontal chest radiograph. PRIORS: 09/12/2018. FINDINGS: The left upper extremity PICC tip projects in the lower SVC. The cardiomediastinal silhouette is norm al. Focal consolidation is seen in the periphery of the right midlung. No pleural effusion. No pneumothorax. No acute osseous abnormality. IMPRESSION: 1. Left upper extremity PICC tip projecting in the lower SVC. 2. Right lung opacities concerning for pneumonia.
[2018-09-29] MEDS: TYLENOL PO PRN (17:35)
--- NOTE | 2018-09-29 19:10 | Progress Note ---
Assessment and Plan - Patient Problems (1) Hemoptysis Current Visit: Yes Status: Acute Plan to address problem: cough suppressant, consult pulm, culture. (2) History of lung cancer Current Visit: Yes Status: Acute Plan to address problem: continue to watch closely for any sign of recurrence. (3) Transient hypotension Current Visit: Yes Status: Acute Plan to address problem: Hydration. (4) Hypokalemia Current Visit: Yes Status: Acute Plan to address problem: monitor labs, and replace when needed. (5) Pneumonia Current Visit: Yes Status: Acute Qualifiers: Laterality: right Plan to address problem: Continue IV ABX. Subjective Date of service: 09/29/18 Interval history: Patient seen/examined, resting in bed, Tmax 102,tylenol given., will add Vanco to the abx.Still awating cultures results.Will also get sputum culture. Patient seen/examined, resting in bed. Culture of sputum, consistent with rare GM = cocci in clusters, patient already started on vanco..BC no growth so far. Patient seen/examined, resting in bed, had a new picc line placed today. CXR reveals early PNA in the right lung.Will continue with IV ABX. Objective - Constitutional Vitals: Vital Signs - 12hr 09/29/18 09/29/18 09/29/18 08:34 10:19 12:12 Temperature 98.3 F Pulse Rate 87 Respiratory 16 16 Rate Blood Pressure 174/110 Blood Pressure [Right] O2 Sat by Pulse 97 100 Oximetry 09/29/18 13:54 Temperature 99.0 F Pulse Rate 78 Respiratory 16 Rate Blood Pressure Blood Pressure 157/97 [Right] O2 Sat by Pulse 100 Oximetry General appearance: Present: mild distress - EENT Eyes: PERRL, EOM intact ENT: hearing intact, clear oral mucosa Ears: bilateral: normal - Neck Neck: supple, normal ROM - Respiratory Respiratory: bilateral: rhonchi - Breasts Breasts: deferred, normal - Cardiovascular Rhythm: regular Heart Sounds: Present: S1 & S2. Absent: gallop, rub Extremities: pulses intact, No edema, normal color, Full ROM - Gastrointestinal General gastrointestinal: Present: soft, non-tender, non-distended, normal bowel sounds Rectal Exam: deferred - Genitourinary Female genitourinary: deferred - Integumentary Integumentary: clear, warm, dry - Musculoskeletal Musculoskeletal: 1, strength equal bilaterally - Neurologic Neurologic: moves all extremities - Psychiatric Psychiatric: memory intact, appropriate mood/affect, intact judgment & insight - Labs CBC & Chem 7: 09/26/18 13:33 09/26/18 13:33 Medications & Allergies - Medications Allergies/Adverse Reactions: Allergies amoxicillin [From Amoxil] Allergy (Verified 09/26/18 15:29) Unknown dexamethasone [From Decadron] Allergy (Verified 09/26/18 15:29) Itching dexamethasone sod phosphate [From Decadron] Allergy (Verified 09/26/18 15:29) Itching ketorolac tromethamine [From Toradol] Allergy (Verified 09/26/18 15:29) Itching latex Allergy (Verified 09/26/18 15:29) Itching tramadol Allergy (Verified 09/26/18 15:29) Itching Home Medications: Home Medications Medication Instructions Recorded Confirmed Last Taken Type Gabapentin [Neurontin] 600 mg PO TID 11/13/16 09/26/18 11/17/16 History cloNIDine [Catapres] 0.1 mg PO DAILY 11/13/16 09/26/18 11/17/16 History Lisinopril/Hydrochlorothiazide 1 each PO DAILY 06/16/18 09/26/18 Unknown History [Zestoretic 20-25 mg] Metoprolol Succinate [Toprol Xl] 25 mg PO BID 06/16/18 09/26/18 Unknown History Morphine ER [Ms Contin ER] 60 mg PO TID 06/16/18 09/26/18 Unknown History Morphine [Morphine TAB] 30 mg PO QID PRN 06/16/18 09/26/18 Unknown History amLODIPine [Norvasc] 10 mg PO DAILY 06/16/18 09/26/18 Unknown History Active Medications: Generic Name Dose Route Start Last Admin Trade Name Freq PRN Reason Stop Dose Admin Acetaminophen 650 mg 09/27/18 00:01 09/29/18 17:35 Tylenol PO 650 mg Q6H PRN Administration Pain, Mild (1-3) Gabapentin 600 mg 09/27/18 08:00 09/29/18 14:00 Neurontin PO 600 mg TID NATHALY Administration Hydromorphone HCl 2 mg 09/27/18 11:20 09/29/18 09:15 Dilaudid IV 2 mg Q3H PRN Administration Pain , Severe (7-10) Sodium Chloride 1,000 mls @ 125 mls/hr 09/26/18 23:45 09/28/18 22:46 Nacl 0.9% 1000 Ml IV 125 mls/hr DIRECT NATHALY Administration Azithromycin 500 mg/ Sodium 250 mls @ 250 mls/hr 09/27/18 10:00 09/29/18 09:04 Chloride IV 250 mls/hr Q24HR NATHALY Administration Vancomycin HCl 1 gm in 250 mls @ 166.667 mls/hr 09/27/18 23:00 09/29/18 12:12 Vancomycin/Ns 1 Gm/250 Ml IV Not Given Q12H NATHALY Protocol Nicotine 14 mg 09/27/18 10:00 09/29/18 09:19 Habitrol TD Not Given QDAY NATHALY Pseudoephedrine/Acetam/Chlorphenir 10 ml 09/26/18 23:08 09/29/18 14:00 Robitussin Ac PO 10 ml Q4H PRN Administration Cough
[2018-09-30] MEDS ORDERED: APRESOLINE PO NR (06:39)
[2018-09-30] MEDS: HABITROL TD SCH (10:06)
[2018-09-30] MEDS: ZITHROMAX 500 MG in NACL 0.9% 250ML 250 ML IV SCH (10:09)
[2018-09-30] MEDS: NEURONTIN PO SCH ×3 (10:09→20:02)
[2018-09-30] MEDS: ROBITUSSIN AC PO PRN ×3 (10:09→20:02)
[2018-09-30] MEDS: DILAUDID IV PRN ×2 (10:21→20:08)
[2018-09-30] MEDS: VANCOMYCIN/NS 1 GM/250 ML 1 GM/250 ML BAG IV SCH ×2 (12:56→22:19)
[2018-09-30] MEDS: LOPRESSOR PO SCH ×2 (13:10→22:22)
[2018-09-30] MEDS: CATAPRES PO SCH ×2 (15:15→16:08)
[2018-09-30] MEDS: ZESTRIL PO SCH (15:16)
[2018-09-30] MEDS: NORVASC PO SCH ×2 (15:16→16:09)
--- NOTE | 2018-09-30 17:47 | Cat Scan Report ---
FINAL REPORT EXAM: CT HEAD/BRAIN WO CON HISTORY: tingling in head TECHNIQUE: CT head without contrast PRIORS: None. FINDINGS: No acute intra-axial or extra-axial hemorrhage is identified. There is no evidence of midline shift or mass effect. The ventricles and sulci are within normal limits. Savage-white matter differentiation is intact. No acute parenchymal abnormalities seen. Bony calvarium is grossly intact. Visualized portions of the mastoids and paranasal sinuses are unre markable. IMPRESSION: Negative CT head
[2018-09-30] MEDS: HCTZ PO SCH (18:38)
[2018-09-30] MEDS: TYLENOL PO PRN (22:30)
--- NOTE | 2018-09-30 22:54 | Progress Note ---
Assessment and Plan - Patient Problems (1) Hemoptysis Current Visit: Yes Status: Acute Plan to address problem: cough suppressant, consult pulm, culture. (2) History of lung cancer Current Visit: Yes Status: Acute Plan to address problem: continue to watch closely for any sign of recurrence. (3) Transient hypotension Current Visit: Yes Status: Acute Plan to address problem: Hydration. (4) Hypokalemia Current Visit: Yes Status: Acute Plan to address problem: monitor labs, and replace when needed. (5) Pneumonia Current Visit: Yes Status: Acute Qualifiers: Laterality: right Plan to address problem: Continue IV ABX. Subjective Date of service: 09/30/18 Interval history: Patient seen/examined, resting in bed, Tmax 102,tylenol given., will add Vanco to the abx.Still awating cultures results.Will also get sputum culture. Patient seen/examined, resting in bed. Culture of sputum, consistent with rare GM = cocci in clusters, patient already started on vanco..BC no growth so far. Patient seen/examined, resting in bed, had a new picc line placed today. CXR reveals early PNA in the right lung.Will continue with IV ABX. Patient seen/examined, resting in bed, had tingling in the right parietal area today, and CT of the brain negative. Objective - Constitutional Vitals: Vital Signs - 12hr 09/30/18 09/30/18 09/30/18 11:05 13:10 16:08 Temperature 98.9 F Pulse Rate 93 H 104 H 85 Respiratory 20 Rate Blood Pressure 138/98 136/89 150/111 O2 Sat by Pulse 94 Oximetry 09/30/18 09/30/18 09/30/18 17:05 20:08 22:22 Temperature 99.6 F Pulse Rate 92 H 103 H Respiratory 20 20 Rate Blood Pressure 136/100 109/76 O2 Sat by Pulse 93 Oximetry 09/30/18 22:30 Temperature Pulse Rate Respiratory 18 Rate Blood Pressure O2 Sat by Pulse Oximetry General appearance: Present: mild distress, well-nourished - EENT Eyes: PERRL, EOM intact ENT: hearing intact, clear oral mucosa Ears: bilateral: normal - Neck Neck: supple, normal ROM - Respiratory Respiratory effort: normal Respiratory: bilateral: CTA - Breasts Breasts: deferred - Cardiovascular Rhythm: regular Heart Sounds: Present: S1 & S2. Absent: gallop, rub Extremities: pulses intact, No edema, normal color, Full ROM - Gastrointestinal General gastrointestinal: Present: soft, non-tender, non-distended, normal bowel sounds Rectal Exam: deferred - Genitourinary Female genitourinary: deferred - Integumentary Integumentary: clear, warm, dry - Musculoskeletal Musculoskeletal: 1, strength equal bilaterally - Neurologic Neurologic: moves all extremities - Psychiatric Psychiatric: memory intact, appropriate mood/affect, intact judgment & insight - Labs CBC & Chem 7: 09/26/18 13:33 09/26/18 13:33 Medications & Allergies - Medications Allergies/Adverse Reactions: Allergies amoxicillin [From Amoxil] Allergy (Verified 09/26/18 15:29) Unknown dexamethasone [From Decadron] Allergy (Verified 09/26/18 15:29) Itching dexamethasone sod phosphate [From Decadron] Allergy (Verified 09/26/18 15:29) Itching ketorolac tromethamine [From Toradol] Allergy (Verified 09/26/18 15:29) Itching latex Allergy (Verified 09/26/18 15:29) Itching tramadol Allergy (Verified 09/26/18 15:29) Itching Home Medications: Home Medications Medication Instructions Recorded Confirmed Last Taken Type Gabapentin [Neurontin] 600 mg PO TID 11/13/16 09/26/18 11/17/16 History cloNIDine [Catapres] 0.1 mg PO DAILY 11/13/16 09/26/18 11/17/16 History Lisinopril/Hydrochlorothiazide 1 each PO DAILY 06/16/18 09/26/18 Unknown History [Zestoretic 20-25 mg] Metoprolol Succinate [Toprol Xl] 25 mg PO BID 06/16/18 09/26/18 Unknown History Morphine ER [Ms Contin ER] 60 mg PO TID 06/16/18 09/26/18 Unknown History Morphine [Morphine TAB] 30 mg PO QID PRN 06/16/18 09/26/18 Unknown History amLODIPine [Norvasc] 10 mg PO DAILY 06/16/18 09/26/18 Unknown History Active Medications: Generic Name Dose Route Start Last Admin Trade Name Freq PRN Reason Stop Dose Admin Acetaminophen 650 mg 09/27/18 00:01 09/30/18 22:30 Tylenol PO 650 mg Q6H PRN Administration Pain, Mild (1-3) Amlodipine Besylate 10 mg 09/30/18 13:00 09/30/18 16:09 Norvasc PO 10 mg QDAY NATHALY Administration Clonidine HCl 0.1 mg 09/30/18 13:00 09/30/18 16:08 Catapres PO 0.1 mg DAILY NATHALY Administration Gabapentin 600 mg 09/27/18 08:00 09/30/18 20:02 Neurontin PO 600 mg TID NATHALY Administration Hydrochlorothiazide 25 mg 09/30/18 16:00 09/30/18 18:38 Hctz PO 25 mg QDAY NATHALY Administration Hydromorphone HCl 2 mg 09/27/18 11:20 09/30/18 20:08 Dilaudid IV 2 mg Q3H PRN Administration Pain , Severe (7-10) Sodium Chloride 1,000 mls @ 125 mls/hr 09/26/18 23:45 09/28/18 22:46 Nacl 0.9% 1000 Ml IV 125 mls/hr DIRECT NATHALY Administration Azithromycin 500 mg/ Sodium 250 mls @ 250 mls/hr 09/27/18 10:00 09/30/18 10:09 Chloride IV 250 mls/hr Q24HR NATHALY Administration Vancomycin HCl 1 gm in 250 mls @ 166.667 mls/hr 09/27/18 23:00 09/30/18 22:19 Vancomycin/Ns 1 Gm/250 Ml IV 166.667 mls/hr Q12H NATHALY Administration Protocol Lisinopril 20 mg 09/30/18 13:00 Zestril PO QDAY NATHALY Metoprolol Tartrate 25 mg 09/30/18 13:00 09/30/18 22:22 Lopressor PO 25 mg BID NATHALY Administration Nicotine 14 mg 09/27/18 10:00 09/30/18 10:06 Habitrol TD Not Given QDAY NATHALY Pseudoephedrine/Acetam/Chlorphenir 10 ml 09/26/18 23:08 09/30/18 20:02 Robitussin Ac PO 10 ml Q4H PRN Administration Cough
[2018-10-01] MEDS: ROBITUSSIN AC PO PRN ×4 (04:36→19:56)
[2018-10-01] MEDS: DILAUDID IV PRN ×4 (04:43→19:57)
[2018-10-01 05:31] LABS: Basophils # (Auto) 0.1 K/mm3 (0.0-0.1); Basophils % (Auto) 0.8 % (0.0-1.8); Eosinophils # (Auto) 0.1 K/mm3 (0.0-0.4); Eosinophils % (Auto) 1.2 % (0.0-4.3); Hemoglobin 11.5 gm/dl (10.1-14.3); Lymphocytes # (Auto) 2.1 K/mm3 (1.2-5.4); Lymphocytes % (Auto) 22.9 % (13.4-35.0); Mean Corpuscular HGB Conc 35 % (30-34); Mean Corpuscular Volume 92 fl (79-97); Monocytes # (Auto) 0.9 K/mm3 (0.0-0.8); Monocytes % (Auto) 9.4 % (0.0-7.3); Platelet Count 232 K/mm3 (140-440); Red Blood Count 3.58 M/mm3 (3.65-5.03); Red Cell Distribution Width 14.2 % (13.2-15.2)
[2018-10-01 05:46] LABS: BUN/Creatinine Ratio 10; Blood Urea Nitrogen 4 mg/dL (7-17); Calcium 8.8 mg/dL (8.4-10.2); Hemolysis Index 1
[2018-10-01] MEDS ORDERED: ZOSYN/NS 3.375GM/50ML 3.375 GM/50 ML BAG IV SCH (06:00)
[2018-10-01] MEDS: HABITROL TD SCH (09:52)
[2018-10-01] MEDS: ROCEPHIN/NS 1 GM/50 ML 1 GM/50 ML BAG IV SCH (10:01)
[2018-10-01] MEDS: HCTZ PO SCH (10:01)
[2018-10-01] MEDS: LOPRESSOR PO SCH ×2 (10:01→21:46)
[2018-10-01] MEDS: NEURONTIN PO SCH ×3 (10:02→19:44)
[2018-10-01] MEDS: NORVASC PO SCH (10:13)
[2018-10-01] MEDS: CATAPRES PO SCH (10:13)
[2018-10-01] MEDS: ZESTRIL PO SCH (10:13)
[2018-10-01] MEDS: DIFLUCAN 200 MG/100 ML BAG IV SCH (10:16)
[2018-10-01] MEDS: VANCOMYCIN/NS 1 GM/250 ML 1 GM/250 ML BAG IV SCH (11:34)
--- NOTE | 2018-10-01 18:19 | Progress Note ---
Assessment and Plan - Patient Problems (1) Hemoptysis Current Visit: Yes Status: Acute Plan to address problem: cough suppressant, consult pulm, culture. (2) History of lung cancer Current Visit: Yes Status: Acute Plan to address problem: continue to watch closely for any sign of recurrence. (3) Transient hypotension Current Visit: Yes Status: Acute Plan to address problem: Hydration. (4) Hypokalemia Current Visit: Yes Status: Acute Plan to address problem: monitor labs, and replace when needed. (5) Pneumonia Current Visit: Yes Status: Acute Qualifiers: Laterality: right Plan to address problem: Continue IV ABX. (6) Zunilda albicans infection Current Visit: Yes Status: Acute Plan to address problem: Started on Fluconazole already. Subjective Date of service: 10/01/18 Interval history: Patient seen/examined, resting in bed, Tmax 102,tylenol given., will add Vanco to the abx.Still awating cultures results.Will also get sputum culture. Patient seen/examined, resting in bed. Culture of sputum, consistent with rare GM = cocci in clusters, patient already started on vanco..BC no growth so far. Patient seen/examined, resting in bed, had a new picc line placed today. CXR reveals early PNA in the right lung.Will continue with IV ABX. Patient seen/examined, resting in bed, had tingling in the right parietal area today, and CT of the brain negative. patient seen/examined, resting in bed, labs reviewed, case d/w patient, culture, sputum + Zunilda albicans.Fluconazole already started. Objective - Constitutional Vitals: Vital Signs - 12hr 10/01/18 10/01/18 10:01 13:38 Temperature 98.5 F Pulse Rate 91 H 83 Respiratory 15 Rate Blood Pressure 120/77 119/88 O2 Sat by Pulse 96 Oximetry General appearance: Present: no acute distress - EENT Eyes: PERRL, EOM intact ENT: hearing intact, clear oral mucosa Ears: bilateral: normal - Neck Neck: supple, normal ROM - Respiratory Respiratory effort: normal Respiratory: bilateral: CTA - Breasts Breasts: deferred - Cardiovascular Rhythm: regular Heart Sounds: Present: S1 & S2. Absent: gallop, rub Extremities: pulses intact, No edema, normal color, Full ROM - Gastrointestinal General gastrointestinal: Present: soft, non-tender, non-distended, normal bowel sounds Rectal Exam: deferred - Genitourinary Female genitourinary: deferred - Integumentary Integumentary: clear, warm, dry - Musculoskeletal Musculoskeletal: 1, strength equal bilaterally - Neurologic Neurologic: moves all extremities - Psychiatric Psychiatric: memory intact, appropriate mood/affect, intact judgment & insight - Labs CBC & Chem 7: 10/01/18 05:00 10/01/18 05:00 Labs: Abnormal lab results 10/01/18 10/01/18 Range/Units 05:00 05:00 RBC 3.58 L (3.65-5.03) M/mm3 MCHC 35 H (30-34) % [place] % (Auto) 9.4 H (0.0-7.3) % [place] # 0.9 H (0.0-0.8) K/mm3 Sodium 136 L (137-145) mmol/L Chloride 96.6 L (98-107) mmol/L BUN 4 L (7-17) mg/dL Creatinine 0.4 L (0.7-1.2) mg/dL Glucose 114 H (65-100) mg/dL Medications & Allergies - Medications Allergies/Adverse Reactions: Allergies amoxicillin [From Amoxil] Allergy (Verified 09/26/18 15:29) Unknown dexamethasone [From Decadron] Allergy (Verified 09/26/18 15:29) Itching dexamethasone sod phosphate [From Decadron] Allergy (Verified 09/26/18 15:29) Itching ketorolac tromethamine [From Toradol] Allergy (Verified 09/26/18 15:29) Itching latex Allergy (Verified 09/26/18 15:29) Itching tramadol Allergy (Verified 09/26/18 15:29) Itching Home Medications: Home Medications Medication Instructions Recorded Confirmed Last Taken Type Gabapentin [Neurontin] 600 mg PO TID 11/13/16 09/26/18 11/17/16 History cloNIDine [Catapres] 0.1 mg PO DAILY 11/13/16 09/26/18 11/17/16 History Lisinopril/Hydrochlorothiazide 1 each PO DAILY 06/16/18 09/26/18 Unknown History [Zestoretic 20-25 mg] Metoprolol Succinate [Toprol Xl] 25 mg PO BID 06/16/18 09/26/18 Unknown History Morphine ER [Ms Contin ER] 60 mg PO TID 06/16/18 09/26/18 Unknown History Morphine [Morphine TAB] 30 mg PO QID PRN 06/16/18 09/26/18 Unknown History amLODIPine [Norvasc] 10 mg PO DAILY 06/16/18 09/26/18 Unknown History Active Medications: Generic Name Dose Route Start Last Admin Trade Name Freq PRN Reason Stop Dose Admin Acetaminophen 650 mg 09/27/18 00:01 09/30/18 22:30 Tylenol PO 650 mg Q6H PRN Administration Pain, Mild (1-3) Amlodipine Besylate 10 mg 09/30/18 13:00 10/01/18 10:13 Norvasc PO Not Given QDAY NATHALY Clonidine HCl 0.1 mg 09/30/18 13:00 10/01/18 10:13 Catapres PO Not Given DAILY NATHALY Gabapentin 600 mg 09/27/18 08:00 10/01/18 15:14 Neurontin PO 600 mg TID NATHALY Administration Hydrochlorothiazide 25 mg 09/30/18 16:00 10/01/18 10:01 Hctz PO 25 mg QDAY NATHALY Administration Hydromorphone HCl 2 mg 09/27/18 11:20 10/01/18 15:26 Dilaudid IV 2 mg Q3H PRN Administration Pain , Severe (7-10) Sodium Chloride 1,000 mls @ 125 mls/hr 09/26/18 23:45 09/28/18 22:46 Nacl 0.9% 1000 Ml IV 125 mls/hr DIRECT NATHALY Administration Vancomycin HCl 1 gm in 250 mls @ 166.667 mls/hr 09/27/18 23:00 10/01/18 11:34 Vancomycin/Ns 1 Gm/250 Ml IV 166.667 mls/hr Q12H NATHALY Administration Protocol Fluconazole 200 mg in 100 mls @ 100 mls/hr 10/01/18 10:00 10/01/18 10:16 Diflucan IV 100 mls/hr Q24HR NATHALY Administration Protocol Ceftriaxone Sodium 1 gm in 50 mls @ 100 mls/hr 10/01/18 10:00 10/01/18 10:01 Rocephin/Ns 1 Gm/50 Ml IV 100 mls/hr Q24HR NATHALY Administration Lisinopril 20 mg 09/30/18 13:00 10/01/18 10:13 Zestril PO Not Given QDAY NATHALY Metoprolol Tartrate 25 mg 09/30/18 13:00 10/01/18 10:01 Lopressor PO 25 mg BID NATHALY Administration Nicotine 14 mg 09/27/18 10:00 10/01/18 09:52 Habitrol TD Not Given QDAY NATHALY Pseudoephedrine/Acetam/Chlorphenir 10 ml 09/26/18 23:08 10/01/18 15:14 Robitussin Ac PO 10 ml Q4H PRN Administration Cough Sodium Biphosphate/Sodium Phosphate 133 ml 10/01/18 17:39 [place] QDAY PRN Bowel Movement
[2018-10-01] MEDS: FLEET PR PRN (18:35)
[2018-10-02] MEDS: VANCOMYCIN/NS 1 GM/250 ML 1 GM/250 ML BAG IV SCH ×2 (00:07→14:44)
[2018-10-02] MEDS: DILAUDID IV PRN ×5 (00:13→23:57)
[2018-10-02] MEDS: ROBITUSSIN AC PO PRN ×5 (00:22→23:23)
[2018-10-02] MEDS: HABITROL TD SCH (09:54)
[2018-10-02] MEDS: CATAPRES PO SCH (09:54)
[2018-10-02] MEDS: ZESTRIL PO SCH ×4 (09:55→18:01)
[2018-10-02] MEDS: NORVASC PO SCH ×2 (09:55→18:00)
[2018-10-02] MEDS: ROCEPHIN/NS 1 GM/50 ML 1 GM/50 ML BAG IV SCH (10:22)
[2018-10-02] MEDS: DIFLUCAN 200 MG/100 ML BAG IV SCH (10:23)
[2018-10-02] MEDS: HCTZ PO SCH (10:23)
[2018-10-02] MEDS: LOPRESSOR PO SCH ×2 (10:24→21:11)
[2018-10-02] MEDS: NEURONTIN PO SCH ×3 (10:28→21:11)
--- NOTE | 2018-10-02 16:09 | Consultation ---
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 She reports she was not sick, no recent sick contacts, no recent colds/flu. Since that day she has been couginh up mainly dry and at least once a day she coughs uo blood. Denies fever, chills, chest pain, N/V/D, abdominal pain, chest pain. Reports weight loss 6Lb in 1 week. She has a history of a positive PPD but no diagnosis of tuberculosis and she has never been treated with tuberculosis medications she did receive a flu shot this year. Patient called her PMD office prior to arrival was advised to come to the ER for evaluation. In the ED, temp 102.5, HR 116, R 18, BP 100/66, O2 sat 98%. WBC 12.2. Hg 13.9. Plat 179. Creat 0.6. UA neg. Blood culture 09/26/2018 neg. Sputum 09/27/2018 Zunilda albicans. CXR initially neg. Repeat CXR showed RML consolidation. Review of Systems: General: no fever, +chills, nightsweats, +weight loss 6L in 1 week, +anorexia Cutaneous: no rash, pruritus Head: no headaches or injury Eyes: no changes in vision, eye pain, double vision Ears: no ear pain, ear discharge, ringing or hearing loss Nose: no nose bleeding, stuffiness Mouth & throat: no bleeding gums, no horseness, no dental problems, or swollen glands Neck: no pain, node enlargement/lumps, tyroid enlargement or tenderness Respiratory: +cough, wheezing, sputum,+ hemoptysis, pleuritic chest pain Cardiovascular: no chest pain, leg edema, cyanosis, PARKER, orthopnea Musculoskeletal: no decreased joint motion, bone or joint pain, joint swelling, muscle aches Gastrointestinal: no nausea, vomiting, hematemesis, diarrhea, constipation, melena, bright red blood in stools, fecal incontinence, jaundice Genitourinary/Reproductive: no frequent urination, dysuria, hematuria, incontinence Neurogical: no seizures, no headaches, no weakness, no paresthesias, no loss of speech or vision; no memory loss, no vertigo, no tremors, no numbness Psychiatric: stable mood; no excessive anxiety, sadness or moodiness Past History Past Medical History: cancer, COPD, diabetes, hypertension, migraines Past Surgical History: hysterectomy Social history: no significant social history, single, smoking Family history: no significant family history Medications and Allergies Allergies Allergy/AdvReac Type Severity Reaction Status Date / Time amoxicillin [From Amoxil] Allergy Unknown Verified 09/26/18 15:29 dexamethasone [From Decadron] Allergy Itching Verified 09/26/18 15:29 dexamethasone sod phosphate Allergy Itching Verified 09/26/18 15:29 [From Decadron] ketorolac tromethamine Allergy Itching Verified 09/26/18 15:29 [From Toradol] latex Allergy Itching Verified 09/26/18 15:29 tramadol Allergy Itching Verified 09/26/18 15:29 Home Medications Medication Instructions Recorded Confirmed Last Taken Type Gabapentin [Neurontin] 600 mg PO TID 11/13/16 09/26/18 11/17/16 History cloNIDine [Catapres] 0.1 mg PO DAILY 11/13/16 09/26/18 11/17/16 History Lisinopril/Hydrochlorothiazide 1 each PO DAILY 06/16/18 09/26/18 Unknown History [Zestoretic 20-25 mg] Metoprolol Succinate [Toprol Xl] 25 mg PO BID 06/16/18 09/26/18 Unknown History Morphine ER [Ms Contin ER] 60 mg PO TID 06/16/18 09/26/18 Unknown History Morphine [Morphine TAB] 30 mg PO QID PRN 06/16/18 09/26/18 Unknown History amLODIPine [Norvasc] 10 mg PO DAILY 06/16/18 09/26/18 Unknown History Active Meds: Active Medications Acetaminophen (Tylenol) 650 mg PO Q6H PRN PRN Reason: Pain, Mild (1-3) Last Admin: 09/30/18 22:30 Dose: 650 mg Documented by: Amlodipine Besylate (Norvasc) 10 mg PO QDAY NATHALY Last Admin: 10/02/18 09:55 Dose: Not Given Documented by: Clonidine HCl (Catapres) 0.1 mg PO DAILY [facility] Last Admin: 10/02/18 09:54 Dose: Not Given Documented by: Gabapentin (Neurontin) 600 mg PO TID [facility] Last Admin: 10/02/18 10:28 Dose: 600 mg Documented by: Hydrochlorothiazide (Hctz) 25 mg PO QDAY [facility] Last Admin: 10/02/18 10:23 Dose: 25 mg Documented by: Hydromorphone HCl (Dilaudid) 2 mg IV Q3H PRN PRN Reason: Pain , Severe (7-10) Last Admin: 10/02/18 14:27 Dose: 2 mg Documented by: Sodium Chloride (Nacl 0.9% 1000 Ml) 1,000 mls @ 125 mls/hr IV DIRECT [facility] Last Admin: 09/28/18 22:46 Dose: 125 mls/hr Documented by: Vancomycin HCl (Vancomycin/Ns 1 Gm/250 Ml) 1 gm in 250 mls @ 166.667 mls/hr IV Q12H [facility]; Protocol Last Admin: 10/02/18 14:44 Dose: 166.667 mls/hr Documented by: Fluconazole (Diflucan) 200 mg in 100 mls @ 100 mls/hr IV Q24HR [facility]; Protocol Last Admin: 10/02/18 10:23 Dose: 100 mls/hr Documented by: Ceftriaxone Sodium (Rocephin/Ns 1 Gm/50 Ml) 1 gm in 50 mls @ 100 mls/hr IV Q24HR [facility] Last Admin: 10/02/18 10:22 Dose: 100 mls/hr Documented by: Lisinopril (Zestril) 20 mg PO QDAY [facility] Last Admin: 10/02/18 09:55 Dose: Not Given Documented by: Metoprolol Tartrate (Lopressor) 25 mg PO BID [facility] Last Admin: 10/02/18 10:24 Dose: 25 mg Documented by: Nicotine (Habitrol) 14 mg TD QDAY [facility] Last Admin: 10/02/18 09:54 Dose: Not Given Documented by: Pseudoephedrine/Acetam/Chlorphenir (Robitussin Ac) 10 ml PO Q4H PRN PRN Reason: Cough Last Admin: 10/02/18 14:27 Dose: 10 ml Documented by: Sodium Biphosphate/Sodium Phosphate (Fleet) 133 ml [place] QDAY PRN PRN Reason: Bowel Movement Last Admin: 10/01/18 18:35 Dose: 133 ml Documented by: Physical Examination - Physical Exam Narrative exam: General appearance: Alert in NAD, conversant Eyes: anicteric sclerae, moist conjunctivae; no lid-lag; PERRLA HENT: Atraumatic; oropharynx clear with moist mucous membranes and no mucosal ulcerations/no oral thrush; normal hard and soft palate. Normal external ears. Neck: Trachea midline; supple, no thyromegaly or lymphadenopathy Lungs: scattered portillo rhonchi CV: RRR, no murmurs Abdomen: Soft, non-tender; no masses or hepatosplenomegaly Extremities: No peripheral edema or extremity lymphadenopathy Skin: Normal temperature, turgor and texture; no rash, ulcers or subcutaneous nodules Psych: Appropriate affect, alert and oriented to person, place and time. Neuro: alert and oriented x 3. 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 Etiology most likely due to pneumonia. 2) Pneumonia: patient with history of lobectomy for previous lung cancer (sarcom atoid carcinoma in January 2018), now with fever and hemoptysis. Sputum 09/27/2018 Zunilda albicans. CXR initially neg. Repeat CXR showed RML consolidation. Etiology -most likely CAP +/- influenza. Sputum Zunilda likely a colonizer. She has a history of a positive PPD but no diagnosis of tuberculosis or treatment. Should r/o malignancy. Low risk for TB. HIV test done 2 weeks ago negative. Blood culture 09/26/2018 neg. Patient currently on ceftriaxone, fluconazole, vancomycin. Recommendations: - follow-up blood cultures - check Influenza rapid antigen - C-reactive protein (CRP)/quantiferon - obtain Chest CT to eval for malignancy - check MRSA screening - continue ceftriaxone increased to 2 gm IV qday - add azithromycin and tamiflu - stop fluconazole - continue vancomycin for now, once MRSA screening is negative will stop vanco Will follow. Maribel Telles MD Infectious Diseases [facility] M [phone] O [phone]
--- NOTE | 2018-10-02 18:40 | Cat Scan Report ---
FINAL REPORT PROCEDURE: CT chest with contrast. TECHNIQUE: Computerized axial tomography of the chest was performed during the IV injection of iodin ated nonionic contrast. HISTORY: hemoptysis and fever eval for pneumonia, previous COMPARISON: CT angiogram chest 01/09/2018. TECHNICAL QUALITY: Satisfactory. FINDINGS: The trachea and central bronchi appear normal. There is some consolidation in the posteromedial porti on of the left lower lobe. This may represent pneumonia. There is some patchy ground-glass opacity in the right lower lobe. This could also represent early pneumonia. There are a few small cysts present bilaterally. There are no pulmonary nodules. There are no cavitary lesions. There are no pleural eff usions. The thoracic aorta has a normal caliber without evidence of dissection. The pulmonary arterie s enhance normally. There are no filling defects to indicate pulmonary embolism. There is no mediasti nal adenopathy. The heart size is mildly enlarged. The thoracic skeleton appears intact. There is a l eft arm PICC line catheter that terminates in the SVC. IMPRESSION: Possible bilateral pneumonia, worse on the left. Mild cardiomegaly.
--- NOTE | 2018-10-02 20:15 | Progress Note ---
Assessment and Plan - Patient Problems (1) Hemoptysis Current Visit: Yes Status: Acute Plan to address problem: cough suppressant, consult pulm, culture. (2) History of lung cancer Current Visit: Yes Status: Acute Plan to address problem: continue to watch closely for any sign of recurrence. (3) Transient hypotension Current Visit: Yes Status: Acute Plan to address problem: Hydration. (4) Hypokalemia Current Visit: Yes Status: Acute Plan to address problem: monitor labs, and replace when needed. (5) Pneumonia Current Visit: Yes Status: Acute Qualifiers: Laterality: right Plan to address problem: Continue IV ABX. (6) Zunilda albicans infection Current Visit: Yes Status: Acute Plan to address problem: Started on Fluconazole already. Subjective Date of service: 10/02/18 Interval history: Patient seen/examined, resting in bed, Tmax 102,tylenol given., will add Vanco to the abx.Still awating cultures results.Will also get sputum culture. Patient seen/examined, resting in bed. Culture of sputum, consistent with rare GM = cocci in clusters, patient already started on vanco..BC no growth so far. Patient seen/examined, resting in bed, had a new picc line placed today. CXR reveals early PNA in the right lung.Will continue with IV ABX. Patient seen/examined, resting in bed, had tingling in the right parietal area today, and CT of the brain negative. patient seen/examined, resting in bed, labs reviewed, case d/w patient, culture, sputum + Zunilda albicans.Fluconazole already started. Patient seen/examined, resting in bed, records reviewed, including the [facility] notes/rec, appreciate DR Sandy input. Case d/w patient. agree with recommendations. Objective - Constitutional Vitals: Vital Signs - 12hr 10/02/18 10/02/18 10/02/18 09:54 10:24 12:09 Temperature 98.4 F Pulse Rate 71 Respiratory 15 Rate Blood Pressure 112/79 112/79 149/109 O2 Sat by Pulse 99 Oximetry 10/02/18 10/02/18 17:15 18:00 Temperature 99.9 F H Pulse Rate 84 84 Respiratory 18 Rate Blood Pressure 144/97 144/97 O2 Sat by Pulse 99 Oximetry General appearance: Present: mild distress, well-nourished - EENT Eyes: PERRL, EOM intact ENT: hearing intact, clear oral mucosa Ears: bilateral: normal - Neck Neck: supple, normal ROM - Respiratory Respiratory effort: normal Respiratory: bilateral: CTA - Breasts Breasts: deferred - Cardiovascular Rhythm: regular Heart Sounds: Present: S1 & S2. Absent: gallop, rub Extremities: pulses intact, No edema, normal color, Full ROM - Gastrointestinal General gastrointestinal: Present: soft, non-tender, non-distended, normal bowel sounds Rectal Exam: deferred - Genitourinary Female genitourinary: deferred - Integumentary Integumentary: clear, warm, dry - Musculoskeletal Musculoskeletal: 1, strength equal bilaterally - Neurologic Neurologic: moves all extremities - Psychiatric Psychiatric: memory intact, appropriate mood/affect, intact judgment & insight - Labs CBC & Chem 7: 10/01/18 05:00 10/01/18 05:00 Labs: Abnormal lab results 10/02/18 Range/Units 16:38 C-Reactive Protein 10.20 H (0.00-1.30) mg/dL Medications & Allergies - Medications Allergies/Adverse Reactions: Allergies amoxicillin [From Amoxil] Allergy (Verified 09/26/18 15:29) Unknown dexamethasone [From Decadron] Allergy (Verified 09/26/18 15:29) Itching dexamethasone sod phosphate [From Decadron] Allergy (Verified 09/26/18 15:29) Itching ketorolac tromethamine [From Toradol] Allergy (Verified 09/26/18 15:29) Itching latex Allergy (Verified 09/26/18 15:29) Itching tramadol Allergy (Verified 09/26/18 15:29) Itching Home Medications: Home Medications Medication Instructions Recorded Confirmed Last Taken Type Gabapentin [Neurontin] 600 mg PO TID 11/13/16 09/26/18 11/17/16 History cloNIDine [Catapres] 0.1 mg PO DAILY 11/13/16 09/26/18 11/17/16 History Lisinopril/Hydrochlorothiazide 1 each PO DAILY 06/16/18 09/26/18 Unknown History [Zestoretic 20-25 mg] Metoprolol Succinate [Toprol Xl] 25 mg PO BID 06/16/18 09/26/18 Unknown History Morphine ER [Ms Contin ER] 60 mg PO TID 06/16/18 09/26/18 Unknown History Morphine [Morphine TAB] 30 mg PO QID PRN 06/16/18 09/26/18 Unknown History amLODIPine [Norvasc] 10 mg PO DAILY 06/16/18 09/26/18 Unknown History Active Medications: Generic Name Dose Route Start Last Admin Trade Name Freq PRN Reason Stop Dose Admin Acetaminophen 650 mg 09/27/18 00:01 09/30/18 22:30 Tylenol PO 650 mg Q6H PRN Administration Pain, Mild (1-3) Amlodipine Besylate 10 mg 09/30/18 13:00 10/02/18 18:00 Norvasc PO 10 mg QDAY NATHALY Administration Clonidine HCl 0.1 mg 09/30/18 13:00 10/02/18 09:54 Catapres PO Not Given DAILY NATHALY Gabapentin 600 mg 09/27/18 08:00 10/02/18 17:29 Neurontin PO 600 mg TID NATHALY Administration Hydrochlorothiazide 25 mg 09/30/18 16:00 10/02/18 10:23 Hctz PO 25 mg QDAY NATHALY Administration Hydromorphone HCl 2 mg 09/27/18 11:20 10/02/18 17:59 Dilaudid IV 2 mg Q3H PRN Administration Pain , Severe (7-10) Sodium Chloride 1,000 mls @ 125 mls/hr 09/26/18 23:45 09/28/18 22:46 Nacl 0.9% 1000 Ml IV 125 mls/hr DIRECT NATHALY Administration Vancomycin HCl 1 gm in 250 mls @ 166.667 mls/hr 09/27/18 23:00 10/02/18 14:44 Vancomycin/Ns 1 Gm/250 Ml IV 166.667 mls/hr Q12H NATHALY Administration Protocol Fluconazole 200 mg in 100 mls @ 100 mls/hr 10/01/18 10:00 10/02/18 10:23 Diflucan IV 100 mls/hr Q24HR NATHALY Administration Protocol Ceftriaxone Sodium 1 gm in 50 mls @ 100 mls/hr 10/01/18 10:00 10/02/18 10:22 Rocephin/Ns 1 Gm/50 Ml IV 100 mls/hr Q24HR NATHALY Administration Lisinopril 20 mg 09/30/18 13:00 10/02/18 18:01 Zestril PO 20 mg QDAY NATHALY Administration Metoprolol Tartrate 25 mg 09/30/18 13:00 10/02/18 10:24 Lopressor PO 25 mg BID NATHALY Administration Nicotine 14 mg 09/27/18 10:00 10/02/18 09:54 Habitrol TD Not Given QDAY NATHALY Pseudoephedrine/Acetam/Chlorphenir 10 ml 09/26/18 23:08 10/02/18 18:01 Robitussin Ac PO 10 ml Q4H PRN Administration Cough Sodium Biphosphate/Sodium Phosphate 133 ml 10/01/18 17:39 10/01/18 18:35 [place] 133 ml QDAY PRN Administration Bowel Movement
[2018-10-02] MEDS: ZITHROMAX 500 MG in NACL 0.9% 250ML 250 ML IV SCH (23:14)
[2018-10-02] MEDS: TAMIFLU PO SCH (23:23)
[2018-10-03] MEDS: VANCOMYCIN/NS 1 GM/250 ML 1 GM/250 ML BAG IV SCH ×2 (00:44→12:13)
[2018-10-03] MEDS: ROCEPHIN/NS 2 GM/100 ML 2 GM/100 ML BAG IV SCH ×2 (00:45→22:27)
--- NOTE | 2018-10-03 09:00 | Progress Note ---
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 Etiology most likely due to pneumonia. 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 Sputum 09/27/2018 Zunilda albicans. CXR initially neg. Repeat CXR showed RML consolidation. Etiology -most likely CAP +/- influenza. Sputum Zunilda likely a colonizer. She has a history of a positive PPD but no diagnosis of tuberculosis or treatment. Should r/o malignancy. Low risk for TB. HIV test done 2 weeks ago negative. Blood culture 09/26/2018 neg. Patient currently on ceftriaxone, fluconazole, vancomycin. -CRP 10.2 9.3 -Chest CT: Possible bilateral pneumonia, worse on the left. There are a few small cysts present bilaterally. There are no pulmonary nodules. There are no cavitary lesions. There are no pleural effusions. Recommendations: - follow-up blood cultures - check Influenza rapid antigen - f/u quantiferon results in office 10-13-18, low risk for TB - f/u MRSA screening - continue ceftriaxone 2 gm IV qday - continue azithromycin and tamiflu - continue vancomycin for now, once MRSA screening is negative will stop [facility] M: [phone] O:[phone] Subjective Date of service: 10/03/18 Interval history: Patient seen and examined. Reports generalized weakness, no fevers. Nurses notes, labs and reports reviewed, discussed with patient, questions answered. Objective - Exam Narrative Exam: General appearance: Alert in NAD, conversant Eyes: anicteric sclerae, moist conjunctivae; no lid-lag; PERRLA HENT: Atraumatic; oropharynx clear with moist mucous membranes and no mucosal ulcerations/no oral thrush; normal hard and soft palate. Normal external ears. Neck: Trachea midline; supple, no thyromegaly or lymphadenopathy Lungs: scattered portillo rhonchi CV: RRR, no murmurs Abdomen: Soft, non-tender; no masses or hepatosplenomegaly Extremities: No peripheral edema or extremity lymphadenopathy Skin: Normal temperature, turgor and texture; no rash, ulcers or subcutaneous nodules Psych: Appropriate affect, alert and oriented to person, place and time. Neuro: alert and oriented x 3. Moving all extermities - Constitutional Vitals: Vital Signs Temp Pulse Resp BP Pulse Ox 98.1 F 75 16 100/70 97 10/03/18 05:50 10/03/18 05:50 10/03/18 05:50 10/03/18 05:50 10/03/18 05:50 Temperature -Last 24 Hours Temperature 98.1 F Temperature 98.5 F Temperature 99.9 F Temperature 98.4 F - Labs CBC & Chem 7: 10/03/18 09:45 10/01/18 05:00 Labs: Abnormal lab results 10/02/18 10/02/18 Range/Units 16:38 21:10 C-Reactive Protein 10.20 H 9.30 H (0.00-1.30) mg/dL
[2018-10-03] MEDS: HCTZ PO SCH (09:05)
[2018-10-03] MEDS: CATAPRES PO SCH (09:10)
[2018-10-03] MEDS: LOPRESSOR PO SCH ×2 (09:10→22:06)
[2018-10-03] MEDS: NORVASC PO SCH (09:10)
[2018-10-03] MEDS: TAMIFLU PO SCH ×2 (09:10→22:05)
[2018-10-03] MEDS: NEURONTIN PO SCH ×3 (09:11→22:07)
[2018-10-03] MEDS: HABITROL TD SCH (09:12)
[2018-10-03] MEDS: ROBITUSSIN AC PO PRN ×2 (09:16→22:22)
[2018-10-03] MEDS: DILAUDID IV PRN ×2 (09:25→22:22)
[2018-10-03] MEDS: ZESTRIL PO SCH (10:02)
[2018-10-03 10:05] LABS: Basophils # (Auto) 0.1 K/mm3 (0.0-0.1); Eosinophils # (Auto) 0.1 K/mm3 (0.0-0.4); Eosinophils % (Auto) 1.9 % (0.0-4.3); Hematocrit 33.6 % (30.3-42.9); Hemoglobin 11.6 gm/dl (10.1-14.3); Lymphocytes # (Auto) 1.8 K/mm3 (1.2-5.4); Lymphocytes % (Auto) 30.9 % (13.4-35.0); Mean Corpuscular HGB Conc 34 % (30-34); Mean Corpuscular Volume 93 fl (79-97); Monocytes # (Auto) 0.4 K/mm3 (0.0-0.8); Monocytes % (Auto) 7.2 % (0.0-7.3); Platelet Count 338 K/mm3 (140-440); Red Blood Count 3.64 M/mm3 (3.65-5.03); Red Cell Distribution Width 14.1 % (13.2-15.2)
--- NOTE | 2018-10-03 19:59 | Progress Note ---
Assessment and Plan - Patient Problems (1) Hemoptysis Current Visit: Yes Status: Acute Plan to address problem: cough suppressant, consult pulm, culture. continue with current management. (2) History of lung cancer Current Visit: Yes Status: Acute Plan to address problem: continue to watch closely for any sign of recurrence. supportive care. (3) Transient hypotension Current Visit: Yes Status: Acute Plan to address problem: Hydration. stable. (4) Hypokalemia Current Visit: Yes Status: Acute Plan to address problem: monitor labs, and replace when needed. resolved (5) Pneumonia Current Visit: Yes Status: Acute Qualifiers: Laterality: right Plan to address problem: Continue IV ABX. follow ID. (6) Zunilda albicans infection Current Visit: Yes Status: Acute Plan to address problem: Started on Fluconazole already. Follow ID. Subjective Date of service: 10/03/18 Interval history: Patient seen/examined, resting in bed, Tmax 102,tylenol given., will add Vanco to the abx.Still awating cultures results.Will also get sputum culture. Patient seen/examined, resting in bed. Culture of sputum, consistent with rare GM = cocci in clusters, patient already started on vanco..BC no growth so far. Patient seen/examined, resting in bed, had a new picc line placed today. CXR re veals early PNA in the right lung.Will continue with IV ABX. Patient seen/examined, resting in bed, had tingling in the right parietal area today, and CT of the brain negative. patient seen/examined, resting in bed, labs reviewed, case d/w patient, culture, sputum + Zunilda albicans.Fluconazole already started. Patient seen/examined, resting in bed, records reviewed, including the consultants notes/rec, appreciate DR Sandy input. Case d/w patient. agree with recommendations. Patient seen/examined, resting in bed, notes/labs reviewed, case d/w patient.Will continue to follow ID recommendation. Objective - Constitutional Vitals: Vital Signs - 12hr 10/03/18 10/03/18 10/03/18 09:10 10:02 12:17 Temperature 98.5 F Pulse Rate 82 Respiratory 18 Rate Blood Pressure 114/73 114/73 112/76 O2 Sat by Pulse 97 Oximetry 10/03/18 17:35 Temperature 98.3 F Pulse Rate 64 Respiratory 18 Rate Blood Pressure 121/83 O2 Sat by Pulse 99 Oximetry General appearance: Present: mild distress, cachectic - EENT Eyes: PERRL, EOM intact ENT: hearing intact, clear oral mucosa Ears: bilateral: normal - Neck Neck: supple, normal ROM - Respiratory Respiratory effort: normal Respiratory: bilateral: CTA - Breasts Breasts: deferred - Cardiovascular Rhythm: regular Heart Sounds: Present: S1 & S2. Absent: gallop, rub Extremities: pulses intact, No edema, normal color, Full ROM - Gastrointestinal General gastrointestinal: Present: soft, non-tender, non-distended, normal bowel sounds Rectal Exam: deferred - Genitourinary Female genitourinary: deferred - Integumentary Integumentary: clear, warm, dry - Musculoskeletal Musculoskeletal: 1, strength equal bilaterally - Neurologic Neurologic: moves all extremities - Psychiatric Psychiatric: memory intact, appropriate mood/affect, intact judgment & insight - Labs CBC & Chem 7: 10/03/18 09:45 10/01/18 05:00 Labs: Abnormal lab results 10/02/18 10/03/18 Range/Units 21:10 09:45 RBC 3.64 L (3.65-5.03) M/mm3 C-Reactive Protein 9.30 H (0.00-1.30) mg/dL Medications & Allergies - Medications Allergies/Adverse Reactions: Allergies amoxicillin [From Amoxil] Allergy (Verified 09/26/18 15:29) Unknown dexamethasone [From Decadron] Allergy (Verified 09/26/18 15:29) Itching dexamethasone sod phosphate [From Decadron] Allergy (Verified 09/26/18 15:29) Itching ketorolac tromethamine [From Toradol] Allergy (Verified 09/26/18 15:29) Itching latex Allergy (Verified 09/26/18 15:29) Itching tramadol Allergy (Verified 09/26/18 15:29) Itching Home Medications: Home Medications Medication Instructions Recorded Confirmed Last Taken Type Gabapentin [Neurontin] 600 mg PO TID 11/13/16 09/26/18 11/17/16 History cloNIDine [Catapres] 0.1 mg PO DAILY 11/13/16 09/26/18 11/17/16 History Lisinopril/Hydrochlorothiazide 1 each PO DAILY 06/16/18 09/26/18 Unknown History [Zestoretic 20-25 mg] Metoprolol Succinate [Toprol Xl] 25 mg PO BID 06/16/18 09/26/18 Unknown History Morphine ER [Ms Contin ER] 60 mg PO TID 06/16/18 09/26/18 Unknown History Morphine [Morphine TAB] 30 mg PO QID PRN 06/16/18 09/26/18 Unknown History amLODIPine [Norvasc] 10 mg PO DAILY 06/16/18 09/26/18 Unknown History Active Medications: Generic Name Dose Route Start Last Admin Trade Name Freq PRN Reason Stop Dose Admin Acetaminophen 650 mg 09/27/18 00:01 09/30/18 22:30 Tylenol PO 650 mg Q6H PRN Administration Pain, Mild (1-3) Amlodipine Besylate 10 mg 09/30/18 13:00 10/03/18 09:10 Norvasc PO Not Given QDAY NATHALY Clonidine HCl 0.1 mg 09/30/18 13:00 10/03/18 09:10 Catapres PO Not Given DAILY NATHALY Gabapentin 600 mg 09/27/18 08:00 10/03/18 14:20 Neurontin PO 600 mg TID NATHALY Administration Hydrochlorothiazide 25 mg 09/30/18 16:00 10/03/18 09:05 Hctz PO 25 mg QDAY NATHALY Administration Hydromorphone HCl 2 mg 09/27/18 11:20 10/03/18 09:25 Dilaudid IV 2 mg Q3H PRN Administration Pain , Severe (7-10) Sodium Chloride 1,000 mls @ 125 mls/hr 09/26/18 23:45 09/28/18 22:46 Nacl 0.9% 1000 Ml IV 125 mls/hr DIRECT NATHALY Administration Azithromycin 500 mg/ Sodium 250 mls @ 250 mls/hr 10/02/18 22:00 10/02/18 23:14 Chloride IV 250 mls/hr Q24H NATHALY Administration Ceftriaxone Sodium 2 gm in 100 mls @ 200 mls/hr 10/02/18 22:00 10/03/18 00:45 Rocephin/Ns 2 Gm/100 Ml IV 200 mls/hr Q24H NATHALY Administration Protocol Vancomycin HCl 1 gm in 250 mls @ 166.667 mls/hr 10/03/18 22:00 Vancomycin/Ns 1 Gm/250 Ml IV Q8HR NATHALY Protocol Lisinopril 20 mg 09/30/18 13:00 10/03/18 10:02 Zestril PO Not Given QDAY [facility] Metoprolol Tartrate 25 mg 09/30/18 13:00 10/03/18 09:10 Lopressor PO Not Given BID [facility] Nicotine 14 mg 09/27/18 10:00 10/03/18 09:12 Habitrol TD Not Given QDAY [facility] Oseltamivir Phosphate 75 mg 10/02/18 22:00 10/03/18 09:10 Tamiflu PO 10/07/18 10:01 75 mg BID NATHALY Administration Pseudoephedrine/Acetam/Chlorphenir 10 ml 09/26/18 23:08 10/03/18 09:16 Robitussin Ac PO 10 ml Q4H PRN Administration Cough Sodium Biphosphate/Sodium Phosphate 133 ml 10/01/18 17:39 10/01/18 18:35 [place] 133 ml QDAY PRN Administration Bowel Movement
[2018-10-03] MEDS: ZITHROMAX 500 MG in NACL 0.9% 250ML 250 ML IV SCH (23:13)
[2018-10-04] MEDS: VANCOMYCIN/NS 1 GM/250 ML 1 GM/250 ML BAG IV SCH ×2 (00:27→07:10)
--- NOTE | 2018-10-04 09:10 | Progress Note ---
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 Etiology most likely due to pneumonia. 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 Sputum 09/27/2018 Zunilda albicans. CXR initially neg. Repeat CXR showed RML consolidation. Etiology -most likely CAP +/- influenza. Sputum Zunilda likely a colonizer. She has a history of a positive PPD but no diagnosis of tuberculosis or treatment. Should r/o malignancy. Low risk for TB. HIV test done 2 weeks ago negative. Blood culture 09/26/2018 neg. Patient currently on ceftriaxone, azithromycin, vancomycin and tamiflu -CRP 10.2 9.3 -Chest CT: Possible bilateral pneumonia, worse on the left. There are a few small cysts present bilaterally. There are no pulmonary nodules. There are no cavitary lesions. There are no pleural effusions. Influenza negative Recommendations: - follow-up blood cultures - f/u quantiferon results in office 10-13-18, low risk for TB - continue ceftriaxone 2 gm IV qday , D3 - continue azithromycin, switched to PO, D3 - discontinue Vancomycin until MRSA is ruled out, -discontinue tamiflu, influenza negative Can be discharged from ID standpoint on Ceftin 500mg PO BID for 2 more days ending 10-06-18 for a total of 5 days of treatment -prescription is on the chart ID is signing off d/w Dr. Sandy/[facility] M: [phone] O:[phone] Subjective Date of service: 10/04/18 Interval history: Patient seen and examined. Reports generalized weakness, no fevers. Nurses notes, labs and reports reviewed, discussed with patient, questions answered. Objective - Exam Narrative Exam: General appearance: Alert in NAD, conversant Eyes: anicteric sclerae, moist conjunctivae; no lid-lag; PERRLA HENT: Atraumatic; oropharynx clear with moist mucous membranes and no mucosal ulcerations/no oral thrush; normal hard and soft palate. Normal external ears. Neck: Trachea midline; supple, no thyromegaly or lymphadenopathy Lungs: Clear to auscultation CV: RRR, no murmurs Abdomen: Soft, non-tender; no masses or hepatosplenomegaly Extremities: No peripheral edema or extremity lymphadenopathy Skin: Normal temperature, turgor and texture; no rash, ulcers or subcutaneous nodules Psych: Appropriate affect, alert and oriented to person, place and time. Neuro: alert and oriented x 3. Moving all extermities - Constitutional Vitals: Vital Signs Temp Pulse Resp BP Pulse Ox 98.5 F 65 20 120/76 99 10/04/18 05:14 10/04/18 05:14 10/04/18 05:14 10/04/18 05:14 10/04/18 05:14 Temperature -Last 24 Hours Temperature 98.5 F Temperature 98.5 F Temperature 98.3 F Temperature 98.5 F - Labs CBC & Chem 7: 10/03/18 09:45 10/01/18 05:00 Labs: Abnormal lab results 10/03/18 Range/Units 09:45 RBC 3.64 L (3.65-5.03) M/mm3
[2018-10-04] MEDS: HABITROL TD SCH (09:11)
[2018-10-04] MEDS: ZESTRIL PO SCH (09:11)
[2018-10-04] MEDS: CATAPRES PO SCH (09:11)
[2018-10-04] MEDS: NEURONTIN PO SCH ×3 (09:11→22:23)
[2018-10-04] MEDS: HCTZ PO SCH (09:11)
[2018-10-04] MEDS: TAMIFLU PO SCH (09:12)
[2018-10-04] MEDS: LOPRESSOR PO SCH ×2 (09:12→22:24)
[2018-10-04] MEDS: NORVASC PO SCH (09:12)
[2018-10-04] MEDS: NACL 0.9% 1000 ML 1,000 ML IV SCH (09:16)
[2018-10-04] MEDS: ROBITUSSIN AC PO PRN ×3 (09:29→22:35)
[2018-10-04] MEDS: ZITHROMAX PO SCH (14:42)
[2018-10-04] MEDS: DILAUDID IV PRN ×2 (17:50→22:31)
--- NOTE | 2018-10-04 19:09 | Progress Note ---
Assessment and Plan - Patient Problems (1) Hemoptysis Current Visit: Yes Status: Acute Plan to address problem: cough suppressant, consult pulm, culture. continue with current management. (2) History of lung cancer Current Visit: Yes Status: Acute Plan to address problem: continue to watch closely for any sign of recurrence. supportive care. (3) Transient hypotension Current Visit: Yes Status: Acute Plan to address problem: Hydration. stable. (4) Hypokalemia Current Visit: Yes Status: Acute Plan to address problem: monitor labs, and replace when needed. resolved (5) Pneumonia Current Visit: Yes Status: Acute Qualifiers: Laterality: right Plan to address problem: Continue IV ABX. follow ID. (6) Zunilda albicans infection Current Visit: Yes Status: Acute Plan to address problem: Started on Fluconazole already. Follow ID. Subjective Date of service: 10/04/18 Interval history: Patient seen/examined, resting in bed, Tmax 102,tylenol given., will add Vanco to the abx.Still awating cultures results.Will also get sputum culture. Patient seen/examined, resting in bed. Culture of sputum, consistent with rare GM = cocci in clusters, patient already started on vanco.. no growth so far. Patient seen/examined, resting in bed, had a new picc line placed today. CXR re veals early PNA in the right lung.Will continue with IV ABX. Patient seen/examined, resting in bed, had tingling in the right parietal area today, and CT of the brain negative. patient seen/examined, resting in bed, labs reviewed, case d/w patient, culture, sputum + Zunilda albicans.Fluconazole already started. Patient seen/examined, resting in bed, records reviewed, including the consultants notes/rec, appreciate DR Sandy input. Case d/w patient. agree with recommendations. Patient seen/examined, resting in bed, notes/labs reviewed, case d/w patient.Will continue to follow ID recommendation. Patient seen/examined, resting in bed, labs reviewed, case d/w patient, and family. I have d/w ID, signed off, and recommendation highly appreciated Patient q/o have been coughing all afternoon, with ting blood this morning.C/o feels awfully weak at this time.I will plan d/c for tomorrow.. Objective - Constitutional Vitals: Vital Signs - 12hr 10/04/18 10/04/18 11:41 17:14 Temperature 98.4 F 98.4 F Pulse Rate 63 66 Respiratory 20 18 Rate Blood Pressure 125/85 144/93 O2 Sat by Pulse 100 98 Oximetry General appearance: Present: mild distress, cachectic - EENT Eyes: PERRL, EOM intact ENT: hearing intact, clear oral mucosa Ears: bilateral: normal - Neck Neck: supple, normal ROM - Respiratory Respiratory effort: normal Respiratory: bilateral: CTA - Breasts Breasts: deferred - Cardiovascular Rhythm: regular Heart Sounds: Present: S1 & S2. Absent: gallop, rub Extremities: pulses intact, No edema, normal color, Full ROM - Gastrointestinal General gastrointestinal: Present: soft, non-tender, non-distended, normal bowel sounds Rectal Exam: deferred - Genitourinary Female genitourinary: deferred - Integumentary Integumentary: clear, warm, dry - Musculoskeletal Musculoskeletal: 1, strength equal bilaterally - Neurologic Neurologic: moves all extremities - Psychiatric Psychiatric: memory intact, appropriate mood/affect, intact judgment & insight - Labs CBC & Chem 7: 10/03/18 09:45 10/01/18 05:00 Medications & Allergies - Medications Allergies/Adverse Reactions: Allergies amoxicillin [From Amoxil] Allergy (Verified 09/26/18 15:29) Unknown dexamethasone [From Decadron] Allergy (Verified 09/26/18 15:29) Itching dexamethasone sod phosphate [From Decadron] Allergy (Verified 09/26/18 15:29) Itching ketorolac tromethamine [From Toradol] Allergy (Verified 09/26/18 15:29) Itching latex Allergy (Verified 09/26/18 15:29) Itching tramadol Allergy (Verified 09/26/18 15:29) Itching Home Medications: Home Medications Medication Instructions Recorded Confirmed Last Taken Type Gabapentin [Neurontin] 600 mg PO TID 11/13/16 09/26/18 11/17/16 History cloNIDine [Catapres] 0.1 mg PO DAILY 11/13/16 09/26/18 11/17/16 History Lisinopril/Hydrochlorothiazide 1 each PO DAILY 06/16/18 09/26/18 Unknown History [Zestoretic 20-25 mg] Metoprolol Succinate [Toprol Xl] 25 mg PO BID 06/16/18 09/26/18 Unknown History Morphine ER [Ms Contin ER] 60 mg PO TID 06/16/18 09/26/18 Unknown History Morphine [Morphine TAB] 30 mg PO QID PRN 06/16/18 09/26/18 Unknown History amLODIPine [Norvasc] 10 mg PO DAILY 06/16/18 09/26/18 Unknown History cefUROXime [Ceftin] 500 mg PO Q12H 2 Days #8 tablet 10/04/18 Unknown Rx Active Medications: Generic Name Dose Route Start Last Admin Trade Name Freq PRN Reason Stop Dose Admin Acetaminophen 650 mg 09/27/18 00:01 09/30/18 22:30 Tylenol PO 650 mg Q6H PRN Administration Pain, Mild (1-3) Amlodipine Besylate 10 mg 09/30/18 13:00 10/04/18 09:12 Norvasc PO 10 mg QDAY NATHALY Administration Azithromycin 500 mg 10/04/18 14:00 10/04/18 14:42 Zithromax PO 500 mg QDAY NATHALY Administration Clonidine HCl 0.1 mg 09/30/18 13:00 10/04/18 09:11 Catapres PO 0.1 mg DAILY NATHALY Administration Gabapentin 600 mg 09/27/18 08:00 10/04/18 14:42 Neurontin PO 600 mg TID NATHALY Administration Hydrochlorothiazide 25 mg 09/30/18 16:00 10/04/18 09:11 Hctz PO 25 mg QDAY NATHALY Administration Hydromorphone HCl 2 mg 09/27/18 11:20 10/04/18 17:50 Dilaudid IV 2 mg Q3H PRN Administration Pain , Severe (7-10) Sodium Chloride 1,000 mls @ 125 mls/hr 09/26/18 23:45 10/04/18 09:16 Nacl 0.9% 1000 Ml IV 125 mls/hr DIRECT NATHALY Administration Ceftriaxone Sodium 2 gm in 100 mls @ 200 mls/hr 10/02/18 22:00 10/03/18 22:27 Rocephin/Ns 2 Gm/100 Ml IV 200 mls/hr Q24H NATHALY Administration Protocol Lisinopril 20 mg 09/30/18 13:00 10/04/18 09:11 Zestril PO 20 mg QDAY NATHALY Administration Metoprolol Tartrate 25 mg 09/30/18 13:00 10/04/18 09:12 Lopressor PO 25 mg BID NATHALY Administration Nicotine 14 mg 09/27/18 10:00 10/04/18 09:11 Habitrol TD 14 mg QDAY NATHALY Administration Pseudoephedrine/Acetam/Chlorphenir 10 ml 09/26/18 23:08 10/04/18 14:47 Robitussin Ac PO 10 ml Q4H PRN Administration Cough Sodium Biphosphate/Sodium Phosphate 133 ml 10/01/18 17:39 10/01/18 18:35 [place] 133 ml QDAY PRN Administration Bowel Movement
[2018-10-04] MEDS: ROCEPHIN/NS 2 GM/100 ML 2 GM/100 ML BAG IV SCH (22:27)
[2018-10-05] MEDS: DILAUDID IV PRN ×3 (05:12→14:25)
[2018-10-05] MEDS: ROBITUSSIN AC PO PRN ×3 (05:13→14:24)
[2018-10-05] MEDS: NORVASC PO SCH (09:25)
[2018-10-05] MEDS: CATAPRES PO SCH (09:25)
[2018-10-05] MEDS: HCTZ PO SCH (09:25)
[2018-10-05] MEDS: LOPRESSOR PO SCH (09:25)
[2018-10-05] MEDS: NEURONTIN PO SCH ×2 (09:25→14:23)
[2018-10-05] MEDS: HABITROL TD SCH (09:25)
[2018-10-05] MEDS: ZITHROMAX PO SCH (09:25)
[2018-10-05] MEDS: ZESTRIL PO SCH (09:26)
[2018-10-05] MEDS: FLEET PR PRN (15:24)
[2018-10-05 17:20] VITALS: BP 118/79
--- NOTE | 2018-10-05 19:17 | Discharge Summary ---
Providers - Providers Date of Admission: 09/26/18 16:42 Date of discharge: 10/05/18 Attending physician: ESTELA WILSON 09/29/18 11:10 PICC Line Insertion [Consult to PICC Line RN] [CONS] Stat Reason For Exam: terminologist antibiotic therapy Type Line:: PICC 10/01/18 19:41 Consult to Physician [CONS] Routine Comment: Consulting Provider: ERIN FRANCO Physician Instructions: Reason For Exam: staph, and sandy albican in the sputum, . Primary care physician: ANTONIO CRISTINA Hospitalization Reason for admission: PNa/sepsis Condition: Stable Hospital course: Patient seen/examined, resting in bed, NAD, records reviewed. she had presented to the ER on the day of admission, with CC of cough, hemoptysis, dx, and admitted for PNA/sepsis, and treated with IVABX, later found to grow yeast, sandy albican ,in the sputum, treated also with antifungal. She was seen, by ID, and her rec was followed. Patient ,has improved, and will be d/c, and follow up with me, and with ID as out patient. Disposition: DC- TO HOME OR SELFCARE - Discharge Diagnoses (1) Hemoptysis Status: Resolved (2) History of lung cancer Status: Chronic (3) Transient hypotension Status: Resolved (4) Hypokalemia Status: Resolved (5) Pneumonia Status: Inactive Qualifiers: Laterality: right (6) Sandy albicans infection Status: Inactive Core Measure Documentation - Palliative Care Palliative Care/ Comfort Measures: Not Applicable - Core Measures Any of the following diagnoses?: none Exam - Constitutional Vitals: Temp Pulse Resp BP Pulse Ox 98.3 F 82 20 118/79 93 10/05/18 17:07 10/05/18 17:07 10/05/18 17:07 10/05/18 17:07 10/05/18 17:07 General appearance: Present: no acute distress, cachectic - EENT Eyes: Present: PERRL ENT: hearing intact, clear oral mucosa - Neck Neck: Present: supple, normal ROM - Respiratory Respiratory effort: normal Respiratory: bilateral: other (residual cough.) - Cardiovascular Heart Sounds: Present: S1 & S2. Absent: rub, click - Extremities Extremities: pulses symmetrical, No edema Peripheral Pulses: within normal limits - Abdominal General gastrointestinal: Present: soft, non-tender, non-distended, normal bowel sounds Female genitourinary: Present: deferred - Rectal Rectal Exam: deferred - Integumentary Integumentary: Present: clear, warm, dry - Musculoskeletal Musculoskeletal: gait normal, strength equal bilaterally - Psychiatric Psychiatric: appropriate mood/affect, intact judgment & insight - Neurologic Neurologic: CNII-XII intact, moves all extremities Plan Activity: no restrictions Follow up with: ANTONIO CRISTINA MD [Primary Care Provider] - 7 Days Prescriptions: cefUROXime [Ceftin] 500 mg PO Q12H 2 Days #8 tablet
[2018-10-06 11:50] LABS: ANA Screen, IFA Negative (Negative)
== END 2018-10-05 19:57 | disposition home or self-care (01) | DRG 871 ==
LOC: ED 12:47 → 3A 16:42
PROVIDERS: ADMIT Internal Medicine Hematology & Oncology; ATTEND Internal Medicine Hematology & Oncology
PROC: 02HV33Z Insertion of Infusion Device into Superior Vena Cava, Percutaneous Approach (ICD-10-PCS; principal; 2018-09-26)
DX: A41.9 Sepsis, unspecified organism (principal); J18.9 Pneumonia, unspecified organism; E87.6 Hypokalemia; E11.9 Type 2 diabetes mellitus without complications; I10 Essential (primary) hypertension; G43.909 Migraine, unspecified, not intractable, without status migrainosus; A41.89 Other specified sepsis; F31.9 Bipolar disorder, unspecified; J45.909 Unspecified asthma, uncomplicated; B37.9 Candidiasis, unspecified; Z92.21 Personal history of antineoplastic chemotherapy; Z85.118 Personal history of other malignant neoplasm of bronchus and lung; Z90.710 Acquired absence of both cervix and uterus; Z88.1 Allergy status to other antibiotic agents; Z88.8 Allergy status to other drugs, medicaments and biological substances; Z91.040 Latex allergy status; Z79.899 Other long term (current) drug therapy; Z79.84 Long term (current) use of oral hypoglycemic drugs
CPT/HCPCS: 36415; 70450; 71045; 71046; 71260; 80048; 80053; 80202; 81001; 82962; 84484; 84703; 85025; 85379; 85610; 85730; 86038; 86140; 87040; 87070; 87205; 87400; 87641; 93005; 93010; 96361; 96365; G0378; J0456; J0696; J1170; J1450; J2270; J3370; J7030; J7050; Q9967

== ENCOUNTER 2019-01-21 22:58 | Emergency (ER) | payer MEDICAID ==
[2019-01-21 23:03] VITALS: BP 165/102
--- NOTE | 2019-01-22 01:50 | XRay Report ---
PROCEDURE: Chest. TECHNIQUE: PA and lateral chest radiographs were obtained. HISTORY: Chestpain with cough . COMPARISONS: None. FINDINGS: The heart and mediastinum appear normal. There is mild tortuosity of the thoracic aorta. The lungs ar e clear and well expanded. There are no pleural effusions. The soft tissues and regional skeleton are unremarkable. IMPRESSION: No evidence of acute disease. This document is electronically signed by Alberto Calderón MD., January 22 2019 01:48:04 AM ET
--- NOTE | 2019-01-22 02:51 | Emergency Department Report ---
<LIZET OLIVER - Last Filed: 01/22/19 05:06> - General Chief Complaint: Chest Pain Stated Complaint: CHEST PAIN/COUGH Time Seen by Provider: 01/22/19 02:22 Source: patient Mode of arrival: Ambulatory Limitations: No Limitations - History of Present Illness Initial Comments: Pt is a 43 yo female who presents to the ED with c/o a cough intermittent since December 2015. She states that she has been seen for the cough on multiple occasions. She states that she has rib pain and some chest discomfort only after frequent coughing. She states she had a subjective fever but did not take her temperature or take anything for the fever. she denies any sore throat, post nasal drip, facial pressure. she has a PMHx of HTN and states she takes metoprolol, amlodipine, lisinopril, and clonidine. she states she took all of her medications yesterday. the patient states she does get seasonal allergies but has not been taking anything this season. - Related Data Home Medications Medication Instructions Recorded Confirmed Last Taken Gabapentin [Neurontin] 600 mg PO TID 11/13/16 09/26/18 11/17/16 cloNIDine [Catapres] 0.1 mg PO DAILY 11/13/16 09/26/18 11/17/16 Lisinopril/Hydrochlorothiazide 1 each PO DAILY 06/16/18 09/26/18 Unknown [Zestoretic 20-25 mg] Metoprolol Succinate [Toprol Xl] 25 mg PO BID 06/16/18 09/26/18 Unknown Morphine ER [Ms Contin ER] 60 mg PO TID 06/16/18 09/26/18 Unknown Morphine [Morphine TAB] 30 mg PO QID PRN 06/16/18 09/26/18 Unknown amLODIPine [Norvasc] 10 mg PO DAILY 06/16/18 09/26/18 Unknown Previous Rx's Medication Instructions Recorded Last Taken Type cefUROXime [Ceftin] 500 mg PO Q12H 2 Days #8 tablet 10/04/18 Unknown Rx Azithromycin [Zithromax Z-MARTHA] 250 mg PO DAILY 5 Days #6 tablet 01/22/19 Unknown Rx Benzonatate [Tessalon Perles] 100 mg PO Q8HR PRN #20 capsule 01/22/19 Unknown Rx Cetirizine HCl [Zyrtec 10mg tab] 10 mg PO DAILY #20 tablet 01/22/19 Unknown Rx Fluticasone [Flonase] 1 spray NS QDAY #1 bottle 01/22/19 Unknown Rx Prednisone [predniSONE 5 mg (6-Day 5 mg PO .TAPER #1 tab.ds.pk 01/22/19 Unknown Rx Pack, 21 Tabs)] Allergies Allergy/AdvReac Type Severity Reaction Status Date / Time amoxicillin [From Amoxil] Allergy Unknown Verified 09/26/18 15:29 dexamethasone [From Decadron] Allergy Itching Verified 09/26/18 15:29 dexamethasone sod phosphate Allergy Itching Verified 09/26/18 15:29 [From Decadron] ketorolac tromethamine Allergy Itching Verified 09/26/18 15:29 [From Toradol] latex Allergy Itching Verified 09/26/18 15:29 tramadol Allergy Itching Verified 09/26/18 15:29 ED Review of Systems Comment: All other systems reviewed and negative ED Past Medical Hx - Past Medical History Hx Hypertension: Yes Hx Congestive Heart Failure: No Hx Diabetes: Yes Hx of Cancer: Yes (Lung) Hx Psychiatric Treatment: Yes (bipolar, depression) Hx Asthma: Yes Hx COPD: Yes Hx Tuberculosis: No (POSITIVE SKIN TEST,NEGATIVE CXR) Hx HIV: (unknown) Additional medical history: Lung ca December 2015 - Surgical History Past Surgical History?: Yes Hx Pacemaker: No Hx Internal Defibrillator: No Additional Surgical History: right ectopic with tube removed. hysterectomy. port to left chest placed and removed. lobectomy on right side - Social History Smoking Status: Current Every Day Smoker Substance Use Type: None - Medications Home Medications: Home Medications Medication Instructions Recorded Confirmed Last Taken Type Gabapentin [Neurontin] 600 mg PO TID 11/13/16 09/26/18 11/17/16 History cloNIDine [Catapres] 0.1 mg PO DAILY 11/13/16 09/26/18 11/17/16 History Lisinopril/Hydrochlorothiazide 1 each PO DAILY 06/16/18 09/26/18 Unknown History [Zestoretic 20-25 mg] Metoprolol Succinate [Toprol Xl] 25 mg PO BID 06/16/18 09/26/18 Unknown History Morphine ER [Ms Contin ER] 60 mg PO TID 06/16/18 09/26/18 Unknown History Morphine [Morphine TAB] 30 mg PO QID PRN 06/16/18 09/26/18 Unknown History amLODIPine [Norvasc] 10 mg PO DAILY 06/16/18 09/26/18 Unknown History cefUROXime [Ceftin] 500 mg PO Q12H 2 Days #8 tablet 10/04/18 Unknown Rx Azithromycin [Zithromax Z-MARTHA] 250 mg PO DAILY 5 Days #6 tablet 01/22/19 Unknown Rx Benzonatate [Tessalon Perles] 100 mg PO Q8HR PRN #20 capsule 01/22/19 Unknown Rx Cetirizine HCl [Zyrtec 10mg tab] 10 mg PO DAILY #20 tablet 01/22/19 Unknown Rx Fluticasone [Flonase] 1 spray NS QDAY #1 bottle 01/22/19 Unknown Rx Prednisone [predniSONE 5 mg (6-Day 5 mg PO .TAPER #1 tab.ds.pk 01/22/19 Unknown Rx Pack, 21 Tabs)] ED Physical Exam - General Limitations: No Limitations General appearance: alert, in no apparent distress - Head Head exam: Present: atraumatic, normocephalic - ENT ENT exam: Present: normal orophraynx, mucous membranes moist, other (pale boggy turbinates bilaterally with clear nasal drainage ) - Respiratory Respiratory exam: Present: normal lung sounds bilaterally. Absent: respiratory distress, wheezes, rales, rhonchi, stridor, chest wall tenderness, accessory muscle use, decreased breath sounds, prolonged expiratory - Cardiovascular Cardiovascular Exam: Present: regular rate, normal rhythm, normal heart sounds. Absent: systolic murmur, diastolic murmur, rubs, gallop - Neurological Exam Neurological exam: Present: alert, oriented X3 - Psychiatric Psychiatric exam: Present: normal affect, normal mood - Skin Skin exam: Present: warm, dry, intact ED Medical Decision Making - Radiology Data Radiology results: report reviewed PROCEDURE: Chest. TECHNIQUE: PA and lateral chest radiographs were obtained. HISTORY: Chestpain with cough . COMPARISONS: None. FINDINGS: The heart and mediastinum appear normal. There is mild tortuosity of the thorac ic aorta. The lungs are clear and well expanded. There are no pleural effusions. The soft tissues and regional skeleton are unremarkable. IMPRESSION: No evidence of acute disease. This document is electronically signed by Alberto Martinez MD., January 22 2019 01:48:04 AM ET Transcribed By: YESIKA Dictated By: ALBERTO MARTINEZ MD Electronically Authenticated By: ALBERTO MARTINEZ MD Signed Date/Time: 01/22/19 0150 - Medical Decision Making Pt is a 43 yo female who presents to the ED with c/o a cough intermittent since December 2015. She states that she has been seen for the cough on multiple occasions. She states that she has rib pain and some chest discomfort only after frequent coughing. She states she had a subjective fever but did not take her temperature or take anything for the fever. she denies any sore throat, post nasal drip, facial pressure. she has a PMHx of HTN and states she takes metoprolol, amlodipine, lisinopril, and clonidine. she states she took all of her medications yesterday. the patient states she does get seasonal allergies but has not been taking anything this season. lungs are clear on auscultation. pt is afebrile and has a normal respiratory rate and oxygen saturation. CXR with no acute process. pt given zpak, medrol dose pack, flonase, tessalon perles, and zyrtec. discussed to please take medication as prescribed. follow up with a primary care doctor in the next 2-3 days. return to the emergency room immediately for any new or worsening symptoms. also discussed with pt the elevation in her blood pressure, advised her to follow up with her PCP in the next 2-3 days for further management of her blood pressure. ED Disposition Clinical Impression: Acute upper respiratory infection Allergic rhinitis Qualifiers: Allergic rhinitis trigger: unspecified Allergic rhinitis seasonality: seasonal Qualified Code(s): J30.2 - Other seasonal allergic rhinitis Disposition: DC-01 TO HOME OR SELFCARE Is pt being admited?: No Does the pt Need Aspirin: No Condition: Stable Instructions: Chronic Cough (ED) Additional Instructions: please take medication as prescribed. follow up with a primary care doctor in the next 2-3 days. return to the emergency room immediately for any new or worsening symptoms. Prescriptions: Fluticasone [Flonase] 1 spray NS QDAY #1 bottle Prednisone [predniSONE 5 mg (6-Day Pack, 21 Tabs)] 5 mg PO .TAPER #1 tab.ds.pk Benzonatate [Tessalon Perles] 100 mg PO Q8HR PRN #20 capsule PRN Reason: Cough Azithromycin [Zithromax Z-MARTHA] 250 mg PO DAILY 5 Days #6 tablet Cetirizine HCl [Zyrtec 10mg tab] 10 mg PO DAILY #20 tablet Referrals: ANTONIO CRISTINA MD [Primary Care Provider] - 2-3 Days Time of Disposition: 03:03 Print Language: MALAGASY <LEON LEZAMA - Last Filed: 02/02/19 08:18> ED Review of Systems ROS: Stated complaint: CHEST PAIN/COUGH Other details as noted in HPI ED Course Vital Signs 01/21/19 01/21/19 23:02 23:34 Temperature 98.2 F 98.3 F Pulse Rate 79 79 Respiratory 18 18 Rate Blood Pressure 165/102 165/102 O2 Sat by Pulse 98 Oximetry ED Medical Decision Making - Medical Decision Making Patient has been accidentally listed as an elopement. Patient was discharged appropriately. Critical care attestation.: If time is entered above; I have spent that time in minutes in the direct care of this critically ill patient, excluding procedure time. ED Disposition Is pt being admited?: No Does the pt Need Aspirin: No
== END 2019-01-22 03:45 | disposition left against medical advice (07) ==
LOC: ED 22:58
DX: J44.9 Chronic obstructive pulmonary disease, unspecified (principal); I10 Essential (primary) hypertension; E11.9 Type 2 diabetes mellitus without complications; F31.9 Bipolar disorder, unspecified; Z85.118 Personal history of other malignant neoplasm of bronchus and lung; Z90.710 Acquired absence of both cervix and uterus; F17.200 Nicotine dependence, unspecified, uncomplicated; Z79.899 Other long term (current) drug therapy; Z88.1 Allergy status to other antibiotic agents; Z88.8 Allergy status to other drugs, medicaments and biological substances
CPT/HCPCS: 71046; 93005; 93010; 99283

== ENCOUNTER 2019-02-11 13:36 | Emergency (ER) | payer MEDICAID ==
--- NOTE | 2019-02-11 14:46 | Event Note ---
ED Screening Note Date of service: 02/11/19 Time: 14:45 ED Screening Note: This is a 43 y.o. F. that presents to the ER with worsening right sided abdominal pain for a few weeks. Reports a bulge to RUQ. PMH: HTN, DM2, and asthma This initial assessment/diagnostic orders/clinical plan/treatment(s) is/are subject to change based on patients health status, clinical progression and re- assessment by fellow clinical providers in the ED. Further treatment and workup at subsequent clinical providers discretion. Patient/guardian urged not to elope from the ED as their condition may be serious if not clinically assessed and managed. Initial orders include: labs and CT of abdomen
[2019-02-11 15:47] LABS: Bilirubin,Urine NEG (Negative); Blood,Urine NEG (Negative); Color,Urine Yellow (Yellow); Mucus,Urine FEW /HPF; Protein,Urine <15 mg/dL mg/dL (Negative); RBC,Urine < 1.0 /HPF (0.0-6.0); Urobilinogen,Urine < 2.0 mg/dL (<2.0)
[2019-02-11 15:49] LABS: Basophils # (Auto) 0.1 K/mm3 (0.0-0.1); Basophils % (Auto) 0.8 % (0.0-1.8); Eosinophils % (Auto) 0.2 % (0.0-4.3); Hematocrit 37.9 % (30.3-42.9); Hemoglobin 12.9 gm/dl (10.1-14.3); Lymphocytes # (Auto) 2.1 K/mm3 (1.2-5.4); Lymphocytes % (Auto) 18.5 % (13.4-35.0); Mean Corpuscular HGB Conc 34 % (30-34); Mean Corpuscular Volume 97 fl (79-97); Monocytes % (Auto) 8.5 % (0.0-7.3); Platelet Count 239 K/mm3 (140-440); Red Blood Count 3.92 M/mm3 (3.65-5.03); Red Cell Distribution Width 14.3 % (13.2-15.2)
[2019-02-11 16:09] LABS: Alanine Aminotransferase 21 units/L (7-56); Albumin 4.2 g/dL (3.9-5); BUN/Creatinine Ratio 21; Blood Urea Nitrogen 17 mg/dL (7-17); Calcium 9.4 mg/dL (8.4-10.2); Hemolysis Index 4
--- NOTE | 2019-02-11 17:56 | Emergency Department Report ---
ED Abdominal Pain HPI - General Chief Complaint: Abdominal Pain Stated Complaint: R SIDE PAIN/FEVER/COUGH Time Seen by Provider: 02/11/19 14:44 Source: patient, family Mode of arrival: Ambulatory Limitations: No Limitations - History of Present Illness Initial Comments: This is a 43-year-old female here report that she has been having abdominal pain is February with bulging to her stomach when she coughs and she thinks she has a hernia. She says she has a primary care physician and she went to primary care physician but they did not do anything. She is reporting that she is having abdominal pain and intermittent fever, vomits after eating cough and nausea. Denies any fever today. Denies any vaginal bleeding or discharge. Denies any back pain. Pain is 8/10 and moves around. Denies any diarrhea or vomiting today. MD Complaint: abdominal pain Onset/Timin -: days(s) Severity: severe Severity scale (0 -10): 8 Quality: cramping Consistency: intermittent Improves With: nothing Worsens With: nothing Associated Symptoms: nausea, vomiting, fever, chills, other (occasional cough). denies: diarrhea, constipation, dysuria, hematemesis, hematochezia, melena, hematuria, anorexia, syncope Treatments Prior to Arrival: other (none) - Related Data LMP (females 10-50): other (hysterectomy) Home Medications Medication Instructions Recorded Confirmed Last Taken Gabapentin [Neurontin] 600 mg PO TID 11/13/16 09/26/18 11/17/16 cloNIDine [Catapres] 0.1 mg PO DAILY 11/13/16 09/26/18 11/17/16 Lisinopril/Hydrochlorothiazide 1 each PO DAILY 06/16/18 09/26/18 Unknown [Zestoretic 20-25 mg] Metoprolol Succinate [Toprol Xl] 25 mg PO BID 06/16/18 09/26/18 Unknown Morphine ER [Ms Contin ER] 60 mg PO TID 06/16/18 09/26/18 Unknown Morphine [Morphine TAB] 30 mg PO QID PRN 06/16/18 09/26/18 Unknown amLODIPine [Norvasc] 10 mg PO DAILY 06/16/18 09/26/18 Unknown Previous Rx's Medication Instructions Recorded Last Taken Type cefUROXime [Ceftin] 500 mg PO Q12H 2 Days #8 tablet 10/04/18 Unknown Rx Azithromycin [Zithromax Z-MARTHA] 250 mg PO DAILY 5 Days #6 tablet 01/22/19 Unknown Rx Benzonatate [Tessalon Perles] 100 mg PO Q8HR PRN #20 capsule 01/22/19 Unknown Rx Cetirizine HCl [Zyrtec 10mg tab] 10 mg PO DAILY #20 tablet 01/22/19 Unknown Rx Fluticasone [Flonase] 1 spray NS QDAY #1 bottle 01/22/19 Unknown Rx Prednisone [predniSONE 5 mg (6-Day 5 mg PO .TAPER #1 tab.ds.pk 01/22/19 Unknown Rx Pack, 21 Tabs)] Dicyclomine [Bentyl] 20 mg PO Q8H PRN #12 tablet 02/11/19 Unknown Rx Ondansetron (Nf) [Zofran TAB] 8 mg PO Q8HR PRN #12 tablet 02/11/19 Unknown Rx Allergies Allergy/AdvReac Type Severity Reaction Status Date / Time amoxicillin [From Amoxil] Allergy Unknown Verified 09/26/18 15:29 dexamethasone [From Decadron] Allergy Itching Verified 09/26/18 15:29 dexamethasone sod phosphate Allergy Itching Verified 09/26/18 15:29 [From Decadron] ketorolac tromethamine Allergy Itching Verified 09/26/18 15:29 [From Toradol] latex Allergy Itching Verified 09/26/18 15:29 tramadol Allergy Itching Verified 09/26/18 15:29 ED Review of Systems ROS: Stated complaint: R SIDE PAIN/FEVER/COUGH Other details as noted in HPI Constitutional: chills, fever ENT: denies: throat pain, congestion Respiratory: cough. denies: shortness of breath, SOB with exertion, SOB at rest, wheezing Cardiovascular: denies: chest pain, palpitations, edema, syncope Gastrointestinal: abdominal pain, nausea, vomiting. denies: diarrhea, constipation, hematemesis, melena, hematochezia Genitourinary: denies: urgency, dysuria, frequency, hematuria Musculoskeletal: denies: back pain, joint swelling, arthralgia, myalgia Skin: denies: rash Neurological: denies: headache, weakness ED Past Medical Hx - Past Medical History Previous Medical History?: Yes Hx Hypertension: Yes Hx Congestive Heart Failure: No Hx Diabetes: Yes Hx Psychiatric Treatment: Yes (bipolar, depression) Hx Asthma: Yes Hx COPD: Yes Hx Tuberculosis: No (POSITIVE SKIN TEST,NEGATIVE CXR) Hx HIV: (unknown) Additional medical history: Lung ca December 2015 - Surgical History Past Surgical History?: Yes Hx Pacemaker: No Hx Internal Defibrillator: No Additional Surgical History: right ectopic with tube removed. hysterectomy. port to left chest placed and removed. lobectomy on right side. vaginal cuff repair - Family History Family history: hypertension - Social History Smoking Status: Current Every Day Smoker Substance Use Type: None - Medications Home Medications: Home Medications Medication Instructions Recorded Confirmed Last Taken Type Gabapentin [Neurontin] 600 mg PO TID 11/13/16 09/26/18 11/17/16 History cloNIDine [Catapres] 0.1 mg PO DAILY 11/13/16 09/26/18 11/17/16 History Lisinopril/Hydrochlorothiazide 1 each PO DAILY 06/16/18 09/26/18 Unknown History [Zestoretic 20-25 mg] Metoprolol Succinate [Toprol Xl] 25 mg PO BID 06/16/18 09/26/18 Unknown History Morphine ER [Ms Contin ER] 60 mg PO TID 06/16/18 09/26/18 Unknown History Morphine [Morphine TAB] 30 mg PO QID PRN 06/16/18 09/26/18 Unknown History amLODIPine [Norvasc] 10 mg PO DAILY 06/16/18 09/26/18 Unknown History cefUROXime [Ceftin] 500 mg PO Q12H 2 Days #8 tablet 10/04/18 Unknown Rx Azithromycin [Zithromax Z-MARTHA] 250 mg PO DAILY 5 Days #6 tablet 01/22/19 Unknown Rx Benzonatate [Tessalon Perles] 100 mg PO Q8HR PRN #20 capsule 01/22/19 Unknown Rx Cetirizine HCl [Zyrtec 10mg tab] 10 mg PO DAILY #20 tablet 01/22/19 Unknown Rx Fluticasone [Flonase] 1 spray NS QDAY #1 bottle 01/22/19 Unknown Rx Prednisone [predniSONE 5 mg (6-Day 5 mg PO .TAPER #1 tab.ds.pk 01/22/19 Unknown Rx Pack, 21 Tabs)] Dicyclomine [Bentyl] 20 mg PO Q8H PRN #12 tablet 02/11/19 Unknown Rx Ondansetron (Nf) [Zofran TAB] 8 mg PO Q8HR PRN #12 tablet 02/11/19 Unknown Rx ED Physical Exam - General Limitations: No Limitations General appearance: alert, in no apparent distress - Head Head exam: Present: atraumatic, normocephalic - Eye Eye exam: Present: normal appearance, PERRL, EOMI Pupils: Present: normal accommodation - ENT ENT exam: Present: normal exam, normal orophraynx, mucous membranes moist - Neck Neck exam: Present: normal inspection, full ROM. Absent: tenderness, lymphadenopathy - Respiratory Respiratory exam: Present: normal lung sounds bilaterally. Absent: respiratory distress, chest wall tenderness - Cardiovascular Cardiovascular Exam: Present: regular rate, normal rhythm, normal heart sounds - GI/Abdominal GI/Abdominal exam: Present: soft, normal bowel sounds. Absent: distended, tenderness, guarding, rebound, rigid, organomegaly, mass, bruit, pulsatile mass - Extremities Exam Extremities exam: Present: normal inspection, full ROM, normal capillary refill, other (No cce. + 2 pulses in all extremities, no neurovascular compromise). Absent: tenderness, pedal edema, calf tenderness - Back Exam Back exam: Present: normal inspection, full ROM, other (ambulates without any difficulties). Absent: tenderness, CVA tenderness (R), CVA tenderness (L), vertebral tenderness, rash noted - Neurological Exam Neurological exam: Present: alert, oriented X3, normal gait - Psychiatric Psychiatric exam: Present: normal affect, normal mood - Skin Skin exam: Present: warm, dry, intact, normal color. Absent: rash ED Course Vital Signs 02/11/19 14:42 Temperature 98.3 F Pulse Rate 86 Respiratory 18 Rate Blood Pressure 141/94 O2 Sat by Pulse 98 Oximetry - Reevaluation(s) Reevaluation #1: 02/11/19 19:32 Patient given 1 L normal saline and Zofran 8 mg IV. Still awaiting in CT scan of abdomen. Abdominal exam is normal. Reevaluation #2: 02/11/19 20:32 Patient's is stable and no abdominal pain at present. Nausea has been relieved. She is able to tolerate oral fluids and abdominal exam is benign. ED Medical Decision Making - Lab Data Result diagrams: 02/11/19 15:21 02/11/19 15:21 Lab Results 02/11/19 02/11/19 02/11/19 Range/Units 15:12 15:21 15:21 WBC 11.2 H (4.5-11.0) K/mm3 RBC 3.92 (3.65-5.03) M/mm3 Hgb 12.9 (10.1-14.3) gm/dl Hct 37.9 (30.3-42.9) % MCV 97 (79-97) fl MCH 33 H (28-32) pg MCHC 34 (30-34) % RDW 14.3 (13.2-15.2) % Plt Count 239 (140-440) K/mm3 Lymph % (Auto) 18.5 (13.4-35.0) % Harvey % (Auto) 8.5 H (0.0-7.3) % Eos % (Auto) 0.2 (0.0-4.3) % Baso % (Auto) 0.8 (0.0-1.8) % Lymph # 2.1 (1.2-5.4) K/mm3 Harvey # 1.0 H (0.0-0.8) K/mm3 Eos # 0.0 (0.0-0.4) K/mm3 Baso # 0.1 (0.0-0.1) K/mm3 Seg Neutrophils % 72.0 H (40.0-70.0) % Seg Neutrophils # 8.1 H (1.8-7.7) K/mm3 Sodium 136 L (137-145) mmol/L Potassium 3.8 (3.6-5.0) mmol/L Chloride 96.0 L (98-107) mmol/L Carbon Dioxide 30 (22-30) mmol/L Anion Gap 14 mmol/L BUN 17 (7-17) mg/dL Creatinine 0.8 (0.7-1.2) mg/dL Estimated GFR > 60 ml/min BUN/Creatinine Ratio 21 % Glucose 88 (65-100) mg/dL Calcium 9.4 (8.4-10.2) mg/dL Total Bilirubin 0.40 (0.1-1.2) mg/dL AST 28 (5-40) units/L ALT 21 (7-56) units/L Alkaline Phosphatase 76 (35-129) units/L Total Protein 7.7 (6.3-8.2) g/dL Albumin 4.2 (3.9-5) g/dL Albumin/Globulin Ratio 1.2 % Lipase 18 (13-60) units/L Urine Color Yellow (Yellow) Urine Turbidity Clear (Clear) Urine pH 5.0 (5.0-7.0) Ur Specific Mozier 1.015 (1.003-1.030) Urine Protein <15 mg/dl (Negative) mg/dL Urine Glucose (UA) Neg (Negative) mg/dL Urine Ketones Neg (Negative) mg/dL Urine Blood Neg (Negative) Urine Nitrite Neg (Negative) Urine Bilirubin Neg (Negative) Urine Urobilinogen < 2.0 (<2.0) mg/dL Ur Leukocyte Esterase Neg (Negative) Urine WBC (Auto) 2.0 (0.0-6.0) /HPF Urine RBC (Auto) < 1.0 (0.0-6.0) /HPF U Epithel Cells (Auto) 2.0 (0-13.0) /HPF Urine Mucus Few /HPF - Radiology Data Radiology results: report reviewed CT scan of abdomen and pelvis with IV contrast dictated by radiologist and report reviewed by myself. Please see details below. Findings [facility] [address] [place] [address] Cat Scan Report Signed Patient: BOBO CESAR MR#: [id number] : 1975 Acct:[id number] Age/Sex: 43 / F ADM Date: 02/11/19 Loc: ED Attending Dr: Ordering Physician: CHANA LOWE Date of Service: 02/11/19 Procedure(s): CT abdomen pelvis w con Accession Number(s): [id number] cc: CHANA LOWE CT ABDOMEN AND PELVIS WITH CONTRAST HISTORY: right sided abdominal pain. Bulge under the right side of the ribs for the past week COMPARISON: None. TECHNIQUE: CT images of the abdomen and pelvis were obtained following administration of intravenous contrast. All CT scans at this location are performed using CT dose reduction for ALARA by means of automated exposure control. CONTRAST: 100 ml of intravenous contrast administered. FINDINGS: Lungs/bones: There is mild bibasilar atelectasis with otherwise clear lungs. Degenerative changes are present within the spine and pelvis with no acute osseous abnormality identified. Abdomen/pelvis: The liver, gallbladder, spleen, pancreas, adrenals, and proximal GI tract appear unremarkable. There is a simple cyst versus focally dilated calyx in the midpole the left kidney with 2 dependent stones the largest of which measures 5 mm. I favor that this is a dilated calyx since there is contrast pooling on the delayed series. Urinary bladder is unremarkable. Uterus is surgically absent. No pelvic free fluid. There is a collapsed appearance of the descending colon with no surrounding inflammatory change identified. The appendix and terminal ileum appear normal. IMPRESSION: 1. No acute abnormality identified. 2. Incidental findings as above. Signer Name: Devin Leslie MD Signed: 02/11/2019 7:34 PM Workstation Name: [id number] Transcribed By: AIDA Dictated By: Devin Leslie MD Electronically Authenticated By: Devin Leslie MD Signed Date/Time: 02/11/191933 DD/ 26 TD/TT: Medicines not nothing out of at this is - Medical Decision Making 43-year-old female here reports abdominal pain since September 2018 with intervention cramping, intermittent fever, vomits, nausea and occasional cough. Abdominal exam found to be benign. Patient also has a stable she is afebrile. CBC stable except mild bacterial shift to the left and CMP with some minor abnormality, normal lipase and urinalysis is stable. Patient was given IV fluids 1 L, Zofran [address] scan of the abdomen and pelvis with IV contrast shows no acute findings except for incidental findings for FINDINGS: Lungs/bones: There is mild bibasilar atelectasis with otherwise clear lungs. Degenerative changes are present within the spine and pelvis with no acute osseous abnormality identified. Abdomen/pelvis: The liver, gallbladder, spleen, pancreas, adrenals, and proximal GI tract appear unremarkable. There is a simple cyst versus focally dilated calyx in the midpole the left kidney with 2 dependent stones the largest of which measures 5 mm. I favor that this is a dilated calyx since there is contrast pooling on the delayed series. Urinary bladder is unremarkable. Uterus is surgically absent. No pelvic free fluid. There is a collapsed appearance of the descending colon with no surrounding inflammatory change identified. The appendix and terminal ileum appear normal. IMPRESSION: 1. No acute abnormality identified. 2. Incidental findings as above. Signer Name: Devin Leslie MD Signed: 02/11/2019 7:34 PM Workstation Name: [id number] CBC, lipase, CMP and urinalysis-reviewed and no significant findings except for minor abnormalities Assessment/plan 1: Abdominal pain, unspecified-no pain at present. We will refer patient to gas troenterology and back to her primary care physician. No significant laboratory findings. 1-[id number] 8 mg IV and patient is stable and able to tolerate fluids. She was given 1 L of normal saline emergency room. 3-incidental finding for cyst versus kidney stone left kidney-referral to urology I discussed the patient her diagnosis, treatment plan and need to follow up with specialists that I refer her to ensure simvastatin. Patient is stable in no acute distress. She has no pain and vital signs are stable she is afebrile. I discussed with her that she will need to follow up with gastroenterology to call on Wednesday to schedule an appointment but if her symptoms return and intolerable to return to emergency room if it. She was understanding. Patient discharged home in stable condition with prescription for Zofran and Levsin - Differential Diagnosis appendicitis, colitis, kidney stone, GBD, SBO, enteritis, UTI Critical care attestation.: If time is entered above; I have spent that time in minutes in the direct care of this critically ill patient, excluding procedure time. ED Disposition Clinical Impression: Abdominal pain Qualifiers: Abdominal location: generalized Qualified Code(s): R10.84 - Generalized abdominal pain Nausea & vomiting Qualifiers: Vomiting type: unspecified Vomiting Intractability: non-intractable Qualified Code(s): R11.2 - Nausea with vomiting, unspecified Disposition: DC-01 TO HOME OR SELFCARE Is pt being admited?: No Does the pt Need Aspirin: No Condition: Stable Instructions: Abdominal Pain (ED), Acute Nausea and Vomiting (ED), Kidney Stones (ED) Additional Instructions: Please increase her fluid intake and take medication as prescribed If his symptoms worsens, return to emergency room While up with wrapper selector and urologist as instructed Prescriptions: Dicyclomine [Bentyl] 20 mg PO Q8H PRN #12 tablet PRN Reason: abdominal cramping Ondansetron (Nf) [Zofran TAB] 8 mg PO Q8HR PRN #12 tablet PRN Reason: Nausea And Vomiting Referrals: ANTONIO CRISTINA MD [Primary Care Provider] - 02/13/19 YOUR, primary care physician [Other] - 02/13/19 [facility] [Provider Group] - 2-3 Days [facility] [Provider Group] - 02/13/19 Forms: Accompanied Note, Work/School Release Form(ED)
[2019-02-11] MEDS ORDERED: ZOFRAN IV ONE (17:57)
[2019-02-11] MEDS ORDERED: NACL 0.9% 1000 ML 1,000 ML IV ONE (17:57)
--- NOTE | 2019-02-11 19:38 | Cat Scan Report ---
CT ABDOMEN AND PELVIS WITH CONTRAST HISTORY: right sided abdominal pain. Bulge under the right side of the ribs for the past week COMPARISON: None. TECHNIQUE: CT images of the abdomen and pelvis were obtained following administration of intravenous contrast. All CT scans at this location are performed using CT dose reduction for ALARA by means of automated exposure control. CONTRAST: 100 ml of intravenous contrast administered. FINDINGS: Lungs/bones: There is mild bibasilar atelectasis with otherwise clear lungs. Degenerative changes ar e present within the spine and pelvis with no acute osseous abnormality identified. Abdomen/pelvis: The liver, gallbladder, spleen, pancreas, adrenals, and proximal GI tract appear unr emarkable. There is a simple cyst versus focally dilated calyx in the midpole the left kidney with 2 dependent stones the largest of which measures 5 mm. I favor that this is a dilated calyx since there is contrast pooling on the delayed series. Urinary bladder is unremarkable. Uterus is surgically absent. No pelvic free fluid. There is a collap sed appearance of the descending colon with no surrounding inflammatory change identified. The append ix and terminal ileum appear normal. IMPRESSION: 1. No acute abnormality identified. 2. Incidental findings as above. Signer Name: Devin Leslie MD Signed: 02/11/2019 7:34 PM Workstation Name: [id number]
[2019-02-11 21:17] VITALS: BP 145/103
== END 2019-02-11 21:17 | disposition home or self-care (01) ==
LOC: ED 13:36
DX: R11.2 Nausea with vomiting, unspecified (principal); R10.9 Unspecified abdominal pain; I10 Essential (primary) hypertension; E11.9 Type 2 diabetes mellitus without complications; F31.9 Bipolar disorder, unspecified; J44.9 Chronic obstructive pulmonary disease, unspecified; F17.200 Nicotine dependence, unspecified, uncomplicated; Z85.118 Personal history of other malignant neoplasm of bronchus and lung; Z98.890 Other specified postprocedural states; Z90.710 Acquired absence of both cervix and uterus; Z79.899 Other long term (current) drug therapy; Z88.8 Allergy status to other drugs, medicaments and biological substances; Z88.6 Allergy status to analgesic agent; Z88.1 Allergy status to other antibiotic agents; Z91.040 Latex allergy status
CPT/HCPCS: 36415; 74177; 80053; 81001; 83690; 85025; 96361; 96374; 99284; J2405; J7030; Q9967

== ENCOUNTER 2019-08-17 16:45 | Emergency (ER) | payer MEDICAID, MEDICARE ==
--- NOTE | 2019-08-17 17:28 | Event Note ---
ED Screening Note ED Screening Note: COUGH FEVER/CIG SMOKER RX "A BUNCH" PMH LUNG CA- RESECTION/CHEMO- DX DECEMBER 2015; STILL SMOKING HTN DM OA LMP HYSTERECTOMY This initial assessment/diagnostic orders/clinical plan/treatment(s) is/are subject to change based on patients health status, clinical progression and re- assessment by fellow clinical providers in the ED. Further treatment and workup at subsequent clinical providers discretion. Patient/guardian urged not to elope from the ED as their condition may be serious if not clinically assessed and managed. Initial orders include: LABS XRAY
--- NOTE | 2019-08-17 17:52 | XRay Report ---
CHEST 2 VIEWS INDICATION / CLINICAL INFORMATION: COUGH; HX LUNG CA. Cough. COMPARISON: None available. FINDINGS: SUPPORT DEVICES: None. HEART / MEDIASTINUM: No significant abnormality. LUNGS / PLEURA: Lungs are hyperexpanded with emphysematous change. No pleural effusion. No pneumothor ax. Signer Name: Brandan Chand MD Signed: 08/17/2019 5:47 PM Workstation Name: [id number]
[2019-08-17 18:38] LABS: Basophils # (Auto) 0.1 K/mm3 (0.0-0.1); Eosinophils % (Auto) 0.6 % (0.0-4.3); Hematocrit 39.6 % (30.3-42.9); Hemoglobin 13.4 gm/dl (10.1-14.3); Lymphocytes # (Auto) 2.5 K/mm3 (1.2-5.4); Lymphocytes % (Auto) 34.5 % (13.4-35.0); Mean Corpuscular HGB Conc 34 % (30-34); Mean Corpuscular Volume 97 fl (79-97); Monocytes # (Auto) 0.5 K/mm3 (0.0-0.8); Monocytes % (Auto) 7.3 % (0.0-7.3); Platelet Count 239 K/mm3 (140-440); Red Blood Count 4.08 M/mm3 (3.65-5.03); Red Cell Distribution Width 15.2 % (13.2-15.2)
[2019-08-17 19:01] LABS: Alanine Aminotransferase 15 units/L (7-56); Albumin 4.1 g/dL (3.9-5); BUN/Creatinine Ratio 20; Blood Urea Nitrogen 14 mg/dL (7-17); Calcium 9.5 mg/dL (8.4-10.2); Hemolysis Index 4
--- NOTE | 2019-08-17 19:12 | Emergency Department Report ---
- General Chief Complaint: Upper Respiratory Infection Stated Complaint: CHEST PAIN/FEVER/COUGH Time Seen by Provider: 08/17/19 17:25 Source: patient Mode of arrival: Ambulatory Limitations: No Limitations - History of Present Illness Initial Comments: Patient is a 43-year-old female presents emergency room with complaints of a productive cough that began a week ago. She states that she has associated couple episodes of post tussive emesis, chest discomfort with frequent coughing, rib discomfort with frequent coughing, chest congestion. She states that she had a temperature of 100.3 two nights ago but it has since resolved. She states that she also has some mild shortness of breath and wheezing. She denies any leg swelling. She denies any recent travel or recent surgery. She has a past medical history of COPD and is still a current smoker. She states she also has a history of lung CA in December 2015. She also has a history of hypertension but did not take her medications today. She states that she does not have a linen folder currently. - Related Data Home Medications Medication Instructions Recorded Confirmed Last Taken Gabapentin [Neurontin] 600 mg PO TID 11/13/16 09/26/18 11/17/16 cloNIDine [Catapres] 0.1 mg PO DAILY 11/13/16 09/26/18 11/17/16 Lisinopril/Hydrochlorothiazide 1 each PO DAILY 06/16/18 09/26/18 Unknown [Zestoretic 20-25 mg] Metoprolol Succinate [Toprol Xl] 25 mg PO BID 06/16/18 09/26/18 Unknown Morphine ER [Ms Contin ER] 60 mg PO TID 06/16/18 09/26/18 Unknown Morphine [Morphine TAB] 30 mg PO QID PRN 06/16/18 09/26/18 Unknown amLODIPine 10 mg PO DAILY 06/16/18 09/26/18 Unknown Previous Rx's Medication Instructions Recorded Last Taken Type cefUROXime [Ceftin] 500 mg PO Q12H 2 Days #8 tablet 10/04/18 Unknown Rx Azithromycin [Zithromax Z-MARTHA] 250 mg PO DAILY 5 Days #6 tablet 01/22/19 Unknown Rx Benzonatate [Tessalon Perles] 100 mg PO Q8HR PRN #20 capsule 01/22/19 Unknown Rx Cetirizine HCl [Zyrtec 10mg tab] 10 mg PO DAILY #20 tablet 01/22/19 Unknown Rx Fluticasone [Flonase] 1 spray NS QDAY #1 bottle 01/22/19 Unknown Rx Prednisone [predniSONE 5 mg (6-Day 5 mg PO .TAPER #1 tab.ds.pk 01/22/19 Unknown Rx Pack, 21 Tabs)] Dicyclomine [Bentyl] 20 mg PO Q8H PRN #12 tablet 02/11/19 Unknown Rx Ondansetron (Nf) [Zofran TAB] 8 mg PO Q8HR PRN #12 tablet 02/11/19 Unknown Rx Albuterol INH(or & Nicu Only) 2 puff IH QID PRN #8.5 gram 08/17/19 Unknown Rx [ProAir HFA Inhaler] Benzonatate [Tessalon Perles] 100 mg PO Q8HR PRN #14 capsule 08/17/19 Unknown Rx Doxycycline Hyclate [Doxycycline 100 mg PO BID 7 Days #14 tablet 08/17/19 Unknown Rx Hyclate TAB] guaiFENesin/DEXTROMETHORPHAN 1 each PO Q8HR PRN #20 capsule 08/17/19 Unknown Rx [Coricidin Hbp Chest Kelechi-Cough] predniSONE [Deltasone] 40 mg PO DAILY 7 Days #14 tablet 08/17/19 Unknown Rx Allergies Allergy/AdvReac Type Severity Reaction Status Date / Time amoxicillin [From Amoxil] Allergy Unknown Verified 09/26/18 15:29 dexamethasone [From Decadron] Allergy Itching Verified 09/26/18 15:29 dexamethasone sod phosphate Allergy Itching Verified 09/26/18 15:29 [From Decadron] ketorolac tromethamine Allergy Itching Verified 09/26/18 15:29 [From Toradol] latex Allergy Itching Verified 09/26/18 15:29 tramadol Allergy Itching Verified 09/26/18 15:29 ED Review of Systems ROS: Stated complaint: CHEST PAIN/FEVER/COUGH Other details as noted in HPI Comment: All other systems reviewed and negative ED Past Medical Hx - Past Medical History Hx Hypertension: Yes Hx Congestive Heart Failure: No Hx Diabetes: Yes Hx Psychiatric Treatment: Yes (bipolar, depression) Hx Asthma: Yes Hx COPD: Yes Hx Tuberculosis: No (POSITIVE SKIN TEST,NEGATIVE CXR) Hx HIV: (unknown) Additional medical history: Lung ca December 2015 - Surgical History Hx Pacemaker: No Hx Internal Defibrillator: No Additional Surgical History: right ectopic with tube removed. hysterectomy. port to left chest placed and removed. lobectomy on right side. vaginal cuff repair - Social History Smoking Status: Current Every Day Smoker Substance Use Type: Alcohol - Medications Home Medications: Home Medications Medication Instructions Recorded Confirmed Last Taken Type Gabapentin [Neurontin] 600 mg PO TID 11/13/16 09/26/18 11/17/16 History cloNIDine [Catapres] 0.1 mg PO DAILY 11/13/16 09/26/18 11/17/16 History Lisinopril/Hydrochlorothiazide 1 each PO DAILY 06/16/18 09/26/18 Unknown History [Zestoretic 20-25 mg] Metoprolol Succinate [Toprol Xl] 25 mg PO BID 06/16/18 09/26/18 Unknown History Morphine ER [Ms Contin ER] 60 mg PO TID 06/16/18 09/26/18 Unknown History Morphine [Morphine TAB] 30 mg PO QID PRN 06/16/18 09/26/18 Unknown History amLODIPine 10 mg PO DAILY 06/16/18 09/26/18 Unknown History cefUROXime [Ceftin] 500 mg PO Q12H 2 Days #8 tablet 10/04/18 Unknown Rx Azithromycin [Zithromax Z-MARTHA] 250 mg PO DAILY 5 Days #6 tablet 01/22/19 Unknown Rx Benzonatate [Tessalon Perles] 100 mg PO Q8HR PRN #20 capsule 01/22/19 Unknown Rx Cetirizine HCl [Zyrtec 10mg tab] 10 mg PO DAILY #20 tablet 01/22/19 Unknown Rx Fluticasone [Flonase] 1 spray NS QDAY #1 bottle 01/22/19 Unknown Rx Prednisone [predniSONE 5 mg (6-Day 5 mg PO .TAPER #1 tab.ds.pk 01/22/19 Unknown Rx Pack, 21 Tabs)] Dicyclomine [Bentyl] 20 mg PO Q8H PRN #12 tablet 02/11/19 Unknown Rx Ondansetron (Nf) [Zofran TAB] 8 mg PO Q8HR PRN #12 tablet 02/11/19 Unknown Rx Albuterol INH(or & Nicu Only) 2 puff IH QID PRN #8.5 gram 08/17/19 Unknown Rx [ProAir HFA Inhaler] Benzonatate [Tessalon Perles] 100 mg PO Q8HR PRN #14 capsule 08/17/19 Unknown Rx Doxycycline Hyclate [Doxycycline 100 mg PO BID 7 Days #14 tablet 08/17/19 Unknown Rx Hyclate TAB] guaiFENesin/DEXTROMETHORPHAN 1 each PO Q8HR PRN #20 capsule 08/17/19 Unknown Rx [Coricidin Hbp Chest Kelechi-Cough] predniSONE [Deltasone] 40 mg PO DAILY 7 Days #14 tablet 08/17/19 Unknown Rx ED Physical Exam - General Limitations: No Limitations General appearance: alert, in no apparent distress - Head Head exam: Present: atraumatic, normocephalic - Eye Eye exam: Present: normal appearance - ENT ENT exam: Present: mucous membranes moist - Respiratory Respiratory exam: Present: normal lung sounds bilaterally. Absent: respiratory distress, wheezes, rales, rhonchi, stridor, chest wall tenderness, accessory muscle use, decreased breath sounds, prolonged expiratory - Cardiovascular Cardiovascular Exam: Present: regular rate, normal rhythm, normal heart sounds. Absent: systolic murmur, diastolic murmur, rubs, gallop - Neurological Exam Neurological exam: Present: alert, oriented X3 - Psychiatric Psychiatric exam: Present: normal affect, normal mood - Skin Skin exam: Present: warm, dry, intact ED Course Vital Signs 08/17/19 08/17/19 17:29 19:25 Temperature 98.5 F 98.5 F Pulse Rate 88 99 H Respiratory 18 18 Rate Blood Pressure 157/113 145/107 [Right] O2 Sat by Pulse 100 100 Oximetry ED Medical Decision Making - Lab Data Result diagrams: 08/17/19 17:56 08/17/19 17:56 Lab Results 08/17/19 08/17/19 Range/Units 17:56 17:56 WBC 7.2 (4.5-11.0) K/mm3 RBC 4.08 (3.65-5.03) M/mm3 Hgb 13.4 (10.1-14.3) gm/dl Hct 39.6 (30.3-42.9) % MCV 97 (79-97) fl MCH 33 H (28-32) pg MCHC 34 (30-34) % RDW 15.2 (13.2-15.2) % Plt Count 239 (140-440) K/mm3 Lymph % (Auto) 34.5 (13.4-35.0) % [place] % (Auto) 7.3 (0.0-7.3) % Eos % (Auto) 0.6 (0.0-4.3) % Baso % (Auto) 1.0 (0.0-1.8) % Lymph # 2.5 (1.2-5.4) K/mm3 [place] # 0.5 (0.0-0.8) K/mm3 Eos # 0.0 (0.0-0.4) K/mm3 Baso # 0.1 (0.0-0.1) K/mm3 Seg Neutrophils % 56.6 (40.0-70.0) % Seg Neutrophils # 4.1 (1.8-7.7) K/mm3 Sodium 140 (137-145) mmol/L Potassium 4.1 (3.6-5.0) mmol/L Chloride 100.8 (98-107) mmol/L Carbon Dioxide 27 (22-30) mmol/L Anion Gap 16 mmol/L BUN 14 (7-17) mg/dL Creatinine 0.7 (0.7-1.2) mg/dL Estimated GFR > 60 ml/min BUN/Creatinine Ratio 20 % Glucose 106 H (65-100) mg/dL Calcium 9.5 (8.4-10.2) mg/dL Total Bilirubin 0.20 (0.1-1.2) mg/dL AST 28 (5-40) units/L ALT 15 (7-56) units/L Alkaline Phosphatase 97 (35-129) units/L Total Protein 7.1 (6.3-8.2) g/dL Albumin 4.1 (3.9-5) g/dL Albumin/Globulin Ratio 1.4 % Vital Signs 08/17/19 08/17/19 17:29 19:25 Temperature 98.5 F 98.5 F Pulse Rate 88 99 H Respiratory 18 18 Rate Blood Pressure 157/113 145/107 [Right] O2 Sat by Pulse 100 100 Oximetry - Radiology Data Radiology results: report reviewed CHEST 2 VIEWS INDICATION / CLINICAL INFORMATION: COUGH; HX LUNG CA. Cough. COMPARISON: None available. FINDINGS: SUPPORT DEVICES: None. HEART / MEDIASTINUM: No significant abnormality. LUNGS / PLEURA: Lungs are hyperexpanded with emphysematous change. No pleural effusion. No pneumothorax. Signer Name: Brandan Chand MD Signed: 08/17/2019 5:47 PM Workstation Name: [id number] Transcribed By: HERMES Dictated By: Brandan Chand MD Electronically Authenticated By: Brandan Chand MD Signed Date/Time: 08/17/191746 DD/ 46 TD/TT: - Medical Decision Making Patient is a 43-year-old female presents emergency room with complaints of a productive cough that began a week ago. She states that she has associated co uple episodes of post tussive emesis, chest discomfort with frequent coughing, rib discomfort with frequent coughing, chest congestion. She states that she had a temperature of 100.3 two nights ago but it has since resolved. She states that she also has some mild shortness of breath and wheezing. She denies any leg swelling. She denies any recent travel or recent surgery. She has a past medical history of COPD and is still a current smoker. She states she also has a history of lung CA in December 2015. She also has a history of hypertension but did not take her medications today. She states that she does not have a linen folder currently. vitals with elevated BP secondary to patient not taking her medication, otherwise normal. labs are WNL. wells criteria low risk for PE, pt had recent CTA of the chest which was normal. lungs are clear bilaterally without w/r/r. given that pt has a hx of COPD and has had a sputum change with low grade temp, abx are indicated. pt will be treated for acute bronchitis. advised pt to please take medication as prescribed. Please follow-up with a linen folder and a primary care doctor in the next 2-3 days for reexamination. Return to the emergency room immediately for any new or worsening symptoms. please take your blood pressure medication as prescribed by your doctor. keep a blood pressure log and take your blood pressure three times a day, eat a low sodium diet, increase water intake. avoid over the counter medications that have the word DM at the end. Critical care attestation.: If time is entered above; I have spent that time in minutes in the direct care of this critically ill patient, excluding procedure time. ED Disposition Clinical Impression: Acute bronchitis with COPD, Elevated blood pressure reading Disposition: DC-01 TO HOME OR SELFCARE Is pt being admited?: No Does the pt Need Aspirin: No Condition: Stable Instructions: Acute Bronchitis (ED), Chronic Obstructive Pulmonary Disease (ED) Additional Instructions: Please take medication as prescribed. Please follow-up with a linen folder and a primary care doctor in the next 2-3 days for reexamination. Return to the emergency room immediately for any new or worsening symptoms. please take your blood pressure medication as prescribed by your doctor. keep a blood pressure log and take your blood pressure three times a day, eat a low sodium diet, increase water intake. avoid over the counter medications that have the word DM at the end. Prescriptions: guaiFENesin/DEXTROMETHORPHAN [Coricidin Hbp Chest Kelechi-Cough] 1 each PO Q8HR PRN #20 capsule PRN Reason: cough predniSONE [Deltasone] 40 mg PO DAILY 7 Days #14 tablet Doxycycline Hyclate [Doxycycline Hyclate TAB] 100 mg PO BID 7 Days #14 tablet Albuterol INH(or & Nicu Only) [ProAir HFA Inhaler] 2 puff IH QID PRN #8.5 gram PRN Reason: Shortness Of Breath Benzonatate [Tessalon Perles] 100 mg PO Q8HR PRN #14 capsule PRN Reason: cough Referrals: MARY QUINTANA MD [Staff Physician] - 2-3 Days ANTONIO CRISTINA MD [Staff Physician] - 2-3 Days [facility] [Provider Group] - 2-3 Days Time of Disposition: 19:07 Print Language: BENGALI
[2019-08-17 19:27] VITALS: BP 145/107
== END 2019-08-17 19:30 | disposition home or self-care (01) ==
LOC: ED 16:45
DX: J20.9 Acute bronchitis, unspecified (principal); J44.0 Chronic obstructive pulmonary disease with (acute) lower respiratory infection; R03.0 Elevated blood-pressure reading, without diagnosis of hypertension; E11.9 Type 2 diabetes mellitus without complications; F31.9 Bipolar disorder, unspecified; F17.200 Nicotine dependence, unspecified, uncomplicated; Z90.710 Acquired absence of both cervix and uterus; Z79.899 Other long term (current) drug therapy; Z98.890 Other specified postprocedural states; Z88.1 Allergy status to other antibiotic agents; Z88.8 Allergy status to other drugs, medicaments and biological substances
CPT/HCPCS: 36415; 71046; 80053; 85025

== ENCOUNTER 2020-11-06 16:12 | Outpatient (CLI) | payer MEDICARE ==
--- NOTE | 2020-11-06 17:36 | XRay Report ---
CHEST 2 VIEWS INDICATION / CLINICAL INFORMATION: COUGH, PAIN ON LOWER LT CHEST. FINDINGS: SUPPORT DEVICES: None. HEART / MEDIASTINUM: No significant abnormality. LUNGS / PLEURA: No significant pulmonary or pleural abnormality. No pneumothorax. ADDITIONAL FINDINGS: No significant additional findings. IMPRESSION: 1. No acute findings. Signer Name: Brandan Chand MD Signed: 11/06/2020 5:31 PM Workstation Name: [id number]
== END 2020-11-06 16:13 | disposition home or self-care (01) ==
LOC: LAB 16:12 → XRAY 16:12
PROVIDERS: ATTEND Internal Medicine Hematology & Oncology
DX: R05 Cough (principal)
CPT/HCPCS: 71046

== ENCOUNTER 2021-04-29 12:33 | Outpatient (CLI) | payer MEDICARE ==
--- NOTE | 2021-04-30 10:04 | Electrocardiograph Report ---
[facility] Test Date: 2021-04-29 Test Time: 13:11:56 Pat Name: BOBO CESAR Department: Room: Gender: F [employer] Professor: LADONNA : 1975 Requested By: ESTELA WILSON Order Number: [id number] Reading MD: Rohan Pfeiffer Measurements Intervals [place] Rate: 87 P: 55 AK: 182 QRS: 15 QRSD: 90 T: 59 QT: 370 QTc: 446 Interpretive Statements Sinus rhythm Left atrial enlargement No previous ECG available for comparison Electronically Signed On 04-30-2021 10:04:09 EDT by Rohan Pfeiffer
== END 2021-04-29 12:34 | disposition home or self-care (01) ==
LOC: CARD 12:33
PROVIDERS: ATTEND Internal Medicine Hematology & Oncology
DX: I51.7 Cardiomegaly (principal)
CPT/HCPCS: 93005

== ENCOUNTER 2021-04-30 09:50 | Emergency (ER) | payer MEDICARE ==
[2021-04-30 10:10] VITALS: BP 158/122
[2021-04-30] MEDS ORDERED: MORPHINE 4 MG/1 ML INJ IV ONE (10:25)
[2021-04-30] MEDS ORDERED: SODIUM CHLORIDE 0.9% 1000 ML 1,000 ML IV ONE (10:25)
[2021-04-30] MEDS ORDERED: ONDANSETRON 4 MG/2 ML INJ IV ONE (10:25)
[2021-04-30] MEDS ORDERED: HYOSCYAMINE SUBL 0.125 MG TAB SL ONE (10:25)
--- NOTE | 2021-04-30 10:34 | Emergency Department Report ---
ED General Adult HPI - General Chief complaint: Chest Pain Stated complaint: CP Time Seen by Provider: 04/30/21 10:25 Source: patient Mode of arrival: Ambulatory Limitations: No Limitations - History of Present Illness Initial comments: pt is a 45 yo female who presents to the ED with c/o RUQ abd pain that radiates to the periumbilical region that began 3 weeks ago. she has associated n/v/d. she states she has the diarrhea whenever she eats. she states she has only had a couple of episodes of vomiting and mostly just experiences nausea. she states o michael the last week she has also had back discomfort and chest discomfort. she denies any SOB, pleuritic pain, cough, hemoptysis, hematochezia, hematemesis, melana. she denies any recent abx or recent travel. PMHx COPD, asthma, non small cell lung cancer in remission since 2016. she has never seen GI or had a colonoscopy. she has a past abd surgical hx of hysterectomy. Severity scale (0 -10): 6 - Related Data Home Medications Medication Instructions Recorded Confirmed Last Taken Gabapentin [Neurontin] 600 mg PO TID 11/13/16 09/26/18 11/17/16 cloNIDine [Catapres] 0.1 mg PO DAILY 11/13/16 09/26/18 11/17/16 Lisinopril/Hydrochlorothiazide 1 each PO DAILY 06/16/18 09/26/18 Unknown [Zestoretic 20-25 mg] Metoprolol Succinate [Toprol Xl] 25 mg PO BID 06/16/18 09/26/18 Unknown Morphine ER [Ms Contin ER] 60 mg PO TID 06/16/18 09/26/18 Unknown Morphine [Morphine TAB] 30 mg PO QID PRN 06/16/18 09/26/18 Unknown amLODIPine 10 mg PO DAILY 06/16/18 09/26/18 Unknown Previous Rx's Medication Instructions Recorded Last Taken Type cefUROXime [Ceftin] 500 mg PO Q12H 2 Days #8 tablet 10/04/18 Unknown Rx Azithromycin [Zithromax Z-MARHTA] 250 mg PO DAILY 5 Days #6 tablet 01/22/19 Unknown Rx Benzonatate [Tessalon Perles] 100 mg PO Q8HR PRN #20 capsule 01/22/19 Unknown Rx Cetirizine HCl [Zyrtec 10mg tab] 10 mg PO DAILY #20 tablet 01/22/19 Unknown Rx Fluticasone [Flonase] 1 spray NS QDAY #1 bottle 01/22/19 Unknown Rx Prednisone [predniSONE 5 mg (6-Day 5 mg PO .TAPER #1 tab.ds.pk 01/22/19 Unknown Rx Pack, 21 Tabs)] Dicyclomine [Bentyl] 20 mg PO Q8H PRN #12 tablet 02/11/19 Unknown Rx Ondansetron (Nf) [Zofran TAB] 8 mg PO Q8HR PRN #12 tablet 02/11/19 Unknown Rx Albuterol Mdi (or & Nicu Only) 2 puff IH QID PRN #8.5 gram 08/17/19 Unknown Rx [ProAir HFA Inhaler] Benzonatate [Tessalon Perles] 100 mg PO Q8HR PRN #14 capsule 08/17/19 Unknown Rx Doxycycline Hyclate [Doxycycline 100 mg PO BID 7 Days #14 tablet 08/17/19 Unknown Rx Hyclate TAB] guaiFENesin/DEXTROMETHORPHAN 1 each PO Q8HR PRN #20 capsule 08/17/19 Unknown Rx [Coricidin Hbp Chest Kelechi-Cough] predniSONE [Deltasone] 40 mg PO DAILY 7 Days #14 tablet 08/17/19 Unknown Rx Hyoscyamine Subl [Levsin Sl 0.125 0.125 mg SL Q6HR PRN #10 tab 04/30/21 Unknown Rx TAB] Ondansetron [Zofran Odt] 4 mg PO Q8HR PRN #10 tab.rapdis 04/30/21 Unknown Rx Allergies Allergy/AdvReac Type Severity Reaction Status Date / Time amoxicillin [From Amoxil] Allergy Unknown Verified 09/26/18 15:29 dexamethasone [From Decadron] Allergy Itching Verified 09/26/18 15:29 dexamethasone sod phosphate Allergy Itching Verified 09/26/18 15:29 [From Decadron] ketorolac tromethamine Allergy Itching Verified 09/26/18 15:29 [From Toradol] latex Allergy Itching Verified 09/26/18 15:29 Latex, Natural Rubber Allergy Itching Verified 04/30/21 10:03 tramadol Allergy Itching Verified 09/26/18 15:29 ED Review of Systems ROS: Stated complaint: CP Other details as noted in HPI Comment: All other systems reviewed and negative ED Past Medical Hx - Past Medical History Hx Hypertension: Yes Hx Congestive Heart Failure: No Hx Diabetes: Yes Hx Psychiatric Treatment: Yes (bipolar, depression) Hx Asthma: Yes Hx COPD: Yes Hx Tuberculosis: No (POSITIVE SKIN TEST,NEGATIVE CXR) Hx HIV: (unknown) Additional medical history: Lung ca December 2015 - Surgical History Hx Pacemaker: No Hx Internal Defibrillator: No Additional Surgical History: right ectopic with tube removed. hysterectomy. port to left chest placed and removed. lobectomy on right side. vaginal cuff repair - Social History Smoking Status: Current Every Day Smoker Substance Use Type: Alcohol - Medications Home Medications: Home Medications Medication Instructions Recorded Confirmed Last Taken Type Gabapentin [Neurontin] 600 mg PO TID 11/13/16 09/26/18 11/17/16 History cloNIDine [Catapres] 0.1 mg PO DAILY 11/13/16 09/26/18 11/17/16 History Lisinopril/Hydrochlorothiazide 1 each PO DAILY 06/16/18 09/26/18 Unknown History [Zestoretic 20-25 mg] Metoprolol Succinate [Toprol Xl] 25 mg PO BID 06/16/18 09/26/18 Unknown History Morphine ER [Ms Contin ER] 60 mg PO TID 06/16/18 09/26/18 Unknown History Morphine [Morphine TAB] 30 mg PO QID PRN 06/16/18 09/26/18 Unknown History amLODIPine 10 mg PO DAILY 06/16/18 09/26/18 Unknown History cefUROXime [Ceftin] 500 mg PO Q12H 2 Days #8 tablet 10/04/18 Unknown Rx Azithromycin [Zithromax Z-MARTHA] 250 mg PO DAILY 5 Days #6 tablet 01/22/19 Unknown Rx Benzonatate [Tessalon Perles] 100 mg PO Q8HR PRN #20 capsule 01/22/19 Unknown Rx Cetirizine HCl [Zyrtec 10mg tab] 10 mg PO DAILY #20 tablet 01/22/19 Unknown Rx Fluticasone [Flonase] 1 spray NS QDAY #1 bottle 01/22/19 Unknown Rx Prednisone [predniSONE 5 mg (6-Day 5 mg PO .TAPER #1 tab.ds.pk 01/22/19 Unknown Rx Pack, 21 Tabs)] Dicyclomine [Bentyl] 20 mg PO Q8H PRN #12 tablet 02/11/19 Unknown Rx Ondansetron (Nf) [Zofran TAB] 8 mg PO Q8HR PRN #12 tablet 02/11/19 Unknown Rx Albuterol Mdi (or & Nicu Only) 2 puff IH QID PRN #8.5 gram 08/17/19 Unknown Rx [ProAir HFA Inhaler] Benzonatate [Tessalon Perles] 100 mg PO Q8HR PRN #14 capsule 08/17/19 Unknown Rx Doxycycline Hyclate [Doxycycline 100 mg PO BID 7 Days #14 tablet 08/17/19 Unknown Rx Hyclate TAB] guaiFENesin/DEXTROMETHORPHAN 1 each PO Q8HR PRN #20 capsule 08/17/19 Unknown Rx [Coricidin Hbp Chest Kelechi-Cough] predniSONE [Deltasone] 40 mg PO DAILY 7 Days #14 tablet 08/17/19 Unknown Rx Hyoscyamine Subl [Levsin Sl 0.125 0.125 mg SL Q6HR PRN #10 tab 04/30/21 Unknown Rx TAB] Ondansetron [Zofran Odt] 4 mg PO Q8HR PRN #10 tab.rapdis 04/30/21 Unknown Rx ED Physical Exam - General Limitations: No Limitations General appearance: alert, in no apparent distress - Head Head exam: Present: atraumatic, normocephalic - Eye Eye exam: Present: normal appearance - ENT ENT exam: Present: mucous membranes moist - Respiratory Respiratory exam: Present: normal lung sounds bilaterally. Absent: respiratory distress, wheezes, rales, rhonchi, stridor, chest wall tenderness, accessory muscle use, decreased breath sounds, prolonged expiratory - Cardiovascular Cardiovascular Exam: Present: regular rate, normal rhythm, normal heart sounds. Absent: systolic murmur, diastolic murmur, rubs, gallop - GI/Abdominal GI/Abdominal exam: Present: soft, tenderness (RUQ), normal bowel sounds. Absent: distended, guarding, rebound, rigid - Neurological Exam Neurological exam: Present: alert, oriented X3 - Psychiatric Psychiatric exam: Present: normal affect, normal mood - Skin Skin exam: Present: warm, dry, intact ED Course Vital Signs 04/30/21 10:08 Temperature 98.4 F Pulse Rate 85 Respiratory 20 Rate Blood Pressure 158/122 [Right] O2 Sat by Pulse 98 Oximetry ED Medical Decision Making - Lab Data Result diagrams: 04/30/21 10:44 04/30/21 10:44 Lab Results 04/30/21 04/30/21 04/30/21 Range/Units 10:43 10:44 10:44 WBC 5.3 (4.5-11.0) K/mm3 RBC 4.33 (3.65-5.03) M/mm3 Hgb 14.1 (10.1-14.3) gm/dl Hct 42.1 (30.3-42.9) % MCV 97 (79-97) fl MCH 33 H (28-32) pg MCHC 34 (30-34) % RDW 13.8 (13.2-15.2) % Plt Count 248 (140-440) K/mm3 Lymph % (Auto) 24.8 (13.4-35.0) % [place] % (Auto) 7.0 (0.0-7.3) % Eos % (Auto) 0.4 (0.0-4.3) % Baso % (Auto) 0.6 (0.0-1.8) % Lymph # (Auto) 1.3 (1.2-5.4) K/mm3 [place] # (Auto) 0.4 (0.0-0.8) K/mm3 Eos # (Auto) 0.0 (0.0-0.4) K/mm3 Baso # (Auto) 0.0 (0.0-0.1) K/mm3 Seg Neutrophils % 67.2 (40.0-70.0) % Seg Neutrophils # 3.6 (1.8-7.7) K/mm3 Sodium 140 (137-145) mmol/L Potassium 3.7 (3.6-5.0) mmol/L Chloride 101.6 (98-107) mmol/L Carbon Dioxide 23 (22-30) mmol/L Anion Gap 19 mmol/L BUN 7 (7-17) mg/dL Creatinine 0.5 L (0.6-1.2) mg/dL Estimated GFR > 60 ml/min BUN/Creatinine Ratio 14 % Glucose 88 (65-100) mg/dL Calcium 9.4 (8.4-10.2) mg/dL Total Bilirubin 0.50 (0.1-1.2) mg/dL AST 32 (5-40) units/L ALT 24 (7-56) units/L Alkaline Phosphatase 82 (35-129) units/L Troponin T < 0.010 (0.00-0.029) ng/mL Total Protein 8.1 (6.3-8.2) g/dL Albumin 4.4 (3.9-5) g/dL Albumin/Globulin Ratio 1.2 % Lipase 28 (13-60) units/L Urine Color Straw (Yellow) Urine Turbidity Clear (Clear) Urine pH 5.0 (5.0-7.0) Ur Specific [place] 1.005 (1.003-1.030) Urine Protein <15 mg/dl (Negative) mg/dL Urine Glucose (UA) Neg (Negative) mg/dL Urine Ketones Neg (Negative) mg/dL Urine Blood Sm (Negative) Urine Nitrite Neg (Negative) Urine Bilirubin Neg (Negative) Urine Urobilinogen < 2.0 (<2.0) mg/dL Ur Leukocyte Esterase Neg (Negative) Urine WBC (Auto) < 1.0 (0.0-6.0) /HPF Urine RBC (Auto) 1.0 (0.0-6.0) /HPF U Epithel Cells (Auto) 3.0 (0-13.0) /HPF Urine Bacteria (Auto) 1+ (Negative) /HPF Urine Mucus Few /HPF - EKG Data EKG shows normal: sinus rhythm, axis, intervals, QRS complexes Rate: normal - EKG Data 04/30/21 20:58 ST elevation likely from normal early repolarization No STEMI - Radiology Data Radiology results: report reviewed Ordering Physician: MARYCHUY SCHROEDER Date of Service: 04/30/21 Procedure(s): XR chest routine 2V Accession Number(s): [id number] cc: MARYCHUY SCHROEDER Fluoro Time In Minutes: CHEST 2 VIEWS INDICATION: Chest pain. COMPARISON: 11/06/2020 FINDINGS: Support devices: None. Heart: Within normal limits. Lungs/pleura: No acute air space or interstitial disease. No pneumothorax. Additional findings: None. IMPRESSION: No acute findings. No change since 11/06/2020. Signer Name: David Sandhu Jr, MD Signed: 04/30/2021 11:16 AM Workstation Name: [id number] Transcribed By: TTR Dictated By: DAVID SANDHU JR, MD Electronically Authenticated By: DAVID SANDHU JR, MD Signed Date/Time: 04/30/21 1116 DD/ 1115 TD/TT: Ordering Physician: MARYCHUY SCHROEDER Date of Service: 04/30/21 Procedure(s): CT abdomen pelvis w con Accession Number(s): [id number] cc: MARYCHUY SCHROEDER CT ABDOMEN AND PELVIS WITH CONTRAST HISTORY: RUQ abd pain radiates to periumbilicus, N/V/D, 100ml of omnipaque 300 given COMPARISON: 02/11/2019 TECHNIQUE: Axial CT images were obtained through the abdomen and pelvis after 100 cc of Omnipaque 300 IV contrast. Sagittal and coronal reformatted images. All CT scans at this location are performed using CT dose reduction for ALARA by means of automated exposure control. FINDINGS: CT ABDOMEN: Lung Bases: Clear. Liver: No significant abnormality. Biliary: No significant abnormality. Spleen: No significant abnormality. Unenlarged. Pancreas: No significant abnormality. Adrenals: No significant abnormality. Kidneys: The right kidney and collecting system remain unremarkable. Approximate 2.5 cm left renal cyst near mid pole with adjacent 2 stones measuring up to 5 mm are unchanged. No ureteral stones or hydronephrosis. Lymphatics: No lymphadenopathy. Vasculature: No significant abnormality. Bowel/Peritoneum: No significant abnormality. No free air. No free fluid. Normal appendix. CT PELVIS: : Stable hysterectomy changes. The vaginal cuff, bladder and adnexal regions are unremarkable. Osseous Structures: No significant abnormality. Additional Findings: None IMPRESSION: No acute process is appreciated. No change since 02/11/2019 exam. Left renal cyst versus dilated calyx and left nephrolithiasis are again noted and unchanged. Signer Name: David Sandhu Jr, MD Signed: 04/30/2021 12:12 PM Workstation Name: [id number] Transcribed By: TTR Dictated By: DAVID SANDHU JR, MD Electronically Authenticated By: DAVID SANDHU JR, MD Signed Date/Time: 04/30/21 1212 DD/ 1208 TD/TT: - Medical Decision Making pt is a 45 yo female who presents to the ED with c/o RUQ abd pain that radiates to the periumbilical region that began 3 weeks ago. she has associated n/v/d. she states she has the diarrhea whenever she eats. she states she has only had a couple of episodes of vomiting and mostly just experiences nausea. she states over the last week she has also had back discomfort and chest discomfort. she denies any SOB, pleuritic pain, cough, hemoptysis, hematochezia, hematemesis, melana. she denies any recent abx or recent travel. PMHx COPD, asthma, non small cell lung cancer in remission since 2017. she has never seen GI or had a colonoscopy. she has a past abd surgical hx of hysterectomy. Patient has right upper quadrant tenderness on exam, no guarding, no rebound, no rigidity, no peritoneal signs. Labs are normal. troponin is negative. EKG without evidence of ischemia or infarction, symptoms have been ongoing for >48 hours, do not suspect ACS at this time. UA without evidence of significant UTI. Chest x-ray: No acute findings. No change since 11/06/2020. CT abdomen pelvis with IV contrast: No acute process is appreciated. No change since 02/11/2019 exam. Left renal cyst versus dilated calyx and left nephrolithiasis are again noted and unchanged. Patient given medications while in the emergency department with improvement of symptoms, she had no episodes of vomiting or diarrhea while in the ER. symptoms could be related to IBS vs IBD, no signs of abscess or perforation or infectious abdominal pathology on CT at this time. Discussed the importance of outpatient primary care and GI follow-up. Discussed all results with patient and answer questions. Discussed return precautions. Advised patient please take medication as prescribed as needed. increase your fluid intake. eat a bland liquid diet and slowly advance your diet as tolerated. follow up with a primary care doctor. follow up with a GI doctor. return to the emergency room for any new or worsening symptoms. Critical care attestation.: If time is entered above; I have spent that time in minutes in the direct care of this critically ill patient, excluding procedure time. ED Disposition Clinical Impression: Nausea vomiting and diarrhea, Nephrolithiasis, Renal cyst Abdominal pain Qualifiers: Abdominal location: right upper quadrant Qualified Code(s): R10.11 - Right upper quadrant pain Chest pain Qualifiers: Chest pain type: unspecified Qualified Code(s): R07.9 - Chest pain, unspecified Disposition: 01 HOME / SELF CARE / HOMELESS Is pt being admited?: No Does the pt Need Aspirin: No Condition: Stable Instructions: Viral Gastroenteritis, Adult, Abdominal Pain, Adult Additional Instructions: please take medication as prescribed as needed. increase your fluid intake. eat a bland liquid diet and slowly advance your diet as tolerated. follow up with a primary care doctor. follow up with a GI doctor. return to the emergency room for any new or worsening symptoms. Prescriptions: Hyoscyamine Subl [Levsin Sl 0.125 TAB] 0.125 mg SL Q6HR PRN #10 tab PRN Reason: abd cramping/diarrhea Ondansetron [Zofran Odt] 4 mg PO Q8HR PRN #10 tab.rapdis PRN Reason: nausea/vomiting Referrals: [facility] [Provider Group] - 3-5 Days your, primary care doctor [Other] - 3-5 Days Time of Disposition: 12:31 Print Language: FINNISH
[2021-04-30 11:10] LABS: Bacteria,Urine 1+ /HPF (Negative); Bilirubin,Urine NEG (Negative); Blood,Urine SM (Negative); Color,Urine Straw (Yellow); Mucus,Urine FEW /HPF; Protein,Urine <15 mg/dL mg/dL (Negative); Urobilinogen,Urine < 2.0 mg/dL (<2.0); WBC,Urine < 1.0 /HPF (0.0-6.0)
[2021-04-30 11:14] LABS: Basophils % (Auto) 0.6 % (0.0-1.8); Eosinophils % (Auto) 0.4 % (0.0-4.3); Hematocrit 42.1 % (30.3-42.9); Hemoglobin 14.1 gm/dl (10.1-14.3); Lymphocytes # (Auto) 1.3 K/mm3 (1.2-5.4); Lymphocytes % (Auto) 24.8 % (13.4-35.0); Mean Corpuscular HGB Conc 34 % (30-34); Mean Corpuscular Volume 97 fl (79-97); Monocytes # (Auto) 0.4 K/mm3 (0.0-0.8); Platelet Count 248 K/mm3 (140-440); Red Blood Count 4.33 M/mm3 (3.65-5.03); Red Cell Distribution Width 13.8 % (13.2-15.2)
--- NOTE | 2021-04-30 11:20 | XRay Report ---
CHEST 2 VIEWS INDICATION: Chest pain. COMPARISON: 11/06/2020 FINDINGS: Support devices: None. Heart: Within normal limits. Lungs/pleura: No acute air space or interstitial disease. No pneumothorax. Additional findings: None. IMPRESSION: No acute findings. No change since 11/06/2020. Signer Name: David Sandhu Jr, MD Signed: 04/30/2021 11:16 AM Workstation Name: [id number]
[2021-04-30 11:25] LABS: Alanine Aminotransferase 24 units/L (7-56); Albumin 4.4 g/dL (3.9-5); Blood Urea Nitrogen 7 mg/dL (7-17); Calcium 9.4 mg/dL (8.4-10.2); Hemolysis Index 21
[2021-04-30 11:27] LABS: BUN/Creatinine Ratio 14
--- NOTE | 2021-04-30 12:16 | Cat Scan Report ---
CT ABDOMEN AND PELVIS WITH CONTRAST HISTORY: RUQ abd pain radiates to periumbilicus, N/V/D, 100ml of omnipaque 300 given COMPARISON: 02/11/2019 TECHNIQUE: Axial CT images were obtained through the abdomen and pelvis after 100 cc of Omnipaque 300 IV contrast. Sagittal and coronal reformatted images. All CT scans at this location are performed us ing CT dose reduction for ALARA by means of automated exposure control. FINDINGS: CT ABDOMEN: Lung Bases: Clear. Liver: No significant abnormality. Biliary: No significant abnormality. Spleen: No significant abnormality. Unenlarged. Pancreas: No significant abnormality. Adrenals: No significant abnormality. Kidneys: The right kidney and collecting system remain unremarkable. Approximate 2.[address] renal [address] near mid pole with adjacent 2 stones measuring up to 5 mm are unchanged. No ureteral stones or hyd ronephrosis. Lymphatics: No lymphadenopathy. Vasculature: No significant abnormality. Bowel/Peritoneum: No significant abnormality. No free air. No free fluid. Normal appendix. CT PELVIS: : Stable hysterectomy changes. The vaginal cuff, bladder and adnexal regions are unremarkable. Osseous Structures: No significant abnormality. Additional Findings: None IMPRESSION: No acute process is appreciated. No change since 02/11/2019 exam. Left renal cyst versus dilated calyx and left nephrolithiasis are again noted and unchanged. Signer Name: David Sandhu Jr, MD Signed: 04/30/2021 12:12 PM Workstation Name: [id number]
--- NOTE | 2021-05-02 08:42 | Electrocardiograph Report ---
[facility] Test Date: 2021-04-30 Test Time: 10:05:45 Pat Name: BOBO CESAR Department: Room: Gender: F [employer] Ret[employer]: OLVIN : 1975 Requested By: ED DOC Order Number: [id number] Reading MD: Rohan Pfeiffer Measurements Intervals [place] Rate: 73 P: 33 MO: 184 QRS: -6 QRSD: 83 T: 54 QT: 410 QTc: 454 Interpretive Statements Sinus rhythm nonspecific st-t Compared to ECG 04/29/2021 13:11:56 ST (T wave) deviation now present Atrial abnormality no longer present Electronically Signed On 05-02-2021 8:41:51 EDT by Rohan Pfeiffer
== END 2021-04-30 12:35 | disposition home or self-care (01) ==
LOC: ED 09:50
DX: N20.0 Calculus of kidney (principal); R11.10 Vomiting, unspecified; N28.1 Cyst of kidney, acquired; R07.9 Chest pain, unspecified; I10 Essential (primary) hypertension; E11.8 Type 2 diabetes mellitus with unspecified complications; J44.9 Chronic obstructive pulmonary disease, unspecified; Z98.890 Other specified postprocedural states; F17.200 Nicotine dependence, unspecified, uncomplicated; Z88.0 Allergy status to penicillin; Z88.5 Allergy status to narcotic agent; Z88.6 Allergy status to analgesic agent; Z88.8 Allergy status to other drugs, medicaments and biological substances; Z91.040 Latex allergy status
CPT/HCPCS: 36415; 71046; 74177; 80053; 81001; 83690; 84484; 85025; 93005; 96361; 96374; 96375; 99284; J2270; J2405; J7030; Q9967

== ENCOUNTER 2021-06-28 09:44 | Emergency (ER) | payer MEDICARE ==
--- NOTE | 2021-06-28 10:13 | Emergency Department Report ---
ED Extremity Problem HPI - General Chief complaint: Extremity Injury, Lower Stated complaint: RIGHT FOOT WITH GLASS IN IT Time Seen by Provider: 06/28/21 09:52 Source: patient Mode of arrival: Ambulatory Limitations: No Limitations - History of Present Illness Initial comments: 45 year old female presents to ED with complaints of right medial heel pain. She states she noticed it about 2 weeks ago. She states she think she may have a piece of glass in her heel. She states that sometime during the summertime she did step on a piece of glass from a broken vase. She states that she thought she removed all the pieces from her heel. She states that after removing the pieces she had no issues with her heel but at the same time she was not wearing any closed shoes. She states that she noticed the pain 2 weeks ago when she was trying to put her boots on and since then has been getting worse, in terms of swelling, more painful and appears to be a little bit bruised. She denies any recent injury other than stepped on the glass during the summertime. She reports no additional symptoms at this time. MD Complaint: other (right heel pain/possible FB) -: week(s) (2) - Related Data Home Medications Medication Instructions Recorded Confirmed Last Taken Gabapentin [Neurontin] 600 mg PO TID 11/13/16 09/26/18 11/17/16 cloNIDine [Catapres] 0.1 mg PO DAILY 11/13/16 09/26/18 11/17/16 Lisinopril/Hydrochlorothiazide 1 each PO DAILY 06/16/18 09/26/18 Unknown [Zestoretic 20-25 mg] Metoprolol Succinate [Toprol Xl] 25 mg PO BID 06/16/18 09/26/18 Unknown Morphine ER [Ms Contin ER] 60 mg PO TID 06/16/18 09/26/18 Unknown Morphine [Morphine TAB] 30 mg PO QID PRN 06/16/18 09/26/18 Unknown amLODIPine 10 mg PO DAILY 06/16/18 09/26/18 Unknown Previous Rx's Medication Instructions Recorded Last Taken Type predniSONE [Deltasone] 40 mg PO DAILY 7 Days #14 tablet 08/17/19 Unknown Rx Clindamycin [Clindamycin CAP] 300 mg PO Q6H #40 capsule 06/28/21 Unknown Rx HYDROcodone/APAP 7.5-325 [[place] 1 each PO Q6HR PRN #10 tablet 06/28/21 Unknown Rx 7.5/325] Allergies Allergy/AdvReac Type Severity Reaction Status Date / Time amoxicillin [From Amoxil] Allergy Unknown Verified 09/26/18 15:29 dexamethasone [From Decadron] Allergy Itching Verified 09/26/18 15:29 dexamethasone sod phosphate Allergy Itching Verified 09/26/18 15:29 [From Decadron] ketorolac tromethamine Allergy Itching Verified 09/26/18 15:29 [From Toradol] latex Allergy Itching Verified 09/26/18 15:29 Latex, Natural Rubber Allergy Itching Verified 04/30/21 10:03 tramadol Allergy Itching Verified 09/26/18 15:29 ED Review of Systems ROS: Stated complaint: RIGHT FOOT WITH GLASS IN IT Other details as noted in HPI Comment: All other systems reviewed and negative Musculoskeletal: joint swelling, arthralgia Skin: other (possible FB ) Neurological: denies: headache, weakness, numbness, paresthesias, confusion, abnormal gait, vertigo Psychiatric: denies: anxiety, depression, auditory hallucinations, visual hallu cinations, homicidal thoughts, suicidal thoughts Hematological/Lymphatic: denies: easy bleeding, easy bruising ED Past Medical Hx - Past Medical History Hx Hypertension: Yes Hx Congestive Heart Failure: No Hx Diabetes: Yes Hx Psychiatric Treatment: Yes (bipolar, depression) Hx Asthma: Yes Hx COPD: Yes Hx Tuberculosis: No (POSITIVE SKIN TEST,NEGATIVE CXR) Hx HIV: (unknown) Additional medical history: Lung ca December 2015 - Surgical History Hx Pacemaker: No Hx Internal Defibrillator: No Additional Surgical History: right ectopic with tube removed. hysterectomy. port to left chest placed and removed. lobectomy on right side. vaginal cuff repair - Social History Smoking Status: Current Every Day Smoker Substance Use Type: Alcohol - Medications Home Medications: Home Medications Medication Instructions Recorded Confirmed Last Taken Type Gabapentin [Neurontin] 600 mg PO TID 11/13/16 09/26/18 11/17/16 History cloNIDine [Catapres] 0.1 mg PO DAILY 11/13/16 09/26/18 11/17/16 History Lisinopril/Hydrochlorothiazide 1 each PO DAILY 06/16/18 09/26/18 Unknown History [Zestoretic 20-25 mg] Metoprolol Succinate [Toprol Xl] 25 mg PO BID 06/16/18 09/26/18 Unknown History Morphine ER [Ms Contin ER] 60 mg PO TID 06/16/18 09/26/18 Unknown History Morphine [Morphine TAB] 30 mg PO QID PRN 06/16/18 09/26/18 Unknown History amLODIPine 10 mg PO DAILY 06/16/18 09/26/18 Unknown History predniSONE [Deltasone] 40 mg PO DAILY 7 Days #14 tablet 08/17/19 Unknown Rx Clindamycin [Clindamycin CAP] 300 mg PO Q6H #40 capsule 06/28/21 Unknown Rx HYDROcodone/APAP 7.5-325 [[place] 1 each PO Q6HR PRN #10 tablet 06/28/21 Unknown Rx 7.5/325] ED Physical Exam - General Limitations: No Limitations General appearance: alert, in no apparent distress - Head Head exam: Present: atraumatic, normocephalic, normal inspection - Eye Eye exam: Present: normal appearance, PERRL, EOMI Pupils: Present: normal accommodation - Neck Neck exam: Present: normal inspection, full ROM - Respiratory Respiratory exam: Present: normal lung sounds bilaterally. Absent: respiratory distress, wheezes, rales, rhonchi, stridor - Cardiovascular Cardiovascular Exam: Present: regular rate, normal rhythm, normal heart sounds - Expanded Lower Extremity Exam Right Foot/Toe exam: Present: tenderness (Moderate tender swollen area noted to medial right heel with mild bruising or hyperpigment discoloration; No cellulitis. No apparent fluctuance or apparent fb. ) Neuro vascular tendon exam: Present: no vascular compromise. Absent: abnormal cap refill, motor deficit, sensory deficit, tendon deficit Gait: Positive: observed and limited by pain - Neurological Exam Neurological exam: Present: alert, oriented X3, CN II-XII intact, normal gait - Psychiatric Psychiatric exam: Present: normal affect, normal mood - Skin Skin exam: Present: intact ED Course Vital Signs 06/28/21 09:48 Temperature 99.4 F Pulse Rate 87 Respiratory 18 Rate Blood Pressure 162/116 O2 Sat by Pulse 99 Oximetry - Procedure Description Procedures done: foreign body removal: Right heel. Anesthesia used-1% lidocaine. T shaped Incision made using an 11 inch blade. Use forceps to remove piece of glass. Glass appeared to be intact when removed. Area irrigated with saline. Wound not closed. X-ray post removal shows removal of foreign body and no additional foreign body. Dressing applied. Patient tolerated procedure well without any complications ED Medical Decision Making - Radiology Data Radiology results: report reviewed Patient: BOBO CESAR MR#: [id number] : 1975 Acct:[id number] Age/Sex: 45 / F ADM Date: 06/28/21 Loc: ED Attending Dr: Ordering Physician: BELLA WORTHINGTON Date of Service: 06/28/21 Procedure(s): XR foot 3+V RT Accession Number(s): [id number] cc: BELLA WORTHINGTON Fluoro Time In Minutes: Right foot-3 views INDICATION: medial heel pain/possible FB. COMPARISON: None. IMPRESSION: There is a triangular foreign body in the soft tissues of the heel along the plantar surface measuring up to 7 mm in maximal dimension seen on the lateral view. No acute osseous abnormality identified. Remaining soft tissues are unremarkable. Normal alignment. No significant DJD. Signer Name: Devin Leslie MD Signed: 06/28/2021 10:39 AM Workstation Name: [id number] Transcribed By: AIDA Dictated By: Devin Leslie MD Electronically Authenticated By: Devin Leslie MD Signed Date/Time: 06/28/21 1039 DD/ 1038 TD/TT: Patient: BOBO CESAR MR#: [id number] : 1975 Acct:[id number] Age/Sex: 45 / F ADM Date: 06/28/21 Loc: ED Attending Dr: Ordering Physician: BELLA WORTHINGTON Date of Service: 06/28/21 Procedure(s): XR foot 1V RT Accession Number(s): [id number] cc: BELLA WORTHINGTON Fluoro Time In Minutes: Single lateral view of the right foot. INDICATION: post FB removal. COMPARISON: Earlier today IMPRESSION: Previously noted foreign body has been removed. Signer Name: Devin Leslie MD Signed: 06/28/2021 12:28 PM Workstation Name: [id number] Transcribed By: JW Dictated By: Devin Leslie MD Electronically Authenticated By: Devin Leslie MD Signed Date/Time: 06/28/211227 DD/ 26 TD/TT: Critical care attestation.: If time is entered above; I have spent that time in minutes in the direct care of this critically ill patient, excluding procedure time. ED Disposition Clinical Impression: Foreign body in foot, right, Puncture wound of foot Disposition: HOME / SELF CARE / HOMELESS Is pt being admited?: No Does the pt Need Aspirin: No Condition: Stable Instructions: Puncture Wound, [id number], Wound Care, Adult Additional Instructions: Keep the wound clean daily with soap and water. Do not use peroxide or alcohol. Apply a thin layer of Neosporin after each cleaning. Take the Keflex as prescribed to completion. The wound should heal in about 1 to 2 weeks. Follow- up closely with your PCP. Return to the ER if your symptoms worsens or changes in any way. Prescriptions: Clindamycin [Clindamycin CAP] 300 mg PO Q6H #40 capsule HYDROcodone/APAP 7.5-325 [[place] 7.5/325] 1 each PO Q6HR PRN #10 tablet PRN Reason: Pain Referrals: PRIMARY CARE, [Primary Care Provider] - 2-3 Days (For wound check) Forms: Work/School Release Form(ED) Time of Disposition: 12:16 Print Language: KU[place]I
--- NOTE | 2021-06-28 10:43 | XRay Report ---
Right foot-3 views INDICATION: medial heel pain/possible FB. COMPARISON: None. IMPRESSION: There is a triangular foreign body in the soft tissues of the heel along the plantar warner face measuring up to 7 mm in maximal dimension seen on the lateral view. No acute osseous abnormality identified. Remaining soft tissues are unremarkable. Normal alignment. No significant DJD. Signer Name: Devin Leslie MD Signed: 06/28/2021 10:39 AM Workstation Name: [id number]
[2021-06-28] MEDS ORDERED: LIDOCAINE (1%) 10 MG/1 ML VIAL 20 ML MDV INFILTRATI ONE (10:50)
[2021-06-28] MEDS ORDERED: oxyCODONE /ACETAMINOPHEN 5-325MG TAB PO ONE (11:03)
[2021-06-28] MEDS ORDERED: NEOMY 3.5 MG/BACIT 400 UNITS/POLY B 5000 UNITS/GM OINT PACKET TP ONE (12:14)
[2021-06-28] MEDS ORDERED: IBUPROFEN 600 MG TAB PO ONE (12:14)
--- NOTE | 2021-06-28 12:32 | XRay Report ---
Single lateral view of the right foot. INDICATION: post FB removal. COMPARISON: Earlier today IMPRESSION: Previously noted foreign body has been removed. Signer Name: Devin Leslie MD Signed: 06/28/2021 12:28 PM Workstation Name: [id number]
[2021-06-28 12:48] VITALS: BP 133/83
== END 2021-06-28 12:48 | disposition home or self-care (01) ==
LOC: ED 09:44
DX: S91.341A Puncture wound with foreign body, right foot, initial encounter (principal); I10 Essential (primary) hypertension; E11.8 Type 2 diabetes mellitus with unspecified complications; F31.9 Bipolar disorder, unspecified; J45.909 Unspecified asthma, uncomplicated; J44.9 Chronic obstructive pulmonary disease, unspecified; Z90.710 Acquired absence of both cervix and uterus; Z98.890 Other specified postprocedural states; F17.200 Nicotine dependence, unspecified, uncomplicated; Z88.1 Allergy status to other antibiotic agents; Z88.8 Allergy status to other drugs, medicaments and biological substances; X58.XXXA Exposure to other specified factors, initial encounter; Y93.89 Activity, other specified; Y92.89 Other specified places as the place of occurrence of the external cause; Y99.8 Other external cause status
CPT/HCPCS: 10120; 73620; 73630; 99284; J3490

== ENCOUNTER 2022-03-21 16:30 | Emergency (ER) | payer MEDICARE | END 2022-03-22 16:40 | disposition left against medical advice (07) | LOC: ED 16:30 | DX: S01.81XA Laceration without foreign body of other part of head, initial encounter (principal); Z53.21 Procedure and treatment not carried out due to patient leaving prior to being seen by health care provider; X58.XXXA Exposure to other specified factors, initial encounter; Y93.89 Activity, other specified; Y92.89 Other specified places as the place of occurrence of the external cause; Y99.8 Other external cause status ==